=== PATIENT | male | born 1955 | race Caucasian/White ===

== ENCOUNTER 2020-05-18 14:01 | Inpatient (IN) | payer MEDICARE, OTHER ==
[2020-05-18] VITALS (9 sets, daily range): BP systolic 88–142; BP diastolic 55–94
[~2020-05-18] VITALS: Ht 172.7 cm; Wt 64.0 kg
[2020-05-18] MEDS ORDERED: PANTOPRAZOLE 40 MG 10ML VIAL IV STA (14:15)
[2020-05-18] MEDS ORDERED: SODIUM CHLORIDE 0.9% 1000ML 1,000 ML IV STA ×2 (14:15→15:00)
[2020-05-18 14:59] LABS: BASOPHILS % 0.5 % (0.0-1.0); EOSINOPHILS # (AUTO) 0.2 (0.0-0.4); EOSINOPHILS % 2.1 % (0.0-6.0); HEMATOCRIT 27.9 % (38.2-49.6); HEMOGLOBIN 9.4 g/dL (14.0-18.0); LYMPHOCYTES # (AUTO) 1.9 (1.0-3.2); LYMPHOCYTES % 24.7 % (18.0-39.1); MEAN CORPUSCULAR HEMOGLOBIN 30.6 pg (28-32); MEAN CORPUSCULAR HGB CONC 33.7 g/dL (31-35); MEAN CORPUSCULAR VOLUME 90.9 fL (81-99); MONOCYTES # (AUTO) 0.9 (0.2-0.8); MONOCYTES % 11.3 % (4.4-11.3); NEUTROPHILS # (AUTO) 4.6 (2.1-6.9); PLATELET COUNT 117 x10e3/uL (140-360); RED BLOOD COUNT 3.07 x10e6/uL (4.3-5.7); RED CELL DISTRIBUTION WIDTH 13.4 % (11.7-14.4)
--- NOTE | 2020-05-18 15:03 | Diagnostic Imaging Report ---
EXAMINATION: CHEST SINGLE (PORTABLE) INDICATION: Hypotension COMPARISON: None FINDINGS: LINES/TUBES:None LUNGS:The lungs are moderately inflated. No focal consolidation or pulmonary edema. PLEURA:No pleural effusion or pneumothorax. MEDIASTINUM:The cardiomediastinal silhouette appears normal in size and shape. BONES/SOFT TISSUES:No acute osseous injury. ABDOMEN:No free air under the diaphragm. IMPRESSION: No focal pneumonia or pulmonary edema. Signed by: Benoit Otero MD on 05/18/2020 2:59 PM
[2020-05-18 15:08] LABS: BILIRUBIN,URINE NEGATIVE (NEGATIVE); CLARITY,URINE CLEAR (CLEAR); COLOR,URINE YELLOW (YELLOW); KETONES,URINE NEGATIVE (NEGATIVE); LEUKOCYTE ESTERASE ,URINE NEGATIVE (NEGATIVE); NITRITE,URINE NEGATIVE (NEGATIVE); PROTEIN,URINE DIPSTICK NEGATIVE (NEGATIVE); URINE UROBILINOGEN 0.2 mg/dL (0.2 - 1)
[2020-05-18 15:10] LABS: INR 0.92; PROTHROMBIN TIME 12.8 seconds (11.9-14.5)
[2020-05-18 15:11] LABS: PARTIAL THROMBOPLASTIN TIME 30.2 seconds (23.8-35.5)
[2020-05-18 15:19] LABS: ALBUMIN 3.3 g/dL (3.5-5.0); ANION GAP 16.3 mmol/L (8-16); CALCIUM 9.2 mg/dL (8.4-10.2); CREATININE, SERUM 3.59 mg/dL (0.72-1.25); MAGNESIUM 1.6 MG/DL (1.3-2.1); POTASSIUM 5.3 mmol/L (3.5-5.1)
[2020-05-18 15:23] LABS: B-TYPE NATRIURETIC PEPTIDE2 84.5 pg/mL (0-100)
[2020-05-18 15:25] LABS: AMORPHOUS SEDIMENT,URINE MODERATE (FEW); BACTERIA,URINE MODERATE /HPF; EPITHELIAL CELLS,URINE FEW /LPF; RENAL EPITHELIAL CELLS,URINE FEW
[2020-05-18] MEDS: CEFEPIME 2 GM/NS 0.9% 100 ML 100 ML IV SCH (15:37)
[2020-05-18] MEDS ORDERED: VANCOMYCIN 1GM/NS 250 ML 250 ML IV ONE (15:45)
[2020-05-18] MEDS ORDERED: ONDANSETRON HCL INJ 2MG/ML 2ML 2 MG/ML VIAL IV PRN ×2 (16:45→21:15)
--- OUTSIDE RECORDS SUMMARY | 2020-05-18 16:50 | XMS REPORT | Clinical Summary ---
Author Author [facility]St[facility]Virtual [facility] Center[facility] Address Unknown Phone Unavailable Care Team Providers Care Chemical Test Engineer Name Role Phone Sharpless PCP Allergies Comments Active Allergy Reactions Severity Noted Date Lorazepam 06/09/2014 Tetanus Toxoid Fluid Tetanus Vaccines And 06/09/2014 Toxoid Medications End Date Status Medication Sig Dispensed Refills Start Date Active metoprolol (LOPRESSOR) 50 Take 1 tablet 60 tablet 0 06/10/ MG tablet (50 mg total) 4 by mouth 2 (two) times daily. Active atorvastatin (LIPITOR) 40 Take 40 mg by 0 MG tablet mouth daily. Active gabapentin (NEURONTIN) Take 300 mg 0 300 MG capsule by mouth 3 (three) times daily. Active captopril (CAPOTEN) 12.5 Take 12.5 mg 0 MG tablet by mouth 2 (two) times daily . Active clopidogrel (PLAVIX) 75 Take 75 mg by 0 mg tablet mouth daily. Active fludrocortisone Take 0.1 mg 0 (FLORINEF) 0.1 mg tablet by mouth daily. Active aspirin 81 MG EC tablet Take 81 mg by 0 mouth daily. Active albuterol HFA (VENTOLIN Inhale 1 puff 0 HFA) 90 mcg/actuation by mouth via inhaler inhaler every 6 (six) hours as needed for Wheezing. Active HYDROcodone-acetaminophen Take 1 tablet 0 (NORCO 7.5-325) 7.5-325 by mouth mg per tablet every 6 (six) hours as needed for Pain. Active butalbital-acetaminophen- 1 cap, PO, 0 / 0201 caff (FIORICET) 50-300-40 Q4H, PRN PRN 8 mg Cap Headache, Do not exceed 6 capsules in 24 hours, # 60 cap, 0 Refill(s) Active isosorbide mononitrate 30 mg = 1 0 06/10/2 01 (IMDUR) 30 MG 24 hr tab, PO, QAM, 8 tablet # 30 tab, 0 Refill(s) Active triamterene-hydroCHLOROth 1 tab, PO, 0 03/07 iazide (MAXZIDE) 75-50 mg Daily, # 30 8 per tablet tab, 0 Refill(s) Active traMADol (ULTRAM) 50 mg Take 50 mg by 0 tablet mouth every 6 (six) hours as needed for Pain. Active ranolazine (RANEXA) 500 Take 500 mg 0 MG 12 hr tablet by mouth 2 (two) times daily. Active buPROPion (WELLBUTRIN SR) Take 150 mg 0 150 MG 12 hr tablet by mouth 2 (two) times daily. Active methocarbamol (ROBAXIN) Take 500 mg 0 500 MG tablet by mouth 4 (four) times daily. Active QUEtiapine (SEROQUEL) 25 Take 25 mg by 0 MG tablet mouth nightly. Active Problems Problem Noted Date Acute metabolic encephalopathy 03/01/2017 Acute bronchitis 03/01/2017 Hypertension 03/01/2017 History of CEA (carotid endarterectomy) 03/01/2017 Family History Medical History Relation Name Comments Diabetes Father Heart disease Father Hypertension Father Miscarriages / Mother Stillbirths Diabetes Paternal Aunt Diabetes Paternal Uncle Relation Name Status Comments Father Mother Paternal Aunt Paternal Uncle Social History Date Tobacco Use Types Packs/Day Years Used Current Some Day Smoker 1 43 Smokeless Tobacco: Never Used Tobacco Cessation: Ready to Quit: Yes Alcohol Use Drinks/Week oz/Week Comments No Sex Assigned at Date Recorded Not on file Industry Job Start Date Occupation Not on file Not on file Not on file Travel End Travel History Travel Start No recent travel history available. Last Filed Vital Signs Not on file Plan of Treatment Not on file Results Not on fileafter 05/18/2019 Insurance Payer Benefit Subscriber ID Type Phone Address Plan / Group [facility] xxxxxxxxx MEDICARE [facility]GD CARE MEDICARE O MEDICAID - MEDICAID [facility] xxxxxxxxx Medica id CARE COMM STAR Contracted PLAN [id number] Advance Directives For more information, please contact: [facility] [address] [place], [place] [id number] Date Inactivated Comments Code Status Date Activated 03/03/2017 5:48 PM Full Code 03/01/2017 9:38 AM This code status was determined by: Patient 06/10/2014 6:38 PM Full Code 06/10/2014 12:39 AM This code status was determined by: Patient
--- OUTSIDE RECORDS SUMMARY | 2020-05-18 16:50 | XMS REPORT | Clinical Summary ---
Author Author [facility] Address Unknown Phone Unavailable Care Team Providers Care Felled Seam Operator Name Role Phone Asked, No Pcp PCP Unavailable Allergies Comments Active Allergy Reactions Severity Noted Date Pt states "i freak out" Lorazepam Other (See 12/26/2017 Comments) Medications End Date Status Medication Sig Dispensed Refills Start Date Active amLODIPine (NORVASC) 10 10 mg = 1 0 mg tablet tab, PO, 8 Daily, # 30 tab, 0 Refill(s) Active aspirin (ECOTRIN) 325 MG 325 mg = 1 0 03/17 enteric coated tablet tab, PO, 8 Daily, # 14 tab, 0 Refill(s), Pharmacy: [facility] Active aspirin 81 mg chewable 81 mg = 1 0 01 tablet tab, CHEW, 8 Daily, 0 Refill(s) Active atorvastatin (LIPITOR) 40 40 mg = 1 0 04/06201 MG tablet tab, PO, 8 Daily, 0 Refill(s) Active clopidogrel (PLAVIX) 75 75 mg = 1 0 mg tablet tab, PO, 8 Daily, 0 Refill(s) Active triamterene-hydrochloroth 1 tab, PO, 0 / iazid (MAXZIDE) 75-50 mg Daily, 0 8 per tablet Refill(s) Active isosorbide mononitrate 30 mg = 1 0 01 (IMDUR) 30 MG 24 hr tab, PO, QAM, 8 tablet 0 Refill(s) Active lisinopril 20 mg = 1 0 (PRINIVIL,ZESTRIL) 20 mg tab, PO, 8 tablet Daily, 0 Refill(s) Active methocarbamol (ROBAXIN) TAKE 2 0 07/16/ 201 500 MG tablet TABLETS BY 8 MOUTH 4 TIMES DAILY NEEDED FOR MUSCLE SPASMS/PAIN Active metoprolol tartrate 50 mg = 1 0 (LOPRESSOR) 50 mg tablet tab, PO, BID, 8 0 Refill(s) Active pantoprazole (PROTONIX) 40 mg = 1 0 40 MG EC tablet tab, PO, 8 Daily, 0 Refill(s) Active guaiFENesin (ROBITUSSIN) Take 10 mL 0 03/23 100 mg/5 mL syrup (200 mg 0 total) by mouth 3 (three) times a day as needed for congestion. 04/22/2020 albuterol (ACCUNEB) 2.5 Take 3 mL 75 mL 12 mg /3 mL (0.083 %) (2.5 mg 0 nebulizer total) by solutionIndications: nebulization Acute hypoxemic every 6 (six) respiratory failure (HCC) hours as needed for wheezing for up to 30 days. 04/23/2020 aspirin 81 mg chewable Chew 1 tablet 30 tablet 0 0 tablet (81 mg total) 0 daily for 30 days. 04/22/2020 atorvastatin (LIPITOR) 80 Take 1 tablet 30 tablet 0 MG tablet (80 mg total) 0 by mouth nightly for 30 days. 04/22/2020 bisacodyL (DULCOLAX) 10 Insert 1 0 mg suppository suppository 0 (10 mg total) into the rectum daily as needed for constipation for up to 30 days. 04/22/2020 carvediloL (COREG) 6.25 Take 1 tablet 60 tablet 0 MG tablet (6.25 mg 0 total) by mouth 2 (two) times a day for 30 days. 04/22/2020 cetirizine (ZyrTEC) 5 MG Take 1 tablet 0 03/23 tablet (5 mg total) 0 by mouth daily as needed for allergies for up to 30 days. 04/23/2020 clopidogreL (PLAVIX) 75 Take 1 tablet 30 tablet 0 mg tablet (75 mg total) 0 by mouth daily for 30 days. 04/22/2020 dextrose 50% syringe Infuse 25 mL 0 (12.5 g 0 total) into a venous catheter every 20 (twenty) minutes as needed (If blood glucose is between 41-69 mg/dL) for up to 30 days. 04/22/2020 dextrose 50% syringe Infuse 50 mL 0 (25 g total) 0 into a venous catheter every 20 (twenty) minutes as needed (If blood glucose is 40 mg/dL or LESS) for up to 30 days. 04/22/2020 docusate sodium (COLACE) Take 1 0 03/23 100 MG capsule capsule (100 0 mg total) by mouth 2 (two) times a day as needed for constipation for up to 30 days. 04/22/2020 glucagon 1 mg/mL recon Inject 1 mg 0 02 soln into the 0 shoulder, thigh, or buttocks every 15 (fifteen) minutes as needed (If patient does not have IV access and is unable to swallow) for up to 30 days. 04/22/2020 heparin sodium,porcine Inject 1 mL 90 mL 0 (HEParin, porcine,) 5,000 (5,000 Units 0 unit/mL injection total) under the skin every 8 (eight) hours for 30 days. 04/22/2020 hydrocortisone 1 % cream Apply 0 03/23 topically 2 0 (two) times a day for 30 days. 04/22/2020 insulin lispro (HumaLOG) Inject 0-5 10 mL 12 0 100 unit/mL injection Units under 0 the skin every 4 (four) hours for 30 days. 04/22/2020 ondansetron ODT Take 1 tablet 0 (ZOFRAN-ODT) 4 MG (4 mg total) 0 disintegrating tablet by mouth every 8 (eight) hours as needed for nausea or vomiting for up to 30 days. 04/22/2020 polyethylene glycol Take 17 g by 0 (MIRALAX) 17 gram packet mouth daily 0 as needed for constipation for up to 30 days. 04/22/2020 ramelteon (ROZEREM) 8 mg Take 1 tablet 0 03/23 tablet (8 mg total) 0 by mouth nightly as needed for sleep for up to 30 days. 04/22/2020 sennosides (SENOKOT) 8.8 Take 10 mL 600 mL 0 0 mg/5 mL syrup (17.6 mg 0 total) by mouth 2 (two) times a day for 30 days. Active Problems Problem Noted Date CVA (cerebral vascular accident) 03/21/2020 NSTEMI (non-ST elevated myocardial infarction) 02/21 Acute hypoxemic respiratory failure 02/16/2020 Other dysphagia 02/16/2020 Overview: Added automatically from request for rafael schrader [id number] Encounters Care Team Description Date Type Specialty Ajit Zhao MD 03/14/2020 Anesthesia Gastroenterology Event Meghna Chen MD EGD W/ PEG 03/14/2020 Surgery Gastroenterology Adonay Warner MD Cv selective angiography bypass graft [3 6299 (CPT)] 02/22/2020 Surgery Procedural Cardiolo Chapo Sood RN 02/22/2020 Orders Only Intensive Care Adonay Warner MD PCI stent 02/17/2020 Surgery Procedural Cardiolo Bart Lopez MD Arriaga, Michael, MD Younus, Osei Badillo MD Acute hypoxemic respiratory failure (HCC ) (Primary Dx); Drug overdose, undetermined intent, initial encounter; Obtunded; Acute renal failure, unspecified acute renal failure type (HCC); NSTEMI (non-ST elevated myocardial infarction) (HCC); Ventricular tachycardia (HCC); Hepatitis; Atherosclerosis of [place] coronary artery with angina pectoris, 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); Other dysphagia 02/16/2020 [facility] Internal Nd dicine - Encounter 03/23/2020 after 05/18/2019 Social History Date Tobacco Use Types Packs/Day Years Used Current Every Day Smoker Cigarettes 1 Smokeless Tobacco: Never Used Drinks/Week oz/Week Comments Alcohol Use quit drinking 40 yea rs ago No Sex Assigned at Date Recorded Not on file Industry Job Start Date Occupation Not on file Not on file Not on file Travel End Travel History Travel Start No recent travel history available. Last Filed Vital Signs Reading Time Taken Comments Vital Sign 133/81 03/23/2020 7:41 AM CDT Blood Pressure 96 03/23/2020 7:41 AM CDT Pulse 36.2 C (97.2 F) 03/23/2020 7:41 AM CDT Temperature 16 03/23/2020 7:41 AM CDT Respiratory Rate 95% 03/23/2020 7:41 AM CDT Oxygen Saturation - - Inhaled Oxygen Concentration 72.4 kg (159 lb 11.2 oz) 03/22/2020 4:25 AM CDT Weight 154.9 cm (5' 1") 02/16/2020 5:14 PM CDT Height 30.18 02/16/2020 5:14 PM CDT Body Mass Index Plan of Treatment Health Maintenance Due Date Last Done Comments COLONOSCOPY SCREENING 2006 SHINGLES VACCINES (#1) 2006 INFLUENZA VACCINE 06/07/2020 Procedures Comments Procedure Name Priority Date/Time Associated Diag nosis POC GLUCOSE Routine 03/23/2020 7:42 AM CDT POC GLUCOSE Routine 03/23/2020 5:49 AM CDT ESTIMATED GFR Routine 03/23/2020 5:30 AM CDT BASIC METABOLIC PANEL Routine 03/23/2020 5:30 AM CDT HC COMPLETE BLD COUNT Routine 03/23/2020 W/AUTO DIFF 5:30 AM CDT POC GLUCOSE Routine 03/23/2020 5:13 AM CDT POC GLUCOSE Routine 03/23/2020 1:16 AM CDT POC GLUCOSE Routine 03/22/2020 8:59 PM CDT POC GLUCOSE Routine 03/22/2020 5:51 PM CDT POC GLUCOSE Routine 03/22/2020 12:17 PM CDT POC GLUCOSE Routine 03/22/2020 8:56 AM CDT ESTIMATED GFR Routine 03/22/2020 4:28 AM CDT BASIC METABOLIC PANEL Routine 03/22/2020 4:28 AM CDT HC COMPLETE BLD COUNT Routine 03/22/2020 W/AUTO DIFF 4:27 AM CDT POC GLUCOSE Routine 03/22/2020 4:22 AM CDT POC GLUCOSE Routine 03/22/2020 12:27 AM CDT POC GLUCOSE Routine 03/21/2020 9:01 PM CDT POC GLUCOSE Routine 03/21/2020 5:23 PM CDT POC GLUCOSE Routine 03/21/2020 11:33 AM CDT POC GLUCOSE Routine 03/21/2020 7:49 AM CDT HC COMPLETE BLD COUNT Routine 03/21/2020 W/AUTO DIFF 5:20 AM CDT POC GLUCOSE Routine 03/21/2020 4:24 AM CDT ESTIMATED GFR Routine 03/21/2020 4:00 AM CDT BASIC METABOLIC PANEL Routine 03/21/2020 4:00 AM CDT POC GLUCOSE Routine 03/21/2020 1:19 AM CDT POC GLUCOSE Routine 03/20/2020 9:15 PM CDT POC GLUCOSE Routine 03/20/2020 4:15 PM CDT POC GLUCOSE Routine 03/20/2020 11:55 AM CDT POC GLUCOSE Routine 03/20/2020 7:30 AM CDT HC COMPLETE BLD COUNT Routine 03/20/2020 W/AUTO DIFF 5:10 AM CDT POC GLUCOSE Routine 03/20/2020 4:57 AM CDT ESTIMATED GFR Routine 03/20/2020 4:00 AM CDT BASIC METABOLIC PANEL Routine 03/20/2020 4:00 AM CDT POC GLUCOSE Routine 03/19/2020 8:56 PM CDT POC GLUCOSE Routine 03/19/2020 4:45 PM CDT POC GLUCOSE Routine 03/19/2020 11:31 AM CDT POC GLUCOSE Routine 03/19/2020 8:27 AM CDT POC GLUCOSE Routine 03/19/2020 5:49 AM CDT POC GLUCOSE Routine 03/18/2020 11:55 PM CDT POC GLUCOSE Routine 03/18/2020 9:30 PM CDT POC GLUCOSE Routine 03/18/2020 5:37 PM CDT POC GLUCOSE Routine 03/18/2020 11:35 AM CDT POC GLUCOSE Routine 03/18/2020 8:25 AM CDT XR CHEST 1 VW PORTABLE Routine 03/18/2020 6:20 AM CDT ESTIMATED GFR Routine 03/18/2020 4:40 AM CDT BASIC METABOLIC PANEL Routine 03/18/2020 4:40 AM CDT HC COMPLETE BLD COUNT Routine 03/18/2020 W/AUTO DIFF 4:40 AM CDT POC GLUCOSE Routine 03/18/2020 4:29 AM CDT POC GLUCOSE Routine 03/18/2020 12:12 AM CDT POC GLUCOSE Routine 03/17/2020 8:26 PM CDT POC GLUCOSE Routine 03/17/2020 5:00 PM CDT POC GLUCOSE Routine 03/17/2020 12:29 PM CDT POC GLUCOSE Routine 03/17/2020 7:42 AM CDT ESTIMATED GFR Timed 03/17/2020 6:00 AM CDT BASIC METABOLIC PANEL Timed 03/17/2020 6:00 AM CDT HC COMPLETE BLD COUNT Timed 03/17/2020 W/AUTO DIFF 6:00 AM CDT POC GLUCOSE Routine 03/17/2020 3:28 AM CDT POC GLUCOSE Routine 03/16/2020 11:28 PM CDT POC GLUCOSE Routine 03/16/2020 6:43 PM CDT POC GLUCOSE Routine 03/16/2020 3:13 PM CDT POC GLUCOSE Routine 03/16/2020 12:01 PM CDT POC GLUCOSE Routine 03/16/2020 8:24 AM CDT CBC HEMOGRAM Routine 03/16/2020 5:00 AM CDT ESTIMATED GFR Routine 03/16/2020 5:00 AM CDT BASIC METABOLIC PANEL Routine 03/16/2020 5:00 AM CDT PREALBUMIN LEVEL Routine 03/16/2020 5:00 AM CDT PHOSPHORUS LEVEL Routine 03/16/2020 5:00 AM CDT MAGNESIUM LEVEL Routine 03/16/2020 5:00 AM CDT POC GLUCOSE Routine 03/16/2020 4:30 AM CDT POC GLUCOSE Routine 03/16/2020 12:11 AM CDT POC GLUCOSE Routine 03/15/2020 8:35 PM CDT POC GLUCOSE Routine 03/15/2020 4:36 PM CDT POC GLUCOSE Routine 03/15/2020 8:10 AM CDT SMEAR REVIEW Timed 03/15/2020 5:55 AM CDT ESTIMATED GFR Timed 03/15/2020 5:55 AM CDT BASIC METABOLIC PANEL Timed 03/15/2020 5:55 AM CDT HC COMPLETE BLD COUNT Timed 03/15/2020 W/AUTO DIFF 5:55 AM CDT POC GLUCOSE Routine 03/15/2020 4:10 AM CDT POC GLUCOSE Routine 03/15/2020 12:37 AM CDT POC GLUCOSE Routine 03/14/2020 9:07 PM CDT POC GLUCOSE Routine 03/14/2020 5:09 PM CDT XR CHEST 1 VW PORTABLE Routine 03/14/2020 3:05 PM CDT POC GLUCOSE Routine 03/14/2020 1:02 PM CDT AZ AN ELECTIVE Routine 03/14/2020 ENDOTRACHEAL AIRWAY 12:40 PM CDT ESOPHAGOGASTRODUODENOSCOP 03/14/2020 Other dysph agia Y (EGD) 12:20 PM CDT POC GLUCOSE Routine 03/14/2020 9:35 AM CDT ESTIMATED GFR Timed 03/14/2020 6:00 AM CDT BASIC METABOLIC PANEL Timed 03/14/2020 6:00 AM CDT HC COMPLETE BLD COUNT Timed 03/14/2020 W/AUTO DIFF 5:20 AM CDT POC GLUCOSE Routine 03/14/2020 5:03 AM CDT POC GLUCOSE Routine 03/14/2020 1:22 AM CDT POC GLUCOSE Routine 03/13/2020 9:50 PM CDT POC GLUCOSE Routine 03/13/2020 5:06 PM CDT ESTIMATED GFR Timed 03/13/2020 12:55 PM CDT BASIC METABOLIC PANEL Timed 03/13/2020 12:55 PM CDT HC COMPLETE BLD COUNT Timed 03/13/2020 W/AUTO DIFF 12:55 PM CDT POC GLUCOSE Routine 03/13/2020 12:33 PM CDT POC GLUCOSE Routine 03/13/2020 8:15 AM CDT POC GLUCOSE Routine 03/13/2020 5:11 AM CDT POC GLUCOSE Routine 03/13/2020 12:55 AM CDT XR ABDOMEN 1 VW STAT 03/12/2020 8:10 PM CDT POC GLUCOSE Routine 03/12/2020 8:05 PM CDT XR ABDOMEN 1 VW STAT 03/12/2020 5:54 PM CDT POC GLUCOSE Routine 03/12/2020 4:53 PM CDT XR ABDOMEN 1 VW PORTABLE Routine 03/12/2020 2:17 PM CDT POC GLUCOSE Routine 03/12/2020 11:48 AM CDT XR ABDOMEN 1 VW PORTABLE Routine 03/12/2020 11:07 AM CDT POC GLUCOSE Routine 03/12/2020 9:26 AM CDT ESTIMATED GFR Routine 03/12/2020 5:33 AM CDT HC COMPLETE BLD COUNT Routine 03/12/2020 W/AUTO DIFF 5:33 AM CDT MAGNESIUM LEVEL Routine 03/12/2020 5:33 AM CDT COMPREHENSIVE METABOLIC Routine 03/12/2020 PANEL 5:33 AM CDT POC GLUCOSE Routine 03/12/2020 4:43 AM CDT POC GLUCOSE Routine 03/12/2020 12:23 AM CDT POC GLUCOSE Routine 03/11/2020 8:20 PM CDT POC GLUCOSE Routine 03/11/2020 4:46 PM CDT POC GLUCOSE Routine 03/11/2020 11:47 AM CDT POC GLUCOSE Routine 03/11/2020 9:25 AM CDT MANUAL DIFFERENTIAL Routine 03/11/2020 6:16 AM CDT ESTIMATED GFR Routine 03/11/2020 6:16 AM CDT MAGNESIUM LEVEL Routine 03/11/2020 6:16 AM CDT COMPREHENSIVE METABOLIC Routine 03/11/2020 PANEL 6:16 AM CDT CBC WITH PLATELET AND Routine 03/11/2020 DIFFERENTIAL 6:16 AM CDT POC GLUCOSE Routine 03/11/2020 5:04 AM CDT POC GLUCOSE Routine 03/11/2020 12:54 AM CDT POC GLUCOSE Routine 03/10/2020 8:28 PM CDT POC GLUCOSE Routine 03/10/2020 4:49 PM CDT POC GLUCOSE Routine 03/10/2020 12:11 PM CDT POC GLUCOSE Routine 03/10/2020 7:57 AM CDT POC GLUCOSE Routine 03/10/2020 6:21 AM CDT ESTIMATED GFR Routine 03/10/2020 4:08 AM CDT BASIC METABOLIC PANEL Routine 03/10/2020 4:08 AM CDT HC COMPLETE BLD COUNT Routine 03/10/2020 W/AUTO DIFF 4:08 AM CDT POC GLUCOSE Routine 03/10/2020 1:20 AM CDT POC GLUCOSE Routine 03/09/2020 11:15 PM CDT XR ABDOMEN 1 VW PORTABLE STAT 03/09/2020 10:13 PM CDT POC GLUCOSE Routine 03/09/2020 4:53 PM CDT FL MODIFIED BARIUM Routine 03/09/2020 SWALLOW 4:14 PM CDT POC GLUCOSE Routine 03/09/2020 1:08 PM CDT POC GLUCOSE Routine 03/09/2020 8:38 AM CDT POC GLUCOSE Routine 03/09/2020 5:14 AM CDT ESTIMATED GFR Routine 03/09/2020 5:00 AM CDT MAGNESIUM LEVEL Routine 03/09/2020 5:00 AM CDT COMPREHENSIVE METABOLIC Routine 03/09/2020 PANEL 5:00 AM CDT CBC WITH PLATELET AND Routine 03/09/2020 DIFFERENTIAL 5:00 AM CDT POC GLUCOSE Routine 03/09/2020 12:46 AM CDT POC GLUCOSE Routine 03/08/2020 8:34 PM CDT POC GLUCOSE Routine 03/08/2020 4:03 PM CDT POC GLUCOSE Routine 03/08/2020 12:04 PM CDT POC GLUCOSE Routine 03/08/2020 7:47 AM CDT POC GLUCOSE Routine 03/08/2020 5:23 AM CDT CBC WITH PLATELET AND Routine 03/08/2020 DIFFERENTIAL 5:20 AM CDT ESTIMATED GFR Routine 03/08/2020 4:00 AM CDT MAGNESIUM LEVEL Routine 03/08/2020 4:00 AM CDT COMPREHENSIVE METABOLIC Routine 03/08/2020 PANEL 4:00 AM CDT POC GLUCOSE Routine 03/08/2020 12:35 AM CDT POC GLUCOSE Routine 03/07/2020 9:03 PM CDT POC GLUCOSE Routine 03/07/2020 4:[address] CHEST WO CONTRAST Routine 03/07/2020 ABDOMEN WO CONTRAST 2:46 PM CDT PELVIS WO CONTRAST CT HEAD WO CONTRAST STAT 03/07/2020 2:46 PM CDT POC GLUCOSE Routine 03/07/2020 2:11 PM CDT URINALYSIS SCREEN AND Routine 03/07/2020 MICROSCOPY, WITH REFLEX 1:31 PM CDT TO CULTURE URINE CULTURE Routine 03/07/2020 1:31 PM CDT ARTERIAL BLOOD GAS Routine 03/07/2020 11:13 AM CDT POC GLUCOSE Routine 03/07/2020 11:04 AM CDT POC GLUCOSE Routine 03/07/2020 7:57 AM CDT ESTIMATED GFR Routine 03/07/2020 5:00 AM CDT BASIC METABOLIC PANEL Routine 03/07/2020 5:00 AM CDT CBC HEMOGRAM Routine 03/07/2020 4:52 AM CDT POC GLUCOSE Routine 03/07/2020 3:53 AM CDT POC GLUCOSE Routine 03/07/2020 12:44 AM CDT POC GLUCOSE Routine 03/06/2020 8:28 PM CDT POC GLUCOSE Routine 03/06/2020 4:48 PM CDT POC GLUCOSE Routine 03/06/2020 12:23 PM CDT POC GLUCOSE Routine 03/06/2020 9:01 AM CDT ESTIMATED GFR Routine 03/06/2020 6:11 AM CDT MAGNESIUM LEVEL Routine 03/06/2020 6:11 AM CDT COMPREHENSIVE METABOLIC Routine 03/06/2020 PANEL 6:11 AM CDT HC COMPLETE BLD COUNT Routine 03/06/2020 W/AUTO DIFF 6:11 AM CDT POC GLUCOSE Routine 03/06/2020 6:06 AM CDT POC GLUCOSE Routine 03/06/2020 3:58 AM CDT POC GLUCOSE Routine 03/06/2020 2:21 AM CDT POC GLUCOSE Routine 03/06/2020 1:08 AM CDT POC GLUCOSE Routine 03/05/2020 11:51 PM CDT POC GLUCOSE Routine 03/05/2020 8:01 PM CDT POC GLUCOSE Routine 03/05/2020 4:05 PM CDT XR ABDOMEN 1 VW PORTABLE STAT 03/05/2020 3:39 PM CDT POC GLUCOSE Routine 03/05/2020 11:50 AM CDT POC GLUCOSE Routine 03/05/2020 7:54 AM CDT ESTIMATED GFR Routine 03/05/2020 5:15 AM CDT HC COMPLETE BLD COUNT Routine 03/05/2020 W/AUTO DIFF 5:15 AM CDT MAGNESIUM LEVEL Routine 03/05/2020 5:15 AM CDT COMPREHENSIVE METABOLIC Routine 03/05/2020 PANEL 5:15 AM CDT POC GLUCOSE Routine 03/05/2020 4:51 AM CDT POC GLUCOSE Routine 03/05/2020 1:16 AM CDT POC GLUCOSE Routine 03/04/2020 8:42 PM CDT POC GLUCOSE Routine 03/04/2020 4:09 PM CDT POC GLUCOSE Routine 03/04/2020 11:53 AM CDT POC GLUCOSE Routine 03/04/2020 8:18 AM CDT HC COMPLETE BLD COUNT Timed 03/04/2020 W/AUTO DIFF 4:46 AM CDT ESTIMATED GFR Routine 03/04/2020 4:46 AM CDT BASIC METABOLIC PANEL Routine 03/04/2020 4:46 AM CDT POC GLUCOSE Routine 03/04/2020 4:36 AM CDT POC GLUCOSE Routine 03/04/2020 12:29 AM CDT POC GLUCOSE Routine 03/03/2020 8:06 PM CDT POC GLUCOSE Routine 03/03/2020 6:11 PM CDT POC GLUCOSE Routine 03/03/2020 12:36 PM CDT HC COMPLETE BLD COUNT Timed 03/03/2020 W/AUTO DIFF 10:45 AM CDT POC GLUCOSE Routine 03/03/2020 8:41 AM CDT POC GLUCOSE Routine 03/03/2020 5:29 AM CDT ESTIMATED GFR Routine 03/03/2020 4:27 AM CDT B NATRIURETIC PEPTIDE Routine 03/03/2020 4:27 AM CDT PHOSPHORUS LEVEL Routine 03/03/2020 4:27 AM CDT MAGNESIUM LEVEL Routine 03/03/2020 4:27 AM CDT BASIC METABOLIC PANEL Routine 03/03/2020 4:27 AM CDT POC GLUCOSE Routine 03/03/2020 2:03 AM CDT POC GLUCOSE Routine 03/02/2020 8:58 PM CDT POC GLUCOSE Routine 03/02/2020 5:10 PM CDT FL MODIFIED BARIUM Routine 03/02/2020 SWALLOW 2:14 PM CDT POC GLUCOSE Routine 03/02/2020 11:33 AM CDT POC GLUCOSE Routine 03/02/2020 7:42 AM CDT ESTIMATED GFR STAT 03/02/2020 6:54 AM CDT BASIC METABOLIC PANEL STAT 03/02/2020 6:54 AM CDT POC GLUCOSE Routine 03/02/2020 5:01 AM CDT POC GLUCOSE Routine 03/02/2020 1:00 AM CDT POC GLUCOSE Routine 03/01/2020 9:06 PM CDT POC GLUCOSE Routine 03/01/2020 5:54 PM CDT POC GLUCOSE Routine 03/01/2020 11:38 AM CDT XR CHEST 1 VW PORTABLE Routine 03/01/2020 9:07 AM CDT POC GLUCOSE Routine 03/01/2020 7:34 AM CDT ESTIMATED GFR Routine 03/01/2020 4:50 AM CDT MAGNESIUM LEVEL Routine 03/01/2020 4:50 AM CDT PHOSPHORUS LEVEL Routine 03/01/2020 4:50 AM CDT BASIC METABOLIC PANEL Routine 03/01/2020 4:50 AM CDT HC COMPLETE BLD COUNT Routine 03/01/2020 W/AUTO DIFF 4:50 AM CDT POC GLUCOSE Routine 03/01/2020 4:47 AM CDT POC GLUCOSE Routine 03/01/2020 1:10 AM CDT POC GLUCOSE Routine 02/29/2020 8:55 PM CDT POC GLUCOSE Routine 02/29/2020 4:46 PM CDT AMMONIA LEVEL Routine 02/29/2020 4:04 PM CDT POC GLUCOSE Routine 02/29/2020 12:45 PM CDT HEPATIC FUNCTION PANEL Routine 02/29/2020 11:28 AM CDT POC GLUCOSE Routine 02/29/2020 8:59 AM CDT POC GLUCOSE Routine 02/29/2020 6:17 AM CDT ESTIMATED GFR Routine 02/29/2020 4:00 AM CDT MAGNESIUM LEVEL Routine 02/29/2020 4:00 AM CDT PHOSPHORUS LEVEL Routine 02/29/2020 4:00 AM CDT BASIC METABOLIC PANEL Routine 02/29/2020 4:00 AM CDT IONIZED CALCIUM Routine 02/29/2020 4:00 AM CDT HEPATIC FUNCTION PANEL Routine 02/29/2020 4:00 AM CDT HC COMPLETE BLD COUNT Routine 02/29/2020 W/AUTO DIFF 3:41 AM CDT POC GLUCOSE Routine 02/29/2020 1:02 AM CDT POC GLUCOSE Routine 02/28/2020 9:02 PM CDT POC GLUCOSE Routine 02/28/2020 4:26 PM CDT POC GLUCOSE Routine 02/28/2020 11:52 AM CDT XR CHEST 1 VW PORTABLE Routine 02/28/2020 10:23 AM CDT POC GLUCOSE Routine 02/28/2020 9:27 AM CDT POC GLUCOSE Routine 02/28/2020 8:57 AM CDT XR CHEST 1 VW PORTABLE Routine 02/28/2020 6:44 AM CDT POC GLUCOSE Routine 02/28/2020 4:38 AM CDT ESTIMATED GFR Routine 02/28/2020 2:00 AM CDT MAGNESIUM LEVEL Routine 02/28/2020 2:00 AM CDT PHOSPHORUS LEVEL Routine 02/28/2020 2:00 AM CDT BASIC METABOLIC PANEL Routine 02/28/2020 2:00 AM CDT HC COMPLETE BLD COUNT Routine 02/28/2020 W/AUTO DIFF 2:00 AM CDT IONIZED CALCIUM Routine 02/28/2020 2:00 AM CDT HEPATIC FUNCTION PANEL Routine 02/28/2020 2:00 AM CDT POC GLUCOSE Routine 02/28/2020 12:44 AM CDT POC GLUCOSE Routine 02/27/2020 8:45 PM CDT POC GLUCOSE Routine 02/27/2020 4:42 PM CDT POC GLUCOSE Routine 02/27/2020 12:47 PM CDT ARTERIAL BLOOD GAS Routine 02/27/2020 8:57 AM CDT POC GLUCOSE Routine 02/27/2020 8:24 AM CDT XR CHEST 1 VW PORTABLE Routine 02/27/2020 5:50 AM CDT ESTIMATED GFR Routine 02/27/2020 3:57 AM CDT IONIZED CALCIUM Routine 02/27/2020 3:57 AM CDT HEPATIC FUNCTION PANEL Routine 02/27/2020 3:57 AM CDT PHOSPHORUS LEVEL Routine 02/27/2020 3:57 AM CDT MAGNESIUM LEVEL Routine 02/27/2020 3:57 AM CDT BASIC METABOLIC PANEL Routine 02/27/2020 3:57 AM CDT HC COMPLETE BLD COUNT Routine 02/27/2020 W/AUTO DIFF 3:30 AM CDT POC GLUCOSE Routine 02/27/2020 1:20 AM CDT XR ABDOMEN 1 VW PORTABLE STAT 02/26/2020 9:44 PM CDT POC GLUCOSE Routine 02/26/2020 9:00 PM CDT POC GLUCOSE Routine 02/26/2020 4:47 PM CDT POC GLUCOSE Routine 02/26/2020 1:04 PM CDT POC GLUCOSE Routine 02/26/2020 8:20 AM CDT XR CHEST 1 VW PORTABLE Routine 02/26/2020 5:32 AM CDT POC GLUCOSE Routine 02/26/2020 5:24 AM CDT ESTIMATED GFR Routine 02/26/2020 2:30 AM CDT IONIZED CALCIUM, ARTERIAL Routine 02/26/2020 2:30 AM CDT PHOSPHORUS LEVEL Routine 02/26/2020 2:30 AM CDT MAGNESIUM LEVEL Routine 02/26/2020 2:30 AM CDT BASIC METABOLIC PANEL Routine 02/26/2020 2:30 AM CDT HC COMPLETE BLD COUNT Routine 02/26/2020 W/AUTO DIFF 2:30 AM CDT ARTERIAL BLOOD GAS Routine 02/26/2020 2:30 AM CDT POC GLUCOSE Routine 02/26/2020 1:18 AM CDT POC GLUCOSE Routine 02/25/2020 9:05 PM CDT POC GLUCOSE Routine 02/25/2020 4:20 PM CDT MAGNESIUM LEVEL Routine 02/25/2020 3:17 PM CDT PHOSPHORUS LEVEL Routine 02/25/2020 3:17 PM CDT ESTIMATED GFR Routine 02/25/2020 3:17 PM CDT BASIC METABOLIC PANEL Routine 02/25/2020 3:17 PM CDT POC GLUCOSE Routine 02/25/2020 1:37 PM CDT ECG 12-LEAD Routine 02/25/2020 9:55 AM CDT POC GLUCOSE Routine 02/25/2020 7:23 AM CDT XR CHEST 1 VW PORTABLE Routine 02/25/2020 6:30 AM CDT POC GLUCOSE Routine 02/25/2020 5:05 AM CDT ESTIMATED GFR Routine 02/25/2020 4:35 AM CDT IONIZED CALCIUM, ARTERIAL Routine 02/25/2020 4:35 AM CDT PHOSPHORUS LEVEL Routine 02/25/2020 4:35 AM CDT MAGNESIUM LEVEL Routine 02/25/2020 4:35 AM CDT BASIC METABOLIC PANEL Routine 02/25/2020 4:35 AM CDT HC COMPLETE BLD COUNT Routine 02/25/2020 W/AUTO DIFF 4:35 AM CDT ARTERIAL BLOOD GAS Routine 02/25/2020 4:35 AM CDT POC GLUCOSE Routine 02/25/2020 12:47 AM CDT POC GLUCOSE Routine 02/24/2020 8:32 PM CDT POC GLUCOSE Routine 02/24/2020 5:07 PM CDT POC GLUCOSE Routine 02/24/2020 12:47 PM CDT ARTERIAL BLOOD GAS Routine 02/24/2020 10:10 AM CDT POC GLUCOSE Routine 02/24/2020 8:55 AM CDT XR CHEST 1 VW PORTABLE Routine 02/24/2020 5:39 AM CDT O2 SATURATION, VENOUS Routine 02/24/2020 4:30 AM CDT ESTIMATED GFR Routine 02/24/2020 4:30 AM CDT IONIZED CALCIUM, ARTERIAL Routine 02/24/2020 4:30 AM CDT ARTERIAL BLOOD GAS Routine 02/24/2020 4:30 AM CDT PHOSPHORUS LEVEL Routine 02/24/2020 4:30 AM CDT MAGNESIUM LEVEL Routine 02/24/2020 4:30 AM CDT COMPREHENSIVE METABOLIC Routine 02/24/2020 PANEL 4:30 AM CDT HC COMPLETE BLD COUNT Routine 02/24/2020 W/AUTO DIFF 4:30 AM CDT POC GLUCOSE Routine 02/24/2020 4:23 AM CDT POC GLUCOSE Routine 02/24/2020 12:40 AM CDT POC GLUCOSE Routine 02/23/2020 10:18 PM CDT POC GLUCOSE Routine 02/23/2020 4:53 PM CDT MAGNESIUM LEVEL Routine 02/23/2020 4:45 PM CDT POTASSIUM LEVEL Routine 02/23/2020 4:45 PM CDT POC GLUCOSE Routine 02/23/2020 1:06 PM CDT POC GLUCOSE Routine 02/23/2020 9:02 AM CDT ARTERIAL BLOOD GAS Routine 02/23/2020 8:36 AM CDT XR CHEST 1 VW PORTABLE Routine 02/23/2020 5:21 AM CDT POC GLUCOSE Routine 02/23/2020 4:54 AM CDT O2 SATURATION, VENOUS Routine 02/23/2020 4:35 AM CDT ESTIMATED GFR Routine 02/23/2020 4:35 AM CDT ARTERIAL BLOOD GAS Routine 02/23/2020 4:35 AM CDT PHOSPHORUS LEVEL Routine 02/23/2020 4:35 AM CDT MAGNESIUM LEVEL Routine 02/23/2020 4:35 AM CDT COMPREHENSIVE METABOLIC Routine 02/23/2020 PANEL 4:35 AM CDT HC COMPLETE BLD COUNT Routine 02/23/2020 W/AUTO DIFF 4:35 AM CDT POC GLUCOSE Routine 02/23/2020 12:46 AM CDT POC GLUCOSE Routine 02/22/2020 8:50 PM CDT ECG 12-LEAD Routine 02/22/2020 4:46 PM CDT ACTIVATED CLOTTING TIME Routine 02/22/2020 4:44 PM CDT POC GLUCOSE Routine 02/22/2020 4:37 PM CDT CV SELECTIVE ANGIOGRAPHY Routine 02/22/2020 Ather osclerosis of [place] BYPASS GRAFT 4:02 PM CDT coronary artery wit h angina pectoris, 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) MAGNESIUM LEVEL Routine 02/22/2020 1:57 PM CDT POTASSIUM LEVEL Routine 02/22/2020 1:57 PM CDT POC GLUCOSE Routine 02/22/2020 12:31 PM CDT PARTIAL THROMBOPLASTIN Timed 02/22/2020 TIME (PTT) 10:30 AM CDT POC GLUCOSE Routine 02/22/2020 8:56 AM CDT XR CHEST 1 VW PORTABLE Routine 02/22/2020 4:15 AM CDT ESTIMATED GFR Routine 02/22/2020 4:00 AM CDT PHOSPHORUS LEVEL Routine 02/22/2020 4:00 AM CDT MAGNESIUM LEVEL Routine 02/22/2020 4:00 AM CDT BASIC METABOLIC PANEL Routine 02/22/2020 4:00 AM CDT IONIZED CALCIUM, ARTERIAL Routine 02/22/2020 3:45 AM CDT ARTERIAL BLOOD GAS Routine 02/22/2020 3:45 AM CDT HC COMPLETE BLD COUNT Routine 02/22/2020 W/AUTO DIFF 3:45 AM CDT PARTIAL THROMBOPLASTIN Routine 02/22/2020 TIME (PTT) 3:45 AM CDT POC GLUCOSE Routine 02/22/2020 1:11 AM CDT POC GLUCOSE Routine 02/21/2020 8:03 PM CDT PHOSPHORUS LEVEL Routine 02/21/2020 8:00 PM CDT MAGNESIUM LEVEL Routine 02/21/2020 8:00 PM CDT IONIZED CALCIUM Routine 02/21/2020 8:00 PM CDT POTASSIUM LEVEL Routine 02/21/2020 8:00 PM CDT ECG 12-LEAD Routine 02/21/2020 7:56 PM CDT PARTIAL THROMBOPLASTIN Routine 02/21/2020 TIME (PTT) 6:17 PM CDT POC GLUCOSE Routine 02/21/2020 5:00 PM CDT ESTIMATED GFR Routine 02/21/2020 1:00 PM CDT MAGNESIUM LEVEL Routine 02/21/2020 1:00 PM CDT PHOSPHORUS LEVEL Routine 02/21/2020 1:00 PM CDT BASIC METABOLIC PANEL Routine 02/21/2020 1:00 PM CDT IONIZED CALCIUM Routine 02/21/2020 1:00 PM CDT PARTIAL THROMBOPLASTIN Timed 02/21/2020 TIME (PTT) 12:58 PM CDT XR ABDOMEN 1 VW PORTABLE Routine 02/21/2020 11:54 AM CDT UNMONITORED VIDEO-EEG 60 Routine 02/21/2020 HRS 1 MIN-74 HRS 11:36 AM CDT POC GLUCOSE Routine 02/21/2020 8:44 AM CDT XR CHEST 1 VW PORTABLE STAT 02/21/2020 8:26 AM CDT POC GLUCOSE Routine 02/21/2020 5:06 AM CDT PARTIAL THROMBOPLASTIN Timed 02/21/2020 TIME (PTT) 4:10 AM CDT ARTERIAL BLOOD GAS Routine 02/21/2020 4:10 AM CDT O2 SATURATION, VENOUS Routine 02/21/2020 4:10 AM CDT HC COMPLETE BLD COUNT Routine 02/21/2020 W/AUTO DIFF 4:10 AM CDT ESTIMATED GFR Routine 02/21/2020 4:00 AM CDT PHOSPHORUS LEVEL Routine 02/21/2020 4:00 AM CDT MAGNESIUM LEVEL Routine 02/21/2020 4:00 AM CDT IONIZED CALCIUM Routine 02/21/2020 4:00 AM CDT COMPREHENSIVE METABOLIC Routine 02/21/2020 PANEL 4:00 AM CDT UNMONITORED VIDEO DAILY Routine 02/21/2020 2:50 AM CDT POC GLUCOSE Routine 02/21/2020 12:36 AM CDT PARTIAL THROMBOPLASTIN Routine 02/20/2020 TIME (PTT) 9:55 PM CDT POC GLUCOSE Routine 02/20/2020 8:13 PM CDT POC GLUCOSE Routine 02/20/2020 5:10 PM CDT PARTIAL THROMBOPLASTIN Routine 02/20/2020 TIME (PTT) 2:40 PM CDT ESTIMATED GFR Routine 02/20/2020 1:10 PM CDT IONIZED CALCIUM Routine 02/20/2020 1:10 PM CDT PHOSPHORUS LEVEL Routine 02/20/2020 1:10 PM CDT MAGNESIUM LEVEL Routine 02/20/2020 1:10 PM CDT BASIC METABOLIC PANEL Routine 02/20/2020 1:10 PM CDT POC GLUCOSE Routine 02/20/2020 1:07 PM CDT POC GLUCOSE Routine 02/20/2020 8:49 AM CDT POC GLUCOSE Routine 02/20/2020 5:24 AM CDT PARTIAL THROMBOPLASTIN Timed 02/20/2020 TIME (PTT) 5:20 AM CDT HC COMPLETE BLD COUNT Routine 02/20/2020 W/AUTO DIFF 5:20 AM CDT XR CHEST 1 VW PORTABLE Routine 02/20/2020 4:53 AM CDT PHOSPHORUS LEVEL Routine 02/20/2020 4:00 AM CDT ESTIMATED GFR Routine 02/20/2020 4:00 AM CDT MAGNESIUM LEVEL Routine 02/20/2020 4:00 AM CDT IONIZED CALCIUM Routine 02/20/2020 4:00 AM CDT COMPREHENSIVE METABOLIC Routine 02/20/2020 PANEL 4:00 AM CDT POC GLUCOSE Routine 02/20/2020 1:18 AM CDT UNMONITORED VIDEO DAILY Routine 02/20/2020 12:38 AM CDT TROPONIN Routine 02/19/2020 11:52 PM CDT CBC HEMOGRAM Routine 02/19/2020 11:52 PM CDT ESTIMATED GFR Routine 02/19/2020 11:46 PM CDT IONIZED CALCIUM Routine 02/19/2020 11:46 PM CDT PHOSPHORUS LEVEL Routine 02/19/2020 11:46 PM CDT MAGNESIUM LEVEL Routine 02/19/2020 11:46 PM CDT BASIC METABOLIC PANEL Routine 02/19/2020 11:46 PM CDT MRI BRAIN WO CONTRAST Routine 02/19/2020 10:46 PM CDT POC GLUCOSE Routine 02/19/2020 9:09 PM CDT POC GLUCOSE Routine 02/19/2020 5:11 PM CDT PV TRANSCRANIAL DOPPLER Routine 02/19/2020 INTRACRANIAL ARTERIES 3:45 PM CDT COMPLETE ESTIMATED GFR Routine 02/19/2020 2:30 PM CDT BASIC METABOLIC PANEL Routine 02/19/2020 2:30 PM CDT LIPID PANEL Routine 02/19/2020 2:30 PM CDT PHOSPHORUS LEVEL Routine 02/19/2020 2:30 PM CDT IONIZED CALCIUM Routine 02/19/2020 2:30 PM CDT MAGNESIUM LEVEL Routine 02/19/2020 2:30 PM CDT PARTIAL THROMBOPLASTIN Timed 02/19/2020 TIME (PTT) 2:30 PM CDT TROPONIN Timed 02/19/2020 2:30 PM CDT POC GLUCOSE Routine 02/19/2020 1:[address] ABDOMEN WWO CONTRAST STAT 02/19/2020 PELVIS W CONTRAST 11:[address] ANGIOGRAM HEAD W WO STAT 02/19/2020 CONTRAST 11:[address] ANGIOGRAM NECK W WO STAT 02/19/2020 CONTRAST 11:[address] STROKE BRAIN WO STAT 02/19/2020 CONTRAST 11:26 AM CDT POC GLUCOSE Routine 02/19/2020 8:52 AM CDT PARTIAL THROMBOPLASTIN Timed 02/19/2020 TIME (PTT) 8:30 AM CDT TROPONIN Timed 02/19/2020 6:20 AM CDT XR CHEST 1 VW PORTABLE Routine 02/19/2020 5:59 AM CDT POC GLUCOSE Routine 02/19/2020 4:52 AM CDT IONIZED CALCIUM, ARTERIAL Routine 02/19/2020 4:15 AM CDT ARTERIAL BLOOD GAS Routine 02/19/2020 4:15 AM CDT ESTIMATED GFR Routine 02/19/2020 4:15 AM CDT MAGNESIUM LEVEL Routine 02/19/2020 4:15 AM CDT COMPREHENSIVE METABOLIC Routine 02/19/2020 PANEL 4:15 AM CDT HC COMPLETE BLD COUNT Routine 02/19/2020 W/AUTO DIFF 4:15 AM CDT PHOSPHORUS LEVEL Routine 02/19/2020 4:15 AM CDT VANCOMYCIN LEVEL, RANDOM Routine 02/19/2020 4:15 AM CDT POC GLUCOSE Routine 02/19/2020 1:44 AM CDT EEG SETUP Routine 02/19/2020 12:13 AM CDT TROPONIN Timed 02/18/2020 11:56 PM CDT PARTIAL THROMBOPLASTIN Routine 02/18/2020 TIME (PTT) 11:50 PM CDT ESTIMATED GFR Timed 02/18/2020 9:45 PM CDT PHOSPHORUS LEVEL Timed 02/18/2020 9:45 PM CDT MAGNESIUM LEVEL Timed 02/18/2020 9:45 PM CDT IONIZED CALCIUM Timed 02/18/2020 9:45 PM CDT BASIC METABOLIC PANEL Timed 02/18/2020 9:45 PM CDT POC GLUCOSE Routine 02/18/2020 8:53 PM CDT COVID-19 QUALITATIVE PCR Routine 02/18/2020 5:08 PM CDT PARTIAL THROMBOPLASTIN Timed 02/18/2020 TIME (PTT) 4:52 PM CDT POC GLUCOSE Routine 02/18/2020 4:40 PM CDT TROPONIN Routine 02/18/2020 3:33 PM CDT MAGNESIUM LEVEL Routine 02/18/2020 3:33 PM CDT PHOSPHORUS LEVEL Routine 02/18/2020 3:33 PM CDT IONIZED CALCIUM Routine 02/18/2020 3:33 PM CDT POTASSIUM LEVEL Routine 02/18/2020 3:33 PM CDT BLOOD CULTURE, AEROBIC & Routine 02/18/2020 ANAEROBIC 1:31 PM CDT BLOOD CULTURE, AEROBIC & Routine 02/18/2020 ANAEROBIC 1:30 PM CDT HIV AG/AB COMBINATION Routine 02/18/2020 12:55 PM CDT HEPATITIS ACUTE PANEL Routine 02/18/2020 12:55 PM CDT POC GLUCOSE Routine 02/18/2020 12:[address] STROKE BRAIN WO Routine 02/18/2020 CONTRAST 11:19 AM CDT PARTIAL THROMBOPLASTIN Routine 02/18/2020 TIME (PTT) 8:40 AM CDT POTASSIUM LEVEL Routine 02/18/2020 8:33 AM CDT PHOSPHORUS LEVEL Routine 02/18/2020 8:33 AM CDT IONIZED CALCIUM Routine 02/18/2020 8:33 AM CDT MAGNESIUM LEVEL Routine 02/18/2020 8:33 AM CDT POC GLUCOSE Routine 02/18/2020 8:04 AM CDT EEG (ROUTINE) Routine 02/18/2020 5:20 AM CDT POC GLUCOSE Routine 02/18/2020 5:15 AM CDT XR CHEST 1 VW PORTABLE Routine 02/18/2020 5:10 AM CDT IONIZED CALCIUM, ARTERIAL Routine 02/18/2020 4:00 AM CDT ARTERIAL BLOOD GAS Routine 02/18/2020 4:00 AM CDT ESTIMATED GFR Routine 02/18/2020 4:00 AM CDT HEMOGLOBIN A1C Routine 02/18/2020 4:00 AM CDT PHOSPHORUS LEVEL Routine 02/18/2020 4:00 AM CDT MAGNESIUM LEVEL Routine 02/18/2020 4:00 AM CDT HC COMPLETE BLD COUNT Routine 02/18/2020 W/AUTO DIFF 4:00 AM CDT COMPREHENSIVE METABOLIC Routine 02/18/2020 PANEL 4:00 AM CDT POC GLUCOSE Routine 02/18/2020 2:10 AM CDT PARTIAL THROMBOPLASTIN Timed 02/18/2020 TIME (PTT) 2:00 AM CDT IONIZED CALCIUM Routine 02/17/2020 10:30 PM CDT PHOSPHORUS LEVEL Routine 02/17/2020 10:30 PM CDT MAGNESIUM LEVEL Routine 02/17/2020 10:30 PM CDT POTASSIUM LEVEL Routine 02/17/2020 10:30 PM CDT POC GLUCOSE Routine 02/17/2020 8:30 PM CDT IONIZED CALCIUM Timed 02/17/2020 4:49 PM CDT PHOSPHORUS LEVEL Timed 02/17/2020 4:49 PM CDT POTASSIUM LEVEL Timed 02/17/2020 4:49 PM CDT ACTIVATED CLOTTING TIME Routine 02/17/2020 4:40 PM CDT POC GLUCOSE Routine 02/17/2020 4:15 PM CDT CONSULT CARDIAC REHAB Routine 02/17/2020 PHASE 1 2:24 PM CDT ECG 12-LEAD Routine 02/17/2020 1:47 PM CDT POC GLUCOSE Routine 02/17/2020 1:40 PM CDT CV PCI STENT Routine 02/17/2020 12:44 PM CDT CV SELECTIVE CORONARY Routine 02/17/2020 ANGIOGRAPHY 12:44 PM CDT ACTIVATED CLOTTING TIME Routine 02/17/2020 11:58 AM CDT IONIZED CALCIUM Timed 02/17/2020 9:21 AM CDT PHOSPHORUS LEVEL Timed 02/17/2020 9:21 AM CDT MAGNESIUM LEVEL Timed 02/17/2020 9:21 AM CDT POTASSIUM LEVEL Timed 02/17/2020 9:21 AM CDT PARTIAL THROMBOPLASTIN Routine 02/17/2020 TIME (PTT) 9:20 AM CDT TYPE AND SCREEN Routine 02/17/2020 8:51 AM CDT POC GLUCOSE Routine 02/17/2020 8:29 AM CDT POC GLUCOSE Routine 02/17/2020 5:22 AM CDT ARTERIAL BLOOD GAS Routine 02/17/2020 4:06 AM CDT ESTIMATED GFR Routine 02/17/2020 4:00 AM CDT CORTISOL LEVEL, RANDOM Routine 02/17/2020 4:00 AM CDT B NATRIURETIC PEPTIDE Routine 02/17/2020 4:00 AM CDT TROPONIN Routine 02/17/2020 4:00 AM CDT THYROID STIMULATING Routine 02/17/2020 HORMONE 4:00 AM CDT T4, FREE Routine 02/17/2020 4:00 AM CDT MAGNESIUM LEVEL Routine 02/17/2020 4:00 AM CDT PHOSPHORUS LEVEL Routine 02/17/2020 4:00 AM CDT COMPREHENSIVE METABOLIC Routine 02/17/2020 PANEL 4:00 AM CDT PARTIAL THROMBOPLASTIN Routine 02/17/2020 TIME (PTT) 4:00 AM CDT HC COMPLETE BLD COUNT Routine 02/17/2020 W/AUTO DIFF 4:00 AM CDT GRAM STAIN Routine 02/17/2020 4:00 AM CDT SPUTUM CULTURE Routine 02/17/2020 4:00 AM CDT TTE COMPLETE, WO Routine 02/17/2020 CONTRAST, W DOPPLER 2:46 AM CDT (15296) HEMODIALYSIS CATHETER Routine 02/17/2020 Drug ove rdose, PLACEMENT 2:38 AM CDT undetermined intent , initial encounter Acute renal failure, unspecified acute renal failure type (HCC) XR CHEST 1 VW PORTABLE Routine 02/17/2020 2:38 AM CDT POC GLUCOSE Routine 02/17/2020 2:21 AM CDT URINE CULTURE Routine 02/17/2020 1:23 AM CDT POC GLUCOSE Routine 02/17/2020 1:08 AM CDT MAGNESIUM LEVEL STAT 02/17/2020 12:50 AM CDT ESTIMATED GFR STAT 02/17/2020 12:50 AM CDT ARTERIAL BLOOD GAS STAT 02/17/2020 12:50 AM CDT BASIC METABOLIC PANEL STAT 02/17/2020 12:50 AM CDT URINALYSIS SCREEN AND Routine 02/17/2020 MICROSCOPY, WITH REFLEX 12:50 AM CDT TO CULTURE POC GLUCOSE Routine 02/17/2020 12:28 AM CDT HC CVL NON-TUNNELED Routine 02/17/2020 NSTEMI (no n-ST elevated INSERT 5YRS OR > 12:26 AM CDT myocardial infarcti on) (HCC) Ventricular tachycardia (HCC) Acute hypoxemic respiratory failure (HCC) [place] INSERT NON-TUNNEL CV Routine 02/17/2020 NSTEMI (non-ST elevated CATH 12:26 AM CDT myocardial infarcti on) (HCC) Ventricular tachycardia (HCC) Acute hypoxemic respiratory failure (HCC) HC ARTERIAL CATH INSERT Routine 02/17/2020 Acute renal failure, PERCUT 12:24 AM CDT unspecified acute r enal failure type (HCC) Acute hypoxemic respiratory failure (HCC) [place] INSERT Routine 02/17/2020 Acute renal emory lure, CATH,ART,PERCUT,SHORTTERM 12:24 AM CDT unspecified acute renal failure type (HCC) Acute hypoxemic respiratory failure (HCC) XR CHEST 1 VW PORTABLE STAT 02/17/2020 12:11 AM CDT TROPONIN Timed 02/16/2020 10:51 PM CDT ARTERIAL BLOOD GAS Routine 02/16/2020 10:48 PM CDT HC COMPLETE BLD COUNT Routine 02/16/2020 W/AUTO DIFF 10:48 PM CDT PROTHROMBIN TIME WITH INR Routine 02/16/2020 10:48 PM CDT PROCALCITONIN STAT 02/16/2020 10:40 PM CDT ECG 12-LEAD Routine 02/16/2020 10:10 PM CDT POC GLUCOSE Routine 02/16/2020 10:03 PM CDT BLOOD CULTURE, AEROBIC & Routine 02/16/2020 ANAEROBIC 9:39 PM CDT ESTIMATED GFR STAT 02/16/2020 9:38 PM CDT LACTIC ACID LEVEL STAT 02/16/2020 9:38 PM CDT COMPREHENSIVE METABOLIC STAT 02/16/2020 PANEL 9:38 PM CDT LEGIONELLA URINARY Routine 02/16/2020 ANTIGEN 9:31 PM CDT RESPIRATORY PATHOGEN Routine 02/16/2020 PANEL 9:30 PM CDT BLOOD CULTURE, AEROBIC & Routine 02/16/2020 ANAEROBIC 9:29 PM CDT ACETAMINOPHEN LEVEL STAT 02/16/2020 7:09 PM CDT ARTERIAL BLOOD GAS STAT 02/16/2020 6:54 PM CDT ECG 12-LEAD STAT 02/16/2020 6:44 PM CDT URINALYSIS SCREEN AND STAT 02/16/2020 MICROSCOPY, WITH REFLEX 5:43 PM CDT TO CULTURE URINE DRUGS OF ABUSE STAT 02/16/2020 SCREEN 5:43 PM CDT URINE CULTURE STAT 02/16/2020 5:43 PM CDT THYROID STIMULATING Routine 02/16/2020 HORMONE 5:40 PM CDT HEPATIC FUNCTION PANEL Routine 02/16/2020 5:40 PM CDT XR CHEST 1 VW PORTABLE STAT 02/16/2020 5:31 PM CDT ECG 12-LEAD STAT 02/16/2020 5:10 PM CDT ESTIMATED GFR STAT 02/16/2020 5:07 PM CDT ALCOHOL LEVEL, BLOOD STAT 02/16/2020 5:07 PM CDT TROPONIN STAT 02/16/2020 5:07 PM CDT COMPREHENSIVE METABOLIC STAT 02/16/2020 PANEL 5:07 PM CDT PROTHROMBIN TIME WITH INR STAT 02/16/2020 5:07 PM CDT PARTIAL THROMBOPLASTIN STAT 02/16/2020 TIME (PTT) 5:07 PM CDT HC COMPLETE BLD COUNT STAT 02/16/2020 W/AUTO DIFF 5:[address] STROKE BRAIN WO STAT 02/16/2020 CONTRAST 5:06 PM CDT [place] CRITICAL CARE, ADDL 30 Routine 02/16/2020 MIN 5:03 PM CDT [place] CRITICAL CARE, ADDL 30 Routine 02/16/2020 MIN 5:03 PM CDT [place] CRITICAL CARE, E/M Routine 02/16/2020 30-74 MINUTES 5:03 PM CDT INTUBATION Routine 02/16/2020 5:03 PM CDT after 05/18/2019 Results * POC glucose (03/23/2020 7:42 AM CDT) Only the most recent of 217 results within the time period is included. POC glucose 179 (H) 65 - 99 mg/dL [place] Comment: YARSANISM [employer] Name: [facility] Device ID: [id number] Chartable: No Action Needed Specimen Blood Performing Organization Address City/State/[employer] Ph one Number [facility] DEPARTMENT OF [address] [place] [address] PATHOLOGY AND GENOMIC MEDICINE [place] YARSANISM [address] [place] [address] HOSPITAL * Estimated GFR (03/23/2020 5:30 AM CDT) Only the most recent of 44 results within the time period is included. Estimated GFR >=90 mL/min/1.73 m2 [place] Comment: YARSANISM Catergory [facility] HOSPITAL Interpretation G1 >=90 Normal or high G2 60-89 Mildly decreased G3a 45-59 Mildly to moderately decreased G3b 30-44 Moderately to severely decreased G4 15-29 Severely decreased G5 <15 Kidney failure The eGFR was calculated using the Chronic Kidney Disease Epidemiology Collaboration (CKD-EPI) equation. Interpretation is based on recommendations of the National Kidney Foundation-Kidney Disease Outcomes Quality Initiative (NKF-KDOQI) published in 2014. Specimen Performing Organization Address City/State/[facility] Ph one Number [facility] DEPARTMENT OF [address] [place] [address] PATHOLOGY AND GENOMIC MEDICINE [address] * CBC with platelet and differential (03/23/2020 5:30 AM CDT) Only the most recent of 34 results within the time period is included. WBC 8.63 4.50 - 11.00 k/uL [facility] RBC 3.48 (L) 4.40 - 6.00 m/uL [facility] HGB 10.7 (L) 14.0 - 18.0 g/dL [facility] HCT 33.2 (L) 41.0 - 51.0 % [facility] MCV 95.4 82.0 - 100.[address] [facility] MCH 30.7 27.0 - 34.[address] [facility] MCHC 32.2 31.0 - 37.0 g/dL [facility] RDW - SD 46.5 37.0 - 55.[address] [facility] MPV 13.0 8.8 - 13.[address] [facility] Platelet count 135 (L) 150 - 400 k/uL [facility] Nucleated RBC 0.00 /[address] [facility] Neutrophils 58.9 39.0 - 69.0 % [facility] Lymphocytes 27.6 25.0 - 45.0 % [facility] Monocytes 9.3 0.0 - 10.0 % [facility] Eosinophils 2.9 0.0 - 5.0 % [facility] Basophils 0.7 0.0 - 1.0 % [facility] Immature 0.6Comment: "Immature 0.0 - 1.0 % [place] granulocytes granulocytes" (promyelocytes, METHOD IST myelocytes, metamyelocytes) HOSPITAL Specimen Blood Performing Organization Address City/[facility] [place] one Number [facility] DEPARTMENT OF [address] [place] [address] PATHOLOGY AND GENOMIC MEDICINE [address] * Basic metabolic panel (03/23/2020 5:30 AM CDT) Only the most recent of 29 results within the time period is included. Sodium 143 135 - 148 mEq/L [facility] Potassium 3.8 3.5 - 5.0 mEq/L [facility] Chloride 101 98 - 112 mEq/L [facility] CO2 31 24 - 31 mEq/L [facility] Anion gap 11@ANIO 7 - 15 mEq/L [facility] BUN 26 (H) 8 - 23 mg/dL [facility] Creatinine 0.84 0.70 - 1.20 mg/dL [facility] Glucose 128 (H) 65 - 99 mg/dL [facility] Calcium 10.1 8.8 - 10.2 mg/dL [facility] Specimen Blood Performing Organization Address [facility] [place] one Number [facility] DEPARTMENT OF [address] [place] [address] PATHOLOGY AND GENOMIC MEDICINE [address] * XR Chest 1 Vw Portable (03/18/2020 6:20 AM CDT) Only the most recent of 18 results within the time period is included. Specimen Narrative Performed At EXAMINATION: XR CHEST 1 VW PORTABLE [facility] CLINICAL HISTORY: 64 years Male ICU p t stable with no clinical status changes COMPARISON: None. IMPRESSION: Cardiomediastinal silhouette is unchang ed. Vascular congestion, bibasilar volume l oss, and small bilateral pleural effusions are decreased Age related changes in the osseous stru ctures. The patient has undergone median sternotomy, . . Procedure Note Interface, Radiology Results Incoming - 03/18/2020 8:10 AM CDT EXAMINATION: XR CHEST 1 VW PORTABLE CLINICAL HISTORY: 64 years Male ICU pt stable with no clinical status changes COMPARISON: None. IMPRESSION: Cardiomediastinal silhouette is unchanged. Vascular congestion, bibasilar volume loss, and small bilateral pleural effusions are decreased Age related changes in the osseous structures. The patient has undergone median sternotomy, . . Performing Organization Address [facility] [place] [address] * CBC hemogram (03/16/2020 5:00 AM CDT) Only the most recent of 3 results within the time period is included. WBC 10.38 4.50 - 11.00 k/uL [facility] RBC 3.46 (L) 4.40 - 6.00 m/uL [facility] HGB 10.7 (L) 14.0 - 18.0 g/dL [facility] HCT 32.2 (L) 41.0 - 51.0 % [facility] MCV 93.1 82.0 - 100.[address] [facility] MCH 30.9 27.0 - 34.[address] [facility] MCHC 33.2 31.0 - 37.0 g/dL [facility] RDW - SD 44.8 37.0 - 55.[address] [facility] MPV 12.9 8.8 - 13.[address] [facility] Platelet count 151 150 - 400 k/uL [facility] Nucleated RBC 0.00 /[address] [facility] Specimen Performing Organization Address City/[facility] [place] one Number [facility] DEPARTMENT OF [address] [place] [address] PATHOLOGY AND GENOMIC MEDICINE [address] * Prealbumin level (03/16/2020 5:00 AM CDT) Prealbumin 18 16 - 32 mg/dL [facility] Specimen Serum Performing Organization Address City/[facility] [place] one Number [facility] DEPARTMENT OF [address] [place] [address] PATHOLOGY AND GENOMIC MEDICINE [address] * Phosphorus level (03/16/2020 5:00 AM CDT) Only the most recent of 28 results within the time period is included. Phosphorus 2.9 2.4 - 4.5 mg/dL [facility] Specimen Blood Performing Organization Address [facility] Number [facility] DEPARTMENT OF [address] [place] [address] PATHOLOGY AND GENOMIC MEDICINE [address] * Magnesium level (03/16/2020 5:00 AM CDT) Only the most recent of 36 results within the time period is included. Magnesium 1.7 1.6 - 2.4 mg/dL [facility] Specimen Blood Performing Organization Address City[facility] Ph one Number [facility] DEPARTMENT OF [address] [place] [address] PATHOLOGY AND GENOMIC MEDICINE [address] [place] [address] HOSPITAL * Smear review (03/15/2020 5:55 AM CDT) Platelet slide Ethan slt decr [facility] Polychromasia [facility] Ovalocytes [facility] Specimen Performing Organization Address City/State/Zipcode Ph one Number [facility] DEPARTMENT OF [address] [place] [address] PATHOLOGY AND GENOMIC MEDICINE [address] * Airway (03/14/2020 12:40 PM CDT) Narrative Performed At Ajit Zhao MD 03/14/2020 12:41 P M Airway Date/Time: 03/14/2020 12:40 PM Performed by: Ajit Zhao MD Authorized by: Ajit Zhao MD Location: OR Urgency: Elective Difficult Airway: No Performed by: anesthesiologist Preoxygenated with 100% O2: Yes C-spine Precautions Maintained Througho ut: Yes Mask Ventilation: Not attempted Final Airway Type: Endotracheal airwa y Final Endotracheal Airway: ETT Technique Used: Video laryngoscopy Insertion Site: Oral Laryngoscope Blade/Videolaryngoscope Bl sarah Size: 4 ETT Size (mm): 8.0 Measured from: Teeth ETT to Teeth (cm): 21 Placement Verified by: CO2 detection, d irect visualization and equal breath sounds Laryngoscopic view: Grade I - full vi ew of glottis Rapid Sequence Induction (RSI): Yes Modified RSI: Yes Number of Attempts at Approach: 1 * XR Abdomen 1 Vw (03/12/2020 8:10 PM CDT) Only the most recent of 2 results within the time period is included. Specimen Narrative Performed At EXAMINATION: XR ABDOMEN 1 VW HM [facility] CLINICAL HISTORY: DHT repositioning COMPARISON: March 12, 2020 earlier the same day. FINDINGS: A Dobbhoff tube terminates distal to th e pylorus likely within the first/second portion of the duodenum, the tip is now pointed anterograde. Stable bowel gas pattern. No acute osseous abnormality. IMPRESSION: Adequate Dobbhoff tube placement. [id number] Procedure Note Interface, Radiology Results Incoming - 03/12/2020 8:15 PM CDT EXAMINATION: XR ABDOMEN 1 VW CLINICAL HISTORY: DHT repositioning COMPARISON: March 12, 2020 earlier the same day. FINDINGS: A Dobbhoff tube terminates distal to the pylorus likely within the first/second portion of the duodenum, the tip is now pointed anterograde. Stable bowel gas pattern. No acute osseous abnormality. IMPRESSION: Adequate Dobbhoff tube placement. [id number] Performing Organization Address [facility] one Number [facility] [id number] [place] [address] * XR Abdomen 1 Vw Portable (03/12/2020 2:17 PM CDT) Only the most recent of 6 results within the time period is included. Specimen Narrative Performed At EXAMINATION: XR ABDOMEN 1 VW PORTABLE [facility] CLINICAL HISTORY: dubhoff placement COMPARISON: March 12, 2020 earlier the same day. FINDINGS: A Dobbhoff tube coils and terminates wi thin the gastric cardia the tip of which is pointed retrograde. Stable bowel gas pattern. No acute osseous abnormality. IMPRESSION: Recommend repositioning of the Dobbhoff tube so that the tip is within the proximal duodenum. [id number] Procedure Note Hm Interface, Radiology Results Incoming - 03/12/2020 2:25 PM CDT EXAMINATION: XR ABDOMEN 1 VW PORTABLE CLINICAL HISTORY: dubhoff placement COMPARISON: March 12, 2020 earlier the same day. FINDINGS: A Dobbhoff tube coils and terminates within the gastric cardia the tip of which is pointed retrograde. Stable bowel gas pattern. No acute osseous abnormality. IMPRESSION: Recommend repositioning of the Dobbhoff tube so that the tip is within the proximal duodenum. [facility] [id number] Performing Organization Address [facility] one Number [facility] [address] [place] [address] * Comprehensive metabolic panel (03/12/2020 5:33 AM CDT) Only the most recent of 15 results within the time period is included. Sodium 145 135 - 148 mEq/L [facility] Potassium 3.8 3.5 - 5.0 mEq/L [facility] Chloride 105 98 - 112 mEq/L [facility] CO2 28 24 - 31 mEq/L [facility] Anion gap 12@ANIO 7 - 15 mEq/L [facility] BUN 25 (H) 8 - 23 mg/dL [facility] Creatinine 0.95 0.70 - 1.20 mg/dL [facility] Glucose 125 (H) 65 - 99 mg/dL [facility] Calcium 9.8 8.8 - 10.2 mg/dL [facility] Protein 7.4 6.3 - 8.3 g/dL [place] Comment: YARSANISM - [facility] 4.6-7.0 g/dL 1 week 4.4-7.6 g/dL 7 months-1year 5.1-7.3 g/dL 1-2 years 5.6-7.5 g/dL >3 years 6.0-8.0 g/dL 18-150 6.3-8.3 g/dL Albumin 3.0 (L) 3.5 - 5.0 g/dL [facility] A/G ratio 0.7 0.7 - 3.8 [facility] Alkaline 80 40 - 129 U/L [place] phosphatase [facility] AST 20 10 - 50 U/L [facility] ALT 29 5 - 50 U/L [facility] Total bilirubin <0.2 0.0 - 1.2 mg/dL [facility] Specimen Blood Performing Organization Address [facility] [place] one Number [facility] DEPARTMENT OF [address] [place] [address] PATHOLOGY AND GENOMIC MEDICINE [address] * Manual differential (03/11/2020 6:16 AM CDT) Manual PERFORMED [place] differential [facility] Neutrophils 59.0 39.0 - 69.0 % [facility] Lymphocytes 30.0 25.0 - 45.0 % [facility] Monocytes 6.0 0.0 - 10.0 % [facility] Eosinophils 5.0 0.0 - 5.0 % [facility] Basophils 0.0 0.0 - 1.0 % [facility] Metamyelocytes 0 % [facility] Promyelocytes 0 % [facility] Platelet slide Ethan adequate [place] review [facility] Ovalocytes Moderate [facility] Enlarged Moderate (A) [place] platelets [facility] Specimen Performing Organization Address [facility] [place] one Number [facility] DEPARTMENT OF [address] [place] [address] PATHOLOGY AND GENOMIC MEDICINE [address] * [place] Modified Barium Swallow (03/09/2020 4:14 PM CDT) Only the most recent of 2 results within the time period is included. Specimen Narrative Performed At EXAMINATION: [place] MODIFIED BARIUM SWALLOW [facility] CLINICAL HISTORY: Aspiration known or suspected . Dysphagia unspecified. CVA, encephalopathy Fluoroscopy time: 1.7 min. One image acquired. IMPRESSION: Aspiration with thin and nectar liquids . Impaired clearance of residual from the valleculae. Please refer to Speech Pathology report for further details. [id number] Procedure Note Interface, Radiology Results Incoming - 03/09/2020 4:38 PM CDT EXAMINATION: [place] MODIFIED BARIUM SWALLOW CLINICAL HISTORY: Aspiration known or suspected . Dysphagia unspecified. CVA, encephalopathy Fluoroscopy time: 1.7 min. One image acquired. IMPRESSION: Aspiration with thin and nectar liquids. Impaired clearance of residual from the valleculae. Please refer to Speech Pathology report for further details. [id number] Performing Organization Address City/State/Zipcode Ph one Number [facility] [address] [place] [address] * CT Chest Wo Contrast Abdomen Wo Contrast Pelvis Wo Contrast (03/07/2020 2:46 PM CDT) Specimen Narrative Performed At EXAMINATION: CT CHEST WO CONTRAST ABDOMEN WO CONTRA ST PELVIS WO CONTRAST [facility] CLINICAL HISTORY: 64 years Male Abd p ain gastroenteritis or colitis suspected TECHNIQUE: Multiple axial images of t he chest, abdomen, and pelvis were obtained without intravenous contrast. The lack of intravenous contrast reduces the sensitivity of detecting solid orga n disease. Sagittal and coronal computerized reformatted images were obtained. CT imaging was pe rformed with iterative reconstruction techniques and/or automated exposure co ntrol to reduce radiation dose. COMPARISON: February 18 IMPRESSION: CHEST: Lungs and airways: Atelectasis in the l meena bases. No airspace consolidations or suspicious nodules Pleura: No pleural effusion or pneumoth orax. Mediastinum and lymph nodes: No lymphad enopathy. Cardiovascular: The heart size is alonzo l. No pericardial effusion. No left atrial appendage clot. Moderate calcifi ed atherosclerotic vascular disease in the coronary arteries and aorta. Other: Incidental note of bilateral desk officer ecomastia ABDOMEN: Liver: The liver is normal. No focal ma ss. Gallbladder/Biliary: The gallbladder is normal. There is no evidence of intra or extrahepatic biliary ductal dilatation. Spleen: The spleen is not enlarged. Pancreas: The pancreas is unremarkable. Adrenal Glands: 1 cm left adrenal adeno ma and hyperplasia in the right adrenal gland remain unchanged Kidneys: The kidneys are unremarkable. No mass, hydronephrosis or calculi. Vascular: Calcification of the abdomina l aorta is noted. No aneurysm. Nodes: No enlarged retroperitoneal or m esenteric lymphadenopathy. Bowel: Circumferential wall thickening of the distal descending colon and sigmoid colon. Although this is partial ly accentuated by underdistention, an underlying infectious/inflammatory coli tis is suspected. No obstructing mass. Ascites/fluid collections: No ascites o r fluid collections. PELVIS: No mass, fluid collection or significan t adenopathy. MUSCULOSKELETAL: Degenerative changes of the osseous str uctures. No suspicious lesions. SUMMARY: *Mild circumferential wall thickening o f the distal descending colon and sigmoid colon. Although this is slightly accent uated by underdistention, an underlying colitis is suspected. No pneumatosis to suggest ischemia. Procedure Note Hm Interface, Radiology Results Incoming - 03/07/2020 3:09 PM CDT EXAMINATION: CT CHEST WO CONTRAST ABDOMEN WO CONTRAST PELVIS WO CONTRAST CLINICAL HISTORY: 64 years Male Abd pain gastroenteritis or colitis suspected TECHNIQUE: Multiple axial images of the chest, abdomen, and pelvis were obtained without intravenous contrast. The lack of intravenous contrast reduces the sensitivity of detecting solid organ disease. Sagittal and coronal computerized reformatted images were obtained. CT imaging was performed with iterative reconstruction techniques and/or automated exposure control to reduce radiation dose. COMPARISON: February 18 IMPRESSION: CHEST: Lungs and airways: Atelectasis in the lung bases. No airspace consolidations or suspicious nodules Pleura: No pleural effusion or pneumothorax. Mediastinum and lymph nodes: No lymphadenopathy. Cardiovascular: The heart size is normal. No pericardial effusion. No left atrial appendage clot. Moderate calcified atherosclerotic vascular disease in the coronary arteries and aorta. Other: Incidental note of bilateral gynecomastia ABDOMEN: Liver: The liver is normal. No focal mass. Gallbladder/Biliary: The gallbladder is normal. There is no evidence of intra or extrahepatic biliary ductal dilatation. Spleen: The spleen is not enlarged. Pancreas: The pancreas is unremarkable. Adrenal Glands: 1 cm left adrenal adenoma and hyperplasia in the right adrenal gland remain unchanged Kidneys: The kidneys are unremarkable. No mass, hydronephrosis or calculi. Vascular: Calcification of the abdominal aorta is noted. No aneurysm. Nodes: No enlarged retroperitoneal or mesenteric lymphadenopathy. Bowel: Circumferential wall thickening of the distal descending colon and sigmoid colon. Although this is partially accentuated by underdistention, an underlying infectious/inflammatory colitis is suspected. No obstructing mass. Ascites/fluid collections: No ascites or fluid collections. PELVIS: No mass, fluid collection or significant adenopathy. MUSCULOSKELETAL: Degenerative changes of the osseous structures. No suspicious lesions. SUMMARY: *Mild circumferential wall thickening of the distal descending colon and sigmoid colon. Although this is slightly accentuated by underdistention, an underlying colitis is suspected. No pneumatosis to suggest ischemia. Performing Organization Address City/State/Zipcode Ph one Number [facility] [address] [place] [address] * CT Head Wo Contrast (03/07/2020 2:46 PM CDT) Specimen Narrative Performed At EXAMINATION: CT HEAD WO [facility] CLINICAL HISTORY: Focal neuro deficit < 6 hrs stroke suspected COMPARISON: 02/19/2020 TECHNIQUE: Noncontrast CT of the brain was performed from the skull base to the vertex. Both soft tissue and bone recon struction algorithms are interpreted. CT imaging was performed with iterative reconstruction techniques and/or automated exposure control to reduce ra diation dose. FINDINGS: No intracranial hemorrhage, extra-axial collection, or mass-effect is seen. No hyperdense vessel is seen. Recent infarcts in the bilateral occipi mao lobes and right temporal lobe are less conspicuous on today's study. The majority the recent multiple focal infarcts in the cerebrum seen on compar noe MRI are not well demonstrated on CT. Chronic insult is again noted in the le ft basal ganglia extending into the ly radiata. Areas of chronic infarc tion are again noted in the left cerebellar hemisphere. Chronic lacunar infarcts again noted in the right caudate head. No air-fluid level is seen in the visua lized portions of the paranasal sinuses. Mastoid air cells are clear. IMPRESSION: No acute cranial abnormality is identif ied. Recent infarcts in the bilateral occipi mao lobes and right temporal lobe is less conspicuous on today's study than on e comparison exam. The majority of the recent multiple focal infarcts in the c erebrum seen on comparison MRI are not demonstrated on CT. [id number] Procedure Note Hm Interface, Radiology Results Incoming - 03/07/2020 2:59 PM CDT EXAMINATION: CT HEAD WO CONTRAST CLINICAL HISTORY: Focal neuro deficit < 6 hrs stroke suspected COMPARISON: 02/19/2020 TECHNIQUE: Noncontrast CT of the brain was performed from the skull base to the vertex. Both soft tissue and bone reconstruction algorithms are interpreted. CT imaging was performed with iterative reconstruction techniques and/or automated exposure control to reduce radiation dose. FINDINGS: No intracranial hemorrhage, extra-axial collection, or mass-effect is seen. No hyperdense vessel is seen. Recent infarcts in the bilateral occipital lobes and right temporal lobe are less conspicuous on today's study. The majority the recent multiple focal infarcts in the cerebrum seen on comparison MRI are not well demonstrated on CT. Chronic insult is again noted in the left basal ganglia extending into the ly radiata. Areas of chronic infarction are again noted in the left cerebellar hemisphere. Chronic lacunar infarcts again noted in the right caudate head. No air-fluid level is seen in the visualized portions of the paranasal sinuses. Mastoid air cells are clear. IMPRESSION: No acute cranial abnormality is identified. Recent infarcts in the bilateral occipital lobes and right temporal lobe is less conspicuous on today's study than on the comparison exam. The majority of the recent multiple focal infarcts in the cerebrum seen on comparison MRI are not demonstrated on CT. [id number] Performing Organization Address City/State[facility] Ph one Number [facility] [address] [place] [address] * Urinalysis screen and microscopy, with reflex to culture (03/07/2020 1:31 PM CDT) Only the most recent of 3 results within the time period is included. Specimen site Catheterized [facility] Color, UA Yellow [facility] Appearance, UA Hazy [facility] Specific 1.021 1.001 - 1.035 [place] gravity, [facility] pH, UA 5.0 5.0 - 8.5 [facility] Protein, UA Negative Negative [facility] Glucose, UA Negative Negative [facility] Ketones, UA Negative Negative [facility] Bilirubin, UA Negative Negative [facility] Blood, UA Negative Negative [facility] Nitrite, UA Negative Negative [facility] Urobilinogen, <2.[address] [facility] Leukocyte Negative Negative [place] esterase, [facility] WBC, UA 1 0 - 1 /HPF [facility] RBC, UA <1 0 - 5 /HPF [facility] Bacteria, UA Few None seen [facility] Yeast, UA None seen [facility] Yeast with None seen [place] pseudohyphae, [facility] Amorphous Few [place] crystals [facility] Hyaline casts, 6 /LPF [facility] Specimen Urine Performing Organization Address [facility] one Number [facility] DEPARTMENT OF [address] [place] [address] PATHOLOGY AND GENOMIC MEDICINE [address] * Urine culture (03/07/2020 1:31 PM CDT) Only the most recent of 3 results within the time period is included. Urine culture SEE COMMENTComment: [place] Bacteriuria screen negative. [facility] Specimen Performing Organization Address [facility] one Number [facility] DEPARTMENT OF [address] [place] [address] PATHOLOGY AND GENOMIC MEDICINE [address] * Arterial blood gas (03/07/2020 11:13 AM CDT) Only the most recent of 16 results within the time period is included. pH, arterial 7.43 7.35 - 7.45 [facility] pCO2, arterial 42 35 - [address] [facility] pO2, arterial 76 (L) 80 - [address] [facility] Bicarbonate, 27.3 21.0 - 28.0 mmol/L [facility] Base excess, 3 (H) -2 - 2 mEq/L [facility] O2 saturation, 95 95 - 100 % [facility] Specimen Blood Performing Organization Address [facility] one Number [facility] DEPARTMENT OF [address] [place] [address] PATHOLOGY AND GENOMIC MEDICINE [address] * B natriuretic peptide (03/03/2020 4:27 AM CDT) Only the most recent of 2 results within the time period is included. BNP 136 (H) 0 - 100 pg/mL [facility] Specimen Blood Performing Organization Address [facility] one Number [facility] DEPARTMENT OF [address] [place] [address] PATHOLOGY AND GENOMIC MEDICINE [address] * Ammonia level (02/29/2020 4:04 PM CDT) Ammonia 35 16 - 60 umol/L [facility] Specimen Blood Performing Organization Address [facility] [place] one Number [facility] DEPARTMENT OF [address] [place] [address] PATHOLOGY AND GENOMIC MEDICINE [address] * Hepatic function panel (02/29/2020 11:28 AM CDT) Only the most recent of 5 results within the time period is included. Albumin 3.3 (L) 3.5 - 5.0 g/dL [facility] Total bilirubin 0.5 0.0 - 1.2 mg/dL [facility] Bilirubin <0.2 0.0 - 0.3 mg/dL [place] direct [facility] Alkaline 96 40 - 129 U/L [place] phosphatase [facility] Protein 8.3 6.3 - 8.3 g/dL [place] Comment: [facility] 4.6-7.0 g/dL 1 week 4.4-7.6 g/dL 7 months-1year 5.1-7.3 g/dL 1-2 years 5.6-7.5 g/dL >3 years 6.0-8.0 g/dL 18-150 6.3-8.3 g/dL ALT 78 (H) 5 - 50 U/L [facility] AST 29 10 - 50 U/L [facility] Specimen Blood Performing Organization Address [facility] [place] one Number [facility] DEPARTMENT OF [address] [place] [address] PATHOLOGY AND GENOMIC MEDICINE [address] * Ionized calcium (02/29/2020 4:00 AM CDT) Only the most recent of 16 results within the time period is included. pH 7.58 [facility] Ionized calcium 1.12 1.11 - 1.32 mmol/L [facility] Specimen Blood Performing Organization Address [facility] Ph one Number [facility] DEPARTMENT OF [address] [place] [address] PATHOLOGY AND GENOMIC MEDICINE [address] * Ionized calcium, arterial (02/26/2020 2:30 AM CDT) Only the most recent of 6 results within the time period is included. Ionized 1.18 1.11 - 1.32 mmol/L [place] calcium, YARSANISM arterial [facility] Specimen Blood Performing Organization Address [facility] [place] one Number [facility] DEPARTMENT OF [address] [place] [address] PATHOLOGY AND GENOMIC MEDICINE [address] * ECG 12 lead (02/25/2020 9:55 AM CDT) Only the most recent of 7 results within the time period is included. Ventricular 90 [facility] rate Atrial rate 90 [facility] AZ interval 134 [facility] QRSD interval 142 [facility] QT interval 390 [facility] QTC interval 477 [facility] P axis 1 47 [facility] QRS axis 1 -35 [facility] T wave axis 23 [facility] EKG impression Normal sinus rhythm-Possible [facility] Left atrial enlargement-Left axis deviation-Right bundle branch block-Inferior infarct (cited on or before 16-FEB-2020)-Abnormal ECG-In automated comparison with ECG of 25-FEB-2020 09:50,-Serial changes of Inferior infarct present- Specimen Narrative Performed At This result has an attachment that is n ot available. Performing Organization Address [facility] one Number [facility] MUSE [address] [place] [address] * O2 saturation, venous (02/24/2020 4:30 AM CDT) Only the most recent of 3 results within the time period is included. Hemoglobin, 11.1 (L) 14.0 - 18.0 g/dL [place] venous, syringe [facility] O2 saturation, 75 (H) 40 - 70 % [place] venous [facility] Specimen Blood Performing Organization Address [facility] [place] one Number [facility] DEPARTMENT OF [address] [place] [id number] PATHOLOGY AND GENOMIC MEDICINE [address] * Potassium level (02/23/2020 4:45 PM CDT) Only the most recent of 8 results within the time period is included. Potassium 4.3 3.5 - 5.0 mEq/L [facility] Specimen Blood Performing Organization Address City[facility] one Number [facility] DEPARTMENT OF [address] [place] [address] PATHOLOGY AND GENOMIC MEDICINE [place] Y[facility]ANISM [address] [place] [address] * Activated clotting time (02/22/2020 4:44 PM CDT) Only the most recent of 3 results within the time period is included. 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 TITLE OF OPERATION: Selective saphenous vein bypass angiogr am. PREOPERATIVE DIAGNOSES: Acute non-ST elevation myocardial infar ction, status post percutaneous coronary intervention, saphenous vein bypass. POSTOPERATIVE DIAGNOSES: Acute non-ST elevation myocardial infar ction, status post percutaneous coronary intervention, saphenous vein bypass. ANESTHESIA: Conscious sedation with Versed 1 mg IV with continuous sedation with propofol. ESTIMATED BLOOD LOSS: 5 mL COMPLICATIONS: None. OPERATIVE COURSE: After informed consent was obtained fro m the patient's daughter due to the patient being sedated on propofol and i ntubated, he was brought to the cardiac catheterization laboratory as a followu p to an infarct PCI to a diffusely diseased saphenous vein bypass approxim ately 5 days ago. While the vessel was successfully crossed and opened (RCA by pass), it was apparent that the vessel was completely filled with thrombus and diffuse disease. We could not use Integrilin fci due to his renal i nsufficiency, and as such, we were forced to use intravenous heparin. He has be en on a heparin infusion for the last 5 days and essentially has done well hemo dynamically, although he remains on very low dose dopamine for pressure. We br ought him back to the catheterization laboratory today specifically to view t he bypass and assess whether or not it had \\"cleaned up.\\" The left groin wa s cleaned and prepared in usual fashion and the artery entered without difficulty u sing an 18-gauge [facility] needle. A short 5-Thai arterial sheath was utilized f or access. The saphenous vein bypass was successfully cannulated using a multipu rpose catheter. One shot was taken showing total occlusion of the bypass a t the site where it was previously occluded earlier. Thus, the procedure was terminated. The sheath will be removed in the intensive care unit. H e will be treated medically. Intravenous heparin will be discontinued. Overall , he tolerated the procedure well. Performing Organization Address [facility] one Number [facility] [address] [place] [address] * Partial thromboplastin time, activated (02/22/2020 10:30 AM CDT) Only the most recent of 17 results within the time period is included. PTT 58.6 (H) 23.0 - 36.0 sec [place] Comment: YARSANISM PTT therapeutic range for HOSPITAL unfractionated heparin is 61.0-112.0 seconds which corresponds to Anti-Xa 0.3-0.7 U/ml. Specimen Blood Performing Organization Address [facility] one Number [facility] DEPARTMENT OF [address] [place] [address] PATHOLOGY AND GENOMIC MEDICINE [place] YARSANISM [address] [place] [address] HOSPITAL * Continuous EEG monitoring (02/21/2020 11:36 AM CDT) Narrative Performed At This result has an attachment that is n ot available. CONTINUOUS VIDEO-EEG MONITORING REPORT Patient Name: Gil Man Date of : 1955 Gender: male Initial Study Start Date: 02/18/2020 Initial Study Start Time: 3:55 Current Study Start Date: 02/21/2020 Current Study Start Time: 00:00 Current Study End Date: 02/21/2020 Current Study End Time: 23:59 Indication Seizure Technical Summary Technique:Modified international 10/20 system of EEG electrode placement was used. Visual Analysis of EEG-Video Monitoring :This electroencephalogram was recorded simultaneously with video thro ughout the monitoring. The EEG was visually inspected and analyzed for radha racterization of the background activity in all awake and sleep states, abnormal focal and generalized features, and intraictal and ictal epil eptiform activity. Electrical seizure activity was correlated with th e patients clinical activity recorded on video and video captured cl inical events were correlated with simultaneously recorded EEG activity. Computer Analysis of EEG Waveforms:The EEG underwent continuous computerized digital spectral analysis, which consisted of real time detection of electrical events that cou ld be considered epileptiform. All electrographic events identified by the detection program were visually inspected in order to assess the wavefo rm characteristics and significance of these electrographic events. All int raictal and ictal epileptiform events are described further below with additional details of the visual analysis of the EEG. Events detected by computer analysis that were not determined by visual analysis to be epi leptiform were considered to be myogenic, biologic, mechanical, or elec trical artifact in origin. Only computer detected events that have been verified by visual inspection to be interictal or ictal epileptiform dis charges are reported below and considered in the final report of this monitoring study. Findings Awake Recordings:There is nooccipit al dominant rhythm.6-8 Hz and 4-5 Hz and 1.5-3 Hz activity was present in al l regions. 18-22 Hz activity was present in all regions.Diphasic and T riphasic sharp wave discharges were present in the frontal central regions. There is no reactivity to stimulation. Sleep Recording:No sleep was record ed. Hyperventilation: Was not performed. Photic Stimulation: Was not performed. Impression:The findings are consisten t with a severe diffuse disturbance in brain function which is most likely metabolic or ischemic hypoxic in etiology. No seizures occurred. ICD-10 Code: R56.9 * Continuous EEG monitoring (02/21/2020 2:50 AM CDT) Narrative Performed At This result has an attachment that is n ot available. CONTINUOUS VIDEO-EEG MONITORING REPORT Patient Name: Gil Man Date of : 1955 Gender: male Initial Study Start Date: 02/18/2020 Initial Study Start Time: 3:55 Current Study Start Date: 02/20/2020 Current Study Start Time: 00:00 Current Study End Date: 02/20/2020 Current Study End Time: 23:59 Indication Seizure Technical Summary Technique:Modified international 10/20 system of EEG electrode placement was used. Visual Analysis of EEG-Video Monitoring :This electroencephalogram was recorded simultaneously with video thro ughout the monitoring. The EEG was visually inspected and analyzed for rdaha racterization of the background activity in all awake and sleep states, abnormal focal and generalized features, and intraictal and ictal epil eptiform activity. Electrical seizure activity was correlated with th e patients clinical activity recorded on video and video captured cl inical events were correlated with simultaneously recorded EEG activity. Computer Analysis of EEG Waveforms:The EEG underwent continuous computerized digital spectral analysis, which consisted of real time detection of electrical events that cou ld be considered epileptiform. All electrographic events identified by the detection program were visually inspected in order to assess the wavefo rm characteristics and significance of these electrographic events. All int raictal and ictal epileptiform events are described further below with additional details of the visual analysis of the EEG. Events detected by computer analysis that were not determined by visual analysis to be epi leptiform were considered to be myogenic, biologic, mechanical, or elec trical artifact in origin. Only computer detected events that have been verified by visual inspection to be interictal or ictal epileptiform dis charges are reported below and considered in the final report of this monitoring study. Findings Awake Recordings:There is nooccipit al dominant rhythm.6-8 Hz and 4-5 Hz and 1.5-3 Hz activity was present in al l regions. 18-22 Hz activity was present in all regions.Diphasic and T riphasic sharp wave discharges were present in the frontal central regions. There is no reactivity to stimulation. Sleep Recording:No sleep was record ed. Hyperventilation: Was not performed. Photic Stimulation: Was not performed. Impression:The findings are consisten t with a severe diffuse disturbance in brain function which is most likely metabolic or ischemic hypoxic in etiology. No seizures occurred. ICD-10 Code: R56.9 Nuno Coello MD Fellow, Clinical Neurophysiology I reviewed the entire EEG and agree wit h the above findings. Ruben Jensen MD * Continuous EEG monitoring (02/20/2020 12:38 AM CDT) Narrative Performed At This result has an attachment that is n ot available. CONTINUOUS VIDEO-EEG MONITORING REPORT Patient Name: Gil Man Date of : 1955 Gender: male Initial Study Start Date: 02/18/2020 Initial Study Start Time: 3:55 Current Study Start Date: 02/19/2020 Current Study Start Time: 00:00 Current Study End Date: 02/19/2020 Current Study End Time: 23:59 The patient was disconnected for severa l hours during the recording. Indication Seizure Technical Summary Technique:Modified international 10/20 system of EEG electrode placement was used. Visual Analysis of EEG-Video Monitoring :This electroencephalogram was recorded simultaneously with video thro ughout the monitoring. The EEG was visually inspected and analyzed for radha racterization of the background activity in all awake and sleep states, abnormal focal and generalized features, and intraictal and ictal epil eptiform activity. Electrical seizure activity was correlated with th e patients clinical activity recorded on video and video captured cl inical events were correlated with simultaneously recorded EEG activity. Computer Analysis of EEG Waveforms:The EEG underwent continuous computerized digital spectral analysis, which consisted of real time detection of electrical events that cou ld be considered epileptiform. All electrographic events identified by the detection program were visually inspected in order to assess the wavefo rm characteristics and significance of these electrographic events. All int raictal and ictal epileptiform events are described further below with additional details of the visual analysis of the EEG. Events detected by computer analysis that were not determined by visual analysis to be epi leptiform were considered to be myogenic, biologic, mechanical, or elec trical artifact in origin. Only computer detected events that have been verified by visual inspection to be interictal or ictal epileptiform dis charges are reported below and considered in the final report of this monitoring study. Findings Awake Recordings: There is no occipital dominant rhythm. 6-8 Hz and 4-5 Hz and 1.5-3 Hz activity was present in al l regions. 18-22 Hz activity was present in all regions. Diphasic and Tr iphasic sharp wave discharges were present in the frontal central regions. There is no reactivity to stimulation. Sleep Recording: No sleep was recorde d. Hyperventilation: Was not performed. Photic Stimulation: Was not performed. Impression: The findings are consistent with a severe diffuse disturbance in brain function which is most likely metabolic or ischemic hypoxic in etiology. No seizures occurred. ICD-10 Code: R56.9 Nuno Coello MD Fellow, Clinical Neurophysiology I reviewed the entire EEG and agree wit h the above findings. Ruben Jensen MD * Troponin (02/19/2020 11:52 PM CDT) Only the most recent of 8 results within the time period is included. Troponin 31.276 (HH) 0.000 - 0.040 ng/mL [facility] Comment: YARSANISM In patients suspected of HOSPITAL having a myocardial infarction, along with all other appropriate clinical measures and actions including ECG and other diagnostics as appropriate, measure Ultra TnI at 0 hrs and at 3 hrs. Myocardial infarction VERY LIKELY The 0 hr TnI level is > 0.10 ng/mL Myocardial infarction LIKELY The 0 hr TnI level is > 0.04 ng/mL and 3 hr level is increased or decreased by at least 0.020 ng/mL Myocardial infarction VERY UNLIKELY Both the 0 hr and 3 hr TnI levels <= 0.04 ng/mL(within normal limits) OR 0 hr is > 0.04 ng/mL and 3 hr is increased OR decreased by less than 0.020 ng/mL Specimen Performing Organization Address City/State/[facility] Ph one Number [facility] DEPARTMENT OF [address] [place] [address] PATHOLOGY AND GENOMIC MEDICINE [place] [address] [facility] * MRI Brain Wo Contrast (02/19/2020 10:46 PM CDT) Specimen Narrative Performed At [facility] EXAMINATION: MRI BRAIN WO CONTRAST CLINICAL HISTORY: Focal neuro deficit < 6 hrs stroke suspected, Thin cut coronal DWI through the brainstem. Foll ow-up COMPARISON: CT brain from earlier TECHNIQUE: Multiplanar and multisequenc e MRI imaging of the brain was obtained without contrast. FINDINGS: There are multiple recent areas of infa rct throughout both cerebral hemispheres more prominent in the paracentral occip ital lobes and right temporal lobe. Many of them show edema on the recent CT exa m from earlier today.. There are multiple small recent infarcts in the cerebellum although met allic artifact obscures detail. Some of them showed edema on the CT exam from e fitz today. There is old infarct in the left basal ganglia and frontal ly r adiata. There is nonspecific enlargement of the ventricles, sulci and cisterns and nons pecific white matter changes. The study was not performed for proper imaging of the intracranial arteries. There is mucosal thickening and partial opacification of the sinuses and mastoid air cells. IMPRESSION: Multiple recent infarcts throughout the brain in different vessel distributions suggesting the etiology is from emboli from a central source such as the heart or aorta. [facility]-[id number] Procedure Note Hm Interface, Radiology Results Incoming - 02/19/2020 10:54 PM CDT EXAMINATION: MRI BRAIN WO CONTRAST CLINICAL HISTORY: Focal neuro deficit < 6 hrs stroke suspected, Thin cut coronal DWI through the brainstem. Follow-up COMPARISON: CT brain from earlier today TECHNIQUE: Multiplanar and multisequence MRI imaging of the brain was obtained without contrast. FINDINGS: There are multiple recent areas of infarct throughout both cerebral hemispheres more prominent in the paracentral occipital lobes and right temporal lobe. Many of them show edema on the recent CT exam from earlier today.. There are multiple small recent infarcts in the cerebellum although metallic artifact obscures detail. Some of them showed edema on the CT exam from earlier today. There is old infarct in the left basal ganglia and frontal ly radiata. There is nonspecific enlargement of the ventricles, sulci and cisterns and nonspecific white matter changes. The study was not performed for proper imaging of the intracranial arteries. There is mucosal thickening and partial opacification of the sinuses and mastoid air cells. IMPRESSION: Multiple recent infarcts throughout the brain in different vessel distributions suggesting the etiology is from emboli from a central source such as the heart or aorta. [facility]-[id number] Performing Organization Address City/State/Zipcode Ph one Number [facility] [address] [place] [address] * Pv transcranial Doppler intracranial arteries (02/19/2020 3:45 PM CDT) Specimen Narrative Performed At [facility] Transcranial Doppler Report (TCD) [address] [facility], [place] [address], [place] [address] Pat.Name: GIL MAN Pat.ID: [id number] .Date: 02/19/2020 Refer.MD: RADHA CRUZ MD Exam Time: 2:26:00 PM Study Type:TCD Age: 10 1955,64Y Sex: MALE Sonogrphr: Moira Todd, CINTHIAT, FAINA Ibarra, RCS Pat. Stat.:Inpatient Room: [facility] WT10 1002 Tape Vol: TN/JM, CPT - 4: 72476 Echo Event ID:[id number] Order ID: [id number] Reason for Study:Stroke. History of H TN, CAD s/p CEA, CAD/valvular disease s/p CABG and history CVA Procedures: Colorflow, Pulsed wave Dopp ler Race: D SUMMARY: RIGHT LEFT Antegrade Retrograde Antegrade Retrog rade Ophthalmic Artery + + RIGHT LEFT Normal Abnormal Not Seen Normal Abnor mal Not Seen Siphon + PI 1.96 +PI 1.80 MCA + PI 1.66 + PI 1.50 BHARATHI + PI 1.48 + PI 1.65 MAGNETIC TAPE COMPOSER OPERATOR + + Basilar + + Vertebral + + ADDITIONAL FINDINGS: 1. No evidence of elevated velocities i n the insonated arteries, bilaterally. 2. Elevated PI values noted throughout the insonated arteries with the exception of right MAGNETIC TAPE COMPOSER OPERATOR. 3. Bilateral vertebral and basilar alfreda frantz are not visualized due to dressing and neck IV lines. 4. Unable to obtain left MAGNETIC TAPE COMPOSER OPERATOR. PHYSICIAN INTERPRETATION: All velocities within normal limits. No stenosis or obstruction detected. Both OAs are antegrade. Elevated PI v alues noted throughout the insonated arteries. VAs and BA were not visualized. FINDINGS: Signed 02/19/2020 10:21 PM Dannie Gambino MD, RPVI Procedure Note Interface, Radiology Results In - 02/19/2020 10:21 PM CDT [facility] Transcranial Doppler Report (TCD) [address] [address] Pat.Name: GIL MAN Pat.ID: [id number] .Date: 02/19/2020 Refer.MD: RADHA CRUZ MD Exam Time: 2:26:00 PM Study Type:TCD Age: 10 1955,64Y Sex: MALE Sonogrphr: Moira Todd, RVT, FAINA Ibarra, RCS Pat. Stat.:Inpatient Room: [place] [address] 1002 Tape Vol: TN/JM, CPT - 4: 91208 Echo Event ID:[id number] Order ID: [id number] Reason for Study:Stroke. History of HTN, CAD s/p CEA, CAD/valvular disease s/p CABG and history CVA Procedures: Colorflow, Pulsed wave Doppler Race: D SUMMARY: RIGHT LEFT Antegrade Retrograde Antegrade Retrograde Ophthalmic Artery + + RIGHT LEFT Normal Abnormal Not Seen Normal Abnormal Not Seen Siphon + PI 1.96 +PI 1.80 MCA + PI 1.66 + PI 1.50 BHARATHI + PI 1.48 + PI 1.65 MAGNETIC TAPE COMPOSER OPERATOR + + Basilar + + Vertebral + + ADDITIONAL FINDINGS: 1. No evidence of elevated velocities in the insonated arteries, bilaterally. 2. Elevated PI values noted throughout t he insonated arteries with the exception of right MAGNETIC TAPE COMPOSER OPERATOR. 3. Bilateral vertebral and basilar arter ies are not visualized due to dressing and neck IV lines. 4. Unable to obtain left MAGNETIC TAPE COMPOSER OPERATOR. PHYSICIAN INTERPRETATION: All velocities within normal limits. No stenosis or obstruction detected. Both OAs are antegrade. Elevated PI values noted throughout the insonated arteries. VAs and BA were not visualized. FINDINGS: Signed 02/19/2020 10:21 PM Dannie Gambino MD, RPVI Performing Organization Address City/State/Zipcode Ph one Number [facility] [address] [place] [address] * Lipid panel (02/19/2020 2:30 PM CDT) Cholesterol 160 <200 mg/dL [facility] Triglycerides 231 (H) <150 mg/dL [facility] HDL cholesterol 26 (L) >40 mg/dL [facility] LDL cholesterol 99Comment: Result obtained by <100 mg/dL [place] direct LDL measurement [facility] Comment: YARSANISM Total Cholesterol (mg/dL) [facility] <200 Desirable 200-239 Borderline-high >=240 High Triglycerides (mg/dL) <150 Normal 150-199 Borderline-high 200-499 High >=500 Very high HDL Cholesterol (mg/dL) <40 Low (male) <40 Low (female) LDL Cholesterol (mg/dL) <100 Optimal 100-129 Near or above optimal 130-159 Borderline-high 160-189 High >=190 Very high Risk Catergories that modify LDL goals. Risk Catergories LDL goal (mg/dL) CHD and CHD risk equivalent <100 (10-year risk >20%) Multiple (2+) risk factors <130 (10-year risk =<20%) 0-1 risk factors <160 (<10-year risk) Defining levels of lipids in metabolic syndrome Triglycerides >=150 mg/dL HDL Cholesterol Men <40 mg/dL Women <40 mg/dL Non-HDL cholesterol is a second target for therapy in persons with high triglycerides (>=200 mg/dL) Specimen Performing Organization Address City/State/Zipcode Ph one Number [facility] DEPARTMENT OF [address] [place] [address] PATHOLOGY AND GENOMIC MEDICINE [address] * CT Abdomen WWO Contrast, Pelvis W Contrast (02/19/2020 11:44 AM CDT) Specimen Narrative Performed At EXAMINATION: CT ABDOMEN WWO CONTRAST PELVIS W CONTR AST HM [facility] CLINICAL HISTORY: suspect retroperito marce bleed TECHNIQUE: Noncontrast images of the ab domen were obtained. Subsequently, axial images of the abdomen and pelvis were o btained following intravenous administration of iodinated contrast. S agittal and coronal computerized reformatted images were also obtained.Automatic exposure control or iterative reconstruction techniques used to reduce dose. COMPARISON: None. IMPRESSION: 1. Prominent dependent atelectasis at l meena bases. NG tube tip is at the gastric fundus. No focal lesions are seen withi n the liver, adrenals, kidneys, or spleen. Both adrenals show nodular enla rgement and may represent hyperplasia. Extensive vascular calcifications at renal hilar regions, without clear evidence for nephrolithiasis or hydronephrosis. Hype rdensity within the gallbladder probably due to vicarious excretion of contrast versus sludge/stones. Bowel gas pattern nonobstructive. 2.Small amount of free fluid noted in t he pelvis. No evidence for retroperitoneal hematoma. Stranding niko ng the right groin region should be correlated with angiography access. No significant hematoma noted. Degenerative changes noted throughout dorsal spine. SUMMARY: 1.No evidence for retroperitoneal hemat mohit noted. [facility]-[id number] Procedure Note Interface, Radiology Results Incoming - 02/19/2020 12:16 PM CDT EXAMINATION: CT ABDOMEN WWO CONTRAST PELVIS W CONTRAST CLINICAL HISTORY: suspect retroperitoneal bleed TECHNIQUE: Noncontrast images of the abdomen were obtained. Subsequently, axial images of the abdomen and pelvis were obtained following intravenous administration of iodinated contrast. Sagittal and coronal computerized reformatted images were also obtained.Automatic exposure control or iterative reconstruction techniques used to reduce dose. COMPARISON: None. IMPRESSION: 1. Prominent dependent atelectasis at john ng bases. NG tube tip is at the gastric fundus. No focal lesions are seen within the liver, adrenals, kidneys, or spleen. Both adrenals show nodular enlargement and may represent hyperplasia. Extensive vascular calcifications at renal hilar regions, without clear evidence for nephrolithiasis or hydronephrosis. Hyperdensity within the gallbladder probably due to vicarious excretion of contrast versus sludge/stones. Bowel gas pattern nonobstructive. 2.Small amount of free fluid noted in th e pelvis. No evidence for retroperitoneal hematoma. Stranding along the right groin region should be correlated with angiography access. No significant hematoma noted. Degenerative changes noted throughout dorsal spine. SUMMARY: 1.No evidence for retroperitoneal hemato ma noted. [facility]-[id number] Performing Organization Address City/State/Zipcode Ph one Number [facility] [address] [place] [address] * CTA Head W Wo Contrast (02/19/2020 11:44 AM CDT) Specimen Narrative Performed At EXAMINATION: CT ANGIOGRAM HEAD W WO CONTRAST RA [facility] CLINICAL HISTORY: suspect basilar COMPARISON: Head CT and concurrent ne ck CTA on 02/19/2020. TECHNIQUE: Head CTA with multiplanar MD P and volumetric rendering after bolus intravenous iodinated contrast administ ration performed using radiation dose reduction techniques. Technical facto rs are evaluated and adjusted to ensure appropriate moderation of exposure. Automated dos e management technology is applied to adjust radiation exposure while achievi ng a diagnostic quality image. FINDINGS: The study is limited by streak and beam hardening artifacts from occipitocervical fusion hardware. There is paucity of contrast with likel y occlusion of the left vertebral artery distal V3-proximal V4 segment as it pen etrates the dura. Although there is faint contrast within the right vertebral art kayla, there are short segmental defects from likely severe stenosis/occlusion along the pro ximal and distal parts of the right V4 vertebral artery. The basilar artery ap pears to be fed by predominantly the anterior spinal artery. Remainder of th e posterior circulation is diminutive in size with weak contrast enhancement. This includes the basilar artery, cerebellar arteries, milk house worker, and bilateral posterior communica ting arteries without gross occlusion. Scattered vessel wall calcification fro m presumably atherosclerosis along petrous, cavernous, and supraclinoid se gments of bilateral ICAs with at most mild-moderate stenosis. Normal contrast enhancement with no significant stenosis or occlusion along bilateral ACAs and MCAs. The anterior c ommunicating artery complex is unremarkable. No evidence of cerebral aneurysm in the proximal venetie ira of Cardoza. 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 Remainder of the posterior circulation is diminutive in size with weak contrast enhancement without gross occlusion. Findings were discussed with Nurse Denisha Peralta on 02/19/2020 12:00 PM, and she verbalized understanding of the rep ort. [id number] Procedure Note Hm Interface, Radiology Results Incoming - 02/19/2020 12:18 PM CDT EXAMINATION: CT ANGIOGRAM HEAD W WO CONTRAST CLINICAL HISTORY: suspect basilar COMPARISON: Head CT and concurrent neck CTA on 02/19/2020. TECHNIQUE: Head CTA with multiplanar MIP and volumetric rendering after bolus intravenous iodinated contrast administration performed using radiation dose reduction techniques. Technical factors are evaluated and adjusted to ensure appropriate moderation of exposure. Automated dose management technology is applied to adjust radiation exposure while achieving a diagnostic quality image. FINDINGS: The study is limited by streak and beam hardening artifacts from occipitocervical fusion hardware. There is paucity of contrast with likely occlusion of the left vertebral artery distal V3-proximal V4 segment as it penetrates the dura. Although there is faint contrast within the right vertebral artery, there are short segmental defects from likely severe stenosis/occlusion along the proximal and distal parts of the right V4 vertebral artery. The basilar artery appears to be fed by predominantly the anterior spinal artery. Remainder of the posterior circulation is diminutive in size with weak contrast enhancement. This includes the basilar artery, cerebellar arteries, milk house worker, and bilateral posterior communicating arteries without gross occlusion. Scattered vessel wall calcification from presumably atherosclerosis along petrous, cavernous, and supraclinoid segments of bilateral ICAs with at most mild-moderate stenosis. Normal contrast enhancement with no significant stenosis or occlusion along bilateral ACAs and MCAs. The anterior communicating artery complex is unremarkable. No evidence of cerebral aneurysm in the proximal venetie ira of Cardoza. 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 Remainder of the posterior circulation is diminutive in size with weak contrast enhancement without gross occlusion. Findings were discussed with Nurse Ting Peralta on 02/19/2020 12:00 PM, and she verbalized understanding of the report. [id number] Performing Organization Address City/State/Zipcode Ph one Number [facility] [address] [place] [address] * CTA Neck W Wo Contrast (02/19/2020 11:43 AM CDT) Specimen Narrative Performed At EXAMINATION: CT ANGIOGRAM NECK W WO CONTRAST RA PHILLIPS CLINICAL HISTORY: stroke COMPARISON: None. TECHNIQUE: Neck CTA with multi-planar MIP and volu metric rendering (3D) after bolus intravenous iodinated contrast administ ration was performed. All CT images were acquired using low-dose technique with automated exposure control. FINDINGS: Normal branching anatomy of the aortic arch. Atherosclerosis aortic arch and origins the major branch vessels, with mild narrowing of the left subclavian artery origin. There is no significant stenosis of the bilateral common, internal, and external carotid arteries. There is no significa nt stenosis according to the NASCET criteria (0%). Evidence of prior caroti d endarterectomies bilaterally. There is trace residual calcified atherosclerosis of the right carotid bifurcation. Diminutive vertebrobasilar system. Ther e is occlusion of the left vertebral artery at its origin, with reconstituti on of flow at the mid left V2 segment, with multifocal moderate narrowing of t he left V2, V3, and severe narrowing of the left V4 segment. Multifocal mild or moderate narrowing o f the right vertebral artery V3 segment, severe multifocal narrowing of the righ t V3 segment and V4 segment. 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 There is multifocal mild or moderate narrowing of the right vertebral artery V2 segment, and severe multifocal narrowing of the right V3 and V4 segmen t. This findings are age indeterminate and could represent narrowing secondary to atherosclerosis, though cannot exclude possibility of dissection or thrombosis in any of thes e segments, given the presence of acute appearing posterior circulation infarct s. Prior carotid endarterectomies with no significant cervical carotid artery stenosis. Findings were discussed with and acknow ledged by YORDY Schultz at 02/19/2020 12:00 PM who verbalized understanding with e findings would be given to the M.D. caring for patient. [id number] Procedure Note Hm Interface, Radiology Results Incoming - 02/19/2020 12:03 PM CDT EXAMINATION: CT ANGIOGRAM NECK W WO CONTRAST CLINICAL HISTORY: stroke COMPARISON: None. TECHNIQUE: Neck CTA with multi-planar MIP and volumetric rendering (3D) after bolus intravenous iodinated contrast administration was performed. All CT images were acquired using low-dose technique with automated exposure control. FINDINGS: Normal branching anatomy of the aortic arch. Atherosclerosis aortic arch and origins the major branch vessels, with mild narrowing of the left subclavian artery origin. There is no significant stenosis of the bilateral common, internal, and external carotid arteries. There is no significant stenosis according to the NASCET criteria (0%). Evidence of prior carotid endarterectomies bilaterally. There is trace residual calcified atherosclerosis of the right carotid bifurcation. Diminutive vertebrobasilar system. There is occlusion of the left vertebral artery at its origin, with reconstitution of flow at the mid left V2 segment, with multifocal moderate narrowing of the left V2, V3, and severe narrowing of the left V4 segment. Multifocal mild or moderate narrowing of the right vertebral artery V3 segment, severe multifocal narrowing of the right V3 segment and V4 segment. IMPRESSION: Occlusion of the left vertebral artery at its origin, with reconstitution of flow at the left V2 segment, with multifocal moderate narrowing of the left V2, V3, and severe narrowing of the V4 segments distal to this. There is multifocal mild or moderate narrowing of the right vertebral artery V2 segment, and severe multifocal narrowing of the right V3 and V4 segment. This findings are age indeterminate and could represent narrowing secondary to atherosclerosis, though cannot exclude possibility of dissection or thrombosis in any of these segments, given the presence of acute appearing posterior circulation infarcts. Prior carotid endarterectomies with no significant cervical carotid artery stenosis. Findings were discussed with and acknowledged by YORDY Schultz at 02/19/2020 12:00 PM who verbalized understanding with the findings would be given to the M.D. caring for patient. [id number] Performing Organization Address City/State/Zipcode Ph one Number [facility] [address] [place] [address] * CT Stroke Brain Wo Contrast (02/19/2020 11:26 AM CDT) Only the most recent of 3 results within the time period is included. Specimen Narrative Performed At EXAMINATION: CT STROKE BRAIN WO CONTRAST JUAN PABLO Germain CLINICAL HISTORY: stroke COMPARISON: CT stroke 02/18/2020 TECHNIQUE: Noncontrast head CT performe d using radiation dose reduction techniques. Technical factors are lizz luated and adjusted to ensure appropriate moderation of exposure. Automated dos e management technology is applied to adjust radiation exposure while achieving a diagnostic quality im age. FINDINGS: No evidence of hemorrhagic conversion. No mass effect or midline shift. Redemonstration of areas of carbone-white matter differentiation loss involving the bilateral occipital lobes (with possibl e petechial cortical hemorrhage) and anteromedial right temporal lobe consis tent with sequela of recent ischemia. Chronic appearing lacunar infarct invol ving the left basal ganglia with minimal ex vacuo dilatation of the adjacent lef t lateral ventricle. Chronic appearing insults involving the left greater than right cerebellar hemispheres and suspected small chronic insults involving the parasagittal righ t parietal lobe. Age-indeterminate small area of ischemi a involving the right precentral gyrus. Stable size and configuration of the ve ntricular system without hydrocephalus. Basal cisterns are clear. Hardware invo lving the occipital calvarium. Suspected narrowing of the spinal canal at the cr aniocervical junction with widening of the atlantodental interval. Mild bilateral orbital proptosis. Mild chronic appearing sinus inflammatory changes. Trace right mastoid fluid. IMPRESSION: No significant interval change compared with 02/18/2020. [id number] Procedure Note Hm Interface, Radiology Results Incoming - 02/19/2020 11:41 AM CDT EXAMINATION: CT STROKE BRAIN WO CONTRAST CLINICAL HISTORY: stroke COMPARISON: CT stroke 02/18/2020 TECHNIQUE: Noncontrast head CT performed using radiation dose reduction techniques. Technical factors are evaluated and adjusted to ensure appropriate moderation of exposure. Automated dose management technology is applied to adjust radiation exposure while achieving a diagnostic quality image. FINDINGS: No evidence of hemorrhagic conversion. No mass effect or midline shift. Redemonstration of areas of carbone-white matter differentiation loss involving the bilateral occipital lobes (with possible petechial cortical hemorrhage) and anteromedial right temporal lobe consistent with sequela of recent ischemia. Chronic appearing lacunar infarct involving the left basal ganglia with minimal ex vacuo dilatation of the adjacent left lateral ventricle. Chronic appearing insults involving the left greater than right cerebellar hemispheres and suspected small chronic insults involving the parasagittal right parietal lobe. Age-indeterminate small area of ischemia involving the right precentral gyrus. Stable size and configuration of the ventricular system without hydrocephalus. Basal cisterns are clear. Hardware involving the occipital calvarium. Suspected narrowing of the spinal canal at the craniocervical junction with widening of the atlantodental interval. Mild bilateral orbital proptosis. Mild chronic appearing sinus inflammatory changes. Trace right mastoid fluid. IMPRESSION: No significant interval change compared with 02/18/2020. [id number] Performing Organization Address [place]/[facility] [place] Ph one Number [facility] [address] [place] [address] * Vancomycin level, random (02/19/2020 4:15 AM CDT) Vancomycin, 7.4 ug/mL [facility] Specimen Serum Performing Organization Address City[facility] Ph one Number [facility] DEPARTMENT OF [address] [place] [address] PATHOLOGY AND GENOMIC MEDICINE [address] * Continuous EEG monitoring (02/19/2020 12:13 AM CDT) Narrative Performed At This result has an attachment that is n ot available. CONTINUOUS VIDEO-EEG MONITORING REPO RT Patient Name: Gil Man Date of : 1955 Gender: male Initial Study Start Date: 02/18/2020 Initial Study Start Time: 3:55 Current Study Start Date: 02/18/2020 Current Study Start Time: 3:55 Current Study End Date: 02/18/2020 Current Study End Time: 23:59 Indication Seizure Technical Summary Technique:Modified international 10/20 system of EEG electrode placement was used. Visual Analysis of EEG-Video Monitoring :This electroencephalogram was recorded simultaneously with video thro ughout the monitoring. The EEG was visually inspected and analyzed for radha racterization of the background activity in all awake and sleep states, abnormal focal and generalized features, and intraictal and ictal epil eptiform activity. Electrical seizure activity was correlated with th e patients clinical activity recorded on video and video captured cl inical events were correlated with simultaneously recorded EEG activity. Computer Analysis of EEG Waveforms:The EEG underwent continuous computerized digital spectral analysis, which consisted of real time detection of electrical events that cou ld be considered epileptiform. All electrographic events identified by the detection program were visually inspected in order to assess the wavefo rm characteristics and significance of these electrographic events. All int raictal and ictal epileptiform events are described further below with additional details of the visual analysis of the EEG. Events detected by computer analysis that were not determined by visual analysis to be epi leptiform were considered to be myogenic, biologic, mechanical, or elec trical artifact in origin. Only computer detected events that have been verified by visual inspection to be interictal or ictal epileptiform dis charges are reported below and considered in the final report of this monitoring study. Findings Awake Recordings: There is no occipital dominant rhythm. 6-8 Hz and 4-5 Hz and 1.5-3 Hz activity was present in al l regions. 18-22 Hz activity was present in all regions. Diphasic and Tr iphasic sharp wave discharges were present in the frontal central regions. Sleep Recording: No sleep was recorde d. Hyperventilation: Was not performed. Photic Stimulation: Was not performed. Impression: The findings are consistent with a severe diffuse disturbance in brain function which is most likely metabolic or ischemic hypoxic in etiology. No seizures occurred. ICD-10 Code: R56.9 Nuno Coello MD Fellow, Clinical Neurophysiology I reviewed the entire EEG and agree wit h the above findings. Ruben Jensen MD * COVID-19 qualitative PCR (02/18/2020 5:08 PM CDT) Interpretation Negative results do not HUYNH preclude 2019-nCoV infection [facility] and should not be used as the HOSPITAL sole basis for treatment or other patient management decisions. Negative results must be combined with clinical observations, patient history, and epidemiological information. COVID-19 Not-Detected Not-Detected [place] qualitative PCR [facility] result HOSPITAL COVID-19 See link below for PDF Lab [place] qualitative PCR ReportComment: Case Number: [facility] [id number] HOSPITAL Specimen Performing Organization Address [facility] Ph one Number [facility] DEPARTMENT OF [address] [place] [address] PATHOLOGY AND GENOMIC MEDICINE [address] * Blood culture, aerobic & anaerobic (02/18/2020 1:31 PM CDT) Only the most recent of 4 results within the time period is included. Pathologist [facility] Blood culture No growth after 5 days of [place] isolate incubation. [facility]ANISM Comment: HOSPITAL Specimen Information Specimen Source: Blood Specimen Site: Arm, left Specimen Blood - Arm, left Performing Organization Address [facility] [place] Ph one Number [facility] DEPARTMENT OF [address] [place] [address] PATHOLOGY AND GENOMIC MEDICINE [address] * HIV Ag/Ab combination (02/18/2020 12:55 PM CDT) Pathologist [facility] HIV Ag/Ab Non-reactive Non-reactive [facility] Specimen Serum Performing Organization Address [facility] [place] Ph one Number [facility] DEPARTMENT OF [address] [place] [address] PATHOLOGY AND GENOMIC MEDICINE [address] * Hepatitis acute panel (02/18/2020 12:55 PM CDT) Pathologist [facility] Hepatitis A IgM Non-reactive Non-reactive [facility] Hepatitis B Non-reactive Non-reactive [place] core IgM [facility] Hepatitis B Non-reactive Non-reactive [place] surface Ag [facility] Hepatitis C Ab Non-reactive Non-reactive [facility] Specimen Serum Performing Organization Address [facility] [place] Ph one Number [facility] DEPARTMENT OF [address] [place] [address] PATHOLOGY AND GENOMIC MEDICINE [address] [place] [address] HOSPITAL * EEG (routine) - Baseline EEG (02/18/2020 5:20 AM CDT) Impressions Performed At This is a severely abnormal Video-EEG s tudy characterized by severe diffuse slowing and poor reactivity of the background, a nonspecific finding indicating global cerebral dysf unction. There are no epileptiform discharges or seizures captured. Nuno Coello MD Fellow, Clinical Neurophysiology ATTESTATION I have personally reviewed the entire E EG and the interpretation by Dr. Coello, and I agree with the findings as documented above. Yessenia Gatica MD ICD-10 Code: R569 Narrative Performed At This result has an attachment that is n ot available. VIDEO-EEG RECORDING COMA/SLEEP - Baseli ne for Bedside Date of Service:02/18/20 Patient Name: Gil Man Date of : 1955 Attending MD: Yessenia Gatica MD TECHNIQUE: Recordings were obtained usi ng a standard international 10-20 electrode placement supplemented with a single electrocardiogram chest electrode. The recordings were obtained using a reference electrode and reformatted digitally into sequential b ipolar and referential montages for review. OBJECT OF RECORDING: This is a .19-pascal lilly EEG in a 64 y.o. year old male with a history of significant for HTN, CVA with residual right sided weakness, carotid artery disease s/p bi lateral CEA, CAD who ws admitted on 02/15 after found unresponsive by his so n and referred for EEG to evaluate for seizures. FINDINGS: Background: The patient is intubated. T he background is continuous and composed of predominantly theta and del ta frequencies with poor anterior to posterior organization and no discer nable posterior dominant rhythm. There is reduced variability and reacti vity. There is abundant myogenic artifact throughout the recording. There is poor sleep-wake differentiatio n. Hyperventilation: was not performed Photic stimulation: was not performed Interictal: There are no epileptiform d ischarges or seizures captured. * Hemoglobin A1c (02/18/2020 4:00 AM CDT) Hemoglobin A1C 6.7 (H) 4.0 - 5.6 % [place] Comment: [facility] HbA1c cutoffs for diagnosing HOSPITAL diabetes: 4.0% - 5.6% = normal 5.7% - 6.4% = increased risk for diabetes (prediabetes)9 >=6.5% = diabetes9 Goals for glycemic control (ADA 2016) < 7.0% Target for non adults with diabetes. More or less stringent targets may be appropriate for individual patients. <7.5% Target for Children and adolescents with type 1 diabetes. Specimen Blood Performing Organization Address City/[facility] Ph one Number [facility] DEPARTMENT OF [address] [place] [address] PATHOLOGY AND [place] [address] HOSPITAL * geophysical laboratory chief procedure (02/17/2020 12:44 PM CDT) Specimen Narrative Performed At [facility] Procedure Details A time-out was completed verifying abigail ect patient, procedure, site, positioning, and special equipment if a pplicable. The patient was placed in a supine position. The patient s right groin was prepped and draped in sterile fashion. Right femoral artery w as cannulated with a 5F sheath. Coronary angiogram was performed by isabella ectively cannulating right and left coronary arteries with use of JL4 and W R catheters, respectively. The SVG to RCA graft was engaged with the WR ca theter. Decision was made to intervene on the o ccluded SVG graft. The 5Fr sheath was exchanged for a 6Fr sheath. Findings ? Left main: No significant lesions ? LAD: 40% stenosis in the proximal LAD ? LCx: 50% stenosis in the mid LCx prox imal to second OM ? SVG to RCA graft: 99% occlusion proxi kerwin ? RCA: 100% proximal RCA occlusion. Gra ft to RCA occluded. Distal RCA has collaterals from LCx artery. Performing Organization Address [facility] [place] Ph one Number [facility] [address] [place] [address], * Type and screen (02/17/2020 8:51 AM CDT) ABO grouping O [facility] Rh type POS [facility] Antibody screen NEG [place] (gel) [facility] Specimen Blood Performing Organization Address City/State/Zipcode Ph one Number [facility] DEPARTMENT OF [address] [place] [address] PATHOLOGY AND GENOMIC MEDICINE [address] * Sputum culture (02/17/2020 4:00 AM CDT) Pathologist [facility] Sputum culture Normal oral alesia isolated. [place] isolate Normal oral alesia and [facility] (A) HOSPITAL Comment: Specimen Information Specimen Source: Sputum Specimen Site: Induced Sputum culture Streptococcus group C [place] isolate Few [facility] The performance HOSPITAL characteristics of this assay on this isolate were validated by the Microbiology Laboratory at [facility]. This source has not been approved by the U.S. Food and Drug Administration. The results are not intended to be used as the sole means for clinical diagnosis or patient management. The Microbiology Laboratory is authorized under the clinical Laboratory Improvement Amendments of 1988 (CLIA-88) to perform high complexity testing. (A) Specimen Sputum - Induced Performing Organization Address City/[facility] [place] Ph one Number [facility] DEPARTMENT OF [address] [place] [address] PATHOLOGY AND [facility] MEDICINE [address] * Gram stain (02/17/2020 4:00 AM CDT) [facility] Gram stain Moderate WBC's [place] isolate Occasional Gram positive cocci METHOD IST in [facility] Many Gram positive cocci in chains Comment: Specimen Information Specimen Source: Sputum Specimen Site: Induced Specimen Sputum - Induced Performing Organization Address City/[facility] [place] Ph one Number [facility] DEPARTMENT OF [address] [place] [address] PATHOLOGY AND [facility] MEDICINE [address] * Thyroid stimulating hormone (02/17/2020 4:00 AM CDT) Only the most recent of 2 results within the time period is included. [facility] TSH 2.14 0.27 - 4.20 uIU/mL [facility] Specimen Blood Performing Organization Address City[facility] Ph one Number [facility] DEPARTMENT OF [address] [place] [address] PATHOLOGY AND GENOMIC MEDICINE [address] * T4, free (02/17/2020 4:00 AM CDT) [facility] T4, free 1.0 0.9 - 1.7 ng/dL [facility] Specimen Blood Performing Organization Address [facility] [place] Ph one Number [facility] DEPARTMENT OF [address] [place] [address] PATHOLOGY AND GENOMIC MEDICINE [facility]ARSANISM [address] [place] [address] * Cortisol level, random (02/17/2020 4:00 AM CDT) Cortisol, 4 ug/dL [place] random Comment: [facility] Reference Ranges are not HOSPITAL established for non-timed Cortisol levels. Reference Range for Timed Cortisol: 6 - 10 AM 6 - 18 ug/dl 4 - 8 PM 3 - 11 ug/dl Specimen Blood Performing Organization Address City/State/[facility] Ph one Number [facility] DEPARTMENT OF [address] [place] [address] PATHOLOGY AND GENOMIC MEDICINE [place] YARS[facility]ISM[address] * Transthoracic Echocardiogram Complete, (w Contrast, Strain and 3D if needed) (02/17/2020 2:46 AM CDT) Specimen Narrative Performed At [facility] Echo cardiography Report [address] [place] [address] [address], [place] [address] Pat.Name: GIL MAN Pat.ID: [id number] .Date: 02/17/2020 Refer.MD: MIKE RYDER MD Exam Time: 1:10:00 AM Study Type:Routine Echo Height: 62in Weight: 179.61lb BSA: 1.83 m2 Age: 9 1955,64Y Sex: MALE BP: 144/66 HR: 56 bpm Sonogrphr: DELMA Archer Pat. Stat.:Inpatient Room: [place] [address] Study Status:Final Echo Event ID:[id number] Order ID: [id number] Reason for Study:Ventricular tachycardi a Procedures: 2D Echo, Colorflow Doppler, Strain, Portable Race: D SUMMARY: LV EF is normal. Wall motion abnormalit ies present. Estimated EF is 55-59%. RV systolic function is normal. FINDINGS: LV: LV size is normal. There i s severe concentric LV hypertrophy. Reduced aver age LV global longitudinal strain at -8%. LV EF is normal. Estimated EF is 55-59%. RV: RV size is normal. RV syst olic function is normal. LA: LA volume is mildly enlarg ed. RA: RA size is normal. AO: Aortic root diameter is no rmal. YONY: No pericardial effusion. AV: Aortic valve not well seen . MV: Mild mitral annular calcif ication. PV: Pulmonic valve not well se en. TV: No structural TV abnormali ties noted. Jennings: LV filling pressure is elev ated. Other: Insufficient TR jet to odalys mate PA systolic pressure. MEASUREMENTS: 2D Parasternal Long [place] Ao An 2 cm LVPWd 1.8 cm Ao Rtd 3.1 cm Index 1.7 cm/m2 LA Ds 3.3 cm IVSd 1.8 cm RWT 0.88 LVIDd 4.1 cm Index 2.2 cm/m2 LV Mass 323 g (122-1 74) LVIDs 2.2 cm LVM Index 177 g/m LV%fs 46 % LVOT 1.7 cm LA Sng Plane LA Area 20 cm (8.8-2 3.4) LA Vol 67 ml Index 37 ml/m2 LA LngAx 5.1 cm LVOT LVOT Area 2.4 cm DOPPLER LVOT Stroke Vol LVOT TVI 21 cm HR 55 bpm LVOT LVOT SV 51 ml LVOT CO 2.8 l/min SVi 28 ml/m LVOT CI 1.5 l/m/m WALL MOTION: RESTING WALL MOTION: Basal Inferoseptal, Basal Inferior wall s are akinetic. Mid Inferoseptal, Mid Inferior bacon are hy pokinetic. Normal wall motion in all other bacon. Wall Index = 1.4 Signed 02/17/2020 10:15 AM Dakota Dejesus M.D. Procedure Note Interface, Radiology Results In - 02/17/2020 10:16 AM CDT Echocardiography Report [address] [place] [address] Pat.Name: GIL MAN Pat.ID: [id number] .Date: 02/17/2020 Refer.MD: MIKE RYDER MD Exam Time: 1:10:00 AM Study Type:Routine Echo Height: 62in Weight: 179.61lb BSA: 1.83 m2 Age: 9 1955,64Y Sex: MALE BP: 144/66 HR: 56 bpm Sonogrphr: DELMA Archer Pat. Stat.:Inpatient Room: [place] [address] Study Status:Final Echo Event ID:[id number] Order ID: [id number] Reason for Study:Ventricular tachycardia Procedures: 2D Echo, Colorflow Doppler, Strain, Portable Race: D SUMMARY: LV EF is normal. Wall motion abnormalities present. Estimated EF is 55-59%. RV systolic function is normal. FINDINGS: LV: LV size is normal. There is severe concentric LV hypertrophy. Reduced average LV global longitudinal strain at -8%. LV EF is normal. Estimated EF is 55-59%. RV: RV size is normal. RV systolic function is normal. LA: LA volume is mildly enlarged. RA: RA size is normal. AO: Aortic root diameter is normal. YONY: No pericardial effusion. AV: Aortic valve not well seen. MV: Mild mitral annular calcification. PV: Pulmonic valve not well seen. TV: No structural TV abnormalities noted. Jennings: LV filling pressure is elevated. Other: Insufficient TR jet to estimate PA systolic pressure. MEASUREMENTS: 2D Parasternal Long [place] Ao An 2 cm LVPWd 1.8 cm Ao Rtd 3.1 cm Index 1.7 cm/m2 LA Ds 3.3 cm IVSd 1.8 cm RWT 0.88 LVIDd 4.1 cm Index 2.2 cm/m2 LV Mass 323 g (122-174) LVIDs 2.2 cm LVM Index 177 g/m LV%fs 46 % LVOT 1.7 cm LA Sng Plane LA Area 20 cm (8.8-23.4) LA Vol 67 ml Index 37 ml/m2 LA LngAx 5.1 cm LVOT LVOT Area 2.4 cm DOPPLER LVOT Stroke Vol LVOT TVI 21 cm HR 55 bpm LVOT LVOT SV 51 ml LVOT CO 2.8 l/min SVi 28 ml/m LVOT CI 1.5 l/m/m WALL MOTION: RESTING WALL MOTION: Basal Inferoseptal, Basal Inferior bacon are akinetic. Mid Inferoseptal, Mid Inferior bacon are hypokinetic. Normal wall motion in all other bacon. Wall Index = 1.4 Signed 02/17/2020 10:15 AM Dakota Dejesus M.D. Performing Organization Address City/State/[facility] Ph one Number [facility] [address] [place] [address] * HEMODIALYSIS CATHETER PLACEMENT (02/17/2020 2:38 AM CDT) Narrative Performed At Leslee Viramontes 02/17/2020 2:39 A M Hemodialysis catheter placement Date/Time: 02/17/2020 2:38 AM Performed by: Leslee Viramontes Authorized by: Leslee Viramontes Consent: Consent obtained: Emergent situatio n [place] protocol: Site/side marked: yes Immediately prior to procedure, a tone e out was called: yes Patient identity confirmed: [facility] l-assigned identification number and arm band Pre-procedure details: Indication: Vascular access for HD Hand hygiene: Hand hygiene performed prior to insertion Sterile barrier technique: All elemen ts of maximal sterile technique followed Skin preparation: 2% chlorhexidine Skin preparation agent: Skin preparat ion agent completely dried prior to procedure Sedation: Sedation Type: Systemic Systemic used:: Propofol Anesthesia (see MAR for exact dosages): Anesthesia method: Local infiltrati on Local anesthetic: Lidocaine 2% w/o epi Procedure details: Procedure supplies: Temporary dialy sis catheter Catheter size: 13 Fr, Rt IJ Catheter Site Laterality: Right Post-procedure details: Post-procedure: Dressing applied an d line sutured Patient tolerance of procedure: Adam erated well, no immediate complications Comments: Confirmed placement on chest xray * Central Line Insertion (02/17/2020 12:26 AM CDT) Narrative Performed At Leslee Viramontes 02/17/2020 12:27 AM Central Line Insertion Performed by: Leslee Viramontes Authorized by: Leslee Viramontes Consent: Consent obtained: Written and emerg ent situation [place] protocol: Imaging studies available: yes Site/side marked: yes Immediately prior to procedure, a tone e out was called: yes Patient identity confirmed: [facility] l-assigned identification number and arm band Pre-procedure details: Skin preparation: 2% chlorhexidine Skin preparation agent: Skin preparat ion agent completely dried prior to procedure Sedation: Sedation Type: Anxiolysis Anesthesia (see MAR for exact dosages): Anesthesia method: Local infiltrati on Local anesthetic: Lidocaine 2% w/o epi Procedure details: Catheter size: 7 Fr Catheter site: internal jugular vein Catheter Site Laterality: Left Site selection rationale: Trying to keep Rt IJ for possible HD catheter Landmarks identified: yes Ultrasound guidance: yes Sterile ultrasound techniques: Steril e gel and sterile probe covers were used Number of attempts: 1 Successful placement: yes Post-procedure details: Post-procedure: Dressing applied an d line sutured Assessment: Blood return through al l ports, no pneumothorax on x-ray, placement verified by x-ray and free fl uid flow Patient tolerance of procedure: Adam erated well, no immediate complications * Arterial Line Insertion (02/17/2020 12:24 AM CDT) Narrative Performed At Leslee Viramontes 02/17/2020 12:26 AM Arterial Line Insertion Date/Time: 02/17/2020 12:24 AM Performed by: Leslee Viramontes Authorized by: Leslee Viramontes Consent: Consent obtained: Emergent situatio n Indications: Indications: hemodynamic monitoring a nd multiple ABGs Pre-procedure details: Skin preparation: 2% Chlorhexidine Sedation: Sedation type: Deep Anesthesia (see MAR for exact dosages): Anesthesia method: None Procedure details: Location: L radial Bradly's test performed: yes Bradly's test abnormal: no Needle gauge: 20 G Placement technique: Seldinger Ultrasound guidance: no Number of attempts: 2 Transducer: waveform confirmed Post-procedure details: Post-procedure: Biopatch applied, s ecured with tape, sutured and sterile dressing applied Patient tolerance of procedure: Adam erated well, no immediate complications Comments: Good waveform, BP 107/58 mm Hg. * Prothrombin time with INR (02/16/2020 10:48 PM CDT) Only the most recent of 2 results within the time period is included. Prothrombin 15.6 (H) 11.5 - 14.5 sec [facility] INR 1.2 [place] Comment: [facility] Normalized HOSPITAL Ratio (INR) is a therapeutic monitoring tool for patients who are stable on oral anticoagulant therapy. An INR of 2.0-3.0 is suggested for deep vein thrombosis/pulmonary embolism. Specimen Blood Performing Organization Address City/State/Zipcode Ph one Number [facility] DEPARTMENT OF [address] [place] [id number] PATHOLOGY AND GENOMIC MEDICINE [address] * Procalcitonin (02/16/2020 10:40 PM CDT) Procalcitonin 12.99 (H) <=0.07 ng/mL [facility] RE[facility] Comment: INTERPRETIVE INFORMATION: Procalcitonin Procalcitonin > 2.00 ng/mL: Procalcitonin levels above 2.00 ng/mL on the first day of ICU admission represent a high risk for progression to severe sepsis and/or septic shock. Procalcitonin < 0.50 ng/mL: Procalcitonin levels below 0.50 ng/mL on the first day of ICU admission represent a low risk for progression to severe sepsis and/or septic shock. If the procalcitonin measurement is performed shortly after the systemic infection process has started (usually less than 6 hours), these values may still be low. As various non-infectious conditions are known to induce procalcitonin as well, procalcitonin levels between 0.5 ng/mL and 2.00 ng/mL should be reviewed carefully to take into account the specific clinical background and condition(s) of the individual patient. Performed at: [address] [address] Specimen Serum Narrative Performed At ___K___ results called to and read back by _YORDY RUSHING [facility] [id number]\\[id number](name/location) at ___ 02/16/2020 23:56 ____ (date/ti me) by LSB_. Performing Organization Address [facility] Ph one Number [facility] [address] REF LAB [address] [place] [address] * Lactic acid level (02/16/2020 9:38 PM CDT) Lactic acid 2.9 (H) 0.5 - 2.2 mmol/L [facility] Specimen Blood Performing Organization Address City/[facility] Centercode Ph one Number [facility] DEPARTMENT OF [address] [place] [address] PATHOLOGY AND GENOMIC MEDICINE [place] [address] * Legionella urinary antigen (02/16/2020 9:31 PM CDT) Legionella Negative for Legionella [place] urinary antigen serogroup 1 antigen. Y[facility]ANISM Comment: HOSPITAL Specimen Information Specimen Source: Urine Specimen Site: See UA Specimen Urine Performing Organization Address [facility] Ph one Number [facility] DEPARTMENT OF [address] [place] [address] PATHOLOGY AND GENOMIC MEDICINE [address] * Respiratory pathogen panel (02/16/2020 9:30 PM CDT) [facility] Adenovirus PCR Not Detected [place] Comment: YARSANISM Specimen Information HOSPITAL Specimen Source: Nares Specimen Site: Not specified Coronavirus Not Detected [place] HKU1 [facility] Coronavirus Not Detected [place] NL63 PCR [facility] Coronavirus Not Detected [place] 229E PCR [facility] Coronavirus Not Detected [place] OC43 PCR [facility] Human Not Detected [place] metapneumovirus YARSANISM PCR HOSPITAL Human Not Detected [place] rhinovirus/ente YARSANISM rovirus PCR HOSPITAL Influenza A PCR Not Detected [facility] Influenza A/H1 Not Reported [place] PCR [facility] Influenza A/H3 Not Reported [place] PCR [facility] Influenza Not Reported [place] A/H1-2009 PCR [facility] Influenza B PCR Not Detected [facility] Parainfluenza Not Detected [place] virus 1 PCR [facility] Parainfluenza Not Detected [place] virus 2 PCR [facility] Parainfluenza Not Detected [place] virus 3 PCR [facility] Parainfluenza Not Detected [place] virus 4 PCR [facility] Respiratory Not Detected [place] syncytial virus [facility] PCR HOSPITAL Bordetella Not Detected [place] pertussis PCR [facility] Bordetella Not Detected [place] parapertussis [facility] Chlamydia Not Detected [place] pneumoniae PCR [facility] Mycoplasma Not Detected [place] pneumoniae PCR [facility] Influenza A no Not Reported [place] sub type PCR [facility] Specimen Nares - Not specified Performing Organization Address City/[facility] [place] [facility] Ph one Number [facility] DEPARTMENT OF [address] [place] [address] PATHOLOGY AND GENOMIC MEDICINE [address] * Acetaminophen level (02/16/2020 7:09 PM CDT) [facility] Acetaminophen <5.0 (L) 10.0 - 30.0 ug/mL [facility] level Comment: [facility] 10-30 ug/mL Possible Toxicity 150-200 ug/mL Probable Toxicity >200 ug/mL Specimen Blood Performing Organization Address City/[facility] Ph one Number [facility] DEPARTMENT OF [address] [place] [address] PATHOLOGY AND GENOMIC MEDICINE [address] * Urine drugs of abuse screen (02/16/2020 5:43 PM CDT) [facility] Amphetamine Negative [place] screen, urine [facility] Barbiturate Negative [place] screen, urine [facility] Benzodiazepine Negative [place] screen, urine [facility] Cocaine screen, Positive (A) [place] urine [facility] Methadone Negative [place] metabolite YARSANISM (EDDP), urine [facility] Opiates screen, Positive (A) [place] urine [facility] Oxycodone Negative [place] screen, urine [facility] Phencyclidine Negative [place] screen, urine [facility] Tricyclic Negative [place] screen, urine [facility] Cannabinoid Negative [place] screen, urine Comment: YARSANISM Drug screen minimum HOSPITAL concentration of detectability Amphetamines 1000 ng/mL Barbiturates 200 ng/mL Benzodiazepines 300 ng/mL Cocaine 300 ng/mL Methadone 300 ng/mL Opiates 300 ng/mL Oxycodone 300 ng/mL Phencyclidine 25 ng/mL Cannabinoids 50 ng/mL Tricyclics 1000 ng/mL Results are from screening tests and should only be used for medical evaluation. Drug testing for legal purposes requires definitive (or confirmatory) testing methods, which are available upon request. Contact the laboratory if definitive testing is required. Specimen Urine Performing Organization Address [facility] one Number [facility] DEPARTMENT OF [address] [place] [address] PATHOLOGY AND GENOMIC MEDICINE [address] * Alcohol level, blood (02/16/2020 5:07 PM CDT) [facility] Alcohol None Detected mg/dL [place] Comment: [facility] None Detected Legal Intoxication in [place] 80 mg/dL (0.08%) - Whole Blood Toxic Concentration 200 mg/dL (0.2%) Potentially Fatal 350 - 500 mg/dL (0.35 - 0.5%) Alcohol percent None Detected % [facility] Specimen Blood Performing Organization Address [facility] Ph one Number [facility] DEPARTMENT OF [address] [place] [address] PATHOLOGY AND GENOMIC MEDICINE [address] * CRITICAL CARE (02/16/2020 5:03 PM CDT) Narrative Performed At Bart Robins MD 3:28 PM Critical Care Performed by: Bart Robins MD Authorized by: Bart Robins MD Critical care provider statement: Critical care time (minutes): 115 Critical care time was exclusive of: Separately billable procedures and treating other patients and teaching ti me Critical care was necessary to treat or prevent imminent or life-threatening deterioration of the f ollowing conditions: Respiratory failure, 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 or compromise, silverio al failure, metabolic crisis, cardiac failure and circulatory failure Critical care was time spent personal ly by me on the following activities: Development of treatment plan with patient or surrogate, discussions with consultants, evaluatio n of patient's response to treatment, examination of patient, inte rpretation of cardiac output measurements, obtaining history from pa tient or surrogate, ordering and performing treatments and interventions , ordering and review of laboratory studies, ordering and review of radiogr aphic studies, pulse oximetry, re-evaluation of patient's condition an d ventilator management Aman 'yes' if you are taking over cri tical care for this patient from another provider.: no * Intubation (02/16/2020 5:03 PM CDT) Narrative Performed At Bart Robins MD 3:28 PM Intubation Performed by: Bart Robins MD Authorized by: Bart Robins MD Consent: Consent obtained: Emergent situatio n [place] protocol: Patient identity confirmed: Sundar monterroso Pre-procedure details: Patient status: Unresponsive Mallampati score: 4 Induction: Etomidate Paralytics: Succinylcholine Procedure details: Preoxygenation: Bag valve mask CPR in progress: no Intubation method: Oral Technique: Video laryngoscopy Laryngoscope blade: Mac 4 Difficult airway?: Yes Tube size (mm): 8.0 Tube type: Cuffed Number of attempts: 2 Ventilation between attempts: yes Cricoid pressure: yes Tube visualized through cords: yes Placement assessment: ETT to lip: 23 Tube secured with: ETT childers Breath sounds: Equal Placement verification: chest rise, c ondensation, CXR verification, direct visualization, equal breath soun ds, ETCO2 detector, fiberoptic scope and tube exhalation CXR findings: ETT in proper place Post-procedure details: Patient tolerance of procedure: Adam erated well, no immediate complications Comments: Pt was a difficult airway due to giuseppe edson and immobility of neck secondary to neck surgery and hardware. 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
--- OUTSIDE RECORDS SUMMARY | 2020-05-18 16:51 | XMS REPORT | Summary of Care ---
Author Author [facility] Organization [facility] Address Unknown Phone Unavailable Encounter JENNIFER Enamorado(VICENTE) [id number] Date(s): 04/16/18 - 04/17/18 [facility] [address] [employer] provided by [employer] [facility] [place] [address]- Discharge Disposition: Home or Self Care Attending Physician: Del Gilman MD Admitting Physician: Del Gilman MD Referring Physician: Dino Holley DO Vital Signs 1 2 3 Most recent to oldest [Reference Range]: 167.64 cm (04/17/18 6:41 AM) Height 97.7 DegF (04/17/18 8:04 AM) 98.1 DegF (04/17/18 2:00 AM) 98.7 DegF (04/16/18 11:49 PM) Temperature Oral [96.4-99.1 DegF] 152/91 mmHg *HI* (04/17/18 8:04 AM) 127/70 mmHg (04/17/18 6:17 AM) 124/64 mmHg (04/17/18 3:50 AM) Blood Pressure [90-140/60-90 mmHg] 20 BRMIN (04/17/18 8:04 AM) 20 BRMIN (04/17/18 6:17 AM) 20 BRMIN (04/17/18 3:50 AM) Respiratory Rate [14-20 BRMIN] 76 bpm (04/17/18 8:04 AM) 86 bpm (04/17/18 3:50 AM) 76 bpm (04/17/18 3:11 AM) Peripheral Pulse Rate [60-100 bpm] 76.364 kg (04/17/18 6:41 AM) Weight 27.17 m2 (04/17/18 6:41 AM) Body Mass Index Problem List No data available for this section Allergies, Adverse Reactions, Alerts Substance Reaction Severity Status tetanus toxoid Active Ativan Active Medications acetaminophen 1,000 mg, 2 tab, Route: PO, Drug form: TAB, Q6Hnow, Dosing Weight 76.364, kg, St art date: 04/17/18 9:00:00 CDT, Duration: 30 day, Stop date: 05/17/18 3:00:00 CD T Notes: Max acetaminophen 4000 mg/day (4 gm/day). (Same as: [facility] Start Date: 04/17/18 Stop Date: 04/17/18 Status: Discontinued acetaminophen 325 mg, 1 tab, Route: PO, Drug form: TAB, Q4H, Dosing Weight 74.091, kg, PRN Fritz n Score 4-6, Start date: 04/17/18 5:36:00 CDT, Duration: 30 day, Stop date: 05/07 10/24 5:35:00 CDT Notes: Do not exceed 4 gm/day. (Same as: Tylenol) Start Date: 04/17/18 Stop Date: 04/17/18 Status: Discontinued amLODIPine 10 mg, 1 tab, Route: PO, Drug form: TAB, Daily, Dosing Weight 74.091, kg, Start date: 04/17/18 9:00:00 CDT, Duration: 30 day, Stop date: 05/16/18 9:00:00 CDT Notes: (Same as: Norvasc) Start Date: 04/17/18 Stop Date: 04/17/18 Status: Discontinued aspirin 325 mg tablet, enteric coated 325 mg, 1 tab, Route: PO, Drug form: ECTAB, Daily, Dosing Weight 74.091, kg, Sta rt date: 04/17/18 9:00:00 CDT, Duration: 30 day, Stop date: 05/16/18 9:00:00 CDT Notes: (Do Not Crush) Do not crush or chew. Start Date: 04/17/18 Stop Date: 04/17/18 Status: Discontinued aspirin 81 mg tablet, chewable 81 mg = 1 tab, CHEW, Daily, 0 Refill(s) Start Date: 04/17/18 Status: Ordered Ativan 1 mg, Route: IVP, Drug form: INJ, ONCE, Dosing Weight 74.091, kg, PRN Anxiety, S tart date: 04/17/18 2:41:00 CDT Start Date: 04/17/18 Stop Date: 04/17/18 Status: Discontinued atorvastatin 40 mg, 1 tab, Route: PO, Drug form: TAB, Bedtime, Dosing Weight 74.091, kg, Star t date: 04/17/18 21:00:00 CDT, Duration: 30 day, Stop date: 05/16/18 21:00:00 CD T Notes: (Same as: Lipitor) Start Date: 04/17/18 Stop Date: 04/17/18 Status: Canceled atorvastatin 40 mg oral tablet 40 mg = 1 tab, PO, Daily, 0 Refill(s) Start Date: 04/17/18 Status: Ordered Benadryl 50 mg, 1 mL, Route: IV, Drug form: INJ, ONCE, Dosing Weight 74.091, kg, PRN Inso mnia, Start date: 04/17/18 2:45:00 CDT Notes: (Same as: Benadryl) Start Date: 04/17/18 Stop Date: 04/17/18 Status: Completed dexamethasone 10 mg, 1 mL, Route: IVP, Drug form: INJ, ONCE, Dosing Weight 74.091, kg, Priorit y: STAT, Start date: 04/16/18 19:43:00 CDT, Stop date: 04/16/18 19:43:00 CDT Notes: MEDICATION WASTE Product Size: 10 mgProduct Wasted: ___ mg Start Date: 04/16/18 Stop Date: 04/16/18 Status: Completed Dilaudid 0.5 mg, 0.25 mL, Route: IV, Drug form: INJ, ONCE, Dosing Weight 74.091, kg, Star t date: 04/16/18 19:43:00 CDT, Stop date: 04/16/18 19:43:00 CDT Notes: Same as Dilaudid Start Date: 04/16/18 Stop Date: 04/16/18 Status: Completed Dilaudid 0.5 mg, Route: IVP, ONCE, Dosing Weight 74.091, kg, Priority: STAT, Start date: 04/16/18 23:43:00 CDT, Stop date: 04/16/18 23:43:00 CDT Start Date: 04/16/18 Stop Date: 04/16/18 Status: Completed docusate 100 mg, 1 cap, Route: PO, Drug form: CAP, BID, Dosing Weight 76.364, kg, Start d ate: 04/17/18 9:00:00 CDT, Duration: 30 day, Stop date: 05/16/18 17:00:00 CDT Notes: (Same as: Colace) (Do Not Crush) Start Date: 04/17/18 Stop Date: 04/17/18 Status: Discontinued docusate 100 mg, 1 cap, Route: PO, Drug form: CAP, BID, Dosing Weight 74.091, kg, Start d ate: 04/17/18 9:00:00 CDT, Duration: 30 day, Stop date: 05/16/18 17:00:00 CDT Notes: (Same as: Colace) (Do Not Crush) Start Date: 04/17/18 Stop Date: 04/17/18 Status: Discontinued Fioricet 300 mg-50 mg-40 mg oral capsule 1 cap, PO, Q4H, 0 Refill(s) Start Date: 04/17/18 Stop Date: 04/17/18 Status: Discontinued gabapentin 300 mg, 1 cap, Route: PO, Drug form: CAP, Q8Hnow, Dosing Weight 76.364, kg, Star t date: 04/17/18 9:00:00 CDT, Duration: 30 day, Stop date: 05/17/18 1:00:00 CDT Notes: (Same as: Neurontin) Start Date: 04/17/18 Stop Date: 04/17/18 Status: Discontinued hydrochlorothiazide-triamterene 25 mg-37.5 mg oral tablet 2 tab, Route: PO, Drug Form: TAB, Dosing Weight 74.091, kg, Daily, Start date: 0 04/17/18 9:00:00 CDT, Duration: 30 day, Stop date: 05/16/18 9:00:00 CDT Notes: (triamterene-hydrochlorothiazide 37.5-25 mg TAB)(Same As: Maxzide-25) Start Date: 04/17/18 Stop Date: 04/17/18 Status: Discontinued hydrochlorothiazide-triamterene 50 mg-75 mg oral tablet 1 tab, PO, Daily, 0 Refill(s) Start Date: 04/17/18 Status: Ordered isosorbide mononitrate 30 mg, 1 tab, Route: PO, Drug form: ERTAB, QAM, Dosing Weight 74.091, kg, Start date: 04/17/18 9:00:00 CDT, Duration: 30 day, Stop date: 05/16/18 9:00:00 CDT Notes: (Same as:Lloyd)"Do Not Crush" Take on empty stomach/ full glass of water . Do not crush Start Date: 04/17/18 Stop Date: 04/17/18 Status: Discontinued isosorbide mononitrate 30 mg oral tablet, extended release 30 mg = 1 tab, PO, QAM, 0 Refill(s) Start Date: 04/17/18 Status: Ordered lisinopril 20 mg, 1 tab, Route: PO, Drug form: TAB, Daily, Dosing Weight 74.091, kg, Start date: 04/17/18 9:00:00 CDT, Duration: 30 day, Stop date: 05/16/18 9:00:00 CDT Notes: (Same as: Prinivil, Zestril) Start Date: 04/17/18 Stop Date: 04/17/18 Status: Discontinued lisinopril 20 mg oral tablet 20 mg = 1 tab, PO, Daily, 0 Refill(s) Start Date: 04/17/18 Status: Ordered Mag-G 500 mg, Route: PO, Drug form: TAB, TID, Dosing Weight 74.091, kg, Start date: 9:00:00 CDT, Duration: 30 day, Stop date: 05/16/18 17:00:00 CDT Start Date: 04/17/18 Stop Date: 04/17/18 Status: Deleted Mag-G 500 mg oral tablet 500 mg = 1 tab, PO, BID, 0 Refill(s) Start Date: 04/17/18 Stop Date: 04/17/18 Status: Discontinued Mag-Ox 400 400 mg, 1 tab, Route: PO, Drug form: TAB, TID, Start date: 04/17/18 9:00:00 CDT, Duration: 30 day, Stop date: 05/16/18 17:00:00 CDT Notes: (Same as: Mag-Ox 400)Magnesium oxide [id number] elemental magnesiumDose= ____mg magnesium oxide (___mg elemental magnesium) Start Date: 04/17/18 Stop Date: 04/17/18 Status: Discontinued metoprolol tartrate 50 mg, 1 tab, Route: PO, Drug form: TAB, Daily, Dosing Weight 74.091, kg, Start date: 04/17/18 9:00:00 CDT, Duration: 30 day, Stop date: 05/16/18 9:00:00 CDT Notes: (Same as: Lopressor) Start Date: 04/17/18 Stop Date: 04/17/18 Status: Discontinued metoprolol tartrate 50 mg oral tablet 50 mg = 1 tab, PO, BID, 0 Refill(s) Start Date: 04/17/18 Status: Ordered morphine Sulfate 2 mg, 0.5 mL, Route: IVP, Drug form: SOLN, Q4H, Dosing Weight 76.364, kg, PRN Pa in Score 7-10, Start date: 04/17/18 8:13:00 CDT, Duration: 30 day, Stop date: 8:12:00 CDT Notes: (Same as:MORPhine Sulfate) Start Date: 04/17/18 Stop Date: 04/17/18 Status: Discontinued oxyCODONE 5 mg immediate release 5 mg, 1 tab, Route: PO, Drug form: TAB, Q4H, Dosing Weight 76.364, kg, PRN Pain Score 4-6, Start date: 04/17/18 8:13:00 CDT, Duration: 30 day, Stop date: 8:12:00 CDT Notes: (Same as: Roxicodone) Start Date: 04/17/18 Stop Date: 04/17/18 Status: Discontinued Plavix 75 mg, 1 tab, Route: PO, Drug form: TAB, Daily, Dosing Weight 74.091, kg, Start date: 04/17/18 9:00:00 CDT, Duration: 30 day, Stop date: 05/16/18 9:00:00 CDT Notes: (Same As: Plavix) Start Date: 04/17/18 Stop Date: 04/17/18 Status: Discontinued Plavix 75 mg oral tablet 75 mg = 1 tab, PO, Daily, 0 Refill(s) Start Date: 04/17/18 Status: Ordered Protonix 40 mg, 1 tab, Route: PO, Drug form: ECTAB, Before Breakfast, Dosing Weight 74.09 1, kg, Start date: 04/17/18 7:30:00 CDT, Duration: 30 day, Stop date: 05/16/18 7 :30:00 CDT Notes: Tablet should not be chewed or crushed.(Same as: Protonix) Start Date: 04/17/18 Stop Date: 04/17/18 Status: Discontinued Protonix 40 mg oral enteric coated tablet 40 mg = 1 tab, PO, Daily, 0 Refill(s) Start Date: 04/17/18 Status: Ordered senna 17.2 mg, 2 tab, Route: PO, Drug Form: TAB, Dosing Weight 76.364, kg, Bedtime, St art date: 04/17/18 21:00:00 CDT, Duration: 30 day, Stop date: 05/16/18 21:00:00 CDT Notes: (Same as: Senokot) Start Date: 04/17/18 Stop Date: 04/17/18 Status: Canceled Tylenol 650 mg, 2 tab, Route: PO, Drug form: TAB, ONCE, Dosing Weight 74.091, kg, Priori ty: STAT, Start date: 04/16/18 19:43:00 CDT, Stop date: 04/16/18 19:43:00 CDT Notes: Do not exceed 4 gm/day. (Same as: Tylenol) Start Date: 04/16/18 Stop Date: 04/16/18 Status: Completed Zofran 4 mg, 2 mL, Route: IVP, Drug form: INJ, ONCE, Dosing Weight 74.091, kg, Priority : STAT, Start date: 04/16/18 19:43:00 CDT, Stop date: 04/16/18 19:43:00 CDT Notes: (Same as: Zofran) MEDICATION WASTE Product Size: 4 mgProduct Was viviana: ___ mg Start Date: 04/16/18 Stop Date: 04/16/18 Status: Completed Results BLOOD BANK RESULTS Most recent to 1 oldest [Reference Range]: ABO/Rh O POS *Unknown* (04/16/18 7:46 PM) Antibody Scrn Negative (04/16/18 7:46 PM) ELECTROLYTES Most recent to 1 oldest [Reference Range]: Sodium Lvl [135-145 139 mEq/L mEq/L] (04/16/18 7:46 PM) Potassium Lvl 4.8 mEq/L 1 [3.5-5.1 mEq/L] (04/16/18 7:46 PM) Chloride Lvl [95-109 103 mEq/L mEq/L] (04/16/18 7:46 PM) CO2 [24-32 mEq/L] 29 mEq/L (04/16/18 7:46 PM) AGAP [10.0-20.0 11.8 mEq/L mEq/L] (04/16/18 7:46 PM) 1Result Comment: Specimen Moderately Hemolyzed. CHEM PANEL Most recent to 1 oldest [Reference Range]: Creatinine Lvl 1.00 mg/dL [0.50-1.40 mg/dL] (04/16/18 7:46 PM) eGFR 81 mL/min/1.73m2 1 *NA* (04/16/18 7:46 PM) BUN [7-22 mg/dL] 22 mg/dL (04/16/18 7:46 PM) Glucose Lvl [70-99 103 mg/dL mg/dL] *HI* (04/16/18 7:46 PM) Calcium Lvl 9.6 mg/dL [8.5-10.5 mg/dL] (04/16/18 7:46 PM) Magnesium Lvl 2.0 mg/dL [1.8-2.4 mg/dL] (04/17/18 1:48 AM) 1Result Comment: The eGFR is calculated using the CKD-EPI formula. In most young, healthy individuals the eGFR will be >90 mL/min/1.73m2. The eGFR declines with age. An eGFR of 60-89 may be normal in some populations, particularly the elderly, for whom the CKD-EPI formula has not been extensively validated. Use of the eGFR is not recommended in the following populations: Individuals with unstable creatinine concentrations, including patients and those with serious co-morbid conditions. Patients with extremes in muscle mass or diet. The data above are obtained from the National Kidney Disease Education Program ( NKDEP) which additionally recommends that when the eGFR is used in patients with extremes of body mass index for purposes of drug dosing, the eGFR should be mul tiplied by the estimated BMI. IMMUNOLOGY Most recent to 1 oldest [Reference Range]: CRP [<=2.9 mg/L] 15.8 mg/L *HI* (04/17/18 1:48 AM) HEMATOLOGY Most recent to 1 oldest [Reference Range]: WBC [3.7-10.4 K/CMM] 10.5 K/CMM *HI* (04/16/18 7:46 PM) RBC [4.70-6.10 3.86 M/CMM M/CMM] *LOW* (04/16/18 7:46 PM) Hgb [14.0-18.0 g/dL] 12.2 g/dL *LOW* (04/16/18 7:46 PM) Hct [42.0-54.0 %] 35.5 % *LOW* (04/16/18 7:46 PM) MCV [80.0-94.0 fL] 92.0 fL (04/16/18 7:46 PM) MCH [27.0-31.0 pg] 31.6 pg *HI* (04/16/18 7:46 PM) MCHC [32.0-36.0 34.3 g/dL g/dL] (04/16/18 7:46 PM) RDW [11.5-14.5 %] 14.4 % (04/16/18 7:46 PM) MPV [7.4-10.4 fL] 9.1 fL (04/16/18 7:46 PM) Platelet [133-450 281 K/CMM K/CMM] (04/16/18 7:46 PM) Segs [45.0-75.0 %] 52.0 % (04/16/18 7:46 PM) Bands [0.0-11.0 %] 0.0 % (04/16/18 7:46 PM) Lymphocytes 39.0 % [20.0-40.0 %] (04/16/18 7:46 PM) Atypical Lymphs 0.0 % [<=0.0 %] (04/16/18 7:46 PM) Monocytes [2.0-12.0 6.0 % %] (04/16/18 7:46 PM) Basophils [0.0-1.0 3.0 % %] *HI* (04/16/18 7:46 PM) Segs-Bands # 5.5 K/CMM [1.5-8.1 K/CMM] (04/16/18 7:46 PM) Lymphocytes # 4.1 K/CMM [1.0-5.5 K/CMM] (04/16/18 7:46 PM) Monocytes # [0.0-0.8 0.6 K/CMM K/CMM] (04/16/18 7:46 PM) Basophils # [0.0-0.2 0.3 K/CMM K/CMM] *HI* (04/16/18 7:46 PM) RBC Morph Normal (04/16/18 7:46 PM) Plt Morph Normal (04/16/18 7:46 PM) Sed Rate [0-15 70 mm/hr mm/hr] *HI* (04/17/18 1:48 AM) PT [12.0-14.7 12.7 seconds seconds] (04/16/18 7:46 PM) INR [0.85-1.17] 0.95 (04/16/18 7:46 PM) PTT [22.9-35.8 32.9 seconds seconds] (04/16/18 7:46 PM) Immunizations Given and Recorded Vaccine Date Status Refusal Reason Hx pneumococcal vaccine 03/07/17 Given Procedures No data available for this section Social History Social History Type Response Substance Abuse Use: None. Alcohol Past, Type Beer, Liquor. F requency: Several times per day. Last use: "30+ years ago". Smoking Status Current every day smoker; T ype: Cigarettes; Previous treatment: None; Exposure to Tobacco Smoke None; Cigaret te Smoking Last 365 Days Yes; Reg Smoking Cessation Counseling No; Starte d [age] age: 14.0; Stopped at age: 61; Other Tobacco Frequency 1/2 PPD; 1 entered on: 04/17/18 1Patient reports stopped smoking since last week after NC Assessment and Plan Extracted from: Title: ORS Spine Progress Note Author: Reny Lagos MD Date: 04/17/18 ORS Spine Progress Note S: Patient doing well overall. He reports he came into the hospital becuase he fell on Saturday and hasn't had pain relief in his neck since. The patient had an ACDF due to herniated discs and myelopathy with central stenosis by a surgeon in the [place]. The patient couldn't remember his name. The surgery was done in 2012. He is a chronic pain patient and sees pain doctors for pain medications. Reports he has had pain even after the surgery to his neck. Denies numbness nor paresthesias. Denies weakness outside of his L shoulder from a stroke in 2004. Denies bowel nor bladder incontinence. Reports he can ambualte and walk. He has gait instability which is why he thinks he fell on Saturday tripping over himself. He has noticed this in the last 3 weeks. O: VitalsTmp(F)[id number] 04/17 [id number]:[id number]--- 04/17 06:17----[id number]--- 04/17 03:50----[id number]--- 04/17 03:11----76-------97--- 04/17 03:05----[id number]--- 24 Hr Tmax: 98.7F (37.06c) at 04/16 23:4 9Vital Signs are the last 5 in the past 48 hours. I&ORecordInOutBal 1124hr Tot 1 0 1 1024hr Tot 0 0 0 (no lines, tubes, drains information doc umented) [facility]* ABO/Rh: O POS (04/16/18) AGAP: 11.8 mEq/L (04/16/18) Antibody Scrn: Negative (04/16/18) Atypical Lymphs: 0 % (04/16/18) Bands: 0 % (04/16/18) Basophils: 3 % High (04/16/18) Basophils #: 0.3 K/CMM High (04/16/18) BUN: 22 mg/dL (04/16/18) Calcium Lvl: 9.6 mg/dL (04/16/18) Chloride Lvl: 103 mEq/L (04/16/18) CO2: 29 mEq/L (04/16/18) Creatinine Lvl: 1 mg/dL (04/16/18) CRP: 15.8 mg/L High (04/17/18) eGFR: 81 mL/min/1.73m2 (04/16/18) Glucose Lvl: 103 mg/dL High (04/16/18) Hct: 35.5 % Low (04/16/18) Hgb: 12.2 g/dL Low (04/16/18) INR: 0.95 (04/16/18) Lymphocytes: 39 % (04/16/18) Lymphocytes #: 4.1 K/CMM (04/16/18) MCH: 31.6 pg High (04/16/18) MCHC: 34.3 g/dL (04/16/18) MCV: 92 fL (04/16/18) Monocytes: 6 % (04/16/18) Monocytes #: 0.6 K/CMM (04/16/18) MPV: 9.1 fL (04/16/18) Platelet: 281 K/CMM (04/16/18) Plt Morph: Normal (04/16/18) Potassium Lvl: 4.8 mEq/L (04/16/18) PT: 12.7 seconds (04/16/18) PTT: 32.9 seconds (04/16/18) RBC: 3.86 M/CMM Low (04/16/18) RBC Morph: Normal (04/16/18) RDW: 14.4 % (04/16/18) Sed Rate: 70 mm/hr High (04/17/18) Segs: 52 % (04/16/18) Segs-Bands #: 5.5 K/CMM (04/16/18) Sodium Lvl: 139 mEq/L (04/16/18) WBC: 10.5 K/CMM High (04/16/18)Continuous Infusions: None Scheduled Meds (15): 04/17/18 acetaminophen 1,000 mg PO Q6Hno w 04/17/18 amLODIPine 10 mg PO Daily 04/17/18 aspirin (aspirin 325 mg tablet, enteric coated) 325 mg PO Daily 04/17/18 atorvastatin 40 mg PO Bedtime 04/17/18 clopidogrel (Plavix) 75 mg PO D aily 04/17/18 docusate 100 mg PO BID 04/17/18 docusate 100 mg PO BID 04/17/18 gabapentin 300 mg PO Q8Hnow 04/17/18 hydrochlorothiazide-triamterene (hydrochlorothiazide-triamterene 25 mg- 37.5 mg oral tablet) 2 tab PO Daily 04/17/18 isosorbide mononitrate 30 mg PO QAM 04/17/18 lisinopril 20 mg PO Daily 04/17/18 magnesium oxide (Mag-Ox 400) 40 0 mg PO TID 04/17/18 metoprolol (metoprolol tartrate ) 50 mg PO Daily 04/17/18 pantoprazole (Protonix) 40 mg P O Before Breakfast 04/17/18 senna 2 tab PO Bedtime PRN Meds (3): 04/17/18 acetaminophen 325 mg PO Q4H 04/17/18 morphine Sulfate 2 mg IVP Q4H 04/17/18 oxyCODONE (oxyCODONE 5 mg immed iate release) 5 mg PO Q4H Unscheduled Meds: None Exam: Gen: Awake alert and oriented. Walking around and refusing to wear a collar. Somewhat uncooperative with ancillary staff. 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 - Chronic changes from a previous surger y and injury. Patient has good neulogical function with some baseline myelopathic syptoms that has been present for many years.op - We recommend following up with the in tia operative surgeon for treatment. The patient is neurologically intact. He recently had a NC 4 weeks ago requiring a stnet. He has a pacemaker. His risks of surgery are very high at this time. He is on plavix and aspirin as blood thinners as well. This patient is stable with chronic changes to the cervical spine and baseline neuro changes from a stroke that affected his L side. There is no operative urgent intervention that needs to take place. The patient does have cord changes with stenosis, but this has been present for many years and the patient has adjusted well. - Follow up with operative surgeon. - OK To D/C. Reny Lagos MD Orthopaedic Surgery Pager: [phone] Extracted from: Title: History and Physical Author: Leah Peterson MD Date : 04/17/18 62-year-old male with past medical histo ry of coronary artery disease s/p CABG, hypertension, hyperlipidemiawho presents with worsening neck pain and upper extremity weakness. Patient with h/o C3-C6 ACDF and CT spine showing widening of the atlantodental, severe stenosis of the spinal canalat the craniocervical junction and C1. Patient has had MRI of C-spine currently pending final read and evaluation by orthopedic spine faculty to determinemanagement;patient's physical exam reassuring without any deficits seen in upper extremities. 1.Cervical spinal stenosis Ortho spine consulted f/u MRI spine read will keep NPO for now and no chemical DVT ppx in case surgery required however did speak to ORS spine and think surgery unlikely as poor surgical candidate and no deficits on exam 2.CAD (coronary artery disease) EKG with LVH, no ischemic changes continue dapt, statin, bb, acei 3.HTN (hypertension) continue home meds 4.Hyperlipidemia continue statin 5.Tobacco abuse counseled on cessation 6.Chronic GERD ppi scd pending MRI spine and ORS spine plan
--- OUTSIDE RECORDS SUMMARY | 2020-05-18 16:51 | XMS REPORT | Continuity of Care Document ---
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 Name Role Phone [facility] Home Information DocDep Unavailable Un available Problems Problem Status Onset Date Classification Date Reported Comments Source G TUBE CHECK Active 04/17/2020 [facility] PEG TUBE MALFUCTION Active 04/17/2020 [facility] Unspecified fall, initial encounter 07/08/2019 07/10/2019 [facility] Cervicalgia 07/08/2019 07/10/2019 [facility] FALL LESS THAN 8 FT Active 07/07/2019 [facility] CERVICAL CORD COMPRESSION Acti ve 04/16/2018 [facility] CERVICAL CORD STENOSIS Active 04/16/2018 [facility] CHEST PAIN Active 03/15/2018 [facility] ACS (ACUTE CORONARY SYNDROME) Active 03/15/2018 [facility] Gastrostomy malfunction 04/28/2020 [facility] ACUTE ISCHEMIC HEART DISEASE, UNSPECIFIE Active [facility] SPINAL STENOSIS, CERVICAL REGION Active [facility] GASTROSTOMY MALFUNCTION Active [facility] Medications Medication Details Route Status Patient Instructions Ordering Provider Order Date Source normal saline 0.9% IV 500 mL 5 00 mL, Rate: 499 ml/hr, Infuse over: 1 hr, Route: IV, Dosing Weight 67.813 kg, Total Volume: 500, Priority: NOW, Start date: 04/26/20 11:42:00 CDT, Duration: 1 doses or times, Stop date: 04/26/20 15:41:00 CDT, 1.79, m2, 0 Inactive 04/26/2020 [facility] normal saline 0.9% IV 500 mL 5 00 mL, Rate: 499 ml/hr, Infuse over: 1 hr, Route: IV, Dosing Weight 67.813 kg, Total Volume: 500, Priority: NOW, Start date: 04/26/20 9:13:00 CDT, Duration: 1 doses or times, Stop date: 04/26/20 10:12:00 CDT, 1.79, m2, 0 Inactive 04/26/2020 [facility] normal saline 0.9% IV 1,000 mL 1,000 mL, Rate: 75 ml/hr, Infuse over: 13.3 hr, Route: IV, Dosing Weight 67.813 kg, Total Volume: 1,000, Start date: 04/26/20 4:08:00 CDT, Duration: 18 hr, Stop date: 04/26/20 22:07:00 CDT, 1.79, m2, 0 Inactive 04/26/2020 [facility] Kayexalate Notes: (sodium poly styrene sulfonate 15 gm/60 ml EILEEN) Shake well before use. (Same as: Kayexalate, SPS) Inactive 04/25/2020 [facility] Lisinopril Notes: (Same as: Pr inivil, Zestril) Inactive 04/25/2020 [facility] Protonix Notes: Same as: Dajuan nix Mix in 5 mL apple juice or applesauce for oral & 10mL apple juice for NG tube No Longer Active 04/25/2020 [facility] metoprolol tartrate 50 mg, Rou te: PO, Drug form: TAB, Q12H, Dosing Weight 67.813, kg, Start date: 04/24/20 21:00:00 CDT, Duration: 30 day, Stop date: 05/24/20 9:00:00 CDT Inactive 04/25/2020 [facility] Dextrose 50% Syringe (D50W) 12 .5 gm, 25 mL, Route: IVP, Drug Form: INJ, Dosing Weight 67.813, kg, PRN, PRN Blood Glucose Results, Start date: 04/24/20 18:10:00 CDT, Duration: 30 day, Stop date: 05/24/20 18:09:00 CDT, 0 No Longer Active 04/24/2020 [facility] Glucagon 1 mg, Route: IM, Drug form: PDR/INJ, PRN, Dosing Weight 67.813, kg, PRN Blood Glucose Results, Start date: 04/24/20 18:10:00 CDT, Duration: 30 day, Stop date: 05/24/20 18:09:00 CDT, 0 No Longer Active 04/24/2020 [facility] Insulin Lispro Notes: (Same as : Humalog) Roll in palms of hands gently; Do not shake vigorously. WASTE: F/P - Black; E - Municipal Trash Bin Stable for 28 days at room temperature. Expires in days from Date No Longer Active 04/24/2020 [facility] Lovenox Notes: (Same as: Loven ox) No Longer Active 04/22/2020 [facility] atorvastatin Notes: (Same as: Lipitor) No Longer Active 04/22/2020 [facility] Aspirin Notes: Do not crush or chew. (Same As: Ecotrin) No Longer Active 04/21/2020 [facility] Plavix Notes: (Same As: Plavix) No Longer Active 04/21/2020 [facility] Geodon Notes: Reconstitute wit h 1.2 ml of sterile water. Final concentration = 20 mg/1ml. Maximum 40 mg/24 hours (Same As: Geodon). Hazardous Drug Group 3:Reproductive risk Hazardous Drug -- Refer to safe handling procedure PPE Matrix MEDICATION WASTE Product Size: 20 mg Product Wasted: ___ mg No Longer Active 04/21/2020 [facility] Seroquel Notes: (Same as: SERO quel) No Longer Active 04/21/2020 [facility] ceFAZolin (ANES) Route: IV, Dr ug form: INJ, ONCE, Stop date: 04/19/20 14:07:00 CDT Inactive 04/19/2020 [facility] lidocaine (ANES) Route: IV, Dr ug form: INJ, ONCE, Stop date: 04/19/20 14:07:00 CDT Inactive 04/19/2020 [facility] propofol (ANES) Route: IV, Joel g form: INJ, ONCE, Stop date: 04/19/20 14:07:00 CDT Inactive 04/19/2020 [facility] Sodium Chloride 0.9% IV 1,000 mL 1,000 mL, Rate: 75 ml/hr, Infuse over: 13.3 hr, Route: IV, Dosing Weight 67.813 kg, Total Volume: 1,000, Start date: 04/19/20 13:37:00 CDT, Duration: 30 day, Stop date: 05/19/20 13:36:00 CDT, 1.79, m2, 0 No Longer Active 04/19/2020 [facility] Sodium Chloride 0.9% IV (ANES) 500 mL Route: IV, Total Volume: 500, Start date: 04/19/20 13:29:00 CDT, Stop date: 04/19/20 14:29:00 CDT Inactive 04/19/2020 [facility] Calcium Chloride 0.0014 MEQ/ML / Potassi um Chloride 0.004 MEQ/ML / Sodium Chloride 0.103 MEQ/ML / Sodium Lactate 0.028 MEQ/ML Injectable Solution 1,000 mL, Rate: 75 ml/hr, Infuse over: 1 3.3 hr, Route: IV, Dosing Weight 67.813 kg, Total Volume: 1,000, Start date: 04/18/20 10:05:00 CDT, Duration: 30 day, Stop date: 05/18/20 10:04:00 CDT, 1.79, m2, 0 No Longer Active 04/18/2020 [facility] Haldol Notes: (Same as: Haldol) No Longer Active 04/18/2020 [facility] Dextrose 50% Syringe (D50W) 12 .5 gm, 25 mL, Route: IVP, Drug Form: INJ, Dosing Weight 81.818, kg, PRN, PRN Blood Glucose Results, Start date: 04/17/20 11:45:00 CDT, Duration: 30 day, Stop date: 05/17/20 11:44:00 CDT, 0 No Longer Active 04/17/2020 [facility] Glucagon 1 mg, Route: IM, Drug form: PDR/INJ, PRN, Dosing Weight 81.818, kg, PRN Blood Glucose Results, Start date: 04/17/20 11:45:00 CDT, Duration: 30 day, Stop date: 05/17/20 11:44:00 CDT, 0 No Longer Active 04/17/2020 [facility] Ondansetron Notes: (Same as: Lisa epps) MEDICATION WASTE Product Size: 4 mg Product Wasted: ___ mg No Longer Active 04/17/2020 [facility] Melatonin Notes: (Same as: [place] atonin) No Longer Active 04/17/2020 [facility] Acetaminophen Notes: Do not ex ceed 4 gm/day. (Same as: Tylenol) No Longer Active 04/17/2020 [facility] Cyclobenzaprine hydrochloride 5 MG Oral Tablet [Flexeril] 5 mg = 1 tab, PO, TID, X 5 day, # 15 tab, 0 Refill(s) Active 07/08/2019 [facility] tramadol hydrochloride 50 MG Oral Tablet 50 mg = 1 tab, PO, Q8H, PRN Pain, X 5 day, # 15 tab, 0 Refill(s) Active 07/08/2019 [facility] Flexeril Notes: (Same As: Flex eril) Inactive 07/08/2019 [facility] Acetaminophen 325 MG / Hydrocodone Trevor trate 5 MG Oral Tablet [[place] 5/325] Notes: (Same as: [place] 325/5) Do not ex ceed 4gm/day of acetaminophen. Inactive 07/08/2019 [facility] sennosides, LONGTERM Notes: (Same a s: Senokot) Inactive 04/18/2018 [facility] atorvastatin Notes: (Same as: Lipitor) Inactive 04/18/2018 [facility] clopidogrel 75 MG Oral Tablet [Plavix] 75 mg = 1 tab, PO, Daily, 0 Refill(s) Active 04/17/2018 [facility] MAGNESIUM GLUCONATE 500 MG Oral Tablet [Mag-G] 500 mg = 1 tab, PO, BID, 0 Refill(s) Inactive 04/17/2018 [facility] Acetaminophen 300 MG / butalbital 50 MG / Caffeine 40 MG Oral Capsule [Fioricet] 1 cap, PO, Q4H, 0 Refill(s) Inactive 04/17/2018 [facility] metoprolol tartrate 50 mg oral tablet 50 mg = 1 tab, PO, BID, 0 Refill(s) Active 04/17/2018 [facility] Aspirin 81 MG Chewable Tablet 81 mg = 1 tab, CHEW, Daily, 0 Refill(s) Active 04/17/2018 [facility] atorvastatin 40 mg oral tablet 40 mg = 1 tab, PO, Daily, 0 Refill(s) Active 04/17/2018 [facility] lisinopril 20 mg oral tablet 2 0 mg = 1 tab, PO, Daily, 0 Refill(s) Active 04/17/2018 [facility] pantoprazole 40 MG Enteric Coated Tablet [Protonix] 40 mg = 1 tab, PO, Daily, 0 Refill(s) Active 04/17/2018 [facility] isosorbide mononitrate 30 mg oral tablet , extended release 30 mg = 1 tab, PO, QAM, 0 Refill(s) Active 04/17/2018 [facility] Hydrochlorothiazide 50 MG / Triamterene 75 MG Oral Tablet 1 tab, PO, Daily, 0 Refill(s) Active 04/17/2018 [facility] Docusate Notes: (Same as: Cola ce) (Do Not Crush) Inactive 04/17/2018 [facility] gabapentin Notes: (Same as: Ne urontin) Inactive 04/17/2018 [facility] Acetaminophen Notes: Max aceta minophen 4000 mg/day (4 gm/day). (Same as: Tylenol Extra Strength) Inactive 04/17/2018 [facility] metoprolol tartrate Notes: (Sa me as: Lopressor) Inactive 04/17/2018 [facility] Mag-G 500 mg, Route: PO, Drug form: TAB, TID, Dosing Weight 74.091, kg, Start date: 04/17/18 9:00:00 CDT, Duration: 30 day, Stop date: 05/16/18 17:00:00 CDT Inactive 04/17/2018 [facility] Lisinopril Notes: (Same as: Pr inivil, Zestril) Inactive 04/17/2018 [facility] Isosorbide Notes: (Same as:Imd ur) "Do Not Crush" Take on empty stomach/ full glass of water. Do not crush Inactive 04/17/2018 [facility] Hydrochlorothiazide 50 MG / Triamterene 75 MG Oral Tablet Notes: (triamterene-hydrochlorothiazide 37.5-25 mg TAB) (Same As: Maxzide-25) Inactive 04/17/2018 [facility] Plavix Notes: (Same As: Plavix) Inactive 04/17/2018 [facility] Aspirin 325 MG Enteric Coated Tablet Notes: (Do Not Crush) Do not crush or chew. Inactive 04/17/2018 [facility] Amlodipine Notes: (Same as: No rvasc) Inactive 04/17/2018 [facility] Mag-Ox 400 Notes: (Same as: Ma g-Ox 400) Magnesium oxide [id number] elemental magnesium Dose=____mg magnesium oxide (___mg elemental magnesium) Inactive 04/17/2018 [facility] Morphine Notes: (Same as:MORPh ine Sulfate) Inactive 04/17/2018 [facility] Oxycodone Hydrochloride 5 MG Oral Tablet Notes: (Same as: Roxicodone) Inactive 04/17/2018 [facility] Protonix Notes: Tablet should not be chewed or crushed. (Same as: Protonix) Inactive 04/17/2018 [facility] Acetaminophen Notes: Do not ex ceed 4 gm/day. (Same as: Tylenol) Inactive 04/17/2018 [facility] Benadryl Notes: (Same as: [place] dryl) Inactive 04/17/2018 [facility] Ativan 1 mg, Route: IVP, Drug form: INJ, ONCE, Dosing Weight 74.091, kg, PRN Anxiety, Start date: 04/17/18 2:41:00 CDT Inactive 04/17/2018 [facility] Dilaudid 0.5 mg, Route: IVP, O NCE, Dosing Weight 74.091, kg, Priority: STAT, Start date: 04/16/18 23:43:00 CDT, Stop date: 04/16/18 23:43:00 CDT Inactive 04/17/2018 [facility] Dexamethasone Notes: MEDIC ATION WASTE Product Size: 10 mg Product Wasted: ___ mg Inactive 04/17/2018 [facility] Tylenol Notes: Do not exceed 4 gm/day. (Same as: Tylenol) Inactive 04/17/2018 [facility] Zofran Notes: (Same as: Zofran ) MEDICATION WASTE Product Size: 4 mg Product Wasted: ___ mg Inactive 04/17/2018 [facility] Dilaudid Notes: Same as Dilaud id Inactive 04/17/2018 [facility] Mag-Ox 400 Notes: (Same as: En g-Ox 400) Magnesium oxide [id number] elemental magnesium Dose=____mg magnesium oxide (___mg elemental magnesium) Inactive 03/17/2018 [facility] MAGNESIUM GLUCONATE 500 MG Oral Tablet [Mag-G] 500 mg, PO, TID, # 21 tab, 0 Refill(s), Pharmacy: [facility] Active 03/17/2018 [facility] Mag-G 500 mg, Route: PO, Drug form: TAB, TID, Dosing Weight 74.091, kg, Priority: NOW, Start date: 03/17/18 10:20:00 CDT, Duration: 7 day, Stop date: 03/24/18 9:00:00 CDT Inactive 03/17/2018 [facility] atorvastatin 40 mg oral tablet 40 mg = 1 tab, PO, Bedtime, Follow up with cardiology for re-eval and refill needs, # 14 tab, 0 Refill(s), Pharmacy: [facility] Active 03/17/2018 [facility] pantoprazole 40 MG Enteric Coated Tablet [Protonix] 40 mg = 1 tab, PO, Daily, # 14 tab, 0 Refill(s), Pharmacy: [facility] Active 03/17/2018 [facility] Aspirin 325 MG Enteric Coated Tablet 325 mg = 1 tab, PO, Daily, # 14 tab, 0 Refill(s), Pharmacy: [facility] Active 03/17/2018 [facility] Plavix Notes: (Same As: Plavix) Inactive 03/17/2018 [facility] Acetaminophen Notes: Do not ex ceed 4 gm/day. (Same as: Tylenol) No Longer Active 03/17/2018 [facility] atorvastatin Notes: (Same as: Lipitor) No Longer Active 03/17/2018 [facility] metoprolol tartrate Notes: (Sa me as: Lopressor) No Longer Active 03/17/2018 [facility] heparin Notes: porcine heparin No Longer Active 03/17/2018 [facility] Aspirin 325 MG Enteric Coated Tablet Notes: (Do Not Crush) Do not crush or chew. No Longer Active 03/16/2018 [facility] pantoprazole Notes: For IV pus h reconstitute with 10 ml 0.9% sodium chloride and push over 2 minutes. (Same as: Protonix) No Longer Active 03/16/2018 [facility] Docusate Notes: (Same as: Cola ce) (Do Not Crush) No Longer Active 03/16/2018 [facility] Hydrochlorothiazide 50 MG / Triamterene 75 MG Oral Tablet 1 tab, PO, Daily, # 30 tab, 0 Refill(s) Active 03/16/2018 [facility] isosorbide mononitrate 30 mg oral tablet , extended release 30 mg = 1 tab, PO, QAM, # 30 tab, 0 Refill(s) Active 03/16/2018 [facility] amLODIPine 10 mg oral tablet 1 0 mg = 1 tab, PO, Daily, # 30 tab, 0 Refill(s) Active 03/16/2018 [facility] lisinopril 20 mg oral tablet 2 0 mg = 1 tab, PO, Daily, # 30 tab, 0 Refill(s) Active 03/16/2018 [facility] metoprolol tartrate 50 mg oral tablet 50 mg = 1 tab, PO, Daily, 0 Refill(s) Active 03/16/2018 [facility] normal saline 0.9% IV 1,000 mL 1,000 mL, Rate: 50 ml/hr, Infuse over: 20 hr, Route: IV, Dosing Weight 74.091 kg, Total Volume: 1,000, Start date: 03/16/18 4:47:00 CDT, Stop date: 03/17/18 4:46:00 CDT, 1.87, m2 No Longer Active 03/16/2018 [facility] Zofran Notes: (Same as: Alvin ) MEDICATION WASTE Product Size: 4 mg Product Wasted: ___ mg No Longer Active 03/16/2018 [facility] clopidogrel 75 MG Oral Tablet [Plavix] 75 mg = 1 tab, PO, Daily, # 30 tab, 0 Refill(s) Active 03/16/2018 [facility] Acetaminophen 300 MG / butalbital 50 MG / Caffeine 40 MG Oral Capsule [Fioricet] 1 cap, PO, Q4H, PRN PRN Headache, Do not exceed 6 capsules in 24 hours, # 60 cap, 0 Refill(s) Active 03/16/2018 [facility] Morphine Notes: (Same as:MORPh ine Sulfate) No Longer Active 03/16/2018 [facility] Nitroglycerin Notes: (Same as: Nitroquick, Nitrostat) "Do Not Crush" Sublingual tablet No Longer Active 03/16/2018 [facility] Sodium Chloride 0.9% (Bolus) IV 500 mL, 500 ml/hr, Infuse Over: 1 hr, Route: IV, 500, Drug form: INJ, ONCE, Priority: STAT, Dosing Weight 72.727 kg, Start date: 03/15/18 23:30:00 CDT, Stop date: 03/15/18 23:30:00 CDT No Longer Active 03/16/2018 [facility] heparin additive 25,000 unit [12 unit/kg /hr] + Premix Diluent Dextrose 5% 500 mL 500 mL, Rate: 17.46 ml/hr, Infuse over: 28.6 hr, Route: IV, Dosing Weight 72.73 kg, Total Volume: 500 mL, Start date: 03/15/18 23:21:00 CDT, Stop date: 03/16/18 15:25:00 CDT, 1.86, m2 No Longer Active 03/16/2018 [facility] Heparin 30 unit/kg Bolus (Heparin Dosing Weight) Route: IVP, PRN, 2,200 unit, 2.2 mL, Drug form: INJ, PRN, Heparin Protocol, Start date: 03/15/18 23:21:00 CDT Stop date: 04/14/18 23:20:00 CDT, 30 day No Longer Active 03/16/2018 [facility] Heparin 60 unit/kg Bolus (Heparin Dosing Weight) Route: IVP, PRN, 4,400 unit, 4.4 mL, Drug form: INJ, PRN, Heparin Protocol, Start date: 03/15/18 23:21:00 CDT Stop date: 04/14/18 23:20:00 CDT, 30 day No Longer Active 03/16/2018 [facility] Heparin - one time bolus for ACS 4,000 unit, 4 mL, Route: IVP, Drug form: INJ, ONCE, Dosing Weight 72.727, kg, Priority: STAT, Start date: 03/15/18 23:21:00 CDT, Stop date: 03/15/18 23:21:00 CDT No Longer Active 03/16/2018 [facility] Aspirin 81 MG Chewable Tablet 324 mg, Route: PO, Drug form: CHEWTAB, ONCE, Dosing Weight 72.727, kg, Priority: STAT, Start date: 03/15/18 23:21:00 CDT, Stop date: 03/15/18 23:21:00 CDT Inactive 03/16/2018 [facility] Saline Flush 0.9% Notes: Same as: BD Posiflush Sterile No Longer Active 03/16/2018 [facility] Allergies, Adverse Reactions, Alerts Substance Category Reaction Severity Reaction type Status Date Reported Comments Source tetanus toxoid Assertion Drug allergy Active [facility] Ativan Assertion Drug allergy Active [facility] Immunizations Immunization Date Given Site Status Last Updated Comments Source Hx pneumococcal vaccine 2016 completed [facility] Results Order Name Results Value Reference Range Date Interpretation Comments Source CHEM PANEL Glucose Lvl 105 70 - 99 04/26/2020 [facility] CHEM PANEL BUN 66 7 - 22 04/26/2020 [facility] CHEM PANEL Creatinine Lvl 1.50 0.50 - 1.40 04/26/2020 [facility] CHEM PANEL Sodium Lvl 147 135 - 145 04/26/2020 [facility] CHEM PANEL Potassium Lvl 3.8 3.5 - 5.1 04/26/2020 [facility] CHEM PANEL Chloride Lvl 106 95 - 109 04/26/2020 [facility] CHEM PANEL CO2 35 24 - 32 04/26/2020 [facility] CHEM PANEL AGAP 9.8 10.0 - 20.0 04/26/2020 [facility] CHEM PANEL Calcium Lvl 9.7 8.5 - 10.5 04/26/2020 [facility] CHEM PANEL eGFR 49 04/26/2020 Result Comment: The eGFR is calculated using the [...] from the National Kidney Disease Education Program (NKDEP) which additionally recommends that when the eGFR is used in patients with extremes of body mass index for purposes of drug dosing, the eGFR should be multiplied by the estimated BMI. [facility] CHEM PANEL Glucose Lvl 157 70 - 99 04/25/2020 [facility] CHEM PANEL BUN 58 7 - 22 04/25/2020 [facility] CHEM PANEL Creatinine Lvl 1.77 0.50 - 1.40 04/25/2020 [facility] CHEM PANEL Sodium Lvl 145 135 - 145 04/25/2020 [facility] CHEM PANEL Potassium Lvl 4.4 3.5 - 5.1 04/25/2020 [facility] CHEM PANEL Chloride Lvl 107 95 - 109 04/25/2020 [facility] CHEM PANEL CO2 34 24 - 32 04/25/2020 [facility] CHEM PANEL AGAP 8.4 10.0 - 20.0 04/25/2020 [facility] CHEM PANEL Calcium Lvl 9.8 8.5 - 10.5 04/25/2020 [facility] CHEM PANEL eGFR 40 04/25/2020 Result Comment: The eGFR is calculated using the [...] from the National Kidney Disease Education Program (NKDEP) which additionally recommends that when the eGFR is used in patients with extremes of body mass index for purposes of drug dosing, the eGFR should be multiplied by the estimated BMI. [facility] CHEM PANEL Glucose Lvl 109 70 - 99 04/25/2020 [facility] CHEM PANEL BUN 48 7 - 22 04/25/2020 [facility] CHEM PANEL Creatinine Lvl 1.20 0.50 - 1.40 04/25/2020 [facility] CHEM PANEL Sodium Lvl 144 135 - 145 04/25/2020 [facility] CHEM PANEL Potassium Lvl 5.2 3.5 - 5.1 04/25/2020 [facility] CHEM PANEL Chloride Lvl 107 95 - 109 04/25/2020 [facility] CHEM PANEL CO2 33 24 - 32 04/25/2020 [facility] CHEM PANEL Calcium Lvl 10.5 8.5 - 10.5 04/25/2020 [facility] CHEM PANEL AGAP 9.2 10.0 - 20.0 04/25/2020 [facility] CHEM PANEL eGFR 64 04/25/2020 Result Comment: The eGFR is calculated using the [...] from the National Kidney Disease Education Program (NKDEP) which additionally recommends that when the eGFR is used in patients with extremes of body mass index for purposes of drug dosing, the eGFR should be multiplied by the estimated BMI. [facility] CHEM PANEL Magnesium Lvl 2.4 1.8 - 2.4 04/25/2020 [facility] HEMATOLOGY Segs 65.6 45.0 - 75.0 04/25/2020 [facility] HEMATOLOGY Lymphocytes 24.6 20.0 - 40.0 04/25/2020 [facility] HEMATOLOGY Monocytes 6.7 2.0 - 12.0 04/25/2020 [facility] HEMATOLOGY Eosinophils 2.1 0.0 - 4.0 04/25/2020 [facility] HEMATOLOGY Basophils 1.0 0.0 - 1.0 04/25/2020 [facility] HEMATOLOGY Neutrophils # 6.4 1.5 - 8.1 04/25/2020 [facility] Lymphocytes # 2.4 1.0 - 5.5 04/25/2020 [facility] HEMATOLOGY Monocytes # 0.7 0.0 - 0.8 04/25/2020 [facility] HEMATOLOGY Eosinophils # 0.2 0.0 - 0.5 04/25/2020 [facility] HEMATOLOGY Basophils # 0.1 0.0 - 0.2 04/25/2020 [facility] HEMATOLOGY WBC 9.8 3.7 - 10.4 04/25/2020 [facility] HEMATOLOGY RBC 4.20 4.70 - 6.10 04/25/2020 [facility] HEMATOLOGY Hgb 13.4 14.0 - 18.0 04/25/2020 [facility] HEMATOLOGY Hct 40.1 42.0 - 54.0 04/25/2020 [facility] HEMATOLOGY MCV 95.4 80.0 - 94.0 04/25/2020 [facility] HEMATOLOGY MCH 31.8 27.0 - 31.0 04/25/2020 [facility] HEMATOLOGY MCHC 33.4 32.0 - 36.0 04/25/2020 [facility] HEMATOLOGY RDW 14.9 11.5 - 14.5 04/25/2020 [facility] HEMATOLOGY Platelet 170 133 - 450 04/25/2020 [facility] HEMATOLOGY MPV 10.5 7.4 - 10.4 04/25/2020 [facility] CHEM PANEL Magnesium Lvl 2.2 1.8 - 2.4 04/21/2020 [facility] HEMATOLOGY WBC 8.4 3.7 - 10.4 04/21/2020 [facility] HEMATOLOGY RBC 3.66 4.70 - 6.10 04/21/2020 [facility] HEMATOLOGY Hgb 11.7 14.0 - 18.0 04/21/2020 [facility] HEMATOLOGY Hct 34.7 42.0 - 54.0 04/21/2020 [facility] HEMATOLOGY MCV 94.8 80.0 - 94.0 04/21/2020 [facility] HEMATOLOGY MCH 31.9 27.0 - 31.0 04/21/2020 [facility] HEMATOLOGY MCHC 33.7 32.0 - 36.0 04/21/2020 [facility] HEMATOLOGY RDW 15.0 11.5 - 14.5 04/21/2020 [facility] HEMATOLOGY Platelet 150 133 - 450 04/21/2020 [facility] HEMATOLOGY MPV 10.4 7.4 - 10.4 04/21/2020 [facility] HEMATOLOGY Segs 59.8 45.0 - 75.0 04/21/2020 [facility] HEMATOLOGY Lymphocytes 30.4 20.0 - 40.0 04/21/2020 [facility] HEMATOLOGY Monocytes 7.4 2.0 - 12.0 04/21/2020 [facility] HEMATOLOGY Eosinophils 2.2 0.0 - 4.0 04/21/2020 [facility] HEMATOLOGY Basophils 0.2 0.0 - 1.0 04/21/2020 [facility] HEMATOLOGY Neutrophils # 5.0 1.5 - 8.1 04/21/2020 [facility] HEMATOLOGY Lymphocytes # 2.6 1.0 - 5.5 04/21/2020 [facility] HEMATOLOGY Monocytes # 0.6 0.0 - 0.8 04/21/2020 [facility] HEMATOLOGY Eosinophils # 0.2 0.0 - 0.5 04/21/2020 [facility] HEMATOLOGY Segs 57.1 45.0 - 75.0 04/18/2020 [facility] HEMATOLOGY Lymphocytes 33.0 20.0 - 40.0 04/18/2020 [facility] HEMATOLOGY Monocytes 7.4 2.0 - 12.0 04/18/2020 [facility] HEMATOLOGY Eosinophils 1.8 0.0 - 4.0 04/18/2020 [facility] HEMATOLOGY Basophils 0.7 0.0 - 1.0 04/18/2020 [facility] HEMATOLOGY Neutrophils # 4.5 1.5 - 8.1 04/18/2020 [facility] HEMATOLOGY Lymphocytes # 2.6 1.0 - 5.5 04/18/2020 [facility] HEMATOLOGY Monocytes # 0.6 0.0 - 0.8 04/18/2020 [facility] HEMATOLOGY Eosinophils # 0.1 0.0 - 0.5 04/18/2020 [facility] HEMATOLOGY Basophils # 0.1 0.0 - 0.2 04/18/2020 [facility] HEMATOLOGY WBC 8.0 3.7 - 10.4 04/18/2020 [facility] HEMATOLOGY RBC 3.82 4.70 - 6.10 04/18/2020 [facility] Hgb 12.3 14.0 - 18.0 04/18/2020 [facility] Hct 36.4 42.0 - 54.0 04/18/2020 [facility] MCV 95.3 80.0 - 94.0 04/18/2020 [facility] MCH 32.1 27.0 - 31.0 04/18/2020 [facility] MCHC 33.7 32.0 - 36.0 04/18/2020 [facility] RDW 15.1 11.5 - 14.5 04/18/2020 [facility] Platelet 148 133 - 450 04/18/2020 [facility] MPV 10.1 7.4 - 10.4 04/18/2020 [facility] BLOOD BANK RESULTS ABO/Rh O POS 04/17/2020 [facility] BLOOD BANK RESULTS Antibody Scrn Negative (04/17/20 10:42 AM) 04/17/2020 [facility] CHEM PANEL Glucose Lvl 95 70 - 99 04/17/2020 [facility] CHEM PANEL BUN 31 7 - 22 04/17/2020 [facility] CHEM PANEL Creatinine Lvl 1.17 0.50 - 1.40 04/17/2020 [facility] CHEM PANEL Sodium Lvl 138 135 - 145 04/17/2020 [facility] CHEM PANEL Potassium Lvl 4.3 3.5 - 5.1 04/17/2020 [facility] CHEM PANEL Chloride Lvl 102 95 - 109 04/17/2020 [facility] CHEM PANEL CO2 31 24 - 32 04/17/2020 [facility] CHEM PANEL Calcium Lvl 9.8 8.5 - 10.5 04/17/2020 [facility] CHEM PANEL Total Protein 7.7 6.4 - 8.4 04/17/2020 [facility] CHEM PANEL Albumin Lvl 3.5 3.5 - 5.0 04/17/2020 [facility] CHEM PANEL ALT 31 0 - 65 04/17/2020 [facility] CHEM PANEL AST 18 0 - 37 04/17/2020 [facility] CHEM PANEL Alk Phos 73 39 - 136 04/17/2020 [facility] CHEM PANEL Bili Total 0.4 0.2 - 1.3 04/17/2020 [facility] CHEM PANEL AGAP 9.3 10.0 - 20.0 04/17/2020 [facility] CHEM PANEL B/C Ratio 26 6 - 25 04/17/2020 [facility] CHEM PANEL Globulin 4.2 2.7 - 4.2 04/17/2020 [facility] CHEM PANEL A/G Ratio 0.8 0.7 - 1.6 04/17/2020 [facility] CHEM PANEL eGFR 66 04/17/2020 Result Comment: The eGFR is calculated using the [...] from the National Kidney Disease Education Program (NKDEP) which additionally recommends that when the eGFR is used in patients with extremes of body mass index for purposes of drug dosing, the eGFR should be multiplied by the estimated BMI. [facility] HEMATOLOGY WBC 8.4 3.7 - 10.4 04/17/2020 [facility] HEMATOLOGY RBC 3.58 4.70 - 6.10 04/17/2020 [facility] HEMATOLOGY Hgb 11.3 14.0 - 18.0 04/17/2020 [facility] HEMATOLOGY Hct 34.1 42.0 - 54.0 04/17/2020 [facility] HEMATOLOGY MCV 95.2 80.0 - 94.0 04/17/2020 [facility] MCH 31.6 27.0 - 31.0 04/17/2020 [facility] MCHC 33.2 32.0 - 36.0 04/17/2020 [facility] HEMATOLOGY RDW 15.0 11.5 - 14.5 04/17/2020 [facility] Platelet 137 133 - 450 04/17/2020 [facility] MPV 10.6 7.4 - 10.4 04/17/2020 [facility] HEMATOLOGY PT 13.1 12.0 - 14.7 04/17/2020 [facility] INR 0.99 0.85 - 1.17 04/17/2020 [facility] PTT 31.4 22.9 - 35.8 04/17/2020 [facility] HEMATOLOGY Segs 61.3 45.0 - 75.0 04/17/2020 [facility] Lymphocytes 28.2 20.0 - 40.0 04/17/2020 [facility] HEMATOLOGY Monocytes 8.1 2.0 - 12.0 04/17/2020 [facility] HEMATOLOGY Eosinophils 1.9 0.0 - 4.0 04/17/2020 [facility] HEMATOLOGY Basophils 0.5 0.0 - 1.0 04/17/2020 [facility] Neutrophils # 5.1 1.5 - 8.1 04/17/2020 [facility] Lymphocytes # 2.4 1.0 - 5.5 04/17/2020 [facility] Monocytes # 0.7 0.0 - 0.8 04/17/2020 [facility] Eosinophils # 0.2 0.0 - 0.5 04/17/2020 [facility] IMMUNOLOGY Coronavirus (COVID-19) NA A Not Detected (04/17/20 10:42 AM) Not Detected 04/17/2020 [facility] CHEM PANEL Magnesium Lvl 2.0 1.8 - 2.4 04/17/2018 [facility] HEMATOLOGY Sed Rate 70 0 - 15 04/17/2018 [facility] IMMUNOLOGY C-REACTIVE PROTEIN 15.8 <=2.9 mg/L 04/17/2018 [facility] BLOOD BANK RESULTS Antibody Scrn Negative (04/16/18 7:46 PM) 04/17/2018 [facility] BLOOD BANK RESULTS ABO/Rh O POS 04/17/2018 [facility] CHEM PANEL eGFR 81 04/17/2018 Result Comment: The eGFR is calculated using the [...] from the National Kidney Disease Education Program (NKDEP) which additionally recommends that when the eGFR is used in patients with extremes of body mass index for purposes of drug dosing, the eGFR should be multiplied by the estimated BMI. [facility] CHEM PANEL Calcium Lvl 9.6 8.5 - 10.5 04/17/2018 [facility] CHEM PANEL CO2 29 24 - 32 04/17/2018 [facility] CHEM PANEL Chloride Lvl 103 95 - 109 04/17/2018 [facility] CHEM PANEL BUN 22 7 - 22 04/17/2018 [facility] CHEM PANEL Glucose Lvl 103 70 - 99 04/17/2018 [facility] CHEM PANEL Creatinine Lvl 1.00 0.50 - 1.40 04/17/2018 [facility] CHEM PANEL Potassium Lvl 4.8 3.5 - 5.1 04/17/2018 Result Comment: Specimen Moderately Hemolyzed. [facility] CHEM PANEL Sodium Lvl 139 135 - 145 04/17/2018 [facility] CHEM PANEL AGAP 11.8 10.0 - 20.0 04/17/2018 [facility] HEMATOLOGY Segs 52.0 45.0 - 75.0 04/17/2018 [facility] HEMATOLOGY Basophils # 0.3 0.0 - 0.2 04/17/2018 [facility] HEMATOLOGY RBC Morph Ana Rosa l (04/16/18 7:46 PM) 04/17/2018 [facility] HEMATOLOGY Plt Morph Ana Rosa l (04/16/18 7:46 PM) 04/17/2018 [facility] HEMATOLOGY Monocytes 6.0 2.0 - 12.0 04/17/2018 [facility] HEMATOLOGY Bands 0.0 0.0 - 11.0 04/17/2018 [facility] HEMATOLOGY Lymphocytes 39.0 20.0 - 40.0 04/17/2018 [facility] HEMATOLOGY Segs-Bands # 5.5 1.5 - 8.1 04/17/2018 [facility] HEMATOLOGY Lymphocytes # 4.1 1.0 - 5.5 04/17/2018 [facility] HEMATOLOGY Monocytes # 0.6 0.0 - 0.8 04/17/2018 [facility] HEMATOLOGY Basophils 3.0 0.0 - 1.0 04/17/2018 [facility] HEMATOLOGY Atypical Lymphs 0.0 <=0.0 % 04/17/2018 [facility] HEMATOLOGY PT 12.7 12.0 - 14.7 04/17/2018 [facility] HEMATOLOGY INR 0.95 0.85 - 1.17 04/17/2018 [facility] HEMATOLOGY PTT 32.9 22.9 - 35.8 04/17/2018 [facility] HEMATOLOGY MPV 9.1 7.4 - 10.4 04/17/2018 [facility] HEMATOLOGY MCV 92.0 80.0 - 94.0 04/17/2018 [facility] HEMATOLOGY MCH 31.6 27.0 - 31.0 04/17/2018 [facility] HEMATOLOGY MCHC 34.3 32.0 - 36.0 04/17/2018 [facility] HEMATOLOGY RDW 14.4 11.5 - 14.5 04/17/2018 [facility] HEMATOLOGY Platelet 281 133 - 450 04/17/2018 [facility] HEMATOLOGY RBC 3.86 4.70 - 6.10 04/17/2018 [facility] HEMATOLOGY WBC 10.5 3.7 - 10.4 04/17/2018 [facility] HEMATOLOGY Hgb 12.2 14.0 - 18.0 04/17/2018 [facility] HEMATOLOGY Hct 35.5 42.0 - 54.0 04/17/2018 [facility] CARDIAC ENZYMES Troponin-I <0.02 0.00 - 0.40 03/17/2018 [facility] CHEM PANEL Magnesium Lvl 1.6 1.8 - 2.4 03/17/2018 [facility] CHEM PANEL Phosphorus 2.9 2.5 - 4.5 03/17/2018 [facility] ELECTROLYTES AGAP 8.2 10.0 - 20.0 03/17/2018 [facility] ELECTROLYTES Sodium Lvl 142 135 - 145 03/17/2018 [facility] ELECTROLYTES Chloride Lvl 110 95 - 109 03/17/2018 [facility] ELECTROLYTES CO2 28 24 - 32 03/17/2018 [facility] ELECTROLYTES Potassium Lvl 4.2 3.5 - 5.1 03/17/2018 [facility] ELECTROLYTES Creatinine Lvl 1.0 4 0.50 - 1.40 03/17/2018 [facility] ELECTROLYTES eGFR 77 03/17/2018 Result Comment: The eGFR is calculated using the [...] from the National Kidney Disease Education Program (NKDEP) which additionally recommends that when the eGFR is used in patients with extremes of body mass index for purposes of drug dosing, the eGFR should be multiplied by the estimated BMI. [facility] ELECTROLYTES Calcium Lvl 8.5 8.5 - 10.5 03/17/2018 [facility] ELECTROLYTES Glucose Lvl 84 70 - 99 03/17/2018 [facility] ELECTROLYTES BUN 42 7 - 22 03/17/2018 [facility] HEMATOLOGY Monocytes # 0.5 0.0 - 0.8 03/17/2018 [facility] HEMATOLOGY Lymphocytes # 3.2 1.0 - 5.5 03/17/2018 [facility] HEMATOLOGY Eosinophils # 0.4 0.0 - 0.5 03/17/2018 [facility] HEMATOLOGY Basophils # 0.1 0.0 - 0.2 03/17/2018 [facility] HEMATOLOGY Segs-Bands # 4.6 1.5 - 8.1 03/17/2018 [facility] HEMATOLOGY Eosinophils 4.2 0.0 - 4.0 03/17/2018 [facility] HEMATOLOGY Basophils 0.6 0.0 - 1.0 03/17/2018 [facility] HEMATOLOGY Segs 52.9 45.0 - 75.0 03/17/2018 [facility] HEMATOLOGY Monocytes 6.2 2.0 - 12.0 03/17/2018 [facility] HEMATOLOGY Lymphocytes 36.1 20.0 - 40.0 03/17/2018 [facility] HEMATOLOGY MCHC 33.8 32.0 - 36.0 03/17/2018 [facility] HEMATOLOGY MCH 30.6 27.0 - 31.0 03/17/2018 [facility] HEMATOLOGY RDW 13.1 11.5 - 14.5 03/17/2018 [facility] HEMATOLOGY Hgb 11.5 14.0 - 18.0 03/17/2018 [facility] HEMATOLOGY WBC 8.7 3.7 - 10.4 03/17/2018 [facility] HEMATOLOGY MPV 10.1 7.4 - 10.4 03/17/2018 [facility] HEMATOLOGY Platelet 156 133 - 450 03/17/2018 [facility] HEMATOLOGY MCV 90.6 80.0 - 94.0 03/17/2018 [facility] HEMATOLOGY Hct 34.1 42.0 - 54.0 03/17/2018 [facility] HEMATOLOGY RBC 3.77 4.70 - 6.10 03/17/2018 [facility] DRUG SCREEN U Amph Scr Nega tive *NA* (03/16/18 9:58 PM) Negative 03/17/2018 [facility] DRUG SCREEN U Cocaine Scr Nega tive *NA* (03/16/18 9:58 PM) Negative 03/17/2018 [facility] DRUG SCREEN U Benzodia Scr Nega tive *NA* (03/16/18 9:58 PM) Negative 03/17/2018 [facility] DRUG SCREEN U Alyse Scr Nega tive *NA* (03/16/18 9:58 PM) Negative 03/17/2018 [facility] DRUG SCREEN UDS Note See Note (03/16/18 9:58 PM) 03/17/2018 [facility] DRUG SCREEN U Phencyc Scr Nega tive *NA* (03/16/18 9:58 PM) Negative 03/17/2018 [facility] DRUG SCREEN U Cannab Scr Nega tive *NA* (03/16/18 9:58 PM) Negative 03/17/2018 [facility] DRUG SCREEN U Opiate Scr Posi tive *ABN* (03/16/18 9:58 PM) Negative 03/17/2018 [facility] CARDIAC ENZYMES CK MB Index 2.9 0.0 - 2.5 03/16/2018 [facility] CARDIAC ENZYMES CK MB 2.2 0.5 - 3.6 03/16/2018 [facility] CARDIAC ENZYMES Total CK 75 12 - 191 03/16/2018 [facility] CARDIAC ENZYMES Troponin-I <0.02 0.00 - 0.40 03/16/2018 [facility] HEMATOLOGY PTT 46.0 22.9 - 35.8 03/16/2018 [facility] CARDIAC ENZYMES CK MB Index 2.3 0.0 - 2.5 03/16/2018 [facility] CARDIAC ENZYMES CK MB 2.0 0.5 - 3.6 03/16/2018 [facility] CARDIAC ENZYMES Total CK 86 12 - 191 03/16/2018 [facility] CARDIAC ENZYMES Troponin-I <0.02 0.00 - 0.40 03/16/2018 [facility] ELECTROLYTES AGAP 11.2 10.0 - 20.0 03/16/2018 [facility] ELECTROLYTES Calcium Lvl 8.8 8.5 - 10.5 03/16/2018 [facility] ELECTROLYTES CO2 28 24 - 32 03/16/2018 [facility] ELECTROLYTES eGFR 33 03/16/2018 Result Comment: The eGFR is calculated using the [...] from the National Kidney Disease Education Program (NKDEP) which additionally recommends that when the eGFR is used in patients with extremes of body mass index for purposes of drug dosing, the eGFR should be multiplied by the estimated BMI. [facility] ELECTROLYTES BUN 53 7 - 22 03/16/2018 [facility] ELECTROLYTES Creatinine Lvl 2.0 8 0.50 - 1.40 03/16/2018 [facility] ELECTROLYTES Glucose Lvl 97 70 - 99 03/16/2018 [facility] ELECTROLYTES Sodium Lvl 144 135 - 145 03/16/2018 [facility] ELECTROLYTES Chloride Lvl 109 95 - 109 03/16/2018 [facility] ELECTROLYTES Potassium Lvl 4.2 3.5 - 5.1 03/16/2018 [facility] HEMATOLOGY Lymphocytes # 3.5 1.0 - 5.5 03/16/2018 [facility] HEMATOLOGY Monocytes # 0.7 0.0 - 0.8 03/16/2018 [facility] HEMATOLOGY Segs-Bands # 5.3 1.5 - 8.1 03/16/2018 [facility] HEMATOLOGY Basophils # 0.1 0.0 - 0.2 03/16/2018 [facility] HEMATOLOGY Eosinophils # 0.5 0.0 - 0.5 03/16/2018 [facility] HEMATOLOGY Lymphocytes 34.8 20.0 - 40.0 03/16/2018 [facility] HEMATOLOGY Segs 53.1 45.0 - 75.0 03/16/2018 [facility] HEMATOLOGY Monocytes 6.7 2.0 - 12.0 03/16/2018 [facility] HEMATOLOGY Eosinophils 4.7 0.0 - 4.0 03/16/2018 [facility] HEMATOLOGY Basophils 0.7 0.0 - 1.0 03/16/2018 [facility] HEMATOLOGY PTT 58.4 22.9 - 35.8 03/16/2018 [facility] HEMATOLOGY Hgb 12.2 14.0 - 18.0 03/16/2018 [facility] HEMATOLOGY RBC 3.93 4.70 - 6.10 03/16/2018 [facility] HEMATOLOGY WBC 10.1 3.7 - 10.4 03/16/2018 [facility] HEMATOLOGY Hct 36.0 42.0 - 54.0 03/16/2018 [facility] HEMATOLOGY MPV 10.3 7.4 - 10.4 03/16/2018 [facility] HEMATOLOGY RDW 13.5 11.5 - 14.5 03/16/2018 [facility] HEMATOLOGY Platelet 169 133 - 450 03/16/2018 [facility] HEMATOLOGY MCH 31.0 27.0 - 31.0 03/16/2018 [facility] HEMATOLOGY MCV 91.6 80.0 - 94.0 03/16/2018 [facility] HEMATOLOGY MCHC 33.8 32.0 - 36.0 03/16/2018 [facility] HEMATOLOGY PTT 29.7 22.9 - 35.8 03/16/2018 [facility] HEMATOLOGY PT 14.2 12.0 - 14.7 03/16/2018 [facility] HEMATOLOGY INR 1.10 0.85 - 1.17 03/16/2018 [facility] CARDIAC ENZYMES CK MB 2.3 0.5 - 3.6 03/16/2018 [facility] CARDIAC ENZYMES Total CK 101 12 - 191 03/16/2018 [facility] CARDIAC ENZYMES CK MB Index 2.3 0.0 - 2.5 03/16/2018 [facility] CHEM PANEL eGFR 30 03/16/2018 Result Comment: The eGFR is calculated using the [...] from the National Kidney Disease Education Program (NKDEP) which additionally recommends that when the eGFR is used in patients with extremes of body mass index for purposes of drug dosing, the eGFR should be multiplied by the estimated BMI. [facility] CHEM PANEL Alk Phos 91 39 - 136 03/16/2018 [facility] CHEM PANEL AST 16 0 - 37 03/16/2018 [facility] CHEM PANEL ALT 24 0 - 65 03/16/2018 [facility] CHEM PANEL Glucose Lvl 120 70 - 99 03/16/2018 [facility] CHEM PANEL Potassium Lvl 4.9 3.5 - 5.1 03/16/2018 [facility] CHEM PANEL Sodium Lvl 143 135 - 145 03/16/2018 [facility] CHEM PANEL Albumin Lvl 4.0 3.5 - 5.0 03/16/2018 [facility] CHEM PANEL Total Protein 8.1 6.4 - 8.4 03/16/2018 [facility] CHEM PANEL Calcium Lvl 9.2 8.5 - 10.5 03/16/2018 [facility] CHEM PANEL CO2 26 24 - 32 03/16/2018 [facility] CHEM PANEL Chloride Lvl 108 95 - 109 03/16/2018 [facility] CHEM PANEL A/G Ratio 1.0 0.7 - 1.6 03/16/2018 [facility] CHEM PANEL B/C Ratio 20 6 - 25 03/16/2018 [facility] CHEM PANEL Globulin 4.1 2.7 - 4.2 03/16/2018 [facility] CHEM PANEL Bili Total 0.3 0.2 - 1.3 03/16/2018 [facility] CHEM PANEL AGAP 13.9 10.0 - 20.0 03/16/2018 [facility] CHEM PANEL BUN 46 7 - 22 03/16/2018 [facility] CHEM PANEL Creatinine Lvl 2.30 0.50 - 1.40 03/16/2018 [facility] HEMATOLOGY Hct 38.3 42.0 - 54.0 03/16/2018 [facility] HEMATOLOGY Hgb 12.9 14.0 - 18.0 03/16/2018 [facility] HEMATOLOGY RBC 4.20 4.70 - 6.10 03/16/2018 [facility] HEMATOLOGY WBC 14.0 3.7 - 10.4 03/16/2018 [facility] HEMATOLOGY MCV 91.2 80.0 - 94.0 03/16/2018 [facility] HEMATOLOGY MCHC 33.7 32.0 - 36.0 03/16/2018 [facility] HEMATOLOGY MCH 30.8 27.0 - 31.0 03/16/2018 [facility] HEMATOLOGY RDW 13.5 11.5 - 14.5 03/16/2018 [facility] HEMATOLOGY Platelet 181 133 - 450 03/16/2018 [facility] HEMATOLOGY MPV 10.0 7.4 - 10.4 03/16/2018 [facility] HEMATOLOGY Segs 62.8 45.0 - 75.0 03/16/2018 [facility] HEMATOLOGY Monocytes # 1.1 0.0 - 0.8 03/16/2018 [facility] HEMATOLOGY Lymphocytes 24.9 20.0 - 40.0 03/16/2018 [facility] HEMATOLOGY Monocytes 8.0 2.0 - 12.0 03/16/2018 [facility] HEMATOLOGY Lymphocytes # 3.5 1.0 - 5.5 03/16/2018 [facility] HEMATOLOGY Eosinophils 3.6 0.0 - 4.0 03/16/2018 [facility] HEMATOLOGY Segs-Bands # 8.8 1.5 - 8.1 03/16/2018 [facility] HEMATOLOGY Basophils 0.7 0.0 - 1.0 03/16/2018 [facility] HEMATOLOGY Basophils # 0.1 0.0 - 0.2 03/16/2018 [facility] HEMATOLOGY Eosinophils # 0.5 0.0 - 0.5 03/16/2018 [facility] Pathology Reports No Data Provided for This Section Diagnostic Reports Report Value Date Source Retroperitoneal Complete US DE OCEDURE INFORMATION: Exam: US Retroperitoneal; Complete; Kidneys and Bladder Exam date and time: 04/26/2020 8:31 AM Age: 64 years old Clinical indication: Pain; Additional info: /moise TECHNIQUE: Imaging protocol: Real-time ultrasound of the retroperitoneum with image documentation. Complete exam focused on the kidneys and bladder. COMPARISON: No relevant prior studies available. FINDINGS: Right kidney: Measures 10.6 cm in maximal dimension. No stones. No hydronephrosis. Left kidney: Measures 10.3 cm in maximal dimension. No stones. No hydronephrosis. Bladder: Unremarkable. IMPRESSION: Unremarkable kidneys and bladder. Anaid Leyva DO On 04/26/2020 13:58:23; [id number] 04/26/2020 [facility] Spine cervical wo contrast CT (ER) STUDY: Spine cervical wo contrast CT (ER) 07/08/2019 1:34 AM CDT Ordering Physician: Miley Douglas MD Patient Name: GIL BENNETT MR: [id number] : 1955; Age: 64 years y/o Male Clinical Indication: Cervical pain related to trauma. Comparison: 04/17/2018 Technique: Multiple contiguous noncontrast CT images were obtained through the cervical spine. Coronal and sagittal reconstructions were prepared. CT imaging performed at this location utilizes radiation dose optimization techniques which include one or more of the following: -Automated exposure control -Adjustment of the mA and/or kV accordin g to patient size -Use of iterative reconstruction techniq ue DLP: 445.2 mGy-cm FINDINGS: ALIGNMENT AND GENERAL ASSESSMENT: * Moderate to severe diffuse cervical spondylosis, facet arthrosis, and uncovertebral joint hypertrophy are again present with stable ACDF at C3-C6 and interval posterior fusion extending from the occiput through C5. No hardware fracture or osseous lucency about the hardware is appreciated. * Increasing prominent degenerative change at the atlantodental joint and craniocervical junction may represent inflammatory arthritis. Mildly increasing posterior displacement of the tip of the dens with respect to the clivus is noted without increasing basilar invagination. Findings are likely degenerative in nature but difficult to further evaluate given lack of interval comparison images since 04/17/2018. * No acute fracture or dislocation is appreciated. A partial defect in the posterior arch of C1 appears postoperative in nature. DISK SPACES: Multilevel moderate to severe spinal canal narrowing and moderate to severe neural foraminal narrowing. PREVERTEBRAL SOFT TISSUES: The prevertebral soft tissue thickness is normal. LUNG APICES: The visualized portions of the lung apices are clear. IMPRESSION: 1. Moderate to severe cervical degenera tive and postoperative change as above discussed. No definite interval acute fracture, dislocation, or hardware complication. 2. Increasing degenerative change at th e atlantodental joint and craniocervical junction along with increasing mild posterior displacement of the tip of the dens with respect to the clivus is most likely degenerative in nature possibly related to inflammatory arthritis. SL: TPAINTER-PC 07/08/2019 [facility] Spine Cranio-junction wo contrast MRI EXAM: MRI OF THE CERVICAL SPINE WITHOUT CONTRAST EXAM: MRI OF THE CRANIOVERTEBRAL JUNCTION WITHOUT CONTRAST DATE: 04/17/2018 3 AM CDT INDICATION: 62 -year-old male with myelopathy symptoms TECHNIQUE: - Multiplanar, multisequence noncontrast MR imaging of the cervical spine. - Thin section, high resolution MR multi planar images were performed through craniovertebral junction. COMPARISON: Prior CT scan of the Cervical spine dated 04/17/2018 and MRI of the cervical spine dated 04/11/2018 FINDINGS: Again identified are changes of anterior cervical spinal fusion by plate and screws extending from C3 to the level of C7. There is persistent anterior translation stress subluxation of C1 over C2 causing significant indentation over the dorsal thecal sac from the posterior arch of the C1 with superimpose anterior indentation from the pannus formation resulted in severe spinal canal stenosis and cord compression with mild increased T2 signal intensity. Residual spinal canal measures 6.5 mm in AP dimension. This has not significantly changed from prior MRI dated 04/11/2018. Remaining vertebral alignment is near-anatomic. There is diffuse bony ankylosis from C2-C3 to the level of C7 better characterized on the CT Scan. Evaluation of the bone marrow signal intensity is markedly limited due to presence of hardware and susceptibility artifact. No significant bone marrow signal abnormality within the remaining visualized thoracic spine. Mild right 7th deformity of the T1 is again identified. Tectorial ligament is intact. Posterior atlantooccipital ligament is intact. Ligamentum flavum is intact for the visualized cervical spine. No definite disruption of the posterior longitudinal ligament. The portion of anterior longitudinal ligament at the level of C1 is not well visualized due to presence of significant pannus formation however no significant edematous changes in the prevertebral soft tissue or prevertebral hematoma is noted. Anterior longitudinal ligament from C2 to the level of upper thoracic spine appears intact. Remaining cervical spinal cord and visualized upper thoracic cord demonstrate normal signal intensity. Prominent ligamentum flavum hypertrophy are again noted predominantly on the left at the level of T3 and T4 level, demonstrate internal calcification on prior CT Scan without significant spinal canal stenosis. Anterior indentation are noted throughout the cervical spine over the thecal sac with borderline narrowing of the spinal canal without cord compression at the remaining levels. No significant neural foramina stenosis at the level of C2-C3. There is moderate right and mild left neural foramina stenosis at the level of C3-C4 from uncovertebral and facet joint hypertrophy. Mild to moderate noted on the right and no significant neural foramina narrowing on the left at the level of C4-C5. Bilateral mild neural foramina stenosis at the level of C5-C6. Mild right neural foramina stenosis and no significant neural foramina stenosis at the level of C6-C7. Bilateral mild neural foramina stenosis at the level of C7-T1. Atlantoaxial and atlantooccipital joints are symmetrical bilaterally. IMPRESSION: 1. Anterior subluxation of C1 on C2 and associated synovial hypertrophy/pannus formation about the odontoid process causing severe spinal canal stenosis at C1 and focal cord compression with mild increased T2 signal intensity. 2. Status post anterior cervical discect tori and fusion at C3-C6. 3. Multilevel cervical spondylitic miramontes es throughout the cervical spine as detailed above. 4. Overall findings have not significant ly changed from prior study dated 04/11/2018. 04/17/2018 [facility] Spine cervical wo contrast MRI EXAM: MRI OF THE CERVICAL SPINE WITHOUT CONTRAST EXAM: MRI OF THE CRANIOVERTEBRAL JUNCTION WITHOUT CONTRAST DATE: 04/17/2018 3 AM CDT INDICATION: 62 -year-old male with myelopathy symptoms TECHNIQUE: - Multiplanar, multisequence noncontrast MR imaging of the cervical spine. - Thin section, high resolution MR multi planar images were performed through craniovertebral junction. COMPARISON: Prior CT scan of the Cervical spine dated 04/17/2018 and MRI of the cervical spine dated 04/11/2018 FINDINGS: Again identified are changes of anterior cervical spinal fusion by plate and screws extending from C3 to the level of C7. There is persistent anterior translation stress subluxation of C1 over C2 causing significant indentation over the dorsal thecal sac from the posterior arch of the C1 with superimpose anterior indentation from the pannus formation resulted in severe spinal canal stenosis and cord compression with mild increased T2 signal intensity. Residual spinal canal measures 6.5 mm in AP dimension. This has not significantly changed from prior MRI dated 04/11/2018. Remaining vertebral alignment is near-anatomic. There is diffuse bony ankylosis from C2-C3 to the level of C7 better characterized on the CT Scan. Evaluation of the bone marrow signal intensity is markedly limited due to presence of hardware and susceptibility artifact. No significant bone marrow signal abnormality within the remaining visualized thoracic spine. Mild right 7th deformity of the T1 is again identified. Tectorial ligament is intact. Posterior atlantooccipital ligament is intact. Ligamentum flavum is intact for the visualized cervical spine. No definite disruption of the posterior longitudinal ligament. The portion of anterior longitudinal ligament at the level of C1 is not well visualized due to presence of significant pannus formation however no significant edematous changes in the prevertebral soft tissue or prevertebral hematoma is noted. Anterior longitudinal ligament from C2 to the level of upper thoracic spine appears intact. Remaining cervical spinal cord and visualized upper thoracic cord demonstrate normal signal intensity. Prominent ligamentum flavum hypertrophy are again noted predominantly on the left at the level of T3 and T4 level, demonstrate internal calcification on prior CT Scan without significant spinal canal stenosis. Anterior indentation are noted throughout the cervical spine over the thecal sac with borderline narrowing of the spinal canal without cord compression at the remaining levels. No significant neural foramina stenosis at the level of C2-C3. There is moderate right and mild left neural foramina stenosis at the level of C3-C4 from uncovertebral and facet joint hypertrophy. Mild to moderate noted on the right and no significant neural foramina narrowing on the left at the level of C4-C5. Bilateral mild neural foramina stenosis at the level of C5-C6. Mild right neural foramina stenosis and no significant neural foramina stenosis at the level of C6-C7. Bilateral mild neural foramina stenosis at the level of C7-T1. Atlantoaxial and atlantooccipital joints are symmetrical bilaterally. IMPRESSION: 1. Anterior subluxation of C1 on C2 and associated synovial hypertrophy/pannus formation about the odontoid process causing severe spinal canal stenosis at C1 and focal cord compression with mild increased T2 signal intensity. 2. Status post anterior cervical discect tori and fusion at C3-C6. 3. Multilevel cervical spondylitic miramontes es throughout the cervical spine as detailed above. 4. Overall findings have not significant ly changed from prior study dated 04/11/2018. 04/17/2018 [facility] Spine cervical wo contrast CT EXAM: CT CERVICAL SPINE WITHOUT CONTRAST DATE: 04/17/2018 1:16 AM CDT INDICATION: - fracture or adjacent segment disease COMPARISON: MRI of the cervical spine 04/11/2018 TECHNIQUE: Volumetric CT of the cervical spine is acquired without contrast. Axial, coronal and sagittal images are provided. IV contrast: None. DLP: 689 mGy-cm UT SECTION: ER FINDINGS: The spine is imaged from the skull base to the level of T3/T4. There is straightening of the cervical spine. No acute fracture is identified. Widening of the atlantodental interval is present measuring 6 mm, and asymmetric widening of the left lateral atlantodental interval. Soft tissue thickening is seen in this region, with mild erosive changes and C1 and C2. There is severe stenosis of the spinal canal at C1. There is anterior subluxation of the bilateral lateral atlantoaxial joints. There is narrowing of the left lateral atlantoaxial joint with [id number] appearance. Also seen is mild prominence of the bilateral atlantooccipital joints. Anterior cervical discectomy and fusion present at C3-C6 with mature osseous fusion. Multifocal posterior longitudinal ligament ossification is seen at these levels with ventral thecal sac indentations. Large bridging osteophyte formation is noted at C2-C4 anteriorly. Right greater than left neural foraminal narrowing is seen at C3-C4. There is narrowing of the intervertebral disc space at C7-T1 with disc osteophyte complex, mild anterolisthesis, facet joint fusion and associated neural foraminal stenosis bilaterally. Bilateral linear coronally oriented pedicle defects are noted at C7, likely chronic. Spurring noted at the left T2-T3 and T3-T4 facet joints with associated spinal canal encroachment. Vascular calcifications are noted. IMPRESSION: 1. Anterior subluxation of C1 over C2 i s similar in appearance when compared to MRI from 04/11/2018 and is probably related to pannus formation/synovial hypertrophy about the odontoid process. Ligamentous injury is not excluded. 2. Severe stenosis of the spinal canal at C1. 3. Mild prominence of the bilateral pearl antooccipital joint spaces could be related to chronic laxity or capsular sprain. 4. Status post anterior cervical discec edson and fusion at C3-C6. 5. Multilevel spine degenerative change s. 04/17/2018 [facility] Spine cervical 2 or 3 view DX EXAM: XR CERVICAL SPINE 4 VIEWS DATE: 04/16/2018 9:22 PM CDT INDICATION: - neck pain COMPARISON: MRI of the cervical spine 04/11/2018 TECHNIQUE: AP, swimmer's lateral, lateral, and open-mouth odontoid views of the cervical spine UT SECTION: ER FINDINGS: Straightening of cervical lordosis due to positioning and/or muscle spasm. Widening of the anterior atlantodental interval measuring 5 mm noted. Vertebral body heights are normal. No cervical spine fracture is identified. Anterior cervical discectomy and fusion present at C3-C6. Satisfactory incorporation of bone graft noted. Large anterior heterotopic bone formation at C2-C4 noted. Stenosis at the craniocervical junction and C1 related to hypertrophic pannus formation is better appreciated on recent MRI. Multiple metallic clips are present in the upper neck. Median sternotomy wires are noted. IMPRESSION: Unchanged widening of the anterior atlantodental interval measuring 5 mm compatible with atlantoaxial instability likely due to synovial hypertrophy/pannus formation about the odontoid. Recommend clinical correlation for history of inflammatory arthropathy or prior trauma. Status post anterior cervical fusion from C3 to C6 with incorporation of bone graft. Stenosis of the craniocervical junction, better appreciated on recent MRI from 04/11/2018. Dr. Fernandez notified of findings by telephone 04/16/2018 at 2300 hours 04/16/2018 [facility] Chest 1view DX Clinical Indica tion: - chest pain; Comparison: None Technique: X-ray chest frontal projection FINDINGS: There is no consolidation, pleural effusion or pneumothorax. The heart is normal in size. The mediastinum and jas are unremarkable. The patient is status post median sternotomy. IMPRESSION: No chest radiographic evidence of acute cardiopulmonary disease. SL: [id number] 03/15/2018 [facility] Consultation Notes No Data Provided for This Section Discharge Summaries No Data Provided for This Section History and Physicals No Data Provided for This Section Vital Signs Vital Sign Value Date Comments Source Temperature Oral (F) 98.5 F 04/26/2020 [facility] Heart Rate 107 04/26/2020 [facility] Respitory Rate 18 04/26/2020 [facility] Systolic (mm Hg) 105 04/26/2020 [facility] Diastolic (mm Hg) 63 04/26/2020 [facility] Temperature Oral (F) 98.5 F 04/26/2020 [facility] Heart Rate 105 04/26/2020 [facility] Respitory Rate 18 04/26/2020 [facility] Systolic (mm Hg) 100 04/26/2020 [facility] Diastolic (mm Hg) 65 04/26/2020 [facility] Temperature Oral (F) 98.6 F 04/26/2020 [facility] Heart Rate 108 04/26/2020 [facility] Respitory Rate 18 04/26/2020 [facility] Systolic (mm Hg) 108 04/26/2020 [facility] Diastolic (mm Hg) 69 04/26/2020 [facility] Temperature Oral (F) 97.9 F 04/18/2020 [facility] Heart Rate 84 04/18/2020 [facility] Systolic (mm Hg) 124 04/18/2020 [facility] Diastolic (mm Hg) 64 04/18/2020 [facility] Temperature Oral (F) 98.3 F 04/18/2020 [facility] Heart Rate 91 04/18/2020 [facility] Systolic (mm Hg) 117 04/18/2020 [facility] Diastolic (mm Hg) 70 04/18/2020 [facility] Temperature Oral (F) 98.3 F 04/18/2020 [facility] Heart Rate 82 04/18/2020 [facility] Systolic (mm Hg) 127 04/18/2020 [facility] Diastolic (mm Hg) 60 04/18/2020 [facility] Respitory Rate 16 04/17/2020 [facility] Height 167.64 cm 04/17/2020 [facility] Weight 67.813 04/17/2020 [facility] BMI Calculated 24.13 04/17/2020 [facility] Respitory Rate 16 04/17/2020 [facility] Respitory Rate 16 04/17/2020 [facility] Height 167.64 cm 04/17/2020 [facility] BMI Calculated 29.11 04/17/2020 [facility] Weight 81.818 04/17/2020 [facility] Respitory Rate 10 07/08/2019 [facility] Systolic (mm Hg) 165 07/08/2019 [facility] Diastolic (mm Hg) 72 07/08/2019 [facility] Respitory Rate 16 07/08/2019 [facility] Systolic (mm Hg) 132 07/08/2019 [facility] Diastolic (mm Hg) 68 07/08/2019 [facility] Heart Rate 76 07/08/2019 [facility] Respitory Rate 18 07/08/2019 [facility] Temperature Oral (F) 98.5 F 07/08/2019 [facility] Height 162.56 cm 07/08/2019 [facility] BMI Calculated 25.8 07/08/2019 [facility] Weight 68.182 07/08/2019 [facility] Temperature Oral (F) 97.7 F 04/17/2018 [facility] Heart Rate 76 04/17/2018 [facility] Systolic (mm Hg) 152 04/17/2018 [facility] Diastolic (mm Hg) 91 04/17/2018 [facility] Respitory Rate 20 04/17/2018 [facility] Weight 76.364 04/17/2018 [facility] BMI Calculated 27.17 04/17/2018 [facility] Height 167.64 cm 04/17/2018 [facility] Systolic (mm Hg) 127 04/17/2018 [facility] Diastolic (mm Hg) 70 04/17/2018 [facility] Respitory Rate 20 04/17/2018 [facility] Respitory Rate 20 04/17/2018 [facility] Systolic (mm Hg) 124 04/17/2018 [facility] Diastolic (mm Hg) 64 04/17/2018 [facility] Heart Rate 86 04/17/2018 [facility] Heart Rate 76 04/17/2018 [facility] Temperature Oral (F) 98.1 F 04/17/2018 [facility] Temperature Oral (F) 98.7 F 04/17/2018 [facility] Respitory Rate 17 03/17/2018 [facility] Systolic (mm Hg) 127 03/17/2018 [facility] Diastolic (mm Hg) 75 03/17/2018 [facility] Heart Rate 58 03/17/2018 [facility] Temperature Oral (F) 97.9 F 03/17/2018 [facility] Respitory Rate 18 03/17/2018 [facility] Systolic (mm Hg) 129 03/17/2018 [facility] Diastolic (mm Hg) 73 03/17/2018 [facility] Heart Rate 61 03/17/2018 [facility] Respitory Rate 18 03/17/2018 [facility] Temperature Oral (F) 98.1 F 03/17/2018 [facility] Systolic (mm Hg) 98 03/17/2018 [facility] Diastolic (mm Hg) 59 03/17/2018 [facility] Heart Rate 58 03/17/2018 [facility] Temperature Oral (F) 98.3 F 03/17/2018 [facility] Height 167.64 cm 03/16/2018 [facility] Weight 74.091 03/16/2018 [facility] BMI Calculated 26.36 03/16/2018 [facility] Height 167.64 cm 03/16/2018 [facility] Weight 72.727 03/16/2018 [facility] BMI Calculated 25.88 03/16/2018 [facility] Height 167.64 cm 03/16/2018 [facility] Encounters Location Location Details Encounter Type Encounter Number Reason For Visit Attending Provider ADM Date DC Date Status Source [facility] Primary Care [facility] Ambulatory Pre-Reg [id number] Gina Kennedy 12/12/2017 12/12/2017 [facility] Inpatient [id number] Daniela Isaiteo 03/16/2018 03/17/2018 [facility] Observation [id number] Dino Holley 04/16/2018 04/17/2018 [facility] Emergency [id number] Miley Douglas 07/08/2019 07/08/2019 [facility] Inpatient [id number] Parag Nunez 04/17/2020 04/26/2020 [facility] Procedures No Data Provided for This Section Assessment and Plan Assessment and Plan Date Source Extracted from:Title: Clinical Document Author: Bryan Mckeon MD Date: 04/20/20 PSYCHIATRY CONSULTATION REPORT BRYAN MCKEON M.D. Board Certified in Adult and Geriatric Psychiatry Attending: Parag Nunez MD Service: Internal Medicine Code status: Full Resuscitation Reason for Admission: PEG TUBE MALFUCTION Working DRG: Isolation: No Isolation/Standard Precautions Consulting Physicians: Magno Starks MD Office: Service: Gastroenterology Bryan Mckeon MD Office: Service: Psychiatry Patient seen, report dictated. Will follow along with you. Thank you for the consult. Extracted from:Title: History and Physical Author: Pascual Sykes DO Date: 04/17/20 1. PEG tube malfunctiondislodgment of P EG tube due to oropharyngeal dysphasia fromrecent CVA. PEG tube is only been placed for the past 3 weeks and therefore likely has not from a tract. Consultgastroenterology for placement. Patient also on DAPTand will also consult cardiology due to recent [place] and history of CAD status post CABG. Discussed with daughterwho agree withPEG tube replacement. 2. CVAcontinue with aspirin,statin. 3. CAD status post CABGrecent [place]. Rowan nue with aspirin, statin,metoprolol and lisinopril. Hold Plavix forPEG tube placement. Cardiology consult. 4. Hypertensioncontinue with home medic ation 5. Hyperlipidemiacontinue with statin 6. Metabolic encephalopathylikely due t o vascular dementia. Discussed with daughter who appears to be at baseline currently. PEG tube malfunction(K94.23) SCD Admit to observation 04/26/2020 [facility] Extracted from:Title: History and Physic al Author: Pascual Sykes DO Date: 04/17/20 1. PEG tube malfunctiondislodgment of P EG tube due to oropharyngeal dysphasia fromrecent CVA. PEG tube is only been placed for the past 3 weeks and therefore likely has not from a tract. Consultgastroenterology for placement. Patient also on DAPTand will also consult cardiology due to recent [place] and history of CAD status post CABG. Discussed with daughterwho agree withPEG tube replacement. 2. CVAcontinue with aspirin,statin. 3. CAD status post CABGrecent [place]. Rowan nue with aspirin, statin,metoprolol and lisinopril. Hold Plavix forPEG tube placement. Cardiology consult. 4. Hypertensioncontinue with home medic ation 5. Hyperlipidemiacontinue with statin 6. Metabolic encephalopathylikely due t o vascular dementia. Discussed with daughter who appears to be at baseline currently. PEG tube malfunction(K94.23) SCD Admit to observation 04/18/2020 [facility] Extracted from:Title: ORS Spine Progress Note Author: Reny Lagos MD Date: 04/17/18 ORS Spine Progress Note S: Patient doing well overall. [facility] and hasn't had pain relief in his neck since. 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 The patient couldn't remember his name. The surgery was done in 2012. He is a chronic pain patient and sees pain doctors for pain medica tions. Reports he has had pain even after [...] this in the last 3 weeks. O: Vitals Tmp(F) Pulse BP RR SpO2 FIO2 04/17 08:04 97.7 76 152/91 2 0 98 --- 04/17 06:17 ---- 50 127/70 2 0 98 --- 04/17 03:50 ---- 86 124/64 2 0 97 --- 04/17 03:11 ---- 76 ----- -- 97 --- 04/17 03:05 ---- 79 137/88 2 0 98 --- 24 Hr Tmax: 98.7F (37.06c) at 04/16 23:4 9 Vital Signs are the last 5 in the past 48 hours. I&O Record In Out Bal 04/16 24hr Tot 1 0 1 04/15 24hr Tot 0 0 0 (no lines, tubes, [...] - We recommend following up with the ini tial operative surgeon for treatment. The patient is neurologically intact. He recently had a [place] 4 weeks ago requiring a stnet. He [...] D/C. Reny Lagos MD Orthopaedic Surgery Pager: [phone] Extracted from:Title: History and Physical Author: Leah Peterson MD Date: 04/17/18 62-year-old male with past medical histo [...] pending MRI spine and ORS spine plan 04/17/2018 [facility] Plan of Care No Data Provided for This Section Social History Social History Date Source Social History TypeResponse Substance Abuse Use: None. Alcohol Past, Type Beer, Liquor. Frequency: Several times per day. Last use: "30+ years ago". Smoking Status Current every day smoker; Type: Cigarettes; Previous treatment: None; Exposure to Tobacco Smoke None; Cigarette Smoking Last 365 Days Yes; Reg Smoking Cessation Counseling No; Started at age: 14.0; Stopped at age: 61; Other Tobacco Frequency 1/2 PPD; 1 entered on: 04/17/18 1Patient reports stopped smoking since l ast week after [place] 04/17/2018 [facility] Social History TypeResponse Alcohol Past, Type Beer, Liquor. Frequency: Several times per day. Last use: "30+ years ago". Substance Abuse Use: None. Smoking Status Current every day smoker; Type: Cigarettes; Previous treatment: None; Exposure to Tobacco Smoke None; Cigarette Smoking Last 365 Days Yes; Reg Smoking Cessation Counseling No; Started at age: 14.0; Stopped at age: 61; Other Tobacco Frequency 1/2 PPD; 1 entered on: 07/08/19 1Patient reports stopped smoking since l ast week after [place] 04/17/2018 [facility] Social History TypeResponse Alcohol Past, Type Beer, Liquor. Frequency: Several times per day. Last use: "30+ years ago". Substance Abuse Use: None. Smoking Status Current every day smoker; Type: Cigarettes; Previous treatment: None; Exposure to Tobacco Smoke None; Cigarette Smoking Last 365 Days Yes; Reg Smoking Cessation Counseling No; Started at age: 14.0; Stopped at age: 61; Other Tobacco Frequency 1/2 PPD; 1 entered on: 04/17/20 1Patient reports stopped smoking since l ast week after [place] 04/17/2018 [facility] Social History TypeResponse Substance Abuse Use: None. Alcohol Past, Type Beer, Liquor. Frequency: Several times per day. Last use: "30+ years ago". Smoking Status Current every day smoker; Previous treatment: None; Exposure to Tobacco Smoke None; Cigarette Smoking Last 365 Days Yes; Reg Smoking Cessation Counseling No; Started at age: 14.0; Stopped at age: 61; Other Tobacco Frequency 1/2 PPD; 1 entered on: 03/16/18 1Patient reports stopped smoking since l ast week after [place] 03/16/2018 [facility] Social History TypeResponse Substance Abuse Use: None. Alcohol Past, Type Beer, Liquor. Frequency: Several times per day. Last use: "30+ years ago". Smoking Status Current every day smoker; Previous treatment: None; Exposure to Tobacco Smoke None; Cigarette Smoking Last 365 Days Yes; Reg Smoking Cessation Counseling No; Started at age: 14.0; Stopped at age: 61; Other Tobacco Frequency 1/2 PPD; 1 entered on: 03/16/18 1Patient reports stopped smoking since l ast week after [place] 03/16/2018 [facility] Family History No Data Provided for This Section Advance Directives No Data Provided for This Section Functional Status No Data Provided for This Section
--- OUTSIDE RECORDS SUMMARY | 2020-05-18 16:51 | XMS REPORT | Summary of Care ---
Author Author [facility] Organization [facility] Address Unknown Phone Unavailable Encounter HQ Fei(VICENTE) [id number] Date(s): 04/17/20 [facility] [address] [place] [address]- Discharge Disposition: ED Admitted Attending Physician: Ventura Nelson MD Admitting Physician: Ventura Nelson MD Vital Signs 1 2 3 Most recent to oldest [Reference Range]: 167.64 cm (04/17/20 4:00 PM) 167.64 cm (04/17/20 9:00 AM) Height 67.813 kg (04/17/20 4:00 PM) Current Weight 97.9 DegF (04/18/20 4:35 AM) 98.3 DegF (04/17/20 11:54 PM) 98.3 DegF (04/17/20 7:28 PM) Temperature Oral [96.4-99.1 DegF] 124/64 mmHg (04/18/20 4:35 AM) 117/70 mmHg (04/17/20 11:54 PM) 127/60 mmHg (04/17/20 7:28 PM) Blood Pressure [90-140/60-90 mmHg] 16 BRMIN (04/17/20 4:00 PM) 16 BRMIN (04/17/20 2:45 PM) 16 BRMIN (04/17/20 1:31 PM) Respiratory Rate [14-20 BRMIN] 84 bpm (04/18/20 4:35 AM) 91 bpm (04/17/20 11:54 PM) 82 bpm (04/17/20 7:28 PM) Peripheral Pulse Rate [60-100 bpm] 67.813 kg (04/17/20 4:00 PM) 81.818 kg (04/17/20 9:00 AM) Weight 24.13 m2 (04/17/20 4:00 PM) 29.11 m2 (04/17/20 9:00 AM) Body Mass Index Problem List No data available for this section Allergies, Adverse Reactions, Alerts Substance Reaction Severity Status tetanus toxoid Active Ativan Active Medications acetaminophen 650 mg, 2 tab, Route: PO, Drug form: TAB, Q4H, Dosing Weight 81.818, kg, PRN Fritz n 1-3/Temp > 100.4 F, Start date: 04/17/20 11:45:00 CDT, Duration: 30 day, Stop date: 05/17/20 11:44:00 CDT, 0 Notes: Do not exceed 4 gm/day. (Same as: Tylenol) Start Date: 04/17/20 Stop Date: 05/17/20 Status: Ordered Dextrose 50% Syringe (D50W) 12.5 gm, 25 mL, Route: IVP, Drug Form: INJ, Dosing Weight 81.818, kg, PRN, PRN B lood Glucose Results, Start date: 04/17/20 11:45:00 CDT, Duration: 30 day, Stop date: 05/17/20 11:44:00 CDT, 0 Start Date: 04/17/20 Stop Date: 05/17/20 Status: Ordered Dextrose 50% Syringe (D50W) 25 gm, 50 mL, Route: IVP, Drug Form: INJ, Dosing Weight 81.818, kg, PRN, PRN Blo od Glucose Results, Start date: 04/17/20 11:45:00 CDT, Duration: 30 day, Stop da te: 05/17/20 11:44:00 CDT, 0 Start Date: 04/17/20 Stop Date: 05/17/20 Status: Ordered glucagon 1 mg, Route: IM, Drug form: PDR/INJ, PRN, Dosing Weight 81.818, kg, PRN Blood Gl ucose Results, Start date: 04/17/20 11:45:00 CDT, Duration: 30 day, Stop date: 0 05/17/20 11:44:00 CDT, 0 Start Date: 04/17/20 Stop Date: 05/17/20 Status: Ordered Haldol 2.5 mg, 0.5 mL, Route: IM, Drug form: INJ, ONCE, Dosing Weight 67.813, kg, Start date: 04/17/20 23:59:00 CDT, Stop date: 04/17/20 23:59:00 CDT, 0 Notes: (Same as: Haldol) Start Date: 04/17/20 Stop Date: 04/18/20 Status: Completed melatonin 3 mg, 1 tab, Route: PO, Drug form: TAB, Bedtime, Dosing Weight 81.818, kg, PRN I nsomnia, Start date: 04/17/20 11:45:00 CDT, Duration: 30 day, Stop date: 0 11:44:00 CDT, 0 Notes: (Same as: Melatonin) Start Date: 04/17/20 Stop Date: 05/17/20 Status: Ordered ondansetron 4 mg, 2 mL, Route: IVP, Drug form: INJ, Q8H, Dosing Weight 81.818, kg, PRN Nause a & Vomiting, Start date: 04/17/20 11:45:00 CDT, Duration: 30 day, Stop date: 05/17/20 11:44:00 CDT, 0 Notes: (Same as: Zofran) MEDICATION WASTE Product Size: 4 mgProduct Was viviana: ___ mg Start Date: 04/17/20 Stop Date: 05/17/20 Status: Ordered Results Most recent to 1 oldest [Reference Range]: Neutrophils # 5.1 K/CMM [1.5-8.1 K/CMM] (04/17/20 10:42 AM) Lymphocytes # 2.4 K/CMM [1.0-5.5 K/CMM] (04/17/20 10:42 AM) Monocytes # [0.0-0.8 0.7 K/CMM K/CMM] (04/17/20 10:42 AM) Eosinophils # 0.2 K/CMM [0.0-0.5 K/CMM] (04/17/20 10:42 AM) eGFR 66 mL/min/1.73m2 1 *NA* (04/17/20 10:42 AM) ABO/Rh O POS *Unknown* (04/17/20 10:42 AM) A/G Ratio [0.7-1.6] 0.8 (04/17/20 10:42 AM) Antibody Scrn Negative (04/17/20 10:42 AM) Albumin Lvl [3.5-5.0 3.5 g/dL g/dL] (04/17/20 10:42 AM) Alk Phos [39-136 73 unit/L unit/L] (04/17/20 10:42 AM) ALT [0-65 unit/L] 31 unit/L (04/17/20 10:42 AM) AGAP [10.0-20.0 9.3 mEq/L mEq/L] *LOW* (04/17/20 10:42 AM) AST [0-37 unit/L] 18 unit/L (04/17/20 10:42 AM) B/C Ratio [6-25] 26 *HI* (04/17/20 10:42 AM) Basophils [0.0-1.0 0.5 % %] (04/17/20 10:42 AM) BUN [7-22 mg/dL] 31 mg/dL *HI* (04/17/20 10:42 AM) Calcium Lvl 9.8 mg/dL [8.5-10.5 mg/dL] (04/17/20 10:42 AM) Chloride Lvl [95-109 102 mEq/L mEq/L] (04/17/20 10:42 AM) CO2 [24-32 mEq/L] 31 mEq/L (04/17/20 10:42 AM) Creatinine Lvl 1.17 mg/dL [0.50-1.40 mg/dL] (04/17/20 10:42 AM) Eosinophils [0.0-4.0 1.9 % %] (04/17/20 10:42 AM) Globulin [2.7-4.2 4.2 g/dL g/dL] (04/17/20 10:42 AM) Glucose Lvl [70-99 95 mg/dL mg/dL] (04/17/20 10:42 AM) Hct [42.0-54.0 %] 34.1 % *LOW* (04/17/20 10:42 AM) Hgb [14.0-18.0 g/dL] 11.3 g/dL *LOW* (04/17/20 10:42 AM) INR [0.85-1.17] 0.99 (04/17/20 10:42 AM) Potassium Lvl 4.3 mEq/L [3.5-5.1 mEq/L] (04/17/20 10:42 AM) Lymphocytes 28.2 % [20.0-40.0 %] (04/17/20 10:42 AM) MCH [27.0-31.0 pg] 31.6 pg *HI* (04/17/20 10:42 AM) MCHC [32.0-36.0 33.2 g/dL g/dL] (04/17/20 10:42 AM) MCV [80.0-94.0 fL] 95.2 fL *HI* (04/17/20 10:42 AM) Monocytes [2.0-12.0 8.1 % %] (04/17/20 10:42 AM) MPV [7.4-10.4 fL] 10.6 fL *HI* (04/17/20 10:42 AM) Sodium Lvl [135-145 138 mEq/L mEq/L] (04/17/20 10:42 AM) Platelet [133-450 137 K/CMM K/CMM] (04/17/20 10:42 AM) Segs [45.0-75.0 %] 61.3 % (04/17/20 10:42 AM) Total Protein 7.7 g/dL [6.4-8.4 g/dL] (04/17/20 10:42 AM) PT [12.0-14.7 13.1 seconds seconds] (04/17/20 10:42 AM) PTT [22.9-35.8 31.4 seconds seconds] (04/17/20 10:42 AM) Coronavirus Not Detected (COVID-19) СЕРГЕЙ [Not (04/17/20 10:42 AM) Detected] RBC [4.70-6.10 3.58 M/CMM M/CMM] *LOW* (04/17/20 10:42 AM) RDW [11.5-14.5 %] 15.0 % *HI* (04/17/20 10:42 AM) Bili Total [0.2-1.3 0.4 mg/dL mg/dL] (04/17/20 10:42 AM) WBC [3.7-10.4 K/CMM] 8.4 K/CMM (04/17/20 10:42 AM) 1Result Comment: The eGFR is calculated [...] be mul tiplied by the estimated BMI. Immunizations Given and Recorded Vaccine Date Status Refusal Reason Hx pneumococcal vaccine 03/07/17 Given Procedures No data available for this section Social History Social History Type Response Alcohol Past, Type Beer, Liquor. F requency: Several times per day. Last use: "30+ years ago". Substance Abuse Use: None. Smoking Status Current every day smoker; T ype: Cigarettes; Previous treatment: None; Exposure to Tobacco Smoke None; Cigaret te Smoking Last 365 Days Yes; Reg Smoking Cessation Counseling No; Starte d at age: 14.0; Stopped at age: 61; Other Tobacco Frequency 1/2 PPD; 1 entered on: 04/17/20 1Patient reports stopped smoking since last week after [place] Assessment and Plan Extracted from: Title: History and Physical Author: Pascual Sykes ate: 04/17/20 1. PEG tube malfunction dislodgment of PEG tube due to oropharyngeal dysphasia fromrecent CVA. PEG tube is only been placed for the past 3 weeks and therefore likely has not from a tract. Consultgastroenterology for placement. Patient also on DAPTand will also consult cardiology due to recent ID and history of CAD status post CABG. Discussed with daughterwho agree withPEG tube replacement. 2. CVA continue with aspirin,statin. 3. CAD status post CABG recent ID. Continue with aspirin, statin,metoprolol and lisinopril. Hold Plavix forPEG tube placement. Cardiology consult. 4. Hypertension continue with home medication 5. Hyperlipidemia continue with statin 6. Metabolic encephalopathy likely due to vascular dementia. Discussed with daughter who appears to be at baseline currently. PEG tube malfunction(K94.23) SCD Admit to observation
--- OUTSIDE RECORDS SUMMARY | 2020-05-18 16:51 | XMS REPORT | Summary of Care ---
[facility] Address Unknown Phone Unavailable Encounter HQ Fei(FIN) [id number] Date(s): 07/07/19 - 07/08/19 [facility] [address] [place] [address]- [facility] [phone] Encounter Diagnosis Accidental fall (Discharge Diagnosis) - 07/08/19 Chronic neck pain (Discharge Diagnosis) - 07/08/19 Discharge Disposition: Home or Self Care Attending Physician: Miley Douglas MD Vital Signs 1 2 3 Most recent to oldest [Reference Range]: 162.56 cm (07/07/19 7:57 PM) Height 98.5 DegF (07/07/19 7:57 PM) Temperature Oral [96.4-99.1 DegF] 165/72 mmHg *HI* (07/08/19 2:20 AM) 132/68 mmHg (07/07/19 7:57 PM) Blood Pressure [90-140/60-90 mmHg] 10 BRMIN *LOW* (07/08/19 2:20 AM) 16 BRMIN (07/08/19 2:00 AM) 18 BRMIN (07/07/19 7:57 PM) Respiratory Rate [14-20 BRMIN] 76 bpm (07/07/19 7:57 PM) Peripheral Pulse Rate [60-100 bpm] 68.182 kg (07/07/19 7:57 PM) Weight 25.8 m2 (07/07/19 7:57 PM) Body Mass Index Problem List No data available for this section Allergies, Adverse Reactions, Alerts Substance Reaction Severity Status tetanus toxoid Active Ativan Active Medications Flexeril 10 mg, 1 tab, Route: PO, Drug form: TAB, ONCE, Dosing Weight 68.182, kg, Priorit y: STAT, Start date: 07/08/19 1:34:00 CDT, Stop date: 07/08/19 1:34:00 CDT, 0 Notes: (Same As: Flexeril) Start Date: 07/08/19 Stop Date: 07/08/19 Status: Completed Flexeril 5 mg oral tablet 5 mg = 1 tab, PO, TID, X 5 day, # 15 tab, 0 Refill(s) Start Date: 07/08/19 Stop Date: 07/13/19 Status: Ordered [place] 5/325 oral tablet 1 tab, Route: PO, Drug Form: TAB, Dosing Weight 68.182, kg, ONCE, STAT, Start da te: 07/08/19 1:34:00 CDT, Stop date: 07/08/19 1:34:00 CDT, 0 Notes: (Same as: [place] 325/5) Do not exceed 4gm/day of acetaminophen. Start Date: 07/08/19 Stop Date: 07/08/19 Status: Completed tramadol 50 mg oral tablet 50 mg = 1 tab, PO, Q8H, PRN Pain, X 5 day, # 15 tab, 0 Refill(s) Start Date: 07/08/19 Stop Date: 07/13/19 Status: Ordered Results No data available for this section Immunizations Given and Recorded Vaccine Date Status [...] on: 07/08/19 1Patient reports stopped smoking since last week after [place] Assessment and Plan No data available for this section
--- OUTSIDE RECORDS SUMMARY | 2020-05-18 16:51 | XMS REPORT | Summary of Care ---
Author Author [facility] Organization [facility] Address Unknown Phone Unavailable Encounter HQ Encntr_alias(FIN) [id number] Date(s): 12/12/17 - 12/12/17 [facility] [address], [address] [place], [place] [address]- Attending Physician: Gina Kennedy MD Vital Signs No data available for this section Problem List No data available for this section Allergies, Adverse Reactions, Alerts Substance Reaction Severity Status tetanus toxoid Active Ativan Active Medications No data available for this section Results No data available for this section Immunizations Given and Recorded Vaccine Date Status Refusal Reason Hx pneumococcal vaccine 03/07/17 Given Procedures No data available for this section Social History Social History Type Response Substance Abuse Use: None. Alcohol Past, Type Beer, Liquor. F requency: Several times per day. Last use: "30+ years ago". Smoking Status Current every day smoker; P revious treatment: None; Exposure to Tobacco Smoke None; Cigarette Smoking Last 365 Days Yes; Reg Smoking Cessation Counseling No; Started at age: 14.0; St opped at age: 61; Other Tobacco Frequency 1/2 PPD; 1 entered on: 03/16/18 1Patient reports stopped smoking since last week after [place] Assessment and Plan No data available for this section
--- OUTSIDE RECORDS SUMMARY | 2020-05-18 16:51 | XMS REPORT | Summary of Care ---
Author Author [facility] Organization [facility] Address Unknown Phone Unavailable Encounter [facility](FIN) [id number] Date(s): 04/17/20 - 04/26/20 [facility] [address] [place] [address]- Encounter Diagnosis Gastrostomy malfunction (Final) - Discharge Disposition: Jail Facility Attending Physician: Parag Nunez MD Admitting Physician: Parag Nunez MD Vital Signs 1 2 3 Most recent to oldest [Reference Range]: 167.64 cm (04/17/20 4:00 PM) 167.64 cm (04/17/20 9:00 AM) Height 67.813 kg (04/17/20 4:00 PM) Current Weight 98.5 DegF (04/26/20 4:33 PM) 98.5 DegF (04/26/20 11:25 AM) 98.6 DegF (04/26/20 7:15 AM) Temperature Oral [96.4-99.1 DegF] 105/63 mmHg (04/26/20 4:33 PM) 100/65 mmHg (04/26/20 11:25 AM) 108/69 mmHg (04/26/20 7:15 AM) Blood Pressure [90-140/60-90 mmHg] 18 BRMIN (04/26/20 4:33 PM) 18 BRMIN (04/26/20 11:25 AM) 18 BRMIN (04/26/20 7:15 AM) Respiratory Rate [14-20 BRMIN] 107 bpm *HI* (04/26/20 4:33 PM) 105 bpm *HI* (04/26/20 11:25 AM) 108 bpm *HI* (04/26/20 7:15 AM) Peripheral Pulse Rate [60-100 bpm] 67.813 kg [...] as: Tylenol) Start Date: 04/17/20 Stop Date: 04/26/20 Status: Discontinued aspirin 81 mg, 1 tab, Route: PO, Drug form: ECTAB, Daily, Dosing Weight 67.813, kg, Star t date: 04/21/20 9:00:00 CDT, Duration: 30 day, Stop date: 05/20/20 9:00:00 CDT, 0 Notes: Do not crush or chew.(Same As: Ecotrin) Start Date: 04/21/20 Stop Date: 04/26/20 Status: Discontinued atorvastatin 40 mg, 1 tab, Route: PO, Drug form: TAB, Bedtime, Dosing Weight 67.813, kg, Star t date: 04/21/20 21:00:00 CDT, Duration: 30 day, Stop date: 05/20/20 21:00:00 CD T, 0 Notes: (Same as: Lipitor) Start Date: 04/21/20 Stop Date: 04/26/20 Status: Discontinued ceFAZolin (ANES) Route: IV, Drug form: INJ, ONCE, Stop date: 04/19/20 14:07:00 CDT Start Date: 04/19/20 Stop Date: 04/19/20 Status: Completed Dextrose 50% Syringe (D50W) 12.5 gm, 25 mL, Route: IVP, Drug Form: INJ, Dosing Weight 81.818, kg, PRN, PRN B lood Glucose Results, Start date: 04/17/20 11:45:00 CDT, Duration: 30 day, Stop date: 05/17/20 11:44:00 CDT, 0 Start Date: 04/17/20 Stop Date: 04/24/20 Status: Discontinued Dextrose 50% Syringe (D50W) 25 gm, 50 mL, Route: IVP, Drug Form: INJ, Dosing Weight 81.818, kg, PRN, PRN Blo od Glucose Results, Start date: 04/17/20 11:45:00 CDT, Duration: 30 day, Stop da te: 05/17/20 11:44:00 CDT, 0 Start Date: 04/17/20 Stop Date: 04/24/20 Status: Discontinued Dextrose 50% Syringe (D50W) 12.5 gm, 25 mL, Route: IVP, Drug Form: INJ, Dosing Weight 67.813, kg, PRN, PRN B lood Glucose Results, Start date: 04/24/20 18:10:00 CDT, Duration: 30 day, Stop date: 05/24/20 18:09:00 CDT, 0 Start Date: 04/24/20 Stop Date: 04/26/20 Status: Discontinued Dextrose 50% Syringe (D50W) 25 gm, 50 mL, Route: IVP, Drug Form: INJ, Dosing Weight 67.813, kg, PRN, PRN Blo od Glucose Results, Start date: 04/24/20 18:10:00 CDT, Duration: 30 day, Stop da te: 05/24/20 18:09:00 CDT, 0 Start Date: 04/24/20 Stop Date: 04/26/20 Status: Discontinued Geodon 10 mg, Route: IM, Drug form: PDR/INJ, Q6H, Dosing Weight 67.813, kg, PRN Agitati on, Start date: 04/20/20 23:50:00 CDT, Duration: 30 day, Stop date: 05/20/20 23: 49:00 CDT, 0 Notes: Reconstitute with 1.2 ml of sterile water. Final concentration = 20 mg/1 ml. Maximum 40 mg/24 hours (Same As: Geodon).Hazardous Drug Group 3:Rep roductive risk Hazardous Drug -- Refer to safe handling procedure PPE Matrix * MEDICATION WASTE Product Size: 20 mgProduct Wasted: ___ mg Start Date: 04/20/20 Stop Date: 04/26/20 Status: Discontinued glucagon 1 mg, Route: IM, Drug form: PDR/INJ, PRN, Dosing Weight 81.818, kg, PRN Blood Gl ucose Results, Start date: 04/17/20 11:45:00 CDT, Duration: 30 day, Stop date: 0 05/17/20 11:44:00 CDT, 0 Start Date: 04/17/20 Stop Date: 04/24/20 Status: Discontinued glucagon 1 mg, Route: IM, Drug form: PDR/INJ, PRN, Dosing Weight 67.813, kg, PRN Blood Gl ucose Results, Start date: 04/24/20 18:10:00 CDT, Duration: 30 day, Stop date: 0 05/24/20 18:09:00 CDT, 0 Start Date: 04/24/20 Stop Date: 04/26/20 Status: Discontinued Haldol 2.5 mg, 0.5 mL, Route: IM, Drug form: INJ, ONCE, Dosing Weight 67.813, kg, Start date: 04/17/20 23:59:00 CDT, Stop date: 04/17/20 23:59:00 CDT, 0 Notes: (Same as: Haldol) Start Date: 04/17/20 Stop Date: 04/18/20 Status: Completed insulin lispro 1 unit, 0.01 mL, Route: SUB-Q, Drug form: SOLN, TID-Before Meals, Dosing Weight 67.813, kg, PRN Blood Glucose Results, Start date: 04/24/20 18:10:00 CDT, Durati on: 30 day, Stop date: 05/24/20 18:09:00 CDT, 0 Notes: (Same as: Humalog) Roll in palms of hands gently; Do not shake vigorously . WASTE: F/P - Black; E - Municipal Trash BinStable for 28 days at room tempera ture.Expires in days from Date Start Date: 04/24/20 Stop Date: 04/26/20 Status: Discontinued insulin lispro 2 unit, 0.02 mL, Route: SUB-Q, Drug form: SOLN, TID-Before Meals, Dosing Weight 67.813, kg, PRN Blood Glucose Results, Start date: 04/24/20 18:10:00 CDT, Durati on: 30 day, Stop date: 05/24/20 18:09:00 CDT, 0 Notes: (Same as: Humalog) Roll in palms of hands gently; Do not shake vigorously . WASTE: F/P - Black; E - Municipal Trash BinStable for 28 days at room [facility].Expires in days from Date Start Date: 04/24/20 Stop Date: 04/26/20 Status: Discontinued insulin lispro 3 unit, 0.03 mL, Route: SUB-Q, Drug form: SOLN, TID-Before Meals, Dosing Weight 67.813, kg, PRN Blood Glucose Results, Start date: 04/24/20 18:10:00 CDT, Durati on: 30 day, Stop date: 05/24/20 18:09:00 CDT, 0 Notes: (Same as: Humalog) Roll in palms of hands gently; Do not shake vigorously . WASTE: F/P - Black; E - Municipal Trash BinStable for 28 days at room [facility].Expires in days from Date Start Date: 04/24/20 Stop Date: 04/26/20 Status: Discontinued insulin lispro 4 unit, 0.04 mL, Route: SUB-Q, Drug form: SOLN, TID-Before Meals, Dosing Weight 67.813, kg, PRN Blood Glucose Results, Start date: 04/24/20 18:10:00 CDT, Durati on: 30 day, Stop date: 05/24/20 18:09:00 CDT, 0 Notes: (Same as: Humalog) Roll in palms of hands gently; Do not shake vigorously . WASTE: F/P - Black; E - Municipal Trash BinStable for 28 days at room [facility].Expires in days from Date Start Date: 04/24/20 Stop Date: 04/26/20 Status: Discontinued insulin lispro 5 unit, 0.05 mL, Route: SUB-Q, Drug form: SOLN, TID-Before Meals, Dosing Weight 67.813, kg, PRN Blood Glucose Results, Start date: 04/24/20 18:10:00 CDT, Durati on: 30 day, Stop date: 05/24/20 18:09:00 CDT, 0 Notes: (Same as: Humalog) Roll in palms of hands gently; Do not shake vigorously . WASTE: F/P - Black; E - Municipal Trash BinStable for 28 days at room [facility].Expires in days from Date Start Date: 04/24/20 Stop Date: 04/26/20 Status: Discontinued Kayexalate 15 gm, 60 mL, Route: PO, Drug form: SUSP, ONCE, Dosing Weight 67.813, kg, Start date: 04/25/20 9:43:00 CDT, Stop date: 04/25/20 9:43:00 CDT, 0 Notes: (sodium polystyrene sulfonate 15 gm/60 ml EILEEN) Shake well before use. (Same as: Kayexalate, SPS) Start Date: 04/25/20 Stop Date: 04/25/20 Status: Completed Lactated Ringers Injection IV 1,000 mL 1,000 mL, Rate: 75 ml/hr, Infuse over: 13.3 hr, Route: IV, Dosing Weight 67.813 kg, Total Volume: 1,000, Start date: 04/18/20 10:05:00 CDT, Duration: 30 day, St op date: 05/18/20 10:04:00 CDT, 1.79, m2, 0 Start Date: 04/18/20 Stop Date: 04/23/20 Status: Discontinued lidocaine (ANES) Route: IV, Drug form: INJ, ONCE, Stop date: 04/19/20 14:07:00 CDT Start Date: 04/19/20 Stop Date: 04/19/20 Status: Completed lisinopril 20 mg, 1 tab, Route: PO, Drug form: TAB, Daily, Dosing Weight 67.813, kg, Start date: 04/25/20 9:00:00 CDT, Duration: 30 day, Stop date: 05/24/20 9:00:00 CDT, 0 Notes: (Same as: Prinivil, Zestril) Start Date: 04/25/20 Stop Date: 04/25/20 Status: Discontinued Lovenox 40 mg, 0.4 mL, Route: SUB-Q, Drug form: INJ, [id number], Dosing Weight 67.813, kg, Start date: 04/22/20 18:00:00 CDT, Duration: 30 day, Stop date: 05/21/20 18:00: 00 CDT, 0 Notes: (Same as: Lovenox) Start Date: 04/22/20 Stop Date: 04/26/20 Status: Discontinued melatonin 3 mg, 1 tab, Route: PO, Drug form: TAB, Bedtime, Dosing Weight 81.818, kg, PRN I nsomnia, Start date: 04/17/20 11:45:00 CDT, Duration: 30 day, Stop date: 0 11:44:00 CDT, 0 Notes: (Same as: Melatonin) Start Date: 04/17/20 Stop Date: 04/26/20 Status: Discontinued metoprolol tartrate 50 mg, Route: PO, Drug form: TAB, Q12H, Dosing Weight 67.813, kg, Start date: 21:00:00 CDT, Duration: 30 day, Stop date: 05/24/20 9:00:00 CDT Start Date: 04/24/20 Stop Date: 04/24/20 Status: Canceled normal saline 0.9% IV 1,000 mL 1,000 mL, Rate: 75 ml/hr, Infuse over: 13.3 hr, Route: IV, Dosing Weight 67.813 kg, Total Volume: 1,000, Start date: 04/26/20 4:08:00 CDT, Duration: 18 hr, Stop date: 04/26/20 22:07:00 CDT, 1.79, m2, 0 Start Date: 04/26/20 Stop Date: 04/26/20 Status: Discontinued normal saline 0.9% IV 500 mL 500 mL, Rate: 499 ml/hr, Infuse over: 1 hr, Route: IV, Dosing Weight 67.813 kg, Total Volume: 500, Priority: NOW, Start date: 04/26/20 9:13:00 CDT, Duration: 1 doses or times, Stop date: 04/26/20 10:12:00 CDT, 1.79, m2, 0 Start Date: 04/26/20 Stop Date: 04/26/20 Status: Completed normal saline 0.9% IV 500 mL 500 mL, Rate: 499 ml/hr, Infuse over: 1 hr, Route: IV, Dosing Weight 67.813 kg, Total Volume: 500, Priority: NOW, Start date: 04/26/20 11:42:00 CDT, Duration: 1 doses or times, Stop date: 04/26/20 15:41:00 CDT, 1.79, m2, 0 Start Date: 04/26/20 Stop Date: 04/26/20 Status: Completed ondansetron 4 mg, 2 mL, Route: IVP, Drug form: INJ, Q8H, Dosing Weight 81.818, kg, PRN Nause a & Vomiting, Start date: 04/17/20 11:45:00 CDT, Duration: 30 day, Stop date: 05/17/20 11:44:00 CDT, 0 Notes: (Same as: Zofran) MEDICATION WASTE Product Size: 4 mgProduct Was viviana: ___ mg Start Date: 04/17/20 Stop Date: 04/26/20 Status: Discontinued Plavix 75 mg, 1 tab, Route: PO, Drug form: TAB, Daily, Dosing Weight 67.813, kg, Start date: 04/21/20 9:00:00 CDT, Duration: 30 day, Stop date: 05/20/20 9:00:00 CDT, 0 Notes: (Same As: Plavix) Start Date: 04/21/20 Stop Date: 04/26/20 Status: Discontinued propofol (ANES) Route: IV, Drug form: INJ, ONCE, Stop date: 04/19/20 14:07:00 CDT Start Date: 04/19/20 Stop Date: 04/19/20 Status: Completed Protonix 40 mg, 1 packet, Route: PO, Drug form: GRAN/REC, Daily, Dosing Weight 67.813, kg , Start date: 04/25/20 9:00:00 CDT, Duration: 30 day, Stop date: 05/24/20 9:00:0 0 CDT, 0 Notes: Same as: Protonix Mix in 5 mL apple juice or applesauce for oral & 10mL apple juice for NG tube Start Date: 04/25/20 Stop Date: 04/26/20 Status: Discontinued SEROquel 12.5 mg, 0.5 tab, Route: PO, Drug form: TAB, Q6H, Dosing Weight 67.813, kg, PRN Agitation, Start date: 04/20/20 23:49:00 CDT, Duration: 30 day, Stop date: 05/20 23:48:00 CDT, 0 Notes: (Same as: SEROquel) Start Date: 04/20/20 Stop Date: 04/26/20 Status: Discontinued Sodium Chloride 0.9% IV (ANES) 500 mL Route: IV, Total Volume: 500, Start date: 04/19/20 13:29:00 CDT, Stop date: 04/06 01/24 14:29:00 CDT Start Date: 04/19/20 Stop Date: 04/19/20 Status: Completed Sodium Chloride 0.9% IV 1,000 mL 1,000 mL, Rate: 75 ml/hr, Infuse over: 13.3 hr, Route: IV, Dosing Weight 67.813 kg, Total Volume: 1,000, Start date: 04/19/20 13:37:00 CDT, Duration: 30 day, St op date: 05/19/20 13:36:00 CDT, 1.79, m2, 0 Start Date: 04/19/20 Stop Date: 04/23/20 Status: Discontinued Results 1 2 3 Most recent to oldest [Reference Range]: 6.4 K/CMM (04/25/20 7:56 AM) 5.0 K/CMM (04/21/20 5:37 AM) 4.5 K/CMM (04/18/20 5:59 AM) Neutrophils # [1.5-8.1 K/CMM] 2.4 K/CMM (04/25/20 7:56 AM) 2.6 K/CMM (04/21/20 5:37 AM) 2.6 K/CMM (04/18/20 5:59 AM) Lymphocytes # [1.0-5.5 K/CMM] 0.7 K/CMM (04/25/20 7:56 AM) 0.6 K/CMM (04/21/20 5:37 AM) 0.6 K/CMM (04/18/20 5:59 AM) Monocytes # [0.0-0.8 K/CMM] 0.2 K/CMM (04/25/20 7:56 AM) 0.2 K/CMM (04/21/20 5:37 AM) 0.1 K/CMM (04/18/20 5:59 AM) Eosinophils # [0.0-0.5 K/CMM] 0.1 K/CMM (04/25/20 7:56 AM) 0.1 K/CMM (04/18/20 5:59 AM) Basophils # [0.0-0.2 K/CMM] 49 mL/min/1.73m2 1 *NA* (04/26/20 4:23 AM) 40 mL/min/1.73m2 2 *NA* (04/25/20 4:53 PM) 64 mL/min/1.73m2 3 *NA* (04/25/20 7:56 AM) eGFR O POS *Unknown* (04/17/20 10:42 AM) ABO/Rh 0.8 (04/17/20 10:42 AM) A/G Ratio [0.7-1.6] Negative (04/17/20 10:42 AM) Antibody Scrn 3.5 g/dL (04/17/20 10:42 AM) Albumin Lvl [3.5-5.0 g/dL] 73 unit/L (04/17/20 10:42 AM) Alk Phos [39-136 unit/L] 31 unit/L (04/17/20 10:42 AM) ALT [0-65 unit/L] 9.8 mEq/L *LOW* (04/26/20 4:23 AM) 8.4 mEq/L *LOW* (04/25/20 4:53 PM) 9.2 mEq/L *LOW* (04/25/20 7:56 AM) AGAP [10.0-20.0 mEq/L] 18 unit/L (04/17/20 10:42 AM) AST [0-37 unit/L] 26 *HI* (04/17/20 10:42 AM) B/C Ratio [6-25] 1.0 % (04/25/20 7:56 AM) 0.2 % (04/21/20 5:37 AM) 0.7 % (04/18/20 5:59 AM) Basophils [0.0-1.0 %] 66 mg/dL *HI* (04/26/20 4:23 AM) 58 mg/dL *HI* (04/25/20 4:53 PM) 48 mg/dL *HI* (04/25/20 7:56 AM) BUN [7-22 mg/dL] 9.7 mg/dL (04/26/20 4:23 AM) 9.8 mg/dL (04/25/20 4:53 PM) 10.5 mg/dL (04/25/20 7:56 AM) Calcium Lvl [8.5-10.5 mg/dL] 106 mEq/L (04/26/20 4:23 AM) 107 mEq/L (04/25/20 4:53 PM) 107 mEq/L (04/25/20 7:56 AM) Chloride Lvl [95-109 mEq/L] 35 mEq/L *HI* (04/26/20 4:23 AM) 34 mEq/L *HI* (04/25/20 4:53 PM) 33 mEq/L *HI* (04/25/20 7:56 AM) CO2 [24-32 mEq/L] 1.50 mg/dL *HI* (04/26/20 4:23 AM) 1.77 mg/dL *HI* (04/25/20 4:53 PM) 1.20 mg/dL (04/25/20 7:56 AM) Creatinine Lvl [0.50-1.40 mg/dL] 2.1 % (04/25/20 7:56 AM) 2.2 % (04/21/20 5:37 AM) 1.8 % (04/18/20 5:59 AM) Eosinophils [0.0-4.0 %] 4.2 g/dL (04/17/20 10:42 AM) Globulin [2.7-4.2 g/dL] 105 mg/dL *HI* (04/26/20 4:23 AM) 157 mg/dL *HI* (04/25/20 4:53 PM) 109 mg/dL *HI* (04/25/20 7:56 AM) Glucose Lvl [70-99 mg/dL] 40.1 % *LOW* (04/25/20 7:56 AM) 34.7 % *LOW* (04/21/20 5:37 AM) 36.4 % *LOW* (04/18/20 5:59 AM) Hct [42.0-54.0 %] 13.4 g/dL *LOW* (04/25/20 7:56 AM) 11.7 g/dL *LOW* (04/21/20 5:37 AM) 12.3 g/dL *LOW* (04/18/20 5:59 AM) Hgb [14.0-18.0 g/dL] 0.99 (04/17/20 10:42 AM) INR [0.85-1.17] 3.8 mEq/L (04/26/20 4:23 AM) 4.4 mEq/L (04/25/20 4:53 PM) 5.2 mEq/L *HI* (04/25/20 7:56 AM) Potassium Lvl [3.5-5.1 mEq/L] 24.6 % (04/25/20 7:56 AM) 30.4 % (04/21/20 5:37 AM) 33.0 % (04/18/20 5:59 AM) Lymphocytes [20.0-40.0 %] 31.8 pg *HI* (04/25/20 7:56 AM) 31.9 pg *HI* (04/21/20 5:37 AM) 32.1 pg *HI* (04/18/20 5:59 AM) MCH [27.0-31.0 pg] 33.4 g/dL (04/25/20 7:56 AM) 33.7 g/dL (04/21/20 5:37 AM) 33.7 g/dL (04/18/20 5:59 AM) MCHC [32.0-36.0 g/dL] 95.4 fL *HI* (04/25/20 7:56 AM) 94.8 fL *HI* (04/21/20 5:37 AM) 95.3 fL *HI* (04/18/20 5:59 AM) MCV [80.0-94.0 fL] 2.4 mg/dL (04/25/20 7:56 AM) 2.2 mg/dL (04/21/20 5:37 AM) Magnesium Lvl [1.8-2.4 mg/dL] 6.7 % (04/25/20 7:56 AM) 7.4 % (04/21/20 5:37 AM) 7.4 % (04/18/20 5:59 AM) Monocytes [2.0-12.0 %] 10.5 fL *HI* (04/25/20 7:56 AM) 10.4 fL (04/21/20 5:37 AM) 10.1 fL (04/18/20 5:59 AM) MPV [7.4-10.4 fL] 147 mEq/L *HI* (04/26/20 4:23 AM) 145 mEq/L (04/25/20 4:53 PM) 144 mEq/L (04/25/20 7:56 AM) Sodium Lvl [135-145 mEq/L] 170 K/CMM (04/25/20 7:56 AM) 150 K/CMM (04/21/20 5:37 AM) 148 K/CMM (04/18/20 5:59 AM) Platelet [133-450 K/CMM] 65.6 % (04/25/20 7:56 AM) 59.8 % (04/21/20 5:37 AM) 57.1 % (04/18/20 5:59 AM) Segs [45.0-75.0 %] 7.7 g/dL (04/17/20 10:42 AM) Total Protein [6.4-8.4 g/dL] 13.1 seconds (04/17/20 10:42 AM) PT [12.0-14.7 seconds] 31.4 seconds (04/17/20 10:42 AM) PTT [22.9-35.8 seconds] Not Detected (04/17/20 10:42 AM) Coronavirus (COVID-19) СЕРГЕЙ [Not Detected] 4.20 M/CMM *LOW* (04/25/20 7:56 AM) 3.66 M/CMM *LOW* (04/21/20 5:37 AM) 3.82 M/CMM *LOW* (04/18/20 5:59 AM) RBC [4.70-6.10 M/CMM] 14.9 % *HI* (04/25/20 7:56 AM) 15.0 % *HI* (04/21/20 5:37 AM) 15.1 % *HI* (04/18/20 5:59 AM) RDW [11.5-14.5 %] 0.4 mg/dL (04/17/20 10:42 AM) Bili Total [0.2-1.3 mg/dL] 9.8 K/CMM (04/25/20 7:56 AM) 8.4 K/CMM (04/21/20 5:37 AM) 8.0 K/CMM (04/18/20 5:59 AM) WBC [3.7-10.4 K/CMM] 1Result Comment: The eGFR is calculated using [...] be mul tiplied by the estimated BMI. 2Result Comment: The eGFR is calculated using the [...] be mul tiplied by the estimated BMI. 3Result Comment: The eGFR is calculated using the [...] reports stopped smoking since last week after AR Assessment and Plan Extracted from: Title: Clinical Document Author: Bryan Mckeon MD Date: 04/06 02/23 PSYCHIATRY CONSULTATION REPORT BRYAN MCKEON M.D. Board Certified in Adult and Geriatric Psychiatry Attending: Parag Nunez MDPhone: Service: Internal Medicine Code status: Full Resuscitation Reason for Admission: PEG TUBE MALFUCTION Working DRG: Isolation: No Isolation/Standard Precautions Consulting Physicians: Magno Starks MDOffice: Service: Gastroenterology Bryan Mckeon MDOffice: Service: Psychiatry Patient seen, report dictated. Will follow along with you. Thank you for the consult. Extracted from: Title: History and Physical Author: Pascual Sykes ate: 04/17/20 1. PEG tube malfunction dislodgment of PEG tube due to oropharyngeal dysphasia fromrecent CVA. PEG tube is only been placed for the past 3 weeks and therefore likely has not from a tract. Consultgastroenterology for placement. Patient also on DAPTand will also consult cardiology due to recent AR and history of CAD status post CABG. Discussed with daughterwho agree withPEG tube replacement. 2. CVA continue with aspirin,statin. 3. CAD status post CABG recent AR. Continue with aspirin, statin,metoprolol and lisinopril. Hold Plavix forPEG tube placement. Cardiology consult. 4. Hypertension continue with home medication 5. Hyperlipidemia continue with statin 6. Metabolic encephalopathy likely due to vascular dementia. Discussed with daughter who appears to be at baseline currently. PEG tube malfunction(K94.23) SCD Admit to observation
--- OUTSIDE RECORDS SUMMARY | 2020-05-18 16:53 | XMS REPORT | Continuity of Care Document ---
Author Author [facility] t Organization [facility] Address 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 Name Role Phone UNKNOWN, REFFERING PCP Unavailable George JACOBO Attphys Unavailable Chemo Nunez Attphys Conor Calvin Jr Attphys Julienne BRAY, Li Arriaga Attphys [phone] John BRAY, Mike Attphys Zakia Cruz Attphys Simone BRAY, Osei Attphys Cece BRAY, Ajit Attphys Gustavo BRAY, Aleksandar Coffman Attphys [phone] Klever Warner MD Attphys Joel SCALES, Chapo Attphys Unavailable Shavon Douglas Attphys JOSE CRUZ NELSON Attphys Unavailable Del Gilman Attphys Keeley Marcelino Attphys PRINCE MARRERO Attphys Unavailable Gunner Kennedy Attphys ALEXIA CUEVAS Attphys Unavailable Chemo Nunez Admphys Conor Calvin Jr [place] Admphys LOPEZ MIKE Admphys Unavailable Del Gilman Admphys Keeley Marcelino Admphys PRINCE MARRERO Admphys Unavailable LETIMARÍA DAILYHIN Admphys Unavailable Payers Payer Name Policy Type Policy Number Effective Date Expiration Date S l[facility] [id number] xxxxxxxxx 2018 00:00:00 [facility] MEDICAIDMEDICAIDxxxxxxxxx2018-PresentMedicaid xxxxxxxxx 2019 00:00:00 [facility] MEDICAIDUNITEDHC COMM STAR+ [id number] xxxxxxxxx 2019 00:00:00 [facility]ino [facility] Problems Condition Name Condition Details Condition Category Status Onset Date Resolution Date Last Treatment Date Treating Clinician Comments Source G TUBE CHECK G TU BE CHECK Active 04/17/2020 [facility] Diagnosis Active 2020-04-17 00:00:00 2020-04-17 11:09:00 Margarette Quiles PEG TUBE MALFUCTION PEG TUBE MALFUCTION Active 04/17/2020 [facility] Diagnosis Active 2020-04-17 00:00:00 2020-05-05 21:57:00 Margarette Quiles CVA (cerebral vascular accident) CVA (cerebral vascular accident ) Disease Active 2020-03-21 00:00:00 [facility] NSTEMI (non-ST elevated myocardial infarction) NSTEMI (non-ST elevated myocardial infarction) Disease Active 2020-02-22 00:00:00 Lino Ny Acute hypoxemic respiratory failure Acute hypoxemic respiratory failure Disease Active 2020-02-16 00:00:00 [facility] Other dysphagia Other dysphagia Disease Active 2020-02-16 00:00:00 Overview: Added automatically from request for surgery [id number] Lino Ny FALL LESS THAN 8 FT FALL LESS THAN 8 FT Active 07/07/2019 [facility] Diagnosis Active 2019-07-07 00:00:00 2019-07-08 02:27: 00 [facility] CERVICAL CORD COMPRESSION CERV ICAL CORD COMPRESSION Active 04/16/2018 [facility] Diagnosis Active 2018-04-16 00 :00:00 2018-04-16 20:42:00 [facility] CERVICAL CORD STENOSIS CERV ICAL CORD STENOSIS Active 04/16/2018 [facility] Diagnosis Active 2018-04-16 00:00:00 2018-04-25 21:50:00 [facility] CHEST PAIN CHES T PAIN Active 03/15/2018 [facility] Diagnosis Active 2018-03-15 00:00:00 2018-03-15 23:56:00 [facility] ACS (ACUTE CORONARY SYNDROME) ACS (ACUTE CORONARY SYNDROME) Active 03/15/2018 [facility] Diagnosis Active 2018-03-15 00:00:00 2018-03-18 14:40:00 [facility] Acute metabolic encephalopathy Acute metabolic encephalopathy Disea se Active 2017-03-01 00:00:00 [facility] Acute bronchitis Acute bronchitis Disease Active 2017-03-01 00:00:00 [facility] Hypertension Hypertension Disease Active 2017-03-01 00:00:00 [facility] History of CEA (carotid endarterectomy) History of CEA (donahue tid endarterectomy) Disease Active 2017-03-01 00:00:00 [facility] Gastrostomy malfunction Emelyn rostomy malfunction 04/28/2020 [facility] Problem 2020-04-28 22:38:39 [facility] ACUTE ISCHEMIC HEART DISEASE, UNSPECIFIE ACUTE ISCHEMIC HEART DISEASE, UNSPECIFIE Active [facility] Diagnosis Active 2018-03-18 14:40:00 [facility] SPINAL STENOSIS, CERVICAL REGION SPINAL STENOSIS, CERVICAL REGION Active [facility] Diagnosis Active 2018-04-25 21:50:00 [facility] GASTROSTOMY MALFUNCTION EMELYN ROSTOMY MALFUNCTION Active [facility] Diagnosis Active 2020-05-05 21:57:00 [facility] Unspecified fall, initial encounter Unspecified fall, initial encounter 07/08/2019 07/10/2019 [facility] Problem 2019-07-08 17:00:00 2019-07-10 21:05:28 2019-07-10 21:05:28 [facility] Cervicalgia Cerv icalgia 07/08/2019 07/10/2019 JONI Sanders Problem 2019-07-08 17:00:00 2019-07-10 21:05:28 2019-07 21:05:28 [facility] Allergies, Adverse Reactions, Alerts Allergy Name Allergy Type Status Severity Reaction(s) Onset Date Inacti ve Date Treating Clinician Comments Source Tetanus Vaccines and Toxoid DA Active 2018-07-03 00:00: 00 [facility] lorazepam DA Active 2018-07-03 00:00:00 [facility] vancomycin DA Active 2018-07-03 00:00:00 [facility] Tetanus Vaccines and Toxoid DA Active 2018-06-02 00:00: 00 [facility] lorazepam DA Active 2018-06-02 00:00:00 [facility] vancomycin DA Active 2018-06-02 00:00:00 [facility] Lorazepam Propensity to adverse reactions to drug Active Other (See Comments) 2017-12-26 00:00:00 Pt states "i freak out" [facility] Lorazepam Propensity to adverse reactions Active 2014-06-09 00:00:00 [facility] Tetanus Vaccines And Toxoid Propensity to adverse reactions Active 2014-06-09 00:00:00 [facility] Tetanus Toxoid Fluid Propensity to adverse reactions Active [facility] tetanus toxoid tetanus toxoid Active [facility] Ativan Ativan Active [facility] Family History Family Member Diagnosis Comments Start Date Stop Date Source Natural father Diabetes [facility] Natural father Heart disease [facility] Natural father Hypertension [facility] Natural mother Miscarriages / Stillbirths [facility] Paternal aunt Diabetes [facility] Paternal uncle Diabetes [facility] Social History Social Habit Start Date Stop Date Quantity Comments Source History of tobacco use Cigarette Smoker Lino Ny Sex Assigned At Kamaljit goveakassie Ny Cigarettes smoked current (pack per day) - Reported 00:00:00 2020-05-17 00:00:00 Lino Ny Alcohol intake 2020-05-17 00:00:00 2020-05-17 00:00:00 Current non-drinker of alcohol (finding) Lino Ny Alcohol Comment 2018-04-29 00:00:00 2018-04-29 00:00:00 quit enedelia alfred 40 years ago Lino Ny Cigarette pack-years 2018-04-19 00:00:00 2018-04-19 00:00:00 [facility] Social History 2018-03-16 10:09:02 2018-03-16 10:09:02 Margarette Quiles Smoking Status Start Date Stop Date Source Current every day smoker 2020-05-17 00:00:00 Kamaljit Ny Current some day smoker 2018-04-19 00:00:00 [facility] Medications Ordered Medication Name Filled Medication Name Start Date Stop Da te Current Medication? Ordering Clinician Indication Dosage Frequency Signature (SIG) Comments Components Source normal saline 0.9% IV 500 mL 2020-04-26 16:42:00 No 500 mL, Rate: 499 ml/hr, Infuse over: 1 hr, Route: IV, Dosing Weight 67.813 kg, Total Volume: 500, Priority: NOW, Start date: 04/26/20 11:42:00 CDT, Duration: 1 doses or times, Stop date: 04/26/20 15:41:00 CDT, 1.79, m2, 0 [facility] normal saline 0.9% IV 500 mL 2020-04-26 14:13:00 No 500 mL, Rate: 499 ml/hr, Infuse over: 1 hr, Route: IV, Dosing Weight 67.813 kg, Total Volume: 500, Priority: NOW, Start date: 04/26/20 9:13:00 CDT, Duration: 1 doses or times, Stop date: 04/26/20 10:12:00 CDT, 1.79, m2, 0 [facility] normal saline 0.9% IV 1,000 mL 2020-04-26 09:08:00 No 1,000 mL, Rate: 75 ml/hr, Infuse over: 13.3 hr, Route: IV, Dosing Weight 67.813 kg, Total Volume: 1,000, Start date: 04/26/20 4:08:00 CDT, Duration: 18 hr, Stop date: 04/26/20 22:07:00 CDT, 1.79, m2, 0 Airamor vasiliy Quiles Kayexalate 2020-04-25 14:43:00 No Notes: (sodium polystyrene sulfonate 15 gm/60 ml EILEEN) Shake well before use. (Same as: Kayexalate, SPS) [facility] Lisinopril 2020-04-25 14:00:00 No Notes: (Same as: Prinivil, Zestril) [facility] Protonix 2020-04-25 14:00:00 No Notes: Same as: Protonix Mix in 5 mL apple juice or applesauce for oral & 10mL apple juice for NG tube [facility] metoprolol tartrate 2020-04-25 02:00:00 No 50 mg, Route: PO, Drug form: TAB, Q12H, Dosing Weight 67.813, kg, Start date: 04/24/20 21:00:00 CDT, Duration: 30 day, Stop date: 05/24/20 9:00:00 CDT [facility] Dextrose 50% Syringe (D50W) 2020-04-24 23:10:00 No 12.5 gm, 25 mL, Route: IVP, Drug Form: INJ, Dosing Weight 67.813, kg, PRN, PRN Blood Glucose Results, Start date: 04/24/20 18:10:00 CDT, Duration: 30 day, Stop date: 05/24/20 18:09:00 CDT, 0 [facility] n Glucagon 2020-04-24 23:10:00 No 1 mg, Route: IM, Drug form: PDR/INJ, PRN, Dosing Weight 67.813, kg, PRN Blood Glucose Results, Start date: 04/24/20 18:10:00 CDT, Duration: 30 day, Stop date: 05/24/20 18:09:00 CDT, 0 [facility] Insulin Lispro 2020-04-24 23:10:00 No Notes: (Same as: Humalog) Roll in palms of hands gently; Do not shake vigorously. WASTE: F/P - Black; E - Municipal Trash Bin Stable for 28 days at room temperature. Expires in days from Date [facility] arvin Lovenox 2020-04-22 23:00:00 No Notes: (Same as: Lovenox) [facility] atorvastatin 2020-04-22 02:00:00 No Notes: (Same as: Lipitor) Margarette Quiles Aspirin 2020-04-21 14:00:00 No Notes: Do not crush or chew. (Same As: Ecotrin) [facility] Plavix 2020-04-21 14:00:00 No Notes: (Same As: Plavix) Margarette Quiles Geodon 2020-04-21 04:50:00 No Notes: Reconstitute with 1.2 ml of sterile water. Final concentration = 20 mg/1ml. Maximum 40 mg/24 hours (Same As: Geodon). Hazardous Drug Group 3:Reproductive risk Hazardous Drug -- Refer to safe handling procedure PPE Matrix MEDICATION WASTE Product Size: 20 mg Product Wasted: ___ mg Margarette Quiles Seroquel 2020-04-21 04:49:00 No Notes: (Chepe e as: SEROquel) [facility] ceFAZolin (ANES) 2020-04-19 19:07:00 No Route: IV, Drug form: INJ, ONCE, Stop date: 04/19/20 14:07:00 [facility]T [facility] lidocaine (ANES) 2020-04-19 19:07:00 No Route: IV, Drug form: INJ, ONCE, Stop date: 04/19/20 14:07:00 CDT [facility] propofol (ANES) 2020-04-19 19:07:00 No Route: IV, Drug form: INJ, ONCE, Stop date: 04/19/20 14:07:00 CDT [facility] Sodium Chloride 0.9% IV 1,000 mL 2020-04-19 18:37:00 No 1,000 mL, Rate: 75 ml/hr, Infuse over: 13.3 hr, Route: IV, Dosing Weight 67.813 kg, Total Volume: 1,000, Start date: 04/19/20 13:37:00 CDT, Duration: 30 day, Stop date: 05/19/20 13:36:00 CDT, 1.79, m2, 0 [facility] Sodium Chloride 0.9% IV (ANES) 500 mL 2020-04-19 18:29:00 N o Route: IV, Total Volume: 500, Start date: 04/19/20 13:29:00 CDT, Stop date: 04/19/20 14:29:00 CDT Margarette Quiles Calcium Chloride 0.0014 MEQ/ML / Potassi um Chloride 0.004 MEQ/ML / Sodium Chloride 0.103 MEQ/ML / Sodium Lactate 0.028 MEQ/ML Injectable Solution 2020-04-18 15:05:00 No 1,000 mL, Rate: 75 ml/hr, Infuse over: 13.3 hr, Route: IV, Dosing Weight 67.813 kg, Total Volume: 1,000, Start date: 04/18/20 10:05:00 CDT, Duration: 30 day, Stop date: 05/18/20 10:04:00 CDT, 1.79, m2, 0 Margarette Quiles Haldol 2020-04-18 04:59:00 No Notes: (Same as: Haldol) Margarette Quiles Dextrose 50% Syringe (D50W) 2020-04-17 16:45:00 No 12.5 gm, 25 mL, Route: IVP, Drug Form: INJ, Dosing Weight 81.818, kg, PRN, PRN Blood Glucose Results, Start date: 04/17/20 11:45:00 CDT, Duration: 30 day, Stop date: 05/17/20 11:44:00 CDT, 0 Margarette Duong n Glucagon 2020-04-17 16:45:00 No 1 mg, Route: IM, Drug form: PDR/INJ, PRN, Dosing Weight 81.818, kg, PRN Blood Glucose Results, Start date: 04/17/20 11:45:00 CDT, Duration: 30 day, Stop date: 05/17/20 11:44:00 CDT, 0 Margarette Quiles Ondansetron 2020-04-17 16:45:00 No Notes: (Same as: Zofranna) MEDICATION WASTE Product Size: 4 mg Product Wasted: ___ mg Margarette Quiles Melatonin 2020-04-17 16:45:00 No Notes: (Sa me as: Melatonin) Margarette Quiles Acetaminophen 2020-04-17 16:45:00 No Notes: Do not exceed 4 gm/day. (Same as: Tylenol) Margarette Quiles aspirin 81 mg chewable tablet 2020-03-24 00:00:00 2020-04-23 23: 59:00 No 81mg QD Chew 1 tablet (81 mg total) daily for 30 days. Lino Ny clopidogreL (PLAVIX) 75 mg tablet 2020-03-24 00:00:00 2019 23:59:00 No 75mg QD Take 1 tablet (75 mg total) by mouth gauri ly for 30 days. Lino Ny guaiFENesin (ROBITUSSIN) 100 mg/5 mL syrup 2020-03-23 00:00:00 Yes 200mg [id number] Take 10 mL (200 mg total) by mouth 3 (three) times a day as needed for congestion. Lino sullivan albuterol (ACCUNEB) 2.5 mg /3 mL (0.083 %) nebulizer solutio n 2020-03-23 00:00:00 2020-04-22 23:59:00 No Acute hypoxemic respi ratory failure (HCC) 2.5mg Q6H Take 3 mL (2.5 mg total) by nebulization every 6 (six) hours as needed for wheezing for up to 30 days. Lino Ny atorvastatin (LIPITOR) 80 MG tablet 2020-03-23 00:00:0 0 2020-04-22 23:59:00 No 80mg QD Take 1 tablet (80 mg total) by mouth nig htly for 30 days. Lino Ny bisacodyL (DULCOLAX) 10 mg suppository 2020-03-07 7 00:00:00 2020-04-22 23:59:00 No 10mg Q24H Insert 1 suppo sitory (10 mg total) into the rectum daily as needed for constipation for up to 30 days. Lino Ny carvediloL (COREG) 6.25 MG tablet 2020-03-23 00:00:00 2019 23:59:00 No 6.25mg Q.5D Take 1 tablet (6 .25 mg total) by mouth 2 (two) times a day for 30 days. Lino Ny cetirizine (ZyrTEC) 5 MG tablet 2020-03-23 00:00:00 23:59:00 No 5mg Q24H Take 1 tablet (5 mg total) by mouth daily as needed for allergies for up to 30 days. Lino Ny dextrose 50% syringe 2020-03-23 00:00:00 2020-04-22 23:59:00 No 12.5g Infuse 25 mL (12.5 g total) into a venous catheter every 20 (twenty) minutes as needed (If blood glucose is between 41-69 mg/dL) for up to 30 days. Lino Ny dextrose 50% syringe 2020-03-23 00:00:00 2020-04-22 23:59:00 No 25g Infuse 50 mL (25 g total) into a venous catheter every 20 (twenty) minutes as needed (If blood glucose is 40 mg/dL or LESS) for up to 30 days. Lino Ny docusate sodium (COLACE) 100 MG capsule 00:00:00 2020-04-22 23:59:00 No 100mg Q.5D Take 1 capsule (100 mg total) by mouth 2 (two) times a day as needed for constipation for up to 30 days. Lino Ny glucagon 1 mg/mL recon soln 2020-03-23 00:00:00 2020-04-22 23:59 :00 No 1mg Inject 1 mg into the shoulde r, thigh, or buttocks every 15 (fifteen) minutes as needed (If patient does not have IV access and is unable to swallow) for up to 30 days. Lino Ny heparin sodium,porcine (HEParin, porcine,) 5,000 unit/mL inj ection 2020-03-23 00:00:00 2020-04-22 23:59:00 No 5000U Q8H Inject 1 mL (5,000 Units total) under the skin every 8 (eight) hours for 30 days. Lino Ny hydrocortisone 1 % cream 2020-03-23 00:00:00 2020-04-22 23:59:00 No Q.5D Apply topically 2 (two) times a day for 30 days. Lino Ny insulin lispro (HumaLOG) 100 unit/mL injection 2 00:00:00 2020-04-22 23:59:00 No 0U Q4H Inject 0-5 Uni ts under the skin every 4 (four) hours for 30 days. Lino Ny ondansetron ODT (ZOFRAN-ODT) 4 MG disintegrating tablet 2020-03-23 00:00:00 2020-04-22 23:59:00 No 4mg Q8H Take 1 tablet (4 mg total) by mouth every 8 (eight) hours as needed for nausea or vomiting for up to 30 days. Lino Ny polyethylene glycol (MIRALAX) 17 gram packet 202 00:00:00 2020-04-22 23:59:00 No 17g Q24H Take 17 g by m outh daily as needed for constipation for up to 30 days. Lino Ny ramelteon (ROZEREM) 8 mg tablet 2020-03-23 00:00:00 23:59:00 No 8mg QD Take 1 tablet (8 mg total) by mouth nightly as needed for sleep for up to 30 days. Lino Ny sennosides (SENOKOT) 8.8 mg/5 mL syrup 2020-03-07 7 00:00:00 2020-04-22 23:59:00 No 17.6mg Q.5D Take 10 mL (17 .6 mg total) by mouth 2 (two) times a day for 30 days. Lino Ny Cyclobenzaprine hydrochloride 5 MG Oral Tablet [Flexeril] 2019-07-08 07:29:00 Yes 5 mg = 1 tab, PO, TID, X 5 day, # 15 tab, 0 Refill(s) Margarette Quiles tramadol hydrochloride 50 MG Oral Tablet 2019-07-08 07:29:00 Yes 50 mg = 1 tab, PO, Q8H, PRN Pain, X 5 day, # 15 tab, 0 Refill(s) Margarette Quiles Flexeril 2019-07-08 06:34:00 No Notes: (Chepe e As: Flexeril) Margarette Quiles Acetaminophen 325 MG / Hydrocodone Bitartrate 5 MG Oral Tabl et [Red Level 5/325] 2019-07-08 06:34:00 No Notes: (Same as: Red Level 325/5) Do not exceed 4gm/day of acetaminophen. Margarette mercedes methocarbamol (ROBAXIN) 500 MG tablet 2018-04-21 00:00:00 Y es TAKE 2 TABLETS BY MOUTH 4 TIMES DAILY NEEDED FOR MUSCLE SPASMS/PAIN Lino Ny traMADol (ULTRAM) 50 mg tablet 2018-04-19 17:36:19 Yes 50mg Take 50 mg by mouth every 6 (six) hours as needed for Pain. [facility] ranolazine (RANEXA) 500 MG 12 hr tablet 2018-04-19 17:36:19 Yes 500mg Q.5D Take 500 mg by mouth 2 (two) times daily. [facility] buPROPion (WELLBUTRIN SR) 150 MG 12 hr tablet 2018-04-19 17:36:1 9 Yes 150mg Q.5D Take 150 mg by mouth 2 (two) times daily. [facility] methocarbamol (ROBAXIN) 500 MG tablet 2018-04-19 17:36:19 Yes 500mg Q.25D Take 500 mg by mouth 4 (four) times daily. [facility] QUEtiapine (SEROQUEL) 25 MG tablet 2018-04-19 17:36:19 Yes 25mg QD Take 25 mg by mouth nightly. [facility] sennosides, INTERMEDIATE 2018-04-18 02:00:00 No Notes: (Same as: Senokot) Margarette Quiles atorvastatin 2018-04-18 02:00:00 No Notes: (Same as: Lipitor) Margarette Quiles clopidogrel 75 MG Oral Tablet [Plavix] 2018-04-17 14:35:00 Yes 75 mg = 1 tab, PO, Daily, 0 Refill(s) Brianna Quiles MAGNESIUM GLUCONATE 500 MG Oral Tablet [Mag-G] 2018-04-17 14:35: 00 No 500 mg = 1 tab, PO, BID, 0 Refill(s) Margarette Quiles Acetaminophen 300 MG / butalbital 50 MG / Caffeine 40 MG Oral Capsule [Fioricet] 2018-04-17 14:35:00 No 1 cap, PO, Q 4H, 0 Refill(s) Margraette Quiles metoprolol tartrate 50 mg oral tablet 2018-04-17 14:35:00 Y es 50 mg = 1 tab, PO, BID, 0 Refill(s) Margarette mcclendon Aspirin 81 MG Chewable Tablet 2018-04-17 14:35:00 Yes 81 mg = 1 tab, CHEW, Daily, 0 Refill(s) Margarette mercedes atorvastatin 40 mg oral tablet 2018-04-17 14:35:00 Yes 40 mg = 1 tab, PO, Daily, 0 Refill(s) Margarette rowe lisinopril 20 mg oral tablet 2018-04-17 14:35:00 Yes 20 mg = 1 tab, PO, Daily, 0 Refill(s) Margarette Quiles pantoprazole 40 MG Enteric Coated Tablet [Protonix] 04-17 14:35:00 Yes 40 mg = 1 tab, PO, Daily, 0 Refill(s) Margarette Quiles isosorbide mononitrate 30 mg oral tablet, extended release 2018-04-17 14:35:00 Yes 30 mg = 1 tab, PO, QAM, 0 Refil l(s) [facility] Hydrochlorothiazide 50 MG / Triamterene 75 MG Oral Tablet 2018-04-17 14:35:00 Yes 1 tab, PO, Daily, 0 Refill(s) Margarette Quiles Docusate 2018-04-17 14:00:00 No Notes: (Same as: Colace) (Do Not Crush) [facility] gabapentin 2018-04-17 14:00:00 No Notes: (S mara as: Neurontin) [facility] Acetaminophen 2018-04-17 14:00:00 No Notes: Max acetaminophen 4000 mg/day (4 gm/day). (Same as: Tylenol Extra Strength) [facility] metoprolol tartrate 2018-04-17 14:00:00 No Notes: (Same as: Lopressor) [facility] Mag-G 2018-04-17 14:00:00 No 500 mg, Route: PO, Drug form: TAB, TID, Dosing Weight 74.091, kg, Start date: 04/17/18 9:00:00 CDT, Duration: 30 day, Stop date: 05/16/18 17:00:00 CDT Memoria dov [facility] Lisinopril 2018-04-17 14:00:00 No Notes: (Same as: Prinivil, Zestril) [facility] Isosorbide 2018-04-17 14:00:00 No Notes: (Same as:Imdur) "Do Not Crush" Take on empty stomach/ full glass of water. Do not crush [facility] Hydrochlorothiazide 50 MG / Triamterene 75 MG Oral Tablet 2018-04-17 14:00:00 No Notes: (triamt erene-hydrochlorothiazide 37.5-25 mg TAB) (Same As: Maxzide-25) [facility] Plavix 2018-04-17 14:00:00 No Notes: (Same As: Plavix) [facility] Aspirin 325 MG Enteric Coated Tablet 2018-04-17 14:00:00 No Notes: (Do Not Crush) Do not crush or chew. Ma yoselyn Quiles Amlodipine 2018-04-17 14:00:00 No Notes: (S mara as: Norvasc) [facility] Mag-Ox 400 2018-04-17 14:00:00 No Notes: (Same as: Mag-Ox 400) Magnesium oxide [id number] elemental magnesium Dose=____mg magnesium oxide (___mg elemental magnesium) [facility] Her rowe Morphine 2018-04-17 13:13:00 No Not es: (Same as:MORPhine Sulfate) [facility] Oxycodone Hydrochloride 5 MG Oral Tablet 2018-04-17 13:13:00 No Notes: (Same as: Roxicodone) [facility] 2018-04-17 12:30:00 No Notes: Tablet should not be chewed or crushed. (Same as: Protonix) [facility] Acetaminophen 2018-04-17 10:36:00 No Notes: Do not exceed 4 gm/day. (Same as: Tylenol) [facility] Benadryl 2018-04-17 07:45:00 No Notes: (Chepe e as: Benadryl) [facility] Ativan 2018-04-17 07:41:00 No 1 mg, Route: IVP, Drug form: INJ, ONCE, Dosing Weight 74.091, kg, PRN Anxiety, Start date: 04/17/18 2:41:00 CDT [facility] Dilaudid 2018-04-17 04:43:00 No 0.5 mg, Route: IVP, ONCE, Dosing Weight 74.091, kg, Priority: STAT, Start date: 04/16/18 23:43:00 CDT, Stop date: 04/16/18 23:43:00 CDT [facility] Dexamethasone 2018-04-17 00:43:00 No Notes: MEDICATION WASTE Product Size: 10 mg Product Wasted: ___ mg [facility] Tylenol 2018-04-17 00:43:00 No Notes: Do not exceed 4 gm/day. (Same as: Tylenol) [facility]arette Kb Zofranna 2018-04-17 00:43:00 No Notes: (Same as: Alvin) MEDICATION WASTE Product Size: 4 mg Product Wasted: ___ mg Margarette Quiles Dilaudid 2018-04-17 00:43:00 No Notes: Same as Victorino Quiles aspirin 81 mg chewable tablet 2018-04-17 00:00:00 Yes 81 mg = 1 tab, CHEW, Daily, 0 Refill(s) Lino sullivan atorvastatin (LIPITOR) 40 MG tablet 2018-04-17 00:00:00 Yes 40 mg = 1 tab, PO, Daily, 0 Refill(s) Lino pickard clopidogrel (PLAVIX) 75 mg tablet 2018-04-17 00:00:00 Yes 75 mg = 1 tab, PO, Daily, 0 Refill(s) Lino pena triamterene-hydrochlorothiazid (MAXZIDE) 75-50 mg per tablet 2018-04-17 00:00:00 Yes 1 tab, PO, Daily, 0 Refill(s) Lino Ny isosorbide mononitrate (IMDUR) 30 MG 24 hr tablet 2018-04-17 00:00:00 Yes 30 mg = 1 tab, PO, QAM, 0 Refill(s) Lino Ny lisinopril (PRINIVIL,ZESTRIL) 20 mg tablet 2018-04-17 00:00:00 Yes 20 mg = 1 tab, PO, Daily, 0 Refill(s) Everardo Ny metoprolol tartrate (LOPRESSOR) 50 mg tablet 2018-04-17 00:00:00 Yes 50 mg = 1 tab, PO, BID, 0 Refill(s) Lino Ny pantoprazole (PROTONIX) 40 MG EC tablet 2018-04-17 00:00:00 Yes 40 mg = 1 tab, PO, Daily, 0 Refill(s) Christiana Ny Mag-Ox 400 2018-03-17 15:24:00 No Notes: (Same as: Mag-Ox 400) Magnesium oxide [id number] elemental magnesium Dose=____mg magnesium oxide (___mg elemental magnesium) Margarette rowe MAGNESIUM GLUCONATE 500 MG Oral Tablet [Mag-G] 2018-03-17 15:20: 00 Yes 500 mg, PO, TID, # 21 tab, 0 Refill(s), Pharmacy: [facility] Mag-G 2018-03-17 15:20:00 No 500 mg, Route: PO, Drug form: TAB, TID, Dosing Weight 74.091, kg, Priority: NOW, Start date: 03/17/18 10:20:00 CDT, Duration: 7 day, Stop date: 03/24/18 9:00:00 CDT [facility] atorvastatin 40 mg oral tablet 2018-03-17 15:15:00 Yes 40 mg = 1 tab, PO, Bedtime, Follow up with cardiology for re-eval and refill needs, # 14 tab, 0 Refill(s), Pharmacy: [facility] pantoprazole 40 MG Enteric Coated Tablet [Protonix] 03-17 15:15:00 Yes 40 mg = 1 tab, P O, Daily, # 14 tab, 0 Refill(s), Pharmacy: [facility] Aspirin 325 MG Enteric Coated Tablet 2018-03-17 15:15:00 Ye s 325 mg = 1 tab, PO, Daily, # 14 tab, 0 Refill(s), Pharmacy: [facility] Plavix 2018-03-17 14:00:00 No Notes: (Same As: Plavix) [facility] Acetaminophen 2018-03-17 03:04:00 No Notes: Do not exceed 4 gm/day. (Same as: Tylenol) [facility] atorvastatin 2018-03-17 02:00:00 No Notes: (Same as: Lipitor) [facility] metoprolol tartrate 2018-03-17 02:00:00 No Notes: (Same as: Lopressor) [facility] heparin 2018-03-17 02:00:00 No Notes: porci ne heparin [facility] aspirin (ECOTRIN) 325 MG enteric coated tablet 2018-03-17 00:00: 00 Yes 325 mg = 1 tab, PO, Daily, # 14 tab, 0 Refill(s), Pharmacy: [facility] Aspirin 325 MG Enteric Coated Tablet 2018-03-16 14:00:00 No Notes: (Do Not Crush) Do not crush or chew. Ma yoselyn Quiles pantoprazole 2018-03-16 14:00:00 No Notes: For IV push reconstitute with 10 ml 0.9% sodium chloride and push over 2 minutes. (Same as: Protonix) Margarette Fosterann Docusate 2018-03-16 14:00:00 No Notes: (Same as: Colace) (Do Not Crush) Margarette Quiles Hydrochlorothiazide 50 MG / Triamterene 75 MG Oral Tablet 2018-03-16 09:47:00 Yes 1 tab, PO, Daily, # 30 tab, 0 Re fill(s) Margarette Fosterann isosorbide mononitrate 30 mg oral tablet, extended release 2018-03-16 09:47:00 Yes 30 mg = 1 tab, PO, QAM, # 30 ta b, 0 Refill(s) Margarette Fosterann amLODIPine 10 mg oral tablet 2018-03-16 09:47:00 Yes 10 mg = 1 tab, PO, Daily, # 30 tab, 0 Refill(s) Airamgaetano monae Kb lisinopril 20 mg oral tablet 2018-03-16 09:47:00 Yes 20 mg = 1 tab, PO, Daily, # 30 tab, 0 Refill(s) Airamoria dov Qulies metoprolol tartrate 50 mg oral tablet 2018-03-16 09:47:00 Y es 50 mg = 1 tab, PO, Daily, 0 Refill(s) Margarette Jeff normal saline 0.9% IV 1,000 mL 2018-03-16 09:47:00 No 1,000 mL, Rate: 50 ml/hr, Infuse over: 20 hr, Route: IV, Dosing Weight 74.091 kg, Total Volume: 1,000, Start date: 03/16/18 4:47:00 CDT, Stop date: 03/17/18 4:46:00 CDT, 1.87, m2 [facility] Zofran 2018-03-16 09:47:00 No Notes: (Same as: Alvin) MEDICATION WASTE Product Size: 4 mg Product Wasted: ___ mg Margarette Quiles clopidogrel 75 MG Oral Tablet [Plavix] 2018-03-16 09:47:00 Yes 75 mg = 1 tab, PO, Daily, # 30 tab, 0 Refill(s) Mragarette Quiles Acetaminophen 300 MG / butalbital 50 MG / Caffeine 40 MG Oral Capsule [Fioricet] 2018-03-16 09:47:00 Yes 1 cap, PO, Q4H, PRN PRN Headache, Do not exceed 6 capsules in 24 hours, # 60 cap, 0 Refill(s) Margarette Quiles Morphine 2018-03-16 08:27:00 No Not es: (Same as:MORPhine Sulfate) [facility] Nitroglycerin 2018-03-16 08:27:00 No Notes: (Same as:Nitroquick, Nitrostat) "Do Not Crush" Sublingual tablet Margarette Quiles Sodium Chloride 0.9% (Bolus) IV 2018-03-16 04:30:00 No 500 mL, 500 ml/hr, Infuse Over: 1 hr, Route: IV, 500, Drug form: INJ, ONCE, Priority: STAT, Dosing Weight 72.727 kg, Start date: 03/15/18 23:30:00 CDT, Stop date: 03/15/18 23:30:00 CDT [facility] heparin additive 25,000 unit [12 unit/kg /hr] + Premix Diluent Dextrose 5% 500 mL 2018-03-16 04:21:00 No 500 mL, Rate: 17.46 ml/hr, Infuse over: 28.6 hr, Route: IV, Dosing Weight 72.73 kg, Total Volume: 500 mL, Start date: 03/15/18 23:21:00 CDT, Stop date: 03/16/18 15:25:00 CDT, 1.86, m2 [facility] Heparin 30 unit/kg Bolus (Heparin Dosing Weight) 2018-03-16 04:2 1:00 No Route: IVP, PRN, 2,200 unit, 2.2 mL, Drug form: INJ, PRN, Heparin Protocol, Start date: 03/15/18 23:21:00 CDT Stop date: 04/14/18 23:20:00 CDT, [address] [facility] Heparin 60 unit/kg Bolus (Heparin Dosing Weight) 2018-03-16 04:2 1:00 No Route: IVP, PRN, 4,400 unit, 4.4 mL, Drug form: INJ, PRN, Heparin Protocol, Start date: 03/15/18 23:21:00 CDT Stop date: 04/14/18 23:20:00 CDT, 30 day [facility] Heparin - one time bolus for ACS 2018-03-16 04:21:00 No 4,000 unit, 4 mL, Route: IVP, Drug form: INJ, ONCE, Dosing Weight 72.727, kg, Priority: STAT, Start date: 03/15/18 23:21:00 CDT, Stop date: 03/15/18 23:21:00 CDT [facility] Aspirin 81 MG Chewable Tablet 2018-03-16 04:21:00 No 324 mg, Route: PO, Drug form: CHEWTAB, ONCE, Dosing Weight 72.727, kg, Priority: STAT, Start date: 03/15/18 23:21:00 CDT, Stop date: 03/15/18 23:21:00 CDT [facility] Saline Flush 0.9% 2018-03-16 03:53:00 No Notes: Same as: BD Posiflush Sterile [facility] xauzgupcsj-wkpqkvvoqrsnz-ukfg (FIORICET) 50-300-40 mg Cap 2018-03-16 00:00:00 Yes 1 cap, PO, Q4H , PRN PRN Headache, Do not exceed 6 capsules in 24 hours, # 60 cap, 0 Refill(s) [facility] isosorbide mononitrate (IMDUR) 30 MG 24 hr tablet 2018-03-16 00:00:00 Yes 30 mg = 1 tab, PO, QAM, # 30 tab, 0 Refill(s) [facility] triamterene-hydroCHLOROthiazide (MAXZIDE) 75-50 mg per table t 2018-03-16 00:00:00 Yes 1 tab, PO, Daily, # 30 tab, 0 Refill(s) [facility] amLODIPine (NORVASC) 10 mg tablet 2018-03-16 00:00:00 Yes 10 mg = 1 tab, PO, Daily, # 30 tab, 0 Refill(s) Everardo Ny captopril (CAPOTEN) 12.5 MG tablet 2017-03-01 20:39:35 Yes 12.5mg Q.5D Take 12.5 mg by mouth 2 (two) times daily . [facility] HYDROcodone-acetaminophen (NORCO 7.5-325) 7.5-325 mg per tab let 2017-03-01 20:39:35 Yes 1{tbl} Take 1 tab let by mouth every 6 (six) hours as needed for Pain. [facility] albuterol HFA (VENTOLIN HFA) 90 mcg/actuation inhaler 2017-03-01 20:39:34 Yes 1{puff} Inhale 1 puff b y mouth via inhaler every 6 (six) hours as needed for Wheezing. [facility] aspirin 81 MG EC tablet 2017-03-01 14:46:35 Yes 81mg QD Take 81 mg by mouth daily. [facility] clopidogrel (PLAVIX) 75 mg tablet 2017-03-01 04:22:34 Yes 75mg QD Take 75 mg by mouth daily. [facility] fludrocortisone (FLORINEF) 0.1 mg tablet 2017-03-01 04:22:34 Yes .1mg QD Take 0.1 mg by mouth daily. [facility] gabapentin (NEURONTIN) 300 MG capsule 2017-03-01 04:22:33 Yes 300mg [id number] Take 300 mg by mouth 3 (three) times daily. [facility] atorvastatin (LIPITOR) 40 MG tablet 2017-03-01 04:18:09 Yes 40mg QD Take 40 mg by mouth daily. [facility] metoprolol (LOPRESSOR) 50 MG tablet 2014-06-10 00:00:00 Yes 50mg Q.5D Take 1 tablet (50 mg total) by mouth 2 (two) times daily. [facility] Vital Signs Vital Name Observation Time Observation Value Comments Source Temperature Oral (F) 2020-04-26 21:33:00 98.5 F [facility] Heart Rate 2020-04-26 21:33:00 [facility] Respitory Rate 2020-04-26 21:33:00 [facility] Systolic (mm Hg) 2020-04-26 21:33:00 Beto rial Kb Diastolic (mm Hg) 2020-04-26 21:33:00 Mem orial Jeff Temperature Oral (F) 2020-04-26 16:25:00 98.5 F [facility] Heart Rate 2020-04-26 16:25:00 [facility] Respitory Rate 2020-04-26 16:25:00 Memori al [facility] Systolic (mm Hg) 2020-04-26 16:25:00 Beto rial Jeff Diastolic (mm Hg) 2020-04-26 16:25:00 Mem orial Kb Temperature Oral (F) 2020-04-26 12:15:00 98.6 F [facility] Heart Rate 2020-04-26 12:15:00 [facility] Respitory Rate 2020-04-26 12:15:00 [facility] Systolic (mm Hg) 2020-04-26 12:15:00 Beto rial Jeff Diastolic (mm Hg) 2020-04-26 12:15:00 Mem orial Kb Temperature Oral (F) 2020-04-18 09:35:00 97.9 F [facility] Heart Rate 2020-04-18 09:35:00 [facility] Systolic (mm Hg) 2020-04-18 09:35:00 Beto rial Jeff Diastolic (mm Hg) 2020-04-18 09:35:00 Mem orial Kb Temperature Oral (F) 2020-04-18 04:54:00 98.3 F [facility] Heart Rate 2020-04-18 04:54:00 [facility] Systolic (mm Hg) 2020-04-18 04:54:00 Beto rial Jeff Diastolic (mm Hg) 2020-04-18 04:54:00 Mem orial Jeff Temperature Oral (F) 2020-04-18 00:28:00 98.3 F [facility] Heart Rate 2020-04-18 00:28:00 [facility] Systolic (mm Hg) 2020-04-18 00:28:00 Beto rial Jeff Diastolic (mm Hg) 2020-04-18 00:28:00 Mem orial Jeff Respitory Rate 2020-04-17 21:00:00 [facility] Height 2020-04-17 21:00:00 167.64 cm [facility] Weight 2020-04-17 21:00:00 [facility] BMI Calculated 2020-04-17 21:00:00 [facility] Respitory Rate 2020-04-17 19:45:00 [facility] Respitory Rate 2020-04-17 18:31:00 [facility] Height 2020-04-17 14:00:00 167.64 cm [facility] BMI Calculated 2020-04-17 14:00:00 [facility] Weight 2020-04-17 14:00:00 [facility] Systolic blood pressure 2020-03-23 07:41:21 133 mm[Hg] [facility] Diastolic blood pressure 2020-03-23 07:41:21 81 mm[Hg] [facility] Heart rate 2020-03-23 07:41:21 96 /min [facility] Body temperature 2020-03-23 07:41:21 36.22 Shivani [facility] Respiratory rate 2020-03-23 07:41:21 16 /min [facility] Oxygen saturation in Arterial blood by Pulse oximetry 03-23 07:41:21 95 /min [facility] Body weight 2020-03-22 04:25:54 72.439 kg [facility] BMI 2020-03-22 04:25:54 30.18 kg/m2 [facility] Body height 2020-02-16 17:14:00 154.9 cm [facility] Respitory Rate 2019-07-08 07:20:00 Memori al Kb Systolic (mm Hg) 2019-07-08 07:20:00 Beto rial Kb Diastolic (mm Hg) 2019-07-08 07:20:00 Mem orial Jeff Respitory Rate 2019-07-08 07:00:00 Memori al Kb Systolic (mm Hg) 2019-07-08 00:57:00 Beto rial Jeff Diastolic (mm Hg) 2019-07-08 00:57:00 Mem o[facility] Kb Heart Rate 2019-07-08 00:57:00 [facility] Respitory Rate 2019-07-08 00:57:00 Memori al K[facility] Temperature Oral (F) 2019-07-08 00:57:00 98.5 F [facility] Height 2019-07-08 00:57:00 162.56 cm [facility] BMI Calculated 2019-07-08 00:57:00 [facility] Weight 2019-07-08 00:57:00 [facility] Temperature Oral (F) 2018-04-17 13:04:00 97.7 F [facility] Heart Rate 2018-04-17 13:04:00 [facility] Systolic (mm Hg) 2018-04-17 13:04:00 Beto rial Kb Diastolic (mm Hg) 2018-04-17 13:04:00 Mem orial Jeff Respitory Rate 2018-04-17 13:04:00 Memori al K[facility] Weight 2018-04-17 11:41:00 [facility] BMI Calculated 2018-04-17 11:41:00 [facility] Height 2018-04-17 11:41:00 167.64 cm [facility] Systolic (mm Hg) 2018-04-17 11:17:00 Beto rial Jeff Diastolic (mm Hg) 2018-04-17 11:17:00 Mem orial Kb Respitory Rate 2018-04-17 11:17:00 [facility] Respitory Rate 2018-04-17 08:50:00 [facility] Systolic (mm Hg) 2018-04-17 08:50:00 Beto rial Jeff Diastolic (mm Hg) 2018-04-17 08:50:00 Mem o[facility] Kb Heart Rate 2018-04-17 08:50:00 [facility] Heart Rate 2018-04-17 08:11:00 [facility] Temperature Oral (F) 2018-04-17 07:00:00 98.1 F [facility] Temperature Oral (F) 2018-04-17 04:49:00 98.7 F [facility] Respitory Rate 2018-03-17 17:22:00 Memori al Kb Systolic (mm Hg) 2018-03-17 12:59:00 Beto rial Jeff Diastolic (mm Hg) 2018-03-17 12:59:00 Mem o[facility] Kb Heart Rate 2018-03-17 12:59:00 [facility] Temperature Oral (F) 2018-03-17 12:59:00 97.9 F [facility] Respitory Rate 2018-03-17 12:59:00 Memori al Kb Systolic (mm Hg) 2018-03-17 11:30:00 Beto rial Jeff Diastolic (mm Hg) 2018-03-17 11:30:00 Mem orial Kb Heart Rate 2018-03-17 08:40:00 [facility] Respitory Rate 2018-03-17 08:40:00 [facility] Temperature Oral (F) 2018-03-17 08:40:00 98.1 F [facility] Systolic (mm Hg) 2018-03-17 08:40:00 Beto schwartz [facility] Diastolic (mm Hg) 2018-03-17 08:40:00 Mem betty Kb Heart Rate 2018-03-17 04:40:00 [facility] Temperature Oral (F) 2018-03-17 04:40:00 98.3 F [facility] Height 2018-03-16 09:16:00 167.64 cm [facility] Weight 2018-03-16 09:16:00 [facility] BMI Calculated 2018-03-16 09:16:00 [facility] Height 2018-03-16 09:13:00 167.64 cm [facility] Weight 2018-03-16 03:50:00 [facility] BMI Calculated 2018-03-16 03:50:00 [facility] Height 2018-03-16 03:50:[address] [facility] Procedures Procedure Date / Time Performed Performing Clinician Sourc e POC GLUCOSE 2020-03-23 07:42:00 LashaZakia [facility] POC GLUCOSE 2020-03-23 05:49:00 LashaZakia [facility] HC COMPLETE BLD COUNT W/AUTO DIFF 2020-03-23 05:30:00 Tripp Cruz BASIC METABOLIC PANEL 2020-03-23 05:30:00 Zakia Cruz ESTIMATED GFR 2020-03-23 05:30:00 Zakia Cruz [facility] POC GLUCOSE 2020-03-23 05:13:00 Zakia Cruz [facility] POC GLUCOSE 2020-03-23 01:16:00 LashaZakia Meth [facility] POC GLUCOSE 2020-03-22 20:59:00 LashaZakia [facility] POC GLUCOSE 2020-03-22 17:51:00 LashaZakia Meth [facility] POC GLUCOSE 2020-03-22 12:17:00 LashaZakia [facility] POC GLUCOSE 2020-03-22 08:56:00 LashaZakia ridley [facility] BASIC METABOLIC PANEL 2020-03-22 04:28:00 Zakia [facility] ESTIMATED GFR 2020-03-22 04:28:00 Zakia Cruz [facility] HC COMPLETE BLD COUNT W/AUTO DIFF 2020-03-22 04:27:00 Lasha, Tripp [facility] POC GLUCOSE 2020-03-22 04:22:00 Lasha, Zakia [facility] POC GLUCOSE 2020-03-22 00:27:00 Lasha, Zakia [facility] POC GLUCOSE 2020-03-21 21:01:00 Lasha, Zakia [facility] POC GLUCOSE 2020-03-21 17:23:00 Lasha, Zakia [facility] POC GLUCOSE 2020-03-21 11:33:00 Lasha, Zakia [facility] POC GLUCOSE 2020-03-21 07:49:00 Lasha, Zakia [facility] HC COMPLETE BLD COUNT W/AUTO DIFF 2020-03-21 05:20:00 Lasha, Tripp [facility] POC GLUCOSE 2020-03-21 04:24:00 Lasha, Zakia [facility] BASIC METABOLIC PANEL 2020-03-21 04:00:00 LashaZakiato n [facility] ESTIMATED GFR 2020-03-21 04:00:00 Lasha, Zakia [facility] POC GLUCOSE 2020-03-21 01:19:00 Lasha, Zakia [facility] POC GLUCOSE 2020-03-20 21:15:00 Lasha, Zakia [facility] POC GLUCOSE 2020-03-20 16:15:00 Lasha, Zakai [facility] POC GLUCOSE 2020-03-20 11:55:00 Lasha, Zakia [facility] POC GLUCOSE 2020-03-20 07:30:00 Lasha, Zakia [facility] HC COMPLETE BLD COUNT W/AUTO DIFF 2020-03-20 05:10:00 Lasha, Tripp [facility] POC GLUCOSE 2020-03-20 04:57:00 Lasha, Zakia [facility] BASIC METABOLIC PANEL 2020-03-20 04:00:00 LashaZakiato n [facility] ESTIMATED GFR 2020-03-20 04:00:00 Lasha, Zakia [facility] POC GLUCOSE 2020-03-19 20:56:00 Lasha, Zakia [facility] POC GLUCOSE 2020-03-19 16:45:00 Lasha, Zakia [facility] POC GLUCOSE 2020-03-19 11:31:00 LashaZakia Meth [facility] POC GLUCOSE 2020-03-19 08:27:00 Lasha, Zakia [facility] POC GLUCOSE 2020-03-19 05:49:00 Lasha, Zakia [facility] POC GLUCOSE 2020-03-18 23:55:00 Lasha, Zakia [facility] [facility] POC GLUCOSE 2020-03-18 21:30:00 Lasha, Zakia [facility] POC GLUCOSE 2020-03-18 17:37:00 Lasha, Zakia [facility] [facility] POC GLUCOSE 2020-03-18 11:35:00 Lasha, Zakia [facility] POC GLUCOSE 2020-03-18 08:25:00 Lasha, Zakia [facility] [facility] XR CHEST 1 VW PORTABLE 2020-03-18 06:20:00 LashaZakia on [facility] HC COMPLETE BLD COUNT W/AUTO DIFF 2020-03-18 04:40:00 LashaTripp BASIC METABOLIC PANEL 2020-03-18 04:40:00 LashaZakia n [facility] ESTIMATED GFR 2020-03-18 04:40:00 LashaZakia [facility] POC GLUCOSE 2020-03-18 04:29:00 Lasha, Zakia [facility] POC GLUCOSE 2020-03-18 00:12:00 Lasha, Zakia [facility] POC GLUCOSE 2020-03-17 20:26:00 Lasha, Zakia [facility] POC GLUCOSE 2020-03-17 17:00:00 Alsha, Zakia [facility] POC GLUCOSE 2020-03-17 12:29:00 Lasha, Zakia [facility] POC GLUCOSE 2020-03-17 07:42:00 LashaZakia [facility] HC COMPLETE BLD COUNT W/AUTO DIFF 2020-03-17 06:00:00 Sole [facility] BASIC METABOLIC PANEL 2020-03-17 06:00:00 sOei Nichols ESTIMATED GFR 2020-03-17 06:00:00 Osei Nichols [facility] POC GLUCOSE 2020-03-17 03:28:00 LashaZakia [facility] POC GLUCOSE 2020-03-16 23:28:00 Lasha, Zakia [facility] POC GLUCOSE 2020-03-16 18:43:00 LashaZakia [facility] POC GLUCOSE 2020-03-16 15:13:00 Lasha, Zakia [facility] POC GLUCOSE 2020-03-16 12:01:00 Lasha, Zakia [facility] POC GLUCOSE 2020-03-16 08:24:00 Lasha, Zakia [facility] MAGNESIUM LEVEL 2020-03-16 05:00:00 Trice Hayes PHOSPHORUS LEVEL 2020-03-16 05:00:00 Trice Hyaes PREALBUMIN LEVEL 2020-03-16 05:00:00 Trice Hayes BASIC METABOLIC PANEL 2020-03-16 05:00:00 Trice Hayes ESTIMATED GFR 2020-03-16 05:00:00 Trice Hayes CBC HEMOGRAM 2020-03-16 05:00:00 Trice Hayes POC GLUCOSE 2020-03-16 04:30:00 Lasha, Zakia [facility] POC GLUCOSE 2020-03-16 00:11:00 Lasha, Zakia [facility] POC GLUCOSE 2020-03-15 20:35:00 Lasha, Zakia [facility] POC GLUCOSE 2020-03-15 16:36:00 Lasha, Zakia [facility] POC GLUCOSE 2020-03-15 08:10:00 LashaZakia [facility] HC COMPLETE BLD COUNT W/AUTO DIFF 2020-03-15 05:55:00 Sole Nichols BASIC METABOLIC PANEL 2020-03-15 05:55:00 Osei Nichols ESTIMATED GFR 2020-03-15 05:55:00 Osei Nichols [facility] SMEAR REVIEW 2020-03-15 05:55:00 Osei Nichols [facility] POC GLUCOSE 2020-03-15 04:10:00 Lasha, Zakiara [facility] POC GLUCOSE 2020-03-15 00:37:00 Lasha, Zakia [facility] POC GLUCOSE 2020-03-14 21:07:00 Lasha, Zakia [facility] POC GLUCOSE 2020-03-14 17:09:00 Lasha, Zakia [facility] XR CHEST 1 VW PORTABLE 2020-03-14 15:05:00 Osei [facility] POC GLUCOSE 2020-03-14 13:02:00 Lasha Zakiara [facility] UT AN ELECTIVE ENDOTRACHEAL AIRWAY 2020-03-14 12:40:42 Karen Zhao [facility] ESOPHAGOGASTRODUODENOSCOPY (EGD) 2020-03-14 12:20:00 Juan Chen [facility] POC GLUCOSE 2020-03-14 09:35:00 Lasha, Zakia [facility] BASIC METABOLIC PANEL 2020-03-14 06:00:00 Osei Nichols n [facility] ESTIMATED GFR 2020-03-14 06:00:00 Osei Nichols [facility] HC COMPLETE BLD COUNT W/AUTO DIFF 2020-03-14 05:20:00 Sole [facility] POC GLUCOSE 2020-03-14 05:03:00 Lasha, Zakia [facility] POC GLUCOSE 2020-03-14 01:22:00 Lasha, Zakia [facility] POC GLUCOSE 2020-03-13 21:50:00 Lasha, Zakia [facility] POC GLUCOSE 2020-03-13 17:06:00 Lasha, Zakia [facility] HC COMPLETE BLD COUNT W/AUTO DIFF 2020-03-13 12:55:00 Sole [facility] BASIC METABOLIC PANEL 2020-03-13 12:55:00 Osei Nichols [facility] ESTIMATED GFR 2020-03-13 12:55:00 Osei Nichols [facility] POC GLUCOSE 2020-03-13 12:33:00 Lasha, Zakiara [facility] POC GLUCOSE 2020-03-13 08:15:00 Lasha, Zakia [facility] POC GLUCOSE 2020-03-13 05:11:00 Lasha, Zakia [facility] POC GLUCOSE 2020-03-13 00:55:00 Lasha, Zakia [facility] XR ABDOMEN 1 VW 2020-03-12 20:10:43 [facility] POC GLUCOSE 2020-03-12 20:05:00 Lasha, Zakia [facility] XR ABDOMEN 1 VW 2020-03-12 17:54:53 [facility] POC GLUCOSE 2020-03-12 16:53:00 Lasha, Zakia [facility] XR ABDOMEN 1 VW PORTABLE 2020-03-12 14:17:04 SimoneOsei rosales [facility] POC GLUCOSE 2020-03-12 11:48:00 LashaMaxra [facility] XR ABDOMEN 1 VW PORTABLE 2020-03-12 11:07:20 Osei Nichols [facility] POC GLUCOSE 2020-03-12 09:26:00 Lasha Zakia [facility] COMPREHENSIVE METABOLIC PANEL 2020-03-12 05:33:00 Jacqueline Carlson MAGNESIUM LEVEL 2020-03-12 05:33:00 Jacqueline Carlson [facility] HC COMPLETE BLD COUNT W/AUTO DIFF 2020-03-12 05:33:00 Esmer Carlson ESTIMATED GFR 2020-03-12 05:33:00 Jacqueline Carlson [facility] POC GLUCOSE 2020-03-12 04:43:00 LashaZakia [facility] POC GLUCOSE 2020-03-12 00:23:00 LashaZakia [facility] POC GLUCOSE 2020-03-11 20:20:00 LashaZakia [facility] POC GLUCOSE 2020-03-11 16:46:00 LashaZakia [facility] POC GLUCOSE 2020-03-11 11:47:00 LashaZakia [facility] POC GLUCOSE 2020-03-11 09:25:00 LashaZakia [facility] CBC WITH PLATELET AND DIFFERENTIAL 2020-03-11 06:16:00 Aracelis Farmer [facility] COMPREHENSIVE METABOLIC PANEL 2020-03-11 06:16:00 Jacqueline Carlson MAGNESIUM LEVEL 2020-03-11 06:16:00 Jacqueline Carlson [facility] ESTIMATED GFR 2020-03-11 06:16:00 Jacqueline Carlson [facility] MANUAL DIFFERENTIAL 2020-03-11 06:16:00 Jacqueline Carlson [facility] POC GLUCOSE 2020-03-11 05:04:00 LashaZakia [facility] POC GLUCOSE 2020-03-11 00:54:00 LashaZakia [facility] POC GLUCOSE 2020-03-10 20:28:00 LashaZaika [facility] POC GLUCOSE 2020-03-10 16:49:00 Lasha, Zakia [facility] POC GLUCOSE 2020-03-10 12:11:00 Lasha, Zakia [facility] POC GLUCOSE 2020-03-10 07:57:00 Lasha, Zakia [facility] POC GLUCOSE 2020-03-10 06:21:00 LashaZakia [facility] HC COMPLETE BLD COUNT W/AUTO DIFF 2020-03-10 04:08:00 Aracelis [facility] BASIC METABOLIC PANEL 2020-03-10 04:08:00 Aracelis Farmer ESTIMATED GFR 2020-03-10 04:08:00 Lasha Zakia [facility] POC GLUCOSE 2020-03-10 01:20:00 Lasha Zakia [facility] POC GLUCOSE 2020-03-09 23:15:00 Lasha, Zakia [facility] XR ABDOMEN 1 VW PORTABLE 2020-03-09 22:13:05 Gunner Perdomo [facility] POC GLUCOSE 2020-03-09 16:53:00 Lasha Zakia [facility] FL MODIFIED BARIUM SWALLOW 2020-03-09 16:14:52 Jacqueline Carlson [facility] POC GLUCOSE 2020-03-09 13:08:00 LashaZakia [facility] POC GLUCOSE 2020-03-09 08:38:00 Lasha Zakia [facility] POC GLUCOSE 2020-03-09 05:14:00 LashaZakia [facility] CBC WITH PLATELET AND DIFFERENTIAL 2020-03-09 05:00:00 Aracelis Farmer [facility] COMPREHENSIVE METABOLIC PANEL 2020-03-09 05:00:00 Jacqueline Carlson MAGNESIUM LEVEL 2020-03-09 05:00:00 Jacqueline Carlson [facility] ESTIMATED GFR 2020-03-09 05:00:00 Jacqueline Carlson [facility] POC GLUCOSE 2020-03-09 00:46:00 LashaZakia [facility] POC GLUCOSE 2020-03-08 20:34:00 Lasha, Zakia [facility] POC GLUCOSE 2020-03-08 16:03:00 Lasha, Zakia [facility] POC GLUCOSE 2020-03-08 12:04:00 LashaZakia [facility] POC GLUCOSE 2020-03-08 07:47:00 Lasha, Zakia [facility] POC GLUCOSE 2020-03-08 05:23:00 Lasha, Zakai [facility] CBC WITH PLATELET AND DIFFERENTIAL 2020-03-08 05:20:00 Aldo Rylie reyes [facility] COMPREHENSIVE METABOLIC PANEL 2020-03-08 04:00:00 Jacqueline Carlson MAGNESIUM LEVEL 2020-03-08 04:00:00 Aldo Jacqueline Lino [facility] ESTIMATED GFR 2020-03-08 04:00:00 Bul[facility]o [facility] POC GLUCOSE 2020-03-08 00:35:00 Lasha, Zakia Huynh [facility] POC GLUCOSE 2020-03-07 21:03:00 Lasha, Zakia Huynh [facility] POC GLUCOSE 2020-03-07 16:12:[address] CHEST WO CONTRAST ABDOMEN WO CONTRAST PELVIS WO CONTRAST 2020-03-07 14:46:[address] HEAD WO CONTRAST 2020-03-07 14:46:19 Trice Hayes [facility] POC GLUCOSE 2020-03-07 14:11:00 LashaZakia [facility] URINE CULTURE 2020-03-07 13:31:00 Trice Hayes URINALYSIS SCREEN AND MICROSCOPY, WITH REFLEX TO CULTURE 202 13:31:00 Trice Hayes ARTERIAL BLOOD GAS 2020-03-07 11:13:00 Trice Hayes [facility] POC GLUCOSE 2020-03-07 11:04:00 LashaZakia [facility] POC GLUCOSE 2020-03-07 07:57:00 Lasha, Zakia Huynh [facility] BASIC METABOLIC PANEL 2020-03-07 05:00:00 Bulmaro Hi ESTIMATED GFR 2020-03-07 05:00:00 [facility] CBC HEMOGRAM 2020-03-07 04:52:00 [facility] POC GLUCOSE 2020-03-07 03:53:00 LashaZakia [facility] POC GLUCOSE 2020-03-07 00:44:00 LashaZakia [facility] POC GLUCOSE 2020-03-06 20:28:00 Lasha, Zakia Huynh [facility] POC GLUCOSE 2020-03-06 16:48:00 LashaZakia [facility] POC GLUCOSE 2020-03-06 12:23:00 LashaZakia [facility] POC GLUCOSE 2020-03-06 09:01:00 LashaZakia [facility] HC COMPLETE BLD COUNT W/AUTO DIFF 2020-03-06 06:11:00 Esmer Carlson COMPREHENSIVE METABOLIC PANEL 2020-03-06 06:11:00 Jacqueline Carlson MAGNESIUM LEVEL 2020-03-06 06:11:00 Jacqueline Carlson odist ESTIMATED GFR 2020-03-06 06:11:00 Jacqueline Carlson odist POC GLUCOSE 2020-03-06 06:06:00 LashaZakia [facility] POC GLUCOSE 2020-03-06 03:58:00 Lasha, Zakia Huynh [facility] POC GLUCOSE 2020-03-06 02:21:00 LashaZakia [facility] POC GLUCOSE 2020-03-06 01:08:00 Lasha, Zakia Huynh [facility] POC GLUCOSE 2020-03-05 23:51:00 Lasha, Zakia Huynh [facility] POC GLUCOSE 2020-03-05 20:01:00 LashaZakia [facility] POC GLUCOSE 2020-03-05 16:05:00 LashaZakia [facility] XR ABDOMEN 1 VW PORTABLE 2020-03-05 15:39:48 LashaZakiau [facility] POC GLUCOSE 2020-03-05 11:50:00 LashaZakia [facility] POC GLUCOSE 2020-03-05 07:54:00 Lasha, Zakia Huynh [facility] COMPREHENSIVE METABOLIC PANEL 2020-03-05 05:15:00 Jacqueline Carlson MAGNESIUM LEVEL 2020-03-05 05:15:00 Jacqueline Carlson odist HC COMPLETE BLD COUNT W/AUTO DIFF 2020-03-05 05:15:00 Esmer Carlson ESTIMATED GFR 2020-03-05 05:15:00 Jacqueline Carlson [facility] POC GLUCOSE 2020-03-05 04:51:00 [facility] POC GLUCOSE 2020-03-05 01:16:00 [facility] POC GLUCOSE 2020-03-04 20:42:00 LashaZakia [facility] POC GLUCOSE 2020-03-04 16:09:00 LashaZakia Meth odist POC GLUCOSE 2020-03-04 11:53:00 LashaZakia Meth [facility]ist POC GLUCOSE 2020-03-04 08:18:00 LashaZakia Meth [facility]ist BASIC METABOLIC PANEL 2020-03-04 04:46:00 Bulmaro Hi ESTIMATED GFR 2020-03-04 04:46:00 Bulmaro Hi [facility] HC COMPLETE BLD COUNT W/AUTO DIFF 2020-03-04 04:46:00 Sole Nichols [facility] POC GLUCOSE 2020-03-04 04:36:00 LashaZakia [facility]ist POC GLUCOSE 2020-03-04 00:29:00 LashaZakia Meth odist POC GLUCOSE 2020-03-03 20:06:00 LashaZakia Meth odist POC GLUCOSE 2020-03-03 18:11:00 LashaZakia Meth odist POC GLUCOSE 2020-03-03 12:36:00 LashaZakia Meth odist HC COMPLETE BLD COUNT W/AUTO DIFF 2020-03-03 10:45:00 Sole Nichols [facility] POC GLUCOSE 2020-03-03 08:41:00 LashaZakia Meth odist POC GLUCOSE 2020-03-03 05:29:00 LashaZakia Meth odist BASIC METABOLIC PANEL 2020-03-03 04:27:00 Bulmaro Hi MAGNESIUM LEVEL 2020-03-03 04:27:00 Bulmaro Hi PHOSPHORUS LEVEL 2020-03-03 04:27:00 [facility] NATRIURETIC PEPTIDE 2020-03-03 04:27:00 Bulmaro Hi ESTIMATED GFR 2020-03-03 04:27:00 Sussy Bulmaro carl [facility] POC GLUCOSE 2020-03-03 02:03:00 LashaZakia [facility]ist POC GLUCOSE 2020-03-02 20:58:00 Lasha, Zakia Huynh [facility] POC GLUCOSE 2020-03-02 17:10:00 Lasha, Zakia Huynh [facility] [place] MODIFIED BARIUM SWALLOW 2020-03-02 14:14:31 Trice Hayes [facility] POC GLUCOSE 2020-03-02 11:33:00 Lasha, Zakia Huynh [facility] POC GLUCOSE 2020-03-02 07:42:00 Lasha, Zakia Huynh [facility] BASIC METABOLIC PANEL 2020-03-02 06:54:00 Jenaezohreh Bulmaro Ny ESTIMATED GFR 2020-03-02 06:54:00 Jenaezohreh Bulmaro Mcgee uscarlitos [facility] POC GLUCOSE 2020-03-02 05:01:00 Lasha, Zakia Huynh [facility] POC GLUCOSE 2020-03-02 01:00:00 Lasha, Zakia Huynh [facility] POC GLUCOSE 2020-03-01 21:06:00 Lasha, Zakia Huynh [facility] POC GLUCOSE 2020-03-01 17:54:00 Lasha, Zakia Huynh [facility] POC GLUCOSE 2020-03-01 11:38:00 Lasha, Zakia Huynh [facility] XR CHEST 1 VW PORTABLE 2020-03-01 09:07:47 Osei [facility] POC GLUCOSE 2020-03-01 07:34:00 LashaZakia Meth odist HC COMPLETE BLD COUNT W/AUTO DIFF 2020-03-01 04:50:00 TafVictoriano bhat BASIC METABOLIC PANEL 2020-03-01 04:50:00 Vahid Sanchez PHOSPHORUS LEVEL 2020-03-01 04:50:00 TafVahid bhat MAGNESIUM LEVEL 2020-03-01 04:50:00 Vahid Sanchez ESTIMATED GFR 2020-03-01 04:50:00 Lasha, Zakia Souza odist POC GLUCOSE 2020-03-01 04:47:00 Lasha, Zakia Huynh [facility] POC GLUCOSE 2020-03-01 01:10:00 LashaZakia Meth odist POC GLUCOSE 2020-02-29 20:55:00 LashaZakia ridley [facility] POC GLUCOSE 2020-02-29 16:46:00 Zakia Cruz [facility] AMMONIA LEVEL 2020-02-29 16:04:00 Simone, Dat Huynh [facility] POC GLUCOSE 2020-02-29 12:45:00 LashaZakia Meth [facility]ist HEPATIC FUNCTION PANEL 2020-02-29 11:28:00 Osei [facility] POC GLUCOSE 2020-02-29 08:59:00 LashaZakia Meth odist POC GLUCOSE 2020-02-29 06:17:00 LashaZakia Meth odist HEPATIC FUNCTION PANEL 2020-02-29 04:00:00 Elena Massey [facility] IONIZED CALCIUM 2020-02-29 04:00:00 Toro Tony [facility] BASIC METABOLIC PANEL 2020-02-29 04:00:00 TafVahid bhat [facility] PHOSPHORUS LEVEL 2020-02-29 04:00:00 TafVahid bhatist MAGNESIUM LEVEL 2020-02-29 04:00:00 Vahid Sanchez ESTIMATED GFR 2020-02-29 04:00:00 Elena Massey hodlaurie HC COMPLETE BLD COUNT W/AUTO DIFF 2020-02-29 03:41:00 Victoriano Sanchez POC GLUCOSE 2020-02-29 01:02:00 Lasha Zakia Huynh [facility] POC GLUCOSE 2020-02-28 21:02:00 LashaZakia ridley Huynh [facility] POC GLUCOSE 2020-02-28 16:26:00 LashaZakia ridley Meth od[facility] POC GLUCOSE 2020-02-28 11:52:00 Lasha Zakia Lino [facility] XR CHEST 1 VW PORTABLE 2020-02-28 10:23:29 Osei [facility] POC GLUCOSE 2020-02-28 09:27:00 LashaZakia Huynh Meth odist POC GLUCOSE 2020-02-28 08:57:00 Lasha Zakia Huynh [facility] od[facility] XR CHEST 1 VW PORTABLE 2020-02-28 06:44:01 Elena Massey [facility] POC GLUCOSE 2020-02-28 04:38:00 LashaZakia Uhynh Meth odist HEPATIC FUNCTION PANEL 2020-02-28 02:00:00 Elena Massey [facility] IONIZED CALCIUM 2020-02-28 02:00:00 Toro Tony HC COMPLETE BLD COUNT W/AUTO DIFF 2020-02-28 02:00:00 Victoriano Sanchez BASIC METABOLIC PANEL 2020-02-28 02:00:00 Vahid Sanchez PHOSPHORUS LEVEL 2020-02-28 02:00:00 Vahid Sanchez MAGNESIUM LEVEL 2020-02-28 02:00:00 Vahid Sanchez ESTIMATED GFR 2020-02-28 02:00:00 Lasha, Zakia Lino [facility] POC GLUCOSE 2020-02-28 00:44:00 Lasha, Zakia Huynh [facility] POC GLUCOSE 2020-02-27 20:45:00 Lasha, Zakia Huynh [facility] POC GLUCOSE 2020-02-27 16:42:00 Lasha, Zakia Huynh [facility] POC GLUCOSE 2020-02-27 12:47:00 Lasha, Zakia Huynh [facility] ARTERIAL BLOOD GAS 2020-02-27 08:57:00 Elena Masseyist POC GLUCOSE 2020-02-27 08:24:00 LashaZakia Huynh Meth odist XR CHEST 1 VW PORTABLE 2020-02-27 05:50:27 Elena Massey [facility] BASIC METABOLIC PANEL 2020-02-27 03:57:00 Vahid Sanchez MAGNESIUM LEVEL 2020-02-27 03:57:00 TafVahid bhat PHOSPHORUS LEVEL 2020-02-27 03:57:00 TafVahid bhat HEPATIC FUNCTION PANEL 2020-02-27 03:57:00 Elena Massey [facility] IONIZED CALCIUM 2020-02-27 03:57:00 Toro Tony ESTIMATED GFR 2020-02-27 03:57:00 Toro Tony HC COMPLETE BLD COUNT W/AUTO DIFF 2020-02-27 03:30:00 Taffet, Victoriano Huynh [facility] POC GLUCOSE 2020-02-27 01:20:00 Lasha, Zakia Huynh [facility] XR ABDOMEN 1 VW PORTABLE 2020-02-26 21:44:21 Dixon De Dios [facility] POC GLUCOSE 2020-02-26 21:00:00 Lasha, Zakia Huynh [facility] POC GLUCOSE 2020-02-26 16:47:00 Lasha, Zakia Huynh [facility] POC GLUCOSE 2020-02-26 13:04:00 Lasha, Zakia Huynh [facility] POC GLUCOSE 2020-02-26 08:20:00 Lasha, Zakia Huynh [facility] XR CHEST 1 VW PORTABLE 2020-02-26 05:32:38 VooreElena [facility] POC GLUCOSE 2020-02-26 05:24:00 Lasha, Zakia Huynh [facility] ARTERIAL BLOOD GAS 2020-02-26 02:30:00 Toro Tony [facility] HC COMPLETE BLD COUNT W/AUTO DIFF 2020-02-26 02:30:00 Taffet, Victoriano Ny BASIC METABOLIC PANEL 2020-02-26 02:30:00 TaffetVahid MAGNESIUM LEVEL 2020-02-26 02:30:00 TaffetVahid PHOSPHORUS LEVEL 2020-02-26 02:30:00 TaffetVahid IONIZED CALCIUM, ARTERIAL 2020-02-26 02:30:00 LashaZakia ESTIMATED GFR 2020-02-26 02:30:00 LashaZakia Meth odist POC GLUCOSE 2020-02-26 01:18:00 Lasha, Zakia Huynh [facility] POC GLUCOSE 2020-02-25 21:05:00 Lasha, Zakia Huynh [facility] POC GLUCOSE 2020-02-25 16:20:00 Lasha, Zakia Huynh [facility] BASIC METABOLIC PANEL 2020-02-25 15:17:00 Taffet, Vahid Ny ESTIMATED GFR 2020-02-25 15:17:00 Elena Massey hodist PHOSPHORUS LEVEL 2020-02-25 15:17:00 Elena Massey Me thodist MAGNESIUM LEVEL 2020-02-25 15:17:00 Shilpa Elena Huynh Met hodist POC GLUCOSE 2020-02-25 13:37:00 LashaZakia Meth odist ECG 12-LEAD 2020-02-25 09:55:19 TaffeVahid luna POC GLUCOSE 2020-02-25 07:23:00 LashaZakia Meth odist XR CHEST 1 VW PORTABLE 2020-02-25 06:30:32 Elena Massey [place] [facility] POC GLUCOSE 2020-02-25 05:05:00 Lasha, Zakia Huynh [facility] ARTERIAL BLOOD GAS 2020-02-25 04:35:00 Toro Tony HC COMPLETE BLD COUNT W/AUTO DIFF 2020-02-25 04:35:00 Taffet, Victoriano Ny BASIC METABOLIC PANEL 2020-02-25 04:35:00 TaffetVahid MAGNESIUM LEVEL 2020-02-25 04:35:00 TaffetVahid PHOSPHORUS LEVEL 2020-02-25 04:35:00 Taffet, Vahid Ny IONIZED CALCIUM, ARTERIAL 2020-02-25 04:35:00 Toro Tony ESTIMATED GFR 2020-02-25 04:35:00 LashaZakia Meth odist POC GLUCOSE 2020-02-25 00:47:00 LashaZakia ridley Meth odist POC GLUCOSE 2020-02-24 20:32:00 Lasha, Zakia Huynh [facility] POC GLUCOSE 2020-02-24 17:07:00 Lasha, Zakia Huynh [facility] POC GLUCOSE 2020-02-24 12:47:00 Lasha, Zakia Huynh [facility] ARTERIAL BLOOD GAS 2020-02-24 10:10:00 Reji Glover POC GLUCOSE 2020-02-24 08:55:00 Lasha, Zakia Huyn[facility] XR CHEST 1 VW PORTABLE 2020-02-24 05:39:29 Elena Massey [place] [facility] HC COMPLETE BLD COUNT W/AUTO DIFF 2020-02-24 04:30:00 Taffet, Victoriano Ny COMPREHENSIVE METABOLIC PANEL 2020-02-24 04:30:00 TaffetVahid MAGNESIUM LEVEL 2020-02-24 04:30:00 Taffet, Vahid Ny PHOSPHORUS LEVEL 2020-02-24 04:30:00 Taffet, Vahid Ny ARTERIAL BLOOD GAS 2020-02-24 04:30:00 Toro Tony IONIZED CALCIUM, ARTERIAL 2020-02-24 04:30:00 Toro Tony ESTIMATED GFR 2020-02-24 04:30:00 Toro Tony [facility] O2 SATURATION, VENOUS 2020-02-24 04:30:00 Dixon De Dios [facility] POC GLUCOSE 2020-02-24 04:23:00 SimoneOsei Meth odist POC GLUCOSE 2020-02-24 00:40:00 Lasha, Zakia Huynh [facility] POC GLUCOSE 2020-02-23 22:18:00 [facility] 2020-02-23 16:53:00 Lasha, Zakia [place] [facility] POTASSIUM LEVEL 2020-02-23 16:45:00 Reji Glover uscarlitos [facility] MAGNESIUM LEVEL 2020-02-23 16:45:00 Reji Glover [facility] POC GLUCOSE 2020-02-23 13:06:00 Lasha, Zakia Huynh [facility] POC GLUCOSE 2020-02-23 09:02:00 Lasha, Zakia Huynh [facility] ARTERIAL BLOOD GAS 2020-02-23 08:36:00 Reji Glover XR CHEST 1 VW PORTABLE 2020-02-23 05:21:18 Elena Massey [facility] POC GLUCOSE 2020-02-23 04:54:00 Lasha, Zakia [place] [facility] HC COMPLETE BLD COUNT W/AUTO DIFF 2020-02-23 04:35:00 Taffet, Victoriano Ny COMPREHENSIVE METABOLIC PANEL 2020-02-23 04:35:00 Taffet, Vahid Ny MAGNESIUM LEVEL 2020-02-23 04:35:00 Taffet, Vahid Ny PHOSPHORUS LEVEL 2020-02-23 04:35:00 Taffet, Vahid Ny ARTERIAL BLOOD GAS 2020-02-23 04:35:00 Dixon De Diosist ESTIMATED GFR 2020-02-23 04:35:00 LashaZakia ridley Huynh [facility] odist O2 SATURATION, VENOUS 2020-02-23 04:35:00 Dixon De Dios [facility] POC GLUCOSE 2020-02-23 00:46:00 Lasha, Zakia Huynh [facility] POC GLUCOSE 2020-02-22 20:50:00 LashaZakia ridley Lino [facility] ECG 12-LEAD 2020-02-22 16:46:42 Lasha, Zakia Lino Meth [facility]ist ACTIVATED CLOTTING TIME 2020-02-22 16:44:00 Lasha, Zakia Nance ton [facility] POC GLUCOSE 2020-02-22 16:37:00 Lasha, Zakia Lino Meth odist CV SELECTIVE ANGIOGRAPHY BYPASS GRAFT 2020-02-22 16:02:15 Adonay Wilderist POTASSIUM LEVEL 2020-02-22 13:57:00 Reji Glover [facility] MAGNESIUM LEVEL 2020-02-22 13:57:00 Reji Glover [facility] POC GLUCOSE 2020-02-22 12:31:00 Lasha, Zakia Huyn[facility]ist PARTIAL THROMBOPLASTIN TIME (PTT) 2020-02-22 10:30:00 LashaTrippist POC GLUCOSE 2020-02-22 08:56:00 Lasha, Zakia Souza odist XR CHEST 1 VW PORTABLE 2020-02-22 04:15:06 Elena Massey [facility] BASIC METABOLIC PANEL 2020-02-22 04:00:00 Leslee Viramontes [facility] MAGNESIUM LEVEL 2020-02-22 04:00:00 Leslee Viramontes Meth odist PHOSPHORUS LEVEL 2020-02-22 04:00:00 Leslee Viramontes hodlaurie ESTIMATED GFR 2020-02-22 04:00:00 Leslee Viramontes Meth odist PARTIAL THROMBOPLASTIN TIME (PTT) 2020-02-22 03:45:00 Maria De Jesus Massey HC COMPLETE BLD COUNT W/AUTO DIFF 2020-02-22 03:45:00 Santhosh Viramontes ARTERIAL BLOOD GAS 2020-02-22 03:45:00 Santhosh Viramonteseshgeorge Gonzalez ethodist IONIZED CALCIUM, ARTERIAL 2020-02-22 03:45:00 Wander Leslee carl [facility] POC GLUCOSE 2020-02-22 01:11:00 Lasha, Zakia Huyn[facility] POC GLUCOSE 2020-02-21 20:03:00 Lasha Zakia Huynh [facility] POTASSIUM LEVEL 2020-02-21 20:00:00 MoranNatalio laurennda SofiaMarko Huynh Me th[facility]ist IONIZED CALCIUM 2020-02-21 20:00:00 Natalio Moranndgeorge BlackMarko Huynh [facility] MAGNESIUM LEVEL 2020-02-21 20:00:00 Luisa Allyson SofiaMarko Huynh Me th[facility]ist PHOSPHORUS LEVEL 2020-02-21 20:00:00 Luisa Allyson SofiaMarko Huynh M ethodist ECG 12-LEAD 2020-02-21 19:56:48 Elena Massey Met hodist PARTIAL THROMBOPLASTIN TIME (PTT) 2020-02-21 18:17:00 Maria De Jesus Masseyist POC GLUCOSE 2020-02-21 17:00:00 Zakia Cruz odist IONIZED CALCIUM 2020-02-21 13:00:00 Elena Massey Met hodist BASIC METABOLIC PANEL 2020-02-21 13:00:00 Elena Massey on [facility] PHOSPHORUS LEVEL 2020-02-21 13:00:00 Elena Massey Me thodist MAGNESIUM LEVEL 2020-02-21 13:00:00 Elena Massey Met hodist ESTIMATED GFR 2020-02-21 13:00:00 Elena Massey Met hodist PARTIAL THROMBOPLASTIN TIME (PTT) 2020-02-21 12:58:00 Tripp Cruz [facility] XR ABDOMEN 1 VW PORTABLE 2020-02-21 11:54:59 Elena Massey UNMONITORED VIDEO-EEG 60 HRS 1 MIN-74 HRS 2020-02-21 11:36:47 Ambar Griffiths [facility] POC GLUCOSE 2020-02-21 08:44:00 Zakia Cruz odist XR CHEST 1 VW PORTABLE 2020-02-21 08:26:59 Elena Massey [facility] POC GLUCOSE 2020-02-21 05:06:00 LashaZakia ridley odlaurie HC COMPLETE BLD COUNT W/AUTO DIFF 2020-02-21 04:10:00 Missael Tony O2 SATURATION, VENOUS 2020-02-21 04:10:00 Leslee Viramontes ARTERIAL BLOOD GAS 2020-02-21 04:10:00 Leslee Viramontes ethodist PARTIAL THROMBOPLASTIN TIME (PTT) 2020-02-21 04:10:00 LashaTripp ridley COMPREHENSIVE METABOLIC PANEL 2020-02-21 04:00:00 Toro Tony IONIZED CALCIUM 2020-02-21 04:00:00 Toro Tony MAGNESIUM LEVEL 2020-02-21 04:00:00 Toro Tony PHOSPHORUS LEVEL 2020-02-21 04:00:00 Leslee Viramontes ESTIMATED GFR 2020-02-21 04:00:00 Toro Tony UNMONITORED VIDEO DAILY 2020-02-21 02:50:30 Ambar Keith [facility] POC GLUCOSE 2020-02-21 00:36:00 Zakia Cruz odist PARTIAL THROMBOPLASTIN TIME (PTT) 2020-02-20 21:55:00 Maria De Jesus Massey POC GLUCOSE 2020-02-20 20:13:00 LashaZakia ridley Meth odlaurie POC GLUCOSE 2020-02-20 17:10:00 Zakia Cruz Meth odist PARTIAL THROMBOPLASTIN TIME (PTT) 2020-02-20 14:40:00 Maria De Jesus Massey BASIC METABOLIC PANEL 2020-02-20 13:10:00 Bulmaro Hi [facility] MAGNESIUM LEVEL 2020-02-20 13:10:00 Bulmaro Hi PHOSPHORUS LEVEL 2020-02-20 13:10:00 Bulmaro Hi [facility] IONIZED CALCIUM 2020-02-20 13:10:00 Bulmaro Hi ESTIMATED GFR 2020-02-20 13:10:00 JenaeBulmaro bruner Nan carl [facility] POC GLUCOSE 2020-02-20 13:07:00 Zakia Cruz Meth odist POC GLUCOSE 2020-02-20 08:49:00 Zakia Cruz Meth odist POC GLUCOSE 2020-02-20 05:24:00 Zakia Cruz Meth odist HC COMPLETE BLD COUNT W/AUTO DIFF 2020-02-20 05:20:00 Missael Tony PARTIAL THROMBOPLASTIN TIME (PTT) 2020-02-20 05:20:00 Tripp Cruz [facility] XR CHEST 1 VW PORTABLE 2020-02-20 04:53:52 Toro Tony COMPREHENSIVE METABOLIC PANEL 2020-02-20 04:00:00 Toro Tony IONIZED CALCIUM 2020-02-20 04:00:00 Toro Tony [facility] MAGNESIUM LEVEL 2020-02-20 04:00:00 Toro Tony ESTIMATED GFR 2020-02-20 04:00:00 Toro Tony [facility] PHOSPHORUS LEVEL 2020-02-20 04:00:00 Toro Tony on [facility] POC GLUCOSE 2020-02-20 01:18:00 Zakia Cruz odist UNMONITORED VIDEO DAILY 2020-02-20 00:38:52 Ambar Keith [facility] CBC HEMOGRAM 2020-02-19 23:52:00 Zakia Cruz Meth odist TROPONIN 2020-02-19 23:52:00 Zakia Cruz Meth odist BASIC METABOLIC PANEL 2020-02-19 23:46:00 Toro Tony MAGNESIUM LEVEL 2020-02-19 23:46:00 Toro Tony [facility] PHOSPHORUS LEVEL 2020-02-19 23:46:00 Toro Tony on [facility] IONIZED CALCIUM 2020-02-19 23:46:00 Toro Tony ESTIMATED GFR 2020-02-19 23:46:00 Toro Tony [facility] MRI BRAIN WO CONTRAST 2020-02-19 22:46:22 Radha Escamilla [place] [facility] POC GLUCOSE 2020-02-19 21:09:00 Zakia Cruz Lino Souza odist POC GLUCOSE 2020-02-19 17:11:00 Zakia Cruz Lino Meth odist PV TRANSCRANIAL DOPPLER INTRACRANIAL ARTERIES COMPLETE 02-18 15:45:00 Ambar Keith Lino Ny TROPONIN 2020-02-19 14:30:00 Toro Tony PARTIAL THROMBOPLASTIN TIME (PTT) 2020-02-19 14:30:00 Maria De Jesus Massey Lino [facility] MAGNESIUM LEVEL 2020-02-19 14:30:00 Sutaria, Bulmaro Bharatkumar Ho [place] [facility] IONIZED CALCIUM 2020-02-19 14:30:00 Sutaria, Bulmaro Bharatkumar Ho [place] [facility] PHOSPHORUS LEVEL 2020-02-19 14:30:00 Sutaria, Bulmaro Bharatkumar [place] [facility] LIPID PANEL 2020-02-19 14:30:00 Sutaria, Bulmaro Bharatkumar [place] [facility] BASIC METABOLIC PANEL 2020-02-19 14:30:00 Sutaria, Bulmaro Bharatku kirk Huynh [facility] ESTIMATED GFR 2020-02-19 14:30:00 Sutaria, Bulmaro Bharatkumar [place] [facility] POC GLUCOSE 2020-02-19 13:26:00 Lasha, Zakia Souza odist CT ABDOMEN WWO CONTRAST PELVIS W CONTRAST 2020-02-19 11:44:[address] ANGIOGRAM HEAD W WO CONTRAST 2020-02-19 11:44:[address] ANGIOGRAM NECK W WO CONTRAST 2020-02-19 11:43:[address] STROKE BRAIN WO CONTRAST 2020-02-19 11:26:20 Radha Escamilla POC GLUCOSE 2020-02-19 08:52:00 Lasha Zakia Huyn[facility] Meth odist PARTIAL THROMBOPLASTIN TIME (PTT) 2020-02-19 08:30:00 Tripp Cruz TROPONIN 2020-02-19 06:20:00 Toro Tony XR CHEST 1 VW PORTABLE 2020-02-19 05:59:44 Toro Tony POC GLUCOSE 2020-02-19 04:52:00 LashaZakia odist VANCOMYCIN LEVEL, RANDOM 2020-02-19 04:15:00 Reji Glover PHOSPHORUS LEVEL 2020-02-19 04:15:00 Vahid Sanchez HC COMPLETE BLD COUNT W/AUTO DIFF 2020-02-19 04:15:00 Missael Tony COMPREHENSIVE METABOLIC PANEL 2020-02-19 04:15:00 Toro Tony MAGNESIUM LEVEL 2020-02-19 04:15:00 Toro Tony ESTIMATED GFR 2020-02-19 04:15:00 Toro Tony ARTERIAL BLOOD GAS 2020-02-19 04:15:00 Lasha, Zakia Huynh M ethodist IONIZED CALCIUM, ARTERIAL 2020-02-19 04:15:00 LashaZakia [place] [facility] POC GLUCOSE 2020-02-19 01:44:00 LashaZakia ridley odist EEG SETUP 2020-02-19 00:13:35 Ambar Keith odist TROPONIN 2020-02-18 23:56:00 Toro Tony PARTIAL THROMBOPLASTIN TIME (PTT) 2020-02-18 23:50:00 Henry Moran BASIC METABOLIC PANEL 2020-02-18 21:45:00 Bulmaro Hi IONIZED CALCIUM 2020-02-18 21:45:00 Bulmaro Hitnba [place] [facility] MAGNESIUM LEVEL 2020-02-18 21:45:00 Bulmaro Hi Bharatkjaime Mcgee [place] [facility] PHOSPHORUS LEVEL 2020-02-18 21:45:00 SutariaRebekahil Bharatkjaime alexander [facility] ESTIMATED GFR 2020-02-18 21:45:00 Bulmaro Hi Bharatkjaime Mcgee [place] [facility] POC GLUCOSE 2020-02-18 20:53:00 LashaZakia ridley Meth odist COVID-19 QUALITATIVE PCR 2020-02-18 17:08:00 Jacinto Gauthier PARTIAL THROMBOPLASTIN TIME (PTT) 2020-02-18 16:52:00 Reji Glover POC GLUCOSE 2020-02-18 16:40:00 Zakia Cruz Meth odist POTASSIUM LEVEL 2020-02-18 15:33:00 Sutaria, Bulmaro Bharatkumar [place] [facility] IONIZED CALCIUM 2020-02-18 15:33:00 Sutaria, Bulmaro Bhmarlontkumar Ho [place] [facility] PHOSPHORUS LEVEL 2020-02-18 15:33:00 Bulmaro Hitkjaime H benjamin [facility] MAGNESIUM LEVEL 2020-02-18 15:33:00 Sutaria, Bulmaro Bhmarlontkumar [place] [facility] TROPONIN 2020-02-18 15:33:00 Sussy, Bulmaro Isabeltkumar [place] [facility] BLOOD CULTURE, AEROBIC & ANAEROBIC 2020-02-18 13:31:00 Mary Irving BLOOD CULTURE, AEROBIC & ANAEROBIC 2020-02-18 13:30:00 Mary Irving HEPATITIS ACUTE PANEL 2020-02-18 12:55:00 Mary Irving [facility] HIV AG/AB COMBINATION 2020-02-18 12:55:00 Mary Irving on [facility] POC GLUCOSE 2020-02-18 12:19:[address] STROKE BRAIN WO CONTRAST 2020-02-18 11:19:53 Ambar Keith [facility] PARTIAL THROMBOPLASTIN TIME (PTT) 2020-02-18 08:40:00 Jacinto Gauthier [facility] MAGNESIUM LEVEL 2020-02-18 08:33:00 Bulmaro Hitkumar [place] [facility] IONIZED CALCIUM 2020-02-18 08:33:00 Bulmaro Hi Bhmarlontkumar Everardo [place] [facility] PHOSPHORUS LEVEL 2020-02-18 08:33:00 Bulmaro Hi Bhmarlontkumar Janice alexander [facility] POTASSIUM LEVEL 2020-02-18 08:33:00 Jenaearia, Bulmaro Bharatkumar [place] [facility] POC GLUCOSE 2020-02-18 08:04:00 Zakia Cruz Meth odist EEG (ROUTINE) 2020-02-18 05:20:19 Ambar Keith Meth odist POC GLUCOSE 2020-02-18 05:15:00 Zakia Cruz XR CHEST 1 VW PORTABLE 2020-02-18 05:10:36 Vahid Sanchez COMPREHENSIVE METABOLIC PANEL 2020-02-18 04:00:00 Vahid Sanchez HC COMPLETE BLD COUNT W/AUTO DIFF 2020-02-18 04:00:00 Victoriano Sanchez MAGNESIUM LEVEL 2020-02-18 04:00:00 Vahid Sanchez PHOSPHORUS LEVEL 2020-02-18 04:00:00 Vahid Sanchez HEMOGLOBIN A1C 2020-02-18 04:00:00 Vahid Sanchez ESTIMATED GFR 2020-02-18 04:00:00 Zakia Cruz ARTERIAL BLOOD GAS 2020-02-18 04:00:00 Miguel Menard IONIZED CALCIUM, ARTERIAL 2020-02-18 04:00:00 Miguel Menard [facility] POC GLUCOSE 2020-02-18 02:10:00 Zakia Cruz odist PARTIAL THROMBOPLASTIN TIME (PTT) 2020-02-18 02:00:00 Reji Glover [facility] POTASSIUM LEVEL 2020-02-17 22:30:00 Miguel Menard Met hodist MAGNESIUM LEVEL 2020-02-17 22:30:00 Miguel Menard Met hodist PHOSPHORUS LEVEL 2020-02-17 22:30:00 Miguel Menard Ma thodist IONIZED CALCIUM 2020-02-17 22:30:00 Miguel Menard Met hodist POC GLUCOSE 2020-02-17 20:30:00 Zakia Cruz odist POTASSIUM LEVEL 2020-02-17 16:49:00 Bulmaro Hitkjaime carl [facility] PHOSPHORUS LEVEL 2020-02-17 16:49:00 Bulmaro Hi [facility] IONIZED CALCIUM 2020-02-17 16:49:00 Bulmaro Hitkjaime Ho [place] [facility] ACTIVATED CLOTTING TIME 2020-02-17 16:40:00 Zakia Cruz [facility] POC GLUCOSE 2020-02-17 16:15:00 Zakia Cruz odlaurie CONSULT CARDIAC REHAB PHASE 1 2020-02-17 14:24:08 Sara Warner ECG 12-LEAD 2020-02-17 13:47:50 Mike Lopez hodist POC GLUCOSE 2020-02-17 13:40:00 Zakia Cruz Meth odist CV SELECTIVE CORONARY ANGIOGRAPHY 2020-02-17 12:44:13 Kohler, L etcoty Ny CV PCI STENT 2020-02-17 12:44:13 Kohler, Letcoty Souza odist ACTIVATED CLOTTING TIME 2020-02-17 11:58:00 Zakia Cruz ton [facility] POTASSIUM LEVEL 2020-02-17 09:21:00 Bulmaro Hitkjaime Mc[facility]e [facility] [facility] MAGNESIUM LEVEL 2020-02-17 09:21:00 Bulmaro Hitkjaime Mc[facility]e [facility] [facility] PHOSPHORUS LEVEL 2020-02-17 09:21:00 [facility]o Hit[facility] [place] [facility] IONIZED CALCIUM 2020-02-17 09:21:00 Bulmaro Hiaratkumar Everardo [facility] [facility] PARTIAL THROMBOPLASTIN TIME (PTT) 2020-02-17 09:20:00 Henry Moran TYPE AND SCREEN 2020-02-17 08:51:00 Bulmaro Hitkumar Everardo uscar[facility] POC GLUCOSE 2020-02-17 08:29:00 Zakia Cruz Meth odist POC GLUCOSE 2020-02-17 05:22:00 Zakia Cruz odlaurie ARTERIAL BLOOD GAS 2020-02-17 04:06:00 Leslee Viramontes ethodist SPUTUM CULTURE 2020-02-17 04:00:00 Leslee Viramontes odlaurie GRAM STAIN 2020-02-17 04:00:00 Leslee Viramontes HC COMPLETE BLD COUNT W/AUTO DIFF 2020-02-17 04:00:00 Lisa Lopez PARTIAL THROMBOPLASTIN TIME (PTT) 2020-02-17 04:00:00 Lisa Lopez COMPREHENSIVE METABOLIC PANEL 2020-02-17 04:00:00 Toby Lopez PHOSPHORUS LEVEL 2020-02-17 04:00:00 Mike Lopez Me thodist MAGNESIUM LEVEL 2020-02-17 04:00:00 Mike Lopez Met hodist T4, FREE 2020-02-17 04:00:00 Mike Lopez Met hodist THYROID STIMULATING HORMONE 2020-02-17 04:00:00 Mike Lopezist TROPONIN 2020-02-17 04:00:00 Mike Lopez Met hodist B NATRIURETIC PEPTIDE 2020-02-17 04:00:00 Mike Lopez on [facility] CORTISOL LEVEL, RANDOM 2020-02-17 04:00:00 Leslee Viramontes on [facility]regation ESTIMATED GFR 2020-02-17 04:00:00 Mike Lopez Met hodlaurie TTE COMPLETE, WO CONTRAST, W DOPPLER ([id number]) 2020-02-17 02:46:58 Leslee Viramontes HEMODIALYSIS CATHETER PLACEMENT 2020-02-17 02:38:11 Magali Viramontes XR CHEST 1 VW PORTABLE 2020-02-17 02:38:05 Leslee Viramontes on [facility] POC GLUCOSE 2020-02-17 02:21:00 Zakia Cruz URINE CULTURE 2020-02-17 01:23:00 Leslee Viramontes odist POC GLUCOSE 2020-02-17 01:08:00 Zakia Cruz URINALYSIS SCREEN AND MICROSCOPY, WITH REFLEX TO CULTURE 202 00:50:00 Leslee Viramontes BASIC METABOLIC PANEL 2020-02-17 00:50:00 Leslee Viramontes n [facility] ARTERIAL BLOOD GAS 2020-02-17 00:50:00 Leslee Viramontes ethodist ESTIMATED GFR 2020-02-17 00:50:00 Leslee Viramontes MAGNESIUM LEVEL 2020-02-17 00:50:00 Leslee Viramontes odist POC GLUCOSE 2020-02-17 00:28:00 Mike Lopez Met hodlaurie HC CVL NON-TUNNELED INSERT 5YRS OR > 2020-02-17 00:26:05 Leslee Viramontes HC ARTERIAL CATH INSERT PERCUT 2020-02-17 00:24:45 WanderEvelyn XR CHEST 1 VW PORTABLE 2020-02-17 00:11:45 Leslee Viramontes on [facility] TROPONIN 2020-02-16 22:51:00 Bart Robins PROTHROMBIN TIME WITH INR 2020-02-16 22:48:00 Mike Lopez HC COMPLETE BLD COUNT W/AUTO DIFF 2020-02-16 22:48:00 Henry Moran ARTERIAL BLOOD GAS 2020-02-16 22:48:00 Allyson Moran PROCALCITONIN 2020-02-16 22:40:00 Leslee Viramontes ECG 12-LEAD 2020-02-16 22:10:09 Mike Lopez Met hollie POC GLUCOSE 2020-02-16 22:03:00 Mike Lopez Met hollie BLOOD CULTURE, AEROBIC & ANAEROBIC 2020-02-16 21:39:00 Wander, [place] Ny COMPREHENSIVE METABOLIC PANEL 2020-02-16 21:38:00 Leslee Viramontes LACTIC ACID LEVEL 2020-02-16 21:38:00 Leslee Viramontes Me thodist ESTIMATED GFR 2020-02-16 21:38:00 Leslee Viramontes LEGIONELLA URINARY ANTIGEN 2020-02-16 21:31:00 Leslee Viramontes RESPIRATORY PATHOGEN PANEL 2020-02-16 21:30:00 Leslee Viramontes BLOOD CULTURE, AEROBIC & ANAEROBIC 2020-02-16 21:29:00 George Viramontes ACETAMINOPHEN LEVEL 2020-02-16 19:09:00 Bart Robins ARTERIAL BLOOD GAS 2020-02-16 18:54:00 Bart Robins ECG 12-LEAD 2020-02-16 18:44:44 Bart Robins URINE CULTURE 2020-02-16 17:43:00 Bart Robins URINE DRUGS OF ABUSE SCREEN 2020-02-16 17:43:00 Lavell Robins URINALYSIS SCREEN AND MICROSCOPY, WITH REFLEX TO CULTURE 17:43:00 Bart Robins HEPATIC FUNCTION PANEL 2020-02-16 17:40:00 Tamanna Robins THYROID STIMULATING HORMONE 2020-02-16 17:40:00 Lavell Robins XR CHEST 1 VW PORTABLE 2020-02-16 17:31:35 Tamanna Robins ECG 12-LEAD 2020-02-16 17:10:15 Bart Robins HC COMPLETE BLD COUNT W/AUTO DIFF 2020-02-16 17:07:00 Bart Masterson PARTIAL THROMBOPLASTIN TIME (PTT) 2020-02-16 17:07:00 Bart Masterson PROTHROMBIN TIME WITH INR 2020-02-16 17:07:00 Maria De Jesus Robins COMPREHENSIVE METABOLIC PANEL 2020-02-16 17:07:00 Bart Robins TROPONIN 2020-02-16 17:07:00 Bart Robins ALCOHOL LEVEL, BLOOD 2020-02-16 17:07:00 aBrt Robins ESTIMATED GFR 2020-02-16 17:07:[address] STROKE BRAIN WO CONTRAST 2020-02-16 17:06:00 Lavell Robins INTUBATION 2020-02-16 17:03:33 Bart Robins [facility], E/M 30-74 MINUTES 2020-02-16 17:03:33 Bart Fajardo [facility], ADDL 30 MIN 2020-02-16 17:03:33 Bart Robins Plan of Care Planned Activity Planned Date Details Comments Source Future Scheduled Test 2020-06-07 00:00:00 INFLUENZA VACCINE [code = INFLUENZA VACCINE] [facility] Future Scheduled Test 2006 00:00:00 COLONOSCOPY SCREEN ING [code = COLONOSCOPY SCREENING] [facility] Future Scheduled Test 2006 00:00:00 SHINGLES VACCINES (#1) [code = SHINGLES VACCINES (#1)] [facility] Encounters Start Date/Time End Date/Time En[facility] ID Source 2020-04-17 08:56:55 2020-04-26 18:15:00 Outpatient Parag Nunez [facility]SE MHSE [id number] 2020-04-19 10:53:00 2020-04-17 10:00:00 Inpatient E [facility]SE MED [id number] 2020-04-17 08:56:55 2020-04-17 08:56:55 Outpatient Ventura Calvin MHSE MHSE [id number] 2020-02-16 00:00:00 2020-03-23 00:00:[address] [facility] 012 [id number] [facility] 2019-07-07 19:56:36 2019-07-08 03:04:00 Outpatient StellaMiley Armendarzi trice MHPL MHPL [id number] 2019-07-07 19:56:00 2019-07-07 19:56:00 Emergency E MHBL MHBL [id number] 2018-04-16 18:27:00 2018-04-17 13:58:00 Outpatient Partha Gilman [facility] [id number] 2018-03-15 22:42:00 2018-03-17 11:38:00 [facility] [id number] 2017-12-18 18:44:00 2017-12-18 18:44:00 Emergency E PRINCE MARRERO [id number] 2017-12-12 13:00:00 2017-12-12 13:00:00 Outpatient Gina Taylor [facility] [id number] Results Test Description Test Time Test Comments Results Result Comments Source CHEST SINGLE (PORTABLE) 2020-05-18 14:59:00 [place] [id number] Patient Name: GIL MAN JR MR #: [id number] : 1955 Age/Sex: 64/M Req #: [id number] Adm Physician: Ordered by: ROSY JACOBO MD Report #: [id number] Location: ER Room/Bed: Procedure: [id number] DX/CHEST SINGLE (PORTABLE) Exam Date: 05/18/20 Exam Time: 1420 REPORT STATUS: Signed EXAMINATION: CHEST SINGLE (PORTABLE) INDICATION: Hypotension COMPARISON: None FINDINGS: LINES/TUBES:None LUNGS:The lungs are moderately inflated. No focal consolidation or pulmonary edema. PLEURA:No pleural effusion or pne umothorax. MEDIASTINUM:The cardiomediastinal silhouette appears normal in size and shape. BONES/SOFT TISSUES:No acute osseous injury. ABDOMEN:No free air under the diaphragm. IMPRESSION: No focal pneumonia or pulmonary edema. Signed by: Elizabeth Marcum MD on 05/18/2020 2:59 PM Dictated By: ELIZABETH MARCUM MD 58 Transcribed By: DAMON on 05/18/201458 COPY TO: ROSY JACOBO MD CHEM PANEL 2020-04-26 09:23:00 105 [facility] CHEM PANEL 2020-04-26 09:23:00 66 [facility] CHEM PANEL 2020-04-26 09:23:00 1.50 [facility] CHEM PANEL 2020-04-26 09:23:00 147 [facility] CHEM PANEL 2020-04-26 09:23:00 3.8 [facility] CHEM PANEL 2020-04-26 09:23:00 106 [facility] CHEM PANEL 2020-04-26 09:23:00 35 [facility] CHEM PANEL 2020-04-26 09:23:00 9.8 [facility] CHEM PANEL 2020-04-26 09:23:00 9.7 [facility] CHEM PANEL 2020-04-26 09:23:00 49 [facility] CHEM PANEL 2020-04-25 21:53:00 157 [facility] CHEM PANEL 2020-04-25 21:53:00 58 [facility] CHEM PANEL 2020-04-25 21:53:00 1.77 [facility] CHEM PANEL 2020-04-25 21:53:00 145 [facility] CHEM PANEL 2020-04-25 21:53:00 4.4 [facility] CHEM PANEL 2020-04-25 21:53:00 107 [facility] CHEM PANEL 2020-04-25 21:53:00 34 [facility] CHEM PANEL 2020-04-25 21:53:00 8.4 [facility] CHEM PANEL 2020-04-25 21:53:00 9.8 [facility] CHEM PANEL 2020-04-25 21:53:00 40 [facility] CHEM PANEL 2020-04-25 12:56:00 109 [facility] CHEM PANEL 2020-04-25 12:56:00 48 [facility] CHEM PANEL 2020-04-25 12:56:00 1.20 [facility] CHEM PANEL 2020-04-25 12:56:00 144 [facility] CHEM PANEL 2020-04-25 12:56:00 5.2 [facility] CHEM PANEL 2020-04-25 12:56:00 107 [facility] CHEM PANEL 2020-04-25 12:56:00 33 [facility] CHEM PANEL 2020-04-25 12:56:00 10.5 [facility] CHEM PANEL 2020-04-25 12:56:00 9.2 [facility] CHEM PANEL 2020-04-25 12:56:00 64 [facility] CHEM PANEL 2020-04-25 12:56:00 2.4 [facility] HEMATOLOGY 2020-04-25 12:56:00 65.6 [facility] HEMATOLOGY 2020-04-25 12:56:00 24.6 [facility] HEMATOLOGY 2020-04-25 12:56:00 6.7 [facility] HEMATOLOGY 2020-04-25 12:56:00 2.1 [facility] HEMATOLOGY 2020-04-25 12:56:00 1.0 [facility] HEMATOLOGY 2020-04-25 12:56:00 6.4 [facility] HEMATOLOGY 2020-04-25 12:56:00 2.4 [facility] HEMATOLOGY 2020-04-25 12:56:00 0.7 [facility] HEMATOLOGY 2020-04-25 12:56:00 0.2 [facility] HEMATOLOGY 2020-04-25 12:56:00 0.1 [facility] HEMATOLOGY 2020-04-25 12:56:00 9.8 [facility] HEMATOLOGY 2020-04-25 12:56:00 4.20 [facility] HEMATOLOGY 2020-04-25 12:56:00 13.4 [facility] HEMATOLOGY 2020-04-25 12:56:00 40.1 [facility] HEMATOLOGY 2020-04-25 12:56:00 95.4 [facility] HEMATOLOGY 2020-04-25 12:56:00 Test Item MCH (test code = MCH) 31.8 pg 27.0-31.0 [facility] VjcxrbsQZUFTENJHJ6755-05-71 12:56:0033.4[facility]annHEMATOLOGY 2020-04-25 12:56:0014.9[facility] QqvpxazMURWLNDAZE5664-19-51 12:56:52914Sapmkbbq NyjeilpJTQFVOPWSS8187-27-03 12:56:0010.5[facility] HermannCHEM OWNUG9222-82-96 10:37:002.2[facility] PgkywymMTFKOIJWQM5909-96-11 10:37:008.4[facility] UBXREISPLU0366-29-33 10:37:003.66[facility] RfvavgnIKIAGBHJGG2730-80-66 10:37:00 11.7[facility] IufnelyWWHHYTJTZZ3439-91-67 10:37:0034.7[facility] HermannHEMATOLOGY 2020-04-21 10:37:0094.8[facility] BamnianHPWODOEJUQ6661-97-84 10:37:00* Test Item Value Reference Range Interpretation Comments MCH (test code = MCH) 31.9 pg 27.0-31.0 [facility] PhcxttgQSHXVDUNUF3981-35-44 10:37:0033.7[facility] HermannHEMATOLOGY 2020-04-21 10:37:0015.0[facility] UnfxhnlONVUAYEIVN8125-56-08 10:37:74466Xaabiewd NceeezrTYEJJLUKRH4750-18-32 10:37:0010.4[facility] LsqrjawLSGLCRVOXP0691-10-56 10:37:0059.8[facility] WjicslqFKUEFAQCYY2455-88-85 10:37:0030.4[facility] ZSSPGTDLGJ8179-42-29 10:37:007.4[facility] EnbwdjeCOHDYKWQPM0220-35-96 10:37:002.2 [facility] AatevpuEAMMAGBIJB3282-98-22 10:37:000.2[facility] HermannHEMATOLOGY 2020-04-21 10:37:005.0[facility] YdlifjpIASHPXZJUU2084-08-80 10:37:002.6[facility] GdktrqyZVUZHYYFWR2448-41-26 10:37:000.6[facility] SjreqpqNKCFRDKAAB0923-53-10 10:37:000.2[facility] MjwmyeqJXFHYNKZCG8922-74-40 10:59:0057.1[facility] AAFHPEHFAO3231-92-12 10:59:0033.0[facility] FvqmlxkJLVOROPYPD5303-42-26 10:59:00 7.4[facility] FhyztjqDMNOYBVBJH0845-13-99 10:59:001.8[facility] HermannHEMATOLOGY 2020-04-18 10:59:000.7[facility] XiuydvlQXLRIUPBCR0644-44-41 10:59:004.5[facility] GedvopwOJUNPWGYOD2329-10-60 10:59:002.6[facility] OxvpbzzXBSVQVLVPT7441-40-92 10:59:000.6[facility] EpkgayzARLABTHENB5756-43-65 10:59:000.1[facility] Kb EMSLZSOVLZ0451-21-14 10:59:000.1[facility] WrenkfyJYZENSXFBG3121-38-11 10:59:008.0 [facility] AumxmjuEERKWZIXZN3701-73-73 10:59:003.82[facility] HermannHEMATOLOGY 2020-04-18 10:59:0012.3[facility] EhlvjoeTGIWYUKYNZ5281-55-52 10:59:0036.4[facility] TywmivrWAJHJEVDVP4116-63-56 10:59:0095.3[facility] LbzzaihEXLOOBZBME0975-57-34 10:59:00* Test Item Value Reference Range Interpretation Comments MCH (test code = MCH) 32.1 pg 27.0-31.0 [facility] ElaulohDATWXZRZXZ0339-30-83 10:59:0033.7[facility] HermannHEMATOLOGY 2020-04-18 10:59:0015.1[facility] CfitvauGYXMQWQILX2035-96-85 10:59:31334Klvjyphe YoywyhjDSLLMIIJPS2783-63-39 10:59:0010.1[facility] HermannBLOOD BANK RESULTS 2020-04-17 15:42:00Negative (04/17/20 10:42 AM)[facility] HermannCHEM PANEL 2020-04-17 15:42:0095[facility] HermannCHEM NGFZE1437-87-47 15:42:0031[facility] HermannCHEM CFRFT2033-30-81 15:42:001.17[facility] HermannCHEM KCREI4318-89-20 15:42:47652Fnlohtqv HermannCHEM ZCHAL7719-33-45 15:42:004.3[facility] HermannCHEM KVIXW5549-51-82 15:42:76993Hhcfdmje HermannCHEM LVEPW5342-50-91 15:42:0031 [facility] HermannCHEM PKYQJ2538-23-90 15:42:009.8[facility] HermannCHEM PANEL 2020-04-17 15:42:007.7[facility] HermannCHEM ITFJV2938-60-72 15:42:003.5[facility] HermannCHEM KATOF2860-18-56 15:42:0031[facility] HermannCHEM XETNG5097-70-21 15:42:0018[facility] HermannCHEM UJPQP7053-09-90 15:42:0073[facility] HermannCHEM WKJXJ6725-44-73 15:42:000.4[facility] HermannCHEM HJWUC7948-52-24 15:42:009.3 [facility] HermannCHEM IMJLK3977-19-01 15:42:00* Test Item Value Reference Range Interpretation Comments B/C Ratio (test code = B/C Ratio) 26 1 6-25 [facility] HermannCHEM HDUOV1114-94-44 15:42:004.2[facility] HermannCHEM PANEL 2020-04-17 15:42:00* Test Item Value Reference Range Interpretation Comments A/G Ratio (test code = A/G Ratio) 0.8 1 0.7-1.6 [facility] HermannCHEM KVAGO8251-55-38 15:42:0066[facility] HermannHEMATOLOGY 2020-04-17 15:42:008.4[facility] PypbzlfJQRZQSBDMD2770-71-67 15:42:003.58[facility] SonhgnrYVDNNAOALV0323-73-01 15:42:0011.3[facility] BmeaumtXWIKULMOJN0589-01-88 15:42:0034.1[facility] OirubpbMOTXCXSITM3431-66-07 15:42:0095.2[facility] HOMPDIGSWG8233-74-39 15:42:00* Test Item Value Reference Range Interpretation Comments MCH (test code = MCH) 31.6 pg 27.0-31.0 [facility] HexzpmoFYHPIKMDYE8239-75-96 15:42:0033.2[facility] HermannHEMATOLOGY 2020-04-17 15:42:0015.0[facility] KbzuwpcEJHYJXBVHV6370-07-83 15:42:92152Lqlslcsx MvyxbmlSMBHJEVSYI6511-66-05 15:42:0010.6[facility] DqymticDYAFROHKWP8876-84-23 15:42:00* Test Item Value Reference Range Interpretation Comments PT (test code = PT) 13.1 s 12.0-14.7 [facility]jvbPAFQNVVEFO4216-01-96 15:42:00* Test Item Value Reference Range Interpretation Comments INR (test code = INR) 0.99 1 0.85-1.17 [facility] SystemIcbkabhEDICXLQJFT0276-64-97 15:42:00* Test Item Value Reference Range Interpretation Comments PTT (test code = PTT) 31.4 s 22.9-35.8 [facility] SystemKqrdstmVDSZVVDSAY9296-46-82 15:42:0061.3[facility] HermannHEMATOLOGY 2020-04-17 15:42:0028.2[facility] OovijkbZHVNSVKGQC0164-89-33 15:42:008.1[facility] LywmsmwIKLCFJAZQF1292-35-71 15:42:001.9[facility] GuxmbopRHZUPUADLG7029-29-11 15:42:000.5[facility] ExxnujiBVKGTSJVJX2210-84-59 15:42:005.1[facility] Jeff PSQJIPTZKJ4386-08-66 15:42:002.4[facility] HryzwoxPXBRBIQMXN9735-86-31 15:42:000.7 [facility] ZufperdSVJVLZWJKA1805-39-81 15:42:000.2[facility] HermannIMMUNOLOGY 2020-04-17 15:42:00Not Detected (04/17/20 10:42 AM)[facility] glucose 2020-03-23 07:44:03* Test Item Value Reference Range Interpretation Comments POC glucose (test code = 15635-5) 179 mg/dL 65-99 [employer] Editor Name: Fatemeh Pike ID: [id number]: No Action Needed Lab Interpretation (test code = 76131-3) Abnormal [facility] MethodistBasi metabolic pctib6252-30-13 07:08:17* Test Item Value Reference Range Interpretation Comments Sodium (test code = 2951-2) 143 135- 148 mEq/L Potassium (test code = 2823-3) 3.8 3.5- 5.0 mEq/L Chloride (test code = 2075-0) 101 98- 112 mEq/L CO2 (test code = 2028-9) 31 24- 31 mEq/L Anion gap (test code = 06941-4) 11@ANIO 7- 15 mEq/L BUN (test code = 3094-0) 26 mg/dL 8-23 H Creatinine (test code = 2160-0) 0.84 mg/dL 0.7-1.2 Glucose (test code = 2345-7) 128 mg/dL 65-99 H Calcium (test code = 89870-2) 10.1 mg/dL 8.8-10.2 Lab Interpretation (test code = 00706-4) Abnormal [place] MethodistEstimated KBO1885-87-17 07:08:17* Test Item Value Reference Range Interpretation Comments Estimated GFR (test code = 5488) >=90 mL/min/1.73 m2 Catergory Units InterpretationG1 >=90 Normal or highG2 60-89 Mildly fcmrgwzpjR0n 45-59 Mildly to moderately jxpeeryltR2d 30-44 Moderately to severely decreasedG4 15-29 Severely decreasedG5 <15 Kidney failureThe eGFR was calculated using the Chronic Kidney Disease Epidemiology Collaboration (CKD-EPI) equation. Interpretation is based on recommendations of the National Kidney Foundation-Kidney Disease Outcomes Quality Initiative (NKF-KDOQI) published in 2014. [facility] MethodistCBC with platelet and bryfzchyiytj0495-08-44 06:40:51* Test Item Value Reference Range Interpretation Comments WBC (test code = 68176-6) 8.63 4.50- 11.00 k/uL RBC (test code = 45014-6) 3.48 m/uL 4.4-6 L HGB (test code = 718-7) 10.7 g/dL 14-18 L HCT (test code = 4544-3) 33.2 % 41-51 L MCV (test code = 787-2) 95.4 fL 82-100 MCH (test code = 785-6) 30.7 pg 27-34 MCHC (test code = 786-4) 32.2 g/dL 31-37 RDW - SD (test code = 90835-9) 46.5 fL 37-55 MPV (test code = 82274-4) 13.0 fL 8.8-13.2 Platelet count (test code = 55972-4) 135 150- 400 k/uL L Nucleated RBC (test code = 95116-2) 0.00 /100 WBC Neutrophils (test code = 41098-3) 58.9 % 39-69 Lymphocytes (test code = 04430-9) 27.6 % 25-45 Monocytes (test code = 34084-7) 9.3 % 0-10 Eosinophils (test code = 18161-6) 2.9 % 0-5 Basophils (test code = 35707-3) 0.7 % 0-1 Immature granulocytes (test code = 01546-4) 0.6 % 0-1 "Immature granulocytes" (promyelocytes, myelocytes, metamyelocytes) Lab Interpretation (test code = 69406-5) Abnormal [facility] MethodistXR Chest 1 Vw Bunzaxka3133-67-97 08:07:49 Interface, Radiology Results 03/18/2020 8:10 AM CDTEXAMINATION: XR CHEST 1 VW PORTABLECLINICAL HISTORY: 64 years Male ICU pt stable with no clinical status changesCOMPARISON: None.IMPRESSION:Cardiomediastinal silhouette is unchanged. Vascular congestion, bibasilar volume loss, and small bilateral pleural effusions are decreased Age related changes in the osseous structures. The patient has undergone median sternotomy, .. [facility] MethodistMagnesium level 2020-03-16 06:13:07* Test Item Value Reference Range Interpretation Comments Magnesium (test code = 08486-0) 1.7 mg/dL 1.6-2.4 [facility] MethodistPhosphorus mdhed7395-54-35 06:13:06* Test Item Value Reference Range Interpretation Comments Phosphorus (test code = 2777-1) 2.9 mg/dL 2.4-4.5 [facility] MethodistPrealbumin votwu1535-95-82 06:08:38* Test Item Value Reference Range Interpretation Comments Prealbumin (test code = 6793-4) 18 mg/dL 16-32 [facility] [facility]CBC cfcjpekm3779-78-32 05:23:22* Test Item Value Reference Range Interpretation Comments WBC (test code = 36692-0) 10.38 4.50- 11.00 k/uL RBC (test code = 89372-5) 3.46 m/uL 4.4-6 L HGB (test code = 718-7) 10.7 g/dL 14-18 L HCT (test code = 4544-3) 32.2 % 41-51 L MCV (test code = 787-2) 93.1 fL 82-100 MCH (test code = 785-6) 30.9 pg 27-34 MCHC (test code = 786-4) 33.2 g/dL 31-37 RDW - SD (test code = 88272-1) 44.8 fL 37-55 MPV (test code = 40515-2) 12.9 fL 8.8-13.2 Platelet count (test code = 71659-3) 151 150- 400 k/uL Nucleated RBC (test code = 47830-6) 0.00 /100 WBC Lab Interpretation (test code = 12492-7) Abnormal Lino SoriaistSmear lyzyfu8739-82-74 10:13:33* Test Item Value Reference Range Interpretation Comments Platelet slide review (test code = 23314-5) Ethan slt decr Polychromasia (test code = 65264-1) Moderate Ovalocytes (test code = 774-0) Moderate Lino SdvvadigqTzwrnq9551-35-17 12:40:42Ajit Zhao MD 03/14/2020 12:41 PMAirwayDate/Time: 03/14/2020 12:40 PMPerformed by: Ajit Zhao MDAuthorized by: Ajit Zhao MD Location: ORUrgency: ElectiveDifficult Airway: No Performed by: anesthesiologistPreoxygenated with 100% O2: Yes C-spine Precautions Maintained Throughout: Yes Mask Ventilation: Not attemptedFinal Airway Type: Endotracheal airwayFinal Endotracheal Airway: ETTTechnique Used: Video laryngoscopyInsertion Site: OralLaryngoscope Blade/Videolaryngoscope Blade Size: 4ETT Size (mm): 8.0Measured from: TeethETT to Teeth (cm): 21Placement Verified by: CO2 detection, direct visualization and equal breath sounds Laryngoscopic view: Grade I - full view of glottisRapid Sequence Induction (RSI): Yes Modified RSI: Yes Number of Attempts at Approach: 1[facility]XR Abdomen 1 Xn9421-63-00 20:12:39Hm Interface, Radiology Results 03/12/2020 8:15 PM CDTEXAMINATION: XR ABDOMEN 1 VWCLINICAL HISTORY: DHT repositioningCOMPARISON: March 12, 2020 earlier the same day.FINDINGS: A Dobbhoff tube terminates distal to the pylorus likely within the first/second portion of the duodenum, the tip is now pointed anterograde.Stable bowel gas pattern.No acute osseous abnormality.IMPRESSION:Adequate Dobbhoff tube placement.[facility]-EE26HZAECALLIE [facility] MethodistXR Abdomen 1 Wnobmttj2925-14-40 14:21:59Hm Interface, Radiology Results - 03/12/2020 2:25 PM CDTEXAMINATION: XR ABDOMEN 1 PORTABLECLINICAL HISTORY: dubhoff placementCOMPARISON: March 12, 2020 earlier the same day.FINDINGS:A Dobbhoff tube coils and terminates within the gastric cardia the tip of which is pointed retrograde.Stable bowel gas pattern. No acute osseous abnormality.IMPRESSION:Recommend repositioning of the Dobbhoff tube so that the tip is within the proximal duodenum.[facility]-KA12MHKB [place] MethodistComprehensive metabolic tibds2915-31-00 06:28:43* Test Item Value Reference Range Interpretation Comments Sodium (test code = 2951-2) 145 135- 148 mEq/L Potassium (test code = 2823-3) 3.8 3.5- 5.0 mEq/L Chloride (test code = 2075-0) 105 98- 112 mEq/L CO2 (test code = 2027-9) 28 24- 31 mEq/L Anion gap (test code = 08292-8) 12@ANIO 7- 15 mEq/L BUN (test code = 3094-0) 25 mg/dL 8-23 H Creatinine (test code = 2160-0) 0.95 mg/dL 0.7-1.2 Glucose (test code = 2345-7) 125 mg/dL 65-99 H Calcium (test code = 28214-1) 9.8 mg/dL 8.8-10.2 Protein (test code = 2885-2) 7.4 g/dL 6.3-8.3 -[place] 4.6- 7.0 g/dL1 week 4.4-7.6 g/dL7 months-1year 5.1-7.3 g/dL1-2 years 5.6-7.5 g/dL>3 years 6.0-8.0 g/vZ21-790 6.3-8.3 g/dL Albumin (test code = 1751-7) 3.0 g/dL 3.5-5 L A/G ratio (test code = 1759-0) 0.7 0.7-3.8 Alkaline phosphatase (test code = 6768-6) 80 U/L 40-129 AST (test code = 1920-8) 20 U/L 10-50 ALT (test code = 1742-6) 29 U/L 5-50 Total bilirubin (test code = 1975-2) <0.2 0-1.2 Lab Interpretation (test code = 31156-8) Abnormal [place] MethodistManual rsxcicgmcfby5591-78-13 11:56:40* Test Item Value Reference Range Interpretation Comments Manual differential (test code = 65759-6) PERFORMED Neutrophils (test code = 68907-6) 59.0 % 39-69 Lymphocytes (test code = 10213-3) 30.0 % 25-45 Monocytes (test code = 72283-7) 6.0 % 0-10 Eosinophils (test code = 14210-3) 5.0 % 0-5 Basophils (test code = 39132-0) 0.0 % 0-1 Metamyelocytes (test code = 740-1) 0 % Promyelocytes (test code = 783-1) 0 % Platelet slide review (test code = 11069-6) Ethan adequate Ovalocytes (test code = 774-0) Moderate Enlarged platelets (test code = 04692-4) Moderate A Lab Interpretation (test code = 21490-7) Abnormal [place] MethodistFL Modified Barium Nusuctl4328-73-68 16:35:33Hm Interface, Radiology Results 03/09/2020 4:38 PM CDTEXAMINATION: FL MODIFIED BARIUM SWALLOWCLINICAL HISTORY: Aspiration known or suspected . Dysphagia unspecified. CVA, encephalopathyFluoroscopy time: 1.7 min. One image acquired. IMPRESSION:Aspiration with thin and nectar liquids. Impaired clearance of residual from the valleculae.Please refer to Speech Pathology report for further details.[facility]-QE11TWHXOdozyzx MethodistCT Chest Wo Contrast Abdomen Wo Contrast Pelvis Wo Idqevqwx3281-23-03 15:06:19Hm Interface, Radiology Results 03/07/2020 3:09 PM CDTEXAMINATION: CT CHEST WO CONTRAST ABDOMEN WO CONTRAST PELVIS WO CONTRASTCLINICAL HISTORY: 64 years Male Abd pain gastroenteritis or colitis suspectedTECHNIQUE: Multiple axial images of the chest, abdomen, and pelvis were obtained without intravenous contrast. The lack of intravenous contrast reduces the sensitivity of detecting solid organ disease. Sagittal and coronal computerized reformatted images were obtained. CT imaging was performed with iterative reconstruction techniques and/or automated exposure control to reduce radiation dose. COMPARISON: February 18IMPRESSION:CHEST:Lungs and airways: Atelectasis in the lung bases. No airspace consolidations or suspicious nodules Pleura: No pleural effusion or pneumothorax.Mediastinum and lymph nodes: No lymphadenopathy. Cardiovascular: The heart size is normal. No pericardial effusion. No left atrial appendage clot. Moderate calcified atherosclerotic vascular disease in the coronary arteries and aorta.Other: Incidental note of bilateral gynecomastia ABDOMEN:Liver: The liver is normal. No focal mass.Gallbladder/Biliary: The gallbladder is normal. There is no evidence of i ntra or extrahepatic biliary ductal dilatation.Spleen: The spleen is not enlarge d.Pancreas: The pancreas is unremarkable.Adrenal Glands: 1 cm left adrenal adeno ma and hyperplasia in the right adrenal gland remain unchangedKidneys: The kidne ys are unremarkable. No mass, hydronephrosis or calculi.Vascular: Calcification of the abdominal aorta is noted. No aneurysm.Nodes: No enlarged retroperitoneal or mesenteric lymphadenopathy.Bowel: Circumferential wall thickening of the dist al descending colon and sigmoid colon. Although this is partially accentuated by underdistention, an underlying infectious/inflammatory colitis is suspected. No obstructing mass.Ascites/fluid collections: No ascites or fluid collections.PEL VIS:No mass, fluid collection or significant adenopathy. MUSCULOSKELETAL: Degene rative changes of the osseous structures. No suspicious lesions. SUMMARY:*Mild c ircumferential wall thickening of the distal descending colon and sigmoid colon. Although this is slightly accentuated by underdistention, an underlying colitis is suspected. No pneumatosis to suggest ischemia.[facility] Head Wo [id number] 14:56:17Hm Interface, Radiology Results - 03/07/2020 2:59 PM CDTEXAMINATION: CT HEAD WO CONTRASTCLINICAL HISTORY: Focal neuro deficit < 6 hrs stroke suspectedCOMPARISON: 02/19/2020TECHNIQUE: Noncontrast CT of the brain was performed from the skull base to the vertex. Both soft tissue and bone reconstruction algorithms are interpreted.CT imaging was performed with iterative reconstruction techniques and/or automated exposure control to reduce radiation dose.FINDINGS:No intracranial hemorrhage, extra- axial collection, or mass-effect is seen. No hyperdense vessel is seen.Recent infarcts in the bilateral occipital lobes and right temporal lobe are less conspicuous on today's study. The majority the recent multiple focal infarcts in the cerebrum seen on comparison MRI are not well demonstrated on CT.Chronic insult is again noted in the left basal ganglia extending into the ly radiata. Areas of chronic infarction are again noted in the left cerebellar hemisphere. Chronic lacunar infarcts again noted in the right caudate head.No air-fluid level is seen in the visualized portions of the paranasal sinuses. Mastoid air cells are clear.IMPRESSION:No acute cranial abnormality is identified.Recent infarcts in the bilateral occipital lobes and right temporal lobe is less conspicuous on today's study than on the comparison exam. The majority of the recent multiple focal infarcts in the cerebrum seen on comparison MRI are not demonstrated on CT.[id number] Congregation Urinalysis screen and microscopy, with reflex to [id number] 14:02:42* Test Item Value Reference Range Interpretation Comments Specimen site (test code = 5139360) Catheterized Color, UA (test code = 5778-6) Yellow Appearance, UA (test code = 5767-9) Hazy Specific gravity, UA (test code = 5811-5) 1.021 1.001-1.035 pH, UA (test code = 5803-2) 5.0 5.0-8.5 Protein, UA (test code = 75922-3) Negative Negative Glucose, UA (test code = 52177-6) Negative Negative Ketones, UA (test code = 2514-8) Negative Negative Bilirubin, UA (test code = 5770-3) Negative Negative Blood, UA (test code = 5794-3) Negative Negative Nitrite, UA (test code = 5802-4) Negative Negative Urobilinogen, UA (test code = 16351-2) <2.0 <2.0 Leukocyte esterase, UA (test code = 5799-2) Negative Negative WBC, UA (test code = 5821-4) 1 0- 1 /HPF RBC, UA (test code = 26962-4) <1 0- 5 /HPF Bacteria, UA (test code = 96196-4) Few None seen Yeast, UA (test code = 78439-4) None seen Yeast with pseudohyphae, UA (test code = 08100-2) None seen Amorphous crystals (test code = 23822-7) Few Hyaline casts, UA (test code = 5796-8) 6 /LPF Lino NyUrine [id number] 14:02:21* Test Item Value Reference Range Interpretation Comments Urine culture (test code = 7363043) SEE COMMENT Bacteriuria screen negative. [facility] MethodistArterial blood [id number] 11:26:02* Test Item Value Reference Range Interpretation Comments pH, arterial (test code = 2744-1) 7.43 7.35-7.45 pCO2, arterial (test code = 2019-8) 42 35- 45 mmHg pO2, arterial (test code = 2703-7) 76 80- 90 mmHg L Bicarbonate, arterial (test code = 1960-4) 27.3 mmol/L 21-28 Base excess, arterial (test code = 1925-7) 3 -2 - 2 mEq- L H O2 saturation, arterial (test code = 2708-6) 95 % 95-100 Lab Interpretation (test code = 04352-7) Abnormal [place] [facility] natriuretic [id number] 06:36:04* Test Item Value Reference Range Interpretation Comments BNP (test code = 09190-5) 136 pg/mL 0-100 H Lab Interpretation (test code = 01569-0) [facility]normal [place] [facility] [id number] 22:46:36Procedure DetailsA time- out was completed verifying correct patient, procedure, site, positioning, and special equipment if applicable. The patient was placed in a supine position. The patients right groin was prepped and draped in sterile fashion. Right femoral artery was cannulated with a 5F sheath. Coronary angiogram was performed by selectively cannulating right and left coronary arteries with use of JL4 and WR catheters, respectively. The SVG to RCA graft was engaged with the WR catheter.Decision was made to intervene on the occluded SVG graft. The 5Fr sheath was exchanged for a 6Fr sheath. Findings? Left main: No significant lesions? LAD: 40% stenosis in the proximal LAD? LCx: 50% stenosis in the mid LCx proximal to second OM ? SVG to RCA graft: 99% occlusion proximally? RCA: 100% proximal RCA occlusion. Graft to RCA occluded. Distal RCA has collaterals from LCx artery. [place] MethodistAmmonia [id number] 17:46:17* Test Item Value Reference Range Interpretation Comments Ammonia (test code = 1841-6) 35 umol/L 16-60 [place] MethodistHepatic function [id number] 17:26:51* Test Item Value Reference Range Interpretation Comments Albumin (test code = 1751-7) 3.3 g/dL 3.5-5 L Total bilirubin (test code = 1974-) 0.5 mg/dL 0-1.2 Bilirubin direct (test code = 1967-) <0.2 0-0.3 Alkaline phosphatase (test code = 6768-6) 96 U/L 40-129 Protein (test code = 2885-2) 8.3 g/dL 6.3-8.3 -[place] 4.6- 7.0 g/dL1 week 4.4-7.6 g/dL7 months-1year 5.1-7.3 g/dL1-2 years 5.6-7.5 g/dL>3 years 6.0-8.0 g/jI87-726 6.3-8.3 g/dL ALT (test code = 1742-6) 78 U/L 5-50 H AST (test code = 1920-8) 29 U/L 10-50 Lab Interpretation (test code = 18926-5) Abnormal [place] MethodistIonized [id number] 05:22:11* Test Item Value Reference Range Interpretation Comments pH (test code = 2753-2) 7.58 Ionized calcium (test code = 1994-) 1.12 mmol/L 1.11-1.32 [place] MethodistIonized calcium, [id number] 03:15:28* Test Item Value Reference Range Interpretation Comments Ionized calcium, arterial (test code = 11646-4) 1.18 mmol/L 1.11-1 .32 [place] MethodistECG 12 [id number] 15:47:18* Test Item Value Reference Range Interpretation Comments Ventricular rate (test code = 253) 90 Atrial rate (test code = 255) 90 UT interval (test code = 266) 134 QRSD interval (test code = 260) 142 QT interval (test code = 264) 390 QTC interval (test code = 265) 477 P axis 1 (test code = 267) 47 QRS axis 1 (test code = 268) -35 T wave axis (test code = 270) 23 EKG impression (test code = 273) Normal sinus rhythm-P ossible Left atrial enlargement-Left axis deviation-Right bundle branch block-Inferior infarct (cited on or before 16-FEB-2020)-Abnormal ECG-In automated comparison with ECG of 25-FEB-2020 09:50,-Serial changes of Inferior infarct present- [place] MethodistO2 saturation, [id number] 04:45:20* Test Item Value Reference Range Interpretation Comments Hemoglobin, venous, syringe (test code = 27334-9) 11.1 g/dL 14-1 8 L O2 saturation, venous (test code = 2711-0) 75 % 40-70 H Lab Interpretation (test code = 14830-0) Abnormal [place] MethodistPotassium [id number] 17:33:48* Test Item Value Reference Range Interpretation Comments Potassium (test code = 2823-3) 4.3 3.5- 5.0 mEq/L [place] MethodistBlood culture, aerobic & ywgbcswxs6961-05-02 16:33:07* Test Item Value Reference Range Interpretation Comments Blood culture isolate (test code = 600-7) No growth after 5 days of incubation. Specimen InformationSpecimen Source: BloodSpecimen Site: Arm, left [place] MethodistCath lab [id number] 00:21:44ASSISTANT:None.TITLE OF OPERATION:Selective saphenous vein bypass angiogram.PREOPERATIVE DIAGNOSES:Acute non-ST elevation myocardial infarction, status post percutaneous coronaryintervention, saphenous vein bypass.POSTOPERATIVE DIAGNOSES:Acute non-ST elevation myocardial infarction, status post percutaneous coronaryintervention, saphenous vein bypass.ANESTHESIA:Conscious sedation with Versed 1 mg IV with continuous sedation with propofol.ESTIMATED BLOOD LOSS:5 mLCOMPLICATIONS :None.OPERATIVE COURSE:After informed consent was obtained from the patient's da ughter due to thepatient being sedated on propofol and intubated, he was brought to the cardiaccatheterization laboratory as a followup to an infarct PCI to a d iffuselydiseased saphenous vein bypass approximately 5 days ago. While the vess el wassuccessfully crossed and opened (RCA bypass), it was apparent that the ves selwas completely filled with thrombus and diffuse disease. We could not useInt egrilin keno terminal operator due to his renal insufficiency, and as such, we were forcedto use intravenous heparin. He has been on a heparin infusion for the last 5days a nd essentially has done well hemodynamically, although he remains on verylow dos e dopamine for pressure. We brought him back to the catheterizationlaboratory t terrence specifically to view the bypass and assess whether or not ithad \\"cleaned u p.\\" The left groin was cleaned and prepared in usual fashion andthe artery ent ered without difficulty using an 18-gauge AMC needle. A short5-[place] arterial sheath was utilized for access. The saphenous vein bypass wassuccessfully cannu lated using a multipurpose catheter. One shot was takenshowing total occlusion of the bypass at the site where it was previouslyoccluded earlier. Thus, the pr ocedure was terminated. The sheath will beremoved in the intensive care unit. He will be treated medically. Intravenousheparin will be discontinued. Overall , he tolerated the procedure well.[facility] MethodistActivated clotting time 2020-02-22 18:47:40* Test Item Value Reference Range Interpretation Comments Activated clotting time (test code = 5298) 93 96- 152 sec L Brands Editor Name: Ezra Meek SDevice ID: [id number] Lab Interpretation (test code = 64889-0) Abnormal [place] MethodistPartial thromboplastin time, [id number] 11:40:44* Test Item Value Reference Range Interpretation Comments PTT (test code = 81327-4) 58.6 23.0- 36.0 sec H PTT therapeutic range for unfractionated heparin is61.0-112.0 seconds which corresponds to Anti-Xa0.3-0.7 U/ml. Lab Interpretation (test code = 42302-0) Abnormal [facility] MethodistContinuous EEG [id number] 07:01:11CONTINUOUS VIDEO- EEG MONITORING REPORT Patient Name: Gil Man Date of : 1955 Gender: male Initial Study Start Date: 02/18/2020Initial Study Start Time: 3:55 Current Study Start Date: 02/21/2020 Current Study Start Time: 00:00 Current Study End Date: 02/21/2020Current Study End Time: 23:59 IndicationSeizure Technical SummaryTechnique:Modified international 10/20 system of EEG electrode placement was used. Visual Analysis of EEG-Video Monitoring:This electroencephalogram was recorded simultaneously with video throughout the monitoring. The EEG was visua lly inspected and analyzed for characterization of the background activity in al l awake and sleep states, abnormal focal and generalized features, and intraicta l and ictal epileptiform activity. Electrical seizure activity was correlated wi th the patients clinical activity recorded on video and video captured clinical events were correlated with simultaneously recorded EEG activity. Computer Anal ysis of EEG Waveforms:The EEG underwent continuous computerized digital spectral analysis, which consisted of real time detection of electrical events that could be considered epileptiform. All electrographic events identified by the detect ion program were visually inspected in order to assess the waveform characterist ics and significance of these electrographic events. All intraictal and ictal ep ileptiform events are described further below with additional details of the vis ual analysis of the EEG. Events detected by computer analysis that were not dete rmined by visual analysis to be epileptiform were considered to be myogenic, bio logic, mechanical, or electrical artifact in origin. Only computer detected even ts that have been verified by visual inspection to be interictal or ictal epilep tiform discharges are reported below and considered in the final report of this monitoring study. Findings Awake Recordings: There is no occipital dominant rhyt hm. 6-8 Hz and 4-5 Hz and 1.5-3 Hz activity was present in all regions. 18-22 Hz activity was present in all regions. Diphasic and Triphasic sharp wave discharg es were present in the frontal central regions. There is no reactivity to stimul ation. Sleep Recording: No sleep was recorded. Hyperventilation: Was not perfor med. Photic Stimulation: Was not performed. Impression: The findings are consist ent with a severe diffuse disturbance in brain function which is most likely met abolic or ischemic hypoxic in etiology. No seizures occurred. ICD-10 Code: R56.9 [place] MethodistContinuous EEG [id number] 08:45:32CONTINUOUS VIDEO- EEG MONITORING REPORT Patient Name: Gil Man Date of : 1955 Gender: male Initial Study Start Date: 02/18/2020Initial Study Start Time: 3:55 Current Study Start Date: 02/20/2020 Current Study Start Time: 00:00 Current Study End Date: 02/20/2020Current Study End Time: 23:59 IndicationSeizure Technical SummaryTechnique:Modified international 10/20 system of EEG electrode placement was used. Visual Analysis of EEG-Video Monitoring:This electroencephalogram was recorded simultaneously with video throughout the monitoring. The EEG was visua lly inspected and analyzed for characterization of the background activity in al l awake and sleep states, abnormal focal and generalized features, and intraicta l and ictal epileptiform activity. Electrical seizure activity was correlated wi th the patients clinical activity recorded on video and video captured clinical events were correlated with simultaneously recorded EEG activity. Computer Anal ysis of EEG Waveforms:The EEG underwent continuous computerized digital spectral analysis, which consisted of real time detection of electrical events that could be considered epileptiform. All electrographic events identified by the detect ion program were visually inspected in order to assess the waveform characterist ics and significance of these electrographic events. All intraictal and ictal ep ileptiform events are described further below with additional details of the vis ual analysis of the EEG. Events detected by computer analysis that were not dete rmined by visual analysis to be epileptiform were considered to be myogenic, bio logic, mechanical, or electrical artifact in origin. Only computer detected even ts that have been verified by visual inspection to be interictal or ictal epilep tiform discharges are reported below and considered in the final report of this monitoring study. Findings Awake Recordings: There is no occipital dominant rhyt hm. 6-8 Hz and 4-5 Hz and 1.5-3 Hz activity was present in all regions. 18-22 Hz activity was present in all regions. Diphasic and Triphasic sharp wave discharg es were present in the frontal central regions. There is no reactivity to stimul ation. Sleep Recording: No sleep was recorded. Hyperventilation: Was not perfor med. Photic Stimulation: Was not performed. Impression: The findings are consist ent with a severe diffuse disturbance in brain function which is most likely met abolic or ischemic hypoxic in etiology. No seizures occurred. ICD-10 Code: R56.9 Juancho Neff, Clinical Neurophysiology I reviewed the entire EEG and ag ree with the above findings. [facility]Contin[facility] EEG [id number] 08:22:45 CONTINUOUS VIDEO-EEG MONITORING REPORT Patient Name: Gil Man Date of : 1955 Gender: male Initial Study Start Date: 02/18/2020Initial Study Start Time: 3:55 Current Study Start Date: 02/19/2020 Current Study Start Time: 00:00 Current Study End Date: 02/19/2020Current Study End Time: 23:59 The patient was disconnected for several hours during the recording. IndicationSeizure Technical SummaryTechnique:Modified international 10/20 system of EEG electrode placement was used. Visual Analysis of EEG-Video Monitoring:This electroencephalogram was recorded simultaneously with video throughout the monitoring. The EEG was visually inspected and analyzed for characterization of the background activity in all awake and sleep states, abnormal focal and generalized features, and intraictal and ictal epileptiform activity. Electrical seizure activity was correlated with the patients clinical activity recorded on video and video captured clinical events were correlated with simultaneously recorded EEG activity. Computer Analysis of EEG Waveforms:The EEG underwent continuous computerized digital spectral analysis, which consisted of real time detection of electrical events that could be consid ered epileptiform. All electrographic events identified by the detection program were visually inspected in order to assess the waveform characteristics and sig nificance of these electrographic events. All intraictal and ictal epileptiform events are described further below with additional details of the visual analysi s of the EEG. Events detected by computer analysis that were not determined by v isual analysis to be epileptiform were considered to be myogenic, biologic, mech anical, or electrical artifact in origin. Only computer detected events that hav e been verified by visual inspection to be interictal or ictal epileptiform disc harges are reported below and considered in the final report of this monitoring study. Findings Awake Recordings: There is no occipital dominant rhythm. 6-8 Hz and 4-5 Hz and 1.5-3 Hz activity was present in all regions. 18-22 Hz activity w as present in all regions. Diphasic and Triphasic sharp wave discharges were pre sent in the frontal central regions. There is no reactivity to stimulation. Slee p Recording: No sleep was recorded. Hyperventilation: Was not performed. Photic Stimulation: Was not performed. Impression: The findings are consistent with a severe diffuse disturbance in brain function which is most likely metabolic or i schemic hypoxic in etiology. No seizures occurred. ICD-10 Code: R56.9 Juancho Neff, Clinical Neurophysiology I reviewed the entire EEG and agree with th e above findings. Ruben Jensen MDBaileyville Marg[facility]arehabilitation [facility] southern new mexicoum [id number] 06:51:08* Test Item Value Reference Range Interpretation Comments Sputum culture isolate (test code = 2234) Streptococcu s group CFewThe performance characteristics of this assay on this isolatewere validated by the Microbiology Laboratory at [facility]. This source has not been approved by the U.S. Food and Drug Administration. The results are not intended to be used as the sole means for clinical diagnosis or patient management. The Microbiology Laboratory is authorized under the clinical Laboratory Improvement Amendments of 1988 (CLIA-88) to perform high complexity testing. A Specimen InformationSpecimen Source: SputumSpecimen Site: Induced Lab Interpretation (test code = 01520-0) Abnormal [facility] [id number] 03:52:23Gram stain isolateModerate WBC'sOccasional Gram positive cocci in clustersMany Gram positive cocci in chains Comment: Specimen InformationSpecimen Source: SputumSpecimen Site: Induced [facility] [id number] 01:20:14* Test Item Value Reference Range Interpretation Comments Troponin (test code = 60224-5) 31.276 ng/mL 0-0.04 HH In patients suspected of having a myocardial infarction, along with all other appropriate clinical measures and actions including ECG and other diagnostics as appropriate, measure Ultra TnI at 0 hrs and at 3 hrs.Myocardial infarction VERY LIKELYThe 0 hr TnI level is > 0.10 ng/mL Alec cardial infarction LIKELYThe 0 hr TnI level is > 0.04 ng/mL and 3 hr level is increased or decreased by at least 0.020 ng/mL Myocardi al infarction VERY UNLIKELYBoth the 0 hr and 3 hr TnI levels <= 0.04 ng/mL(within normal limits) OR 0 hr is > 0.04 ng/mL and 3 hr is increased OR decreased by less than 0.020 ng/mL Lab Interpretation (test code = 49957-8) Abnormal [place] [facility] Wo [id number] 22:51:11Hm Interface, Radiology Results Incoming 02/19/2020 10:54 PM CDTEXAMINATION: MRI BRAIN WO CONTRASTCLINICAL HISTORY: Focal neuro deficit < 6 hrs stroke suspected, Thin cut coronal DWI through the brainstem. Follow-upCOMPARISON: CT brain from earlier todayTECHNIQUE: Multiplanar and multisequence MRI imaging of the brain was obtained without contrast.FINDINGS:There are multiple recent areas of infarct throughout [...] sulci and cisterns and nonspecific white matter changes.The study was not performed for proper imaging of the intracranial arteries. There is m ucosal thickening and partial opacification of the sinuses and mastoid air cells .IMPRESSION:Multiple recent infarcts throughout the brain in different vessel di stributions suggesting the etiology is from emboli from a central source such as the heart or aorta.[facility]-[id number] MethodistPv transcranial Doppler intracranial [id number] 22:21:00Interface, Radiology Results In 02/19/2020 10:21 PM CDT Vascular Ultrasound Laboratory Transcranial Doppler Report (TCD) [address] [id number].Name: GIL MAN.ID: [id number] .Date: 02/19/2020 Refer.MD: ZAKIA CRUZ MD Exam Time: 2:26:00 PM Study Type:TCD Age: 9 1955,64Y Sex: MALE Sonogrphr: Moira Todd, RVT, Marito Ortiz, RVS, RCSPat. Stat.:Inpatient Room: [place] [address] 1002 Tape Vol: TN/JENNIFER, CPT - 4: 07220 Echo Event ID:[id number] Order ID: [id number] Reason for Study:Stroke. History of HTN, CAD s/p CEA, CAD/valvulardisease s/p CABG and hi story CVA Procedures: Colorflow, Pulsed wave DopplerRace: D SUMMARY: ------- RIGHT LEFT Antegrade Retrograde Antegrade Retrograde Ophthalm ic Artery + + RIGHT LEFT Normal Abnormal Not Seen Normal Abnormal Not Seen Siphon + PI 1.96 +PI 1.80 MCA + PI 1.66 + PI 1.50 BHARATHI + PI 1.48 + PI 1.65 CONCRETE STONE FABRICATOR + + Basilar + + Vertebral + + ADDITIONAL FINDINGS:1. No evidence of elevated velocities in the insona viviana arteries,bilaterally.2. Elevated PI values noted throughout the insonated ar teries with theexception of right CONCRETE STONE FABRICATOR.3. Bilateral vertebral and basilar arterie s are not visualized due todressing and neck IV lines. 4. Unable to obtain left CONCRETE STONE FABRICATOR.PHYSICIAN INTERPRETATION: All velocities within normal limits. No stenosis o r obstructiondetected.Both OAs are antegrade. Elevated PI values noted througho ut theinsonated arteries.VAs and BA were not visualized. FINDINGS: Signed 02/19/2020 10:21 Seth Gambino MD, [facility] MethodistLipid [id number] 15:44:14* Test Item Value Reference Range Interpretation Comments Cholesterol (test code = 2093-3) 160 mg/dL <200 Triglycerides (test code = 2571-8) 231 mg/dL <150 H HDL cholesterol (test code = 2085-9) 26 mg/dL >40 L LDL cholesterol (test code = 2089-1) 99 mg/dL <100 Result obtained by direct LDL measurement Lipid panel interpretation (test code = 59471-8) SeeBelow Total Cholesterol (mg/dL) <200 Desirable 200-239 Borderline-high >=240 High Triglycerides (mg/dL) <150 Normal 150-199 Borderline-high 200-499 High >=500 Very high HDL Cholesterol (mg/dL) <40 Low (male) <40 Low (female) LDL Cholesterol (mg/dL) <100 Optimal 100-129 Near or above optimal 130-159 Borderline-high 160-189 High >=190 Very high Risk Catergories that modify LDL goals.Risk Catergories LDL goal (mg/dL)CHD and CHD risk equivalent <100 (10-year risk >20%)Multiple (2+) risk factors <130 (10-year risk =<20%)0-1 risk factors <160 (<10-year risk) Defining levels of lipids in metabolic syndromeTriglycerides >=150 mg/dLHDL Cholesterol Men <40 mg/dL Women <40 mg/dL Non-HDL cholesterol is a second target for therapy in personswith high triglycerides (>=200 mg/dL) Lab Interpretation (test code = 66721-2) Abnormal [facility] MethodistCTA Head W Wo [id number] 12:15:44Hm Interface, Radiology Results 02/19/2020 12:18 PM CDTEXAMINATION: CT ANGIOGRAM HEAD W WO CONTRASTCLINICAL HISTORY: suspect basilarCOMPARISON: Head CT and concurrent neck CTA on 02/19/2020.TECHNIQUE: Head CTA with multiplanar MIP and volumetric rendering after bolus intravenous iodinated contrast administration performed using radiation dose reduction techniques. Technical factors are evaluated and adjusted to ensure appropriate moderation of exposure. Automated dose management technology is applied to adjust radiation exposure while achi eving a diagnostic quality image.FINDINGS:The study is limited by streak and xiao m hardening artifacts from occipitocervical fusion hardware.There is paucity of contrast with likely occlusion of the left vertebral artery distal V3-proximal V 4 segment as it penetrates the dura. Although there is faint contrast within the right vertebral artery, there are short segmental defects from likely severe st enosis/occlusion along the proximal and distal parts of the right V4 vertebral a rtery. The basilar artery appears to be fed by predominantly the anterior spinal artery. Remainder of the posterior circulation is diminutive in size with weak contrast enhancement. This includes the basilar artery, cerebellar arteries, CONCRETE STONE FABRICATOR s, and bilateral posterior communicating arteries without gross occlusion.Scatte red vessel wall calcification from presumably atherosclerosis along petrous, cav ernous, and supraclinoid segments of bilateral ICAs with at most mild-moderate s tenosis. Normal contrast enhancement with no significant stenosis or occlusion a long bilateral ACAs and MCAs. The anterior communicating artery complex is unrem arkable.No evidence of cerebral aneurysm in the proximal chinik of Cardoza.IMPRES CHERYL:Likely occlusion of bilateral vertebral arteries V4 segments with the poste rior circulation fed by predominantly the anterior spinal artery. Remainder of t he posterior circulation is diminutive in size with weak contrast enhancement wi thout gross occlusion.Findings were discussed with Nurse Ting Peralta on 12:00 PM, and she verbalized understanding of the report. [id number] [facility] MethodistCT Abdomen WWO Contrast, Pelvis W [id number] 12:13:29 Hm Interface, Radiology Results 02/19/2020 12:16 PM CDTEXAMINATION: CT ABDOMEN WWO CONTRAST PELVIS W CONTRASTCLINICAL HISTORY: suspect retroperiton eal bleedTECHNIQUE: Noncontrast images of the abdomen were obtained. Subsequentl y, axial images of the abdomen and pelvis were obtained following intravenous ad ministration of iodinated contrast. Sagittal and coronal computerized reformatte d images were also obtained.Automatic exposure control or iterative reconstructi on techniques used to reduce dose.COMPARISON: None.IMPRESSION:1. Prominent depe ndent atelectasis at lung bases. NG tube tip is at the gastric fundus. No focal lesions are seen within the liver, adrenals, kidneys, or spleen. Both adrenals s how nodular enlargement and may represent hyperplasia. Extensive vascular calcif ications at renal hilar regions, without clear evidence for nephrolithiasis or h ydronephrosis. Hyperdensity within the gallbladder probably due to vicarious exc retion of contrast versus sludge/stones. Bowel gas pattern nonobstructive.2.Smal l amount of free fluid noted in the pelvis. No evidence for retroperitoneal kim ainsley. Stranding along the right groin region should be correlated with angiograp hy access. No significant hematoma noted. Degenerative changes noted throughout dorsal spine.SUMMARY:1.No evidence for retroperitoneal hematoma noted.[id number] MethodistCTA Neck W Wo [id number] 12:00:58Hm Interface, Radiology Results 02/19/2020 12:03 PM CDTEXAMINATION: CT ANGIOGRAM NECK W WO CONTRASTCLINICAL HISTORY: strokeCOMPARISON: None.TECHNIQUE:Neck CTA with multi-planar MIP and volumetric rendering (3D) after bolus intravenous iodinated contrast administration was performed. All CT images were acquired using low-dose technique with automated exposure control.FINDINGS:Normal b ranching anatomy of the aortic arch. Atherosclerosis aortic arch and origins the major branch vessels, with mild narrowing of the left subclavian artery origin. There is no significant stenosis of the bilateral common, internal, and external carotid arteries. There is no significant stenosis according to the NASCET crit eria (0%). Evidence of prior carotid endarterectomies bilaterally. There is trac e residual calcified atherosclerosis of the right carotid bifurcation.Diminutive vertebrobasilar system. There is occlusion of the left vertebral artery at its origin, with reconstitution of flow at the mid left V2 segment, with multifocal moderate narrowing of the left V2, V3, and severe narrowing of the left V4 segme nt. 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 There is multifocal m ild or moderate narrowing of the right vertebral artery V2 segment, and severe m ultifocal narrowing of the right V3 and V4 segment. This findings are age indete rminate and could represent narrowing secondary to atherosclerosis, though canno t exclude possibility of dissection or thrombosis in any of these segments, give n the presence of acute appearing posterior circulation infarcts.Prior carotid e ndarterectomies with no significant cervical carotid artery stenosis.Findings we re discussed with and acknowledged by YORDY Schultz at 02/19/2020 12:00 PM who luis munoz understanding with the findings would be given to the M.D. caring for manohar ent.[id number] MethodistCT Stroke Brain Wo [id number] 11:38:49Hm Interface, Radiology Results 02/19/2020 11:41 AM CDTEXAMINATION: CT STROKE BRAIN WO CONTRASTCLINICAL HISTORY: strokeCOMPARISON: CT stroke 02/18/2020TECHNIQUE: Noncontrast head CT performed using radiation dose reduction techniques. Technical factors are evaluated and adjusted to ensure appropriate moderation of exposure. Automated dose management technology is applied to adjust radiation exposure while achieving a diagnostic quality image. FINDINGS:No evidence of hemorrhagic conversion. No mass effect or midline shift.Redemonstration of areas of carbone-white matter differentiation loss involving the bilateral occipital lobes (with possible petechial cortical hemorrhage) and anteromedial right temporal lobe consistent with sequela of recent ischemia.Chronic appearing lacunar infarct involving the left basal ganglia with minimal ex vacuo dilatation of the adjacent left lateral ventricle. Chronic appearing insults involving the left greater than right cerebellar hemispheres and suspected small chronic insults involving the parasagittal right parietal lobe.Age-indeterminate small area of ischemia involving the right precentral gyrus.Stable size and configuration of the ventricular system without hydrocephalus. Basal cisterns are clear. Hardware involving the occipital calvarium. Suspected narrowing of the spinal canal at the craniocervical junction with widening of the atlantodental interval.Mild bilateral orbital proptosis. Mild chronic appearing sinus inflammatory changes. Trace right mastoid fluid.IMPRESSION:No significant interval change compared with 2019.[id number] MethodistContinuous EEG [id number] 07:38:59 CONTINUOUS VIDEO-EEG MONITORING REPORT Patient Name: Gil Man Date of : 1955 Gender: male Initial Study Start Date: 02/18/2020Initial Study Start Time: 3:55 Current Study Start Date: 02/18/2020 Current Study Start Time: 3:55 Current Study End Date: 02/18/2020Current Study End Time: 23:59 IndicationSeizure Technical SummaryTechnique:Modified international 10/20 system of EEG electrode placement was used. Visual Analysis of EEG-Video Monitoring:This electroencephalogram was recorded simultaneously with video throughout the monitoring. The EEG was visually inspected and analyzed for characterization of the background activity in all awake and sleep states, abnormal focal and generalized features, and intraictal and ictal epileptiform activity. Electrical seizure activity was correlated with the patients clinical activity recorded on video and video captured clinical events were correlated with simultaneously recorded EEG activity. Computer Analysis of EEG Waveforms:The EEG underwent continuous computerized digital spectral analysis, which consisted of real time detection of electrical events that could be considered epileptiform. All electrographic events identified by the detection program were visually inspected in order to assess the waveform characteristics and significance of these electrographic events. All intraictal and ictal epileptiform events are described further below with additional details of the visual analysis of the EEG. Events detected by computer analysis that were not determined by visual analysis to be epileptiform were considered to be myogenic, biologic, mechanical, or electrical artifact in origin. Only computer detected events that have been verified by visual inspection to be int erictal or ictal epileptiform discharges are reported below and considered in th e final report of this monitoring study. Findings Awake Recordings: There is no occipital dominant rhythm. 6-8 Hz and 4-5 Hz and 1.5-3 Hz activity was present i n all regions. 18-22 Hz activity was present in all regions. Diphasic and Tripha sic sharp wave discharges were present in the frontal central regions. Sleep Rec ording: No sleep was recorded. Hyperventilation: Was not performed. Photic Stim ulation: Was not performed. Impression: The findings are consistent with a sever e diffuse disturbance in brain function which is most likely metabolic or ischem ic hypoxic in etiology. No seizures occurred. ICD-10 Code: R56.9 KARLENE Neff, Clinical Neurophysiology I reviewed the entire EEG and agree with the abo ve findings. MD Lino HopkinsistVancomycin level, random 2020-02-19 05:06:49* Test Item Value Reference Range Interpretation Comments Vancomycin, random (test code = 60051-8) 7.4 ug/mL Lino MethodistCOVID-19 qualitative [id number] 22:36:12* Test Item Value Reference Range Interpretation Comments Interpretation (test code = 6913177) Negative results do not preclude 2019-nCoV infection and should not be used as the sole basis for treatment or other patient management decisions. Negative results must be combined with clinical observations, patient history, and epidemiological information. COVID-19 qualitative PCR result (test code = 31046-7) Not-Detect ed Not-Detected COVID-19 qualitative PCR (test code = 7070) See link below for P DF Lab Report [place] MethodistHepatitis acute [id number] 19:04:18* Test Item Value Reference Range Interpretation Comments Hepatitis A IgM (test code = 80394-6) Non-reactive Non-reactive Hepatitis B core IgM (test code = 51465-7) Non-reactive Non-reactiv e Hepatitis B surface Ag (test code = 5195-3) Non-reactive Non-reacti ve Hepatitis C Ab (test code = 49399-3) Non-reactive Non-reactive [place] MethodistHIV Ag/Ab assfkbghfic1608-26-08 19:04:18* Test Item Value Reference Range Interpretation Comments HIV Ag/Ab combination (test code = 5299) Non-reactive Non-reactive [place] MethodistEEG (routine) - Baseline [id number] 08:01:17 This is a severely abnormal Video-EEG study characterized by severe diffuse slowing and poor reactivity of the background, a nonspecific finding indicating global cerebral dysfunction. There are no epileptiform discharges or seizures captured. Nuno Coello MDSt. [facility], Clinical Neurophysiology ATTESTATIONI have personally reviewed the entire EEG and the interpretation by Dr. Coello, and I agree with t he findings as documented above. Yessenia Gatica MD ICD-10 Code: R569 VIDEO-EEG RE CORDING COMA/SLEEP - Baseline for Bedside Date of Service:02/18/20 Patient Name : Gil Man of : 1955 Attending MD: Yessenia Gatica MD TECHNIQUE: Recordings were obtained using a standard international 10-20 e lectrode placement supplemented with a single electrocardiogram chest electrode. The recordings were obtained using a reference electrode and reformatted digita lly into sequential bipolar and referential montages for review. OBJECT OF GEO RDING: This is a .19-channel EEG in a 64 y.o. year old male with a history of si gnificant for HTN, CVA with residual right sided weakness, carotid artery diseas e s/p bilateral CEA, CAD who ws admitted on 02/15 after found unresponsive by his son and referred for EEG to evaluate for seizures. FINDINGS: Background: The va whitaker is intubated. The background is continuous and composed of predominantly t heta and delta frequencies with poor anterior to posterior organization and no d iscernable posterior dominant rhythm. There is reduced variability and reactivit y. There is abundant myogenic artifact throughout the recording. There is poor s leep-wake differentiation. Hyperventilation: was not performedPhotic stimulation : was not performed Interictal: There are no epileptiform discharges or seizures captured. [place] MethodistHemoglobin [id number] 07:32:41* Test Item Value Reference Range Interpretation Comments Hemoglobin A1C (test code = 23637-6) 6.7 % 4-5.6 H HbA1c cutoffs for diagnosing diabetes:4.0% - 5.6% = normal5.7% - 6.4% = increased risk for diabetes (prediabetes)9>=6.5% = zvtbrqor3Onmii for glycemic control (ADA 2016)< 7.0% Target for non adults with diabetes. More or less stringent targets may be appropriate for individual patients. <7.5% Target for Children and adolescents with type 1 diabetes. Lab Interpretation (test code = 29952-0) Abnormal [place] AeawvicbcAqswkuojsauvl9318-69-01 07:18:39* Test Item Value Reference Range Interpretation Comments Procalcitonin (test code = 03881-8) 12.99 ng/mL <=0.07 H INTERPRETIVE INFORMATION: ProcalcitoninProcalcitonin > 2.00 ng/mL: Procalcitonin levels above 2.00 ng/mL on the first day of ICU admission represent a high risk for progression to severe sepsis and/or septic shock.Procalcitonin < 0.50 ng/mL: Procalcitonin levels below 0.50 ng/mL on the first day of ICU admission represent a low risk for progression to severe sepsis and/or septic shock.If t he procalcitonin measurement is performed shortly after the systemic infection process has started (usually less than 6 hours), these values may still be low. As various non-infectious conditions are known to induce procalcitonin as well, procalcitonin levels between 0.5 ng/mL and 2.00 ng/mL should be reviewed carefully to take into account the specific clinical background and condition(s) of the individual patient.Performed at: [facility] [address] [facility] [place] [address] MAICO (test code = MAICO) ___K___ results called to an d read back by _YORDY NAM\\WT10(name/location)at ___ 02/16/2020 23:56 ____ (date/time) by LSB_. Lab Interpretation (test code = 68495-2) Abnormal [facility] CenterTransthoracic Echocardi[facility] Complete, (w Contrast, Strain and 3D if needed)2020-02-17 10:15:00Interface, Radiology Results In - 02/17/2020 10:16 AM CDT Echocardiography Report [address]Name: GIL MAN Pat.ID: [id number] .Date: 02/17/2020 Refer.MD: MIKE LOPEZ MD Exam Time: 1:10:00 AM Study Type:Routine Echo Height: 62in Weight: 179.61lb BSA: 1.83 m2 Age: 9 1955,64Y Sex: MALE BP: 144/66 HR: 56 bpm Sonogrphr: DELMA Archer Pat. Stat.:Inpatient Room: [place] [address] Study Status:Final Echo Event ID:[id number] Order ID: [id number] Reason for Study:Ventricular tachycardiaProcedures: 2D Echo, Colorflow Doppler, Strain, PortableRace: D SUMMARY: LV EF is no rmal. Wall motion abnormalities present. Estimated EF is55-59%.RV systolic funct ion is normal. FINDINGS: LV: LV size is normal. There is severe concentric LV hypertrophy. Reduced average LV global longitudinal strain at -8%. LV EF is normal. Estimated EF is 55-59%.RV: RV size is normal. RV systolic function is normal.LA: LA volume is mildly enlarged.RA: RA size is n ormal.AO: Aortic root diameter is normal.YONY: No pericardial effusion .AV: Aortic valve not well seen.MV: Mild mitral annular calcificatio n.PV: Pulmonic valve not well seen.TV: No structural TV abnormalitie s noted.Jennings: LV filling pressure is elevated.Other: Insufficient TR jet to estimate PA systolic pressure. MEASUREMENT S: 2DParast ernal Long [place] Ao An 2 cm LVPWd 1.8 cm Ao Rtd 3.1 cm Index 1.7 cm/m2 LA Ds 3.3 cm IVSd 1.8 cm RWT 0.88 LVIDd 4.1 cm Index 2.2 cm/m2 LV Mass 323 g (122-174) LVIDs 2.2 cm LVM Index 177 g/m2 LV%fs 46 % LVOT 1.7 cm LA Sng Plane LA Area 20 cm2 (8.8-23.4) LA Vol 67 ml Index 37 ml/m2 LA LngAx 5.1 cm LVOT LVOT Area 2.4 cm2 DOPPLERLVOT Stroke Vol LVOT TVI 21 cm HR 55 bpm LVOT LVOT SV 51 ml LVOT CO 2.8 l/min SVi 28 ml/m2 LVOT CI 1.5 l/m/m2 WALL MOTION: -------RESTING WALL MOTION:Basal Inferoseptal, Basal Inferior bacon are akinetic . MidInferoseptal, Mid Inferior bacon are hypokinetic. Normal wall motionin a ll other bacon.Wall Index = 1.4Signed 02/17/2020 10:15 Rich Dejesus M.D. Lino MethodistType and [id number] 10:11:00* Test Item Value Reference Range Interpretation Comments ABO grouping (test code = 883-9) O Rh type (test code = 14286-4) POS Antibody screen (gel) (test code = 890-4) NEG [place] MethodistT4, [id number] 05:27:39* Test Item Value Reference Range Interpretation Comments T4, free (test code = 3024-7) 1.0 ng/dL 0.9-1.7 [place] EstellaistThyroid stimulating [id number] 05:27:39* Test Item Value Reference Range Interpretation Comments TSH (test code = 3016-3) 2.14 0.27- 4.20 uIU/mL [place] CongregationCortisol level, [id number] 05:26:36* Test Item Value Reference Range Interpretation Comments Cortisol, random (test code = 2143-6) 4 ug/dL Reference Ranges are not established for non-timed Cortisol levels.Reference Range for Timed Cortisol: 6 - 10 AM 6 - 18 ug/dl 4 - 8 PM 3 - 11 ug/dl [place] CongregationLegionella urinary yhkopxa4711-70-74 03:54:05* Test Item Value Reference Range Interpretation Comments Legionella urinary antigen (test code = 1658) Negative for Legionella serogroup 1 antigen. Specimen Information Specimen Source: UrineSpecimen Site: See [facility] MethodistHEMODIALYSIS CATHETER [id number] 02:38:11Leslee Viraomntes 02/17/2020 2:39 AMHemodialysis catheter placementDate/Time: 02/17/2020 2:38 AMPerformed by: Miguel Angel Viramontesuthorized by: Leslee Viramontes Consent: Consent obtained: Emergent situationUniversal protocol: Site/side marked: yes Immediately prior to procedure, a time out was called: yes Patient identity confirmed: Hospital-assigned identification number and arm bandPre-pro cedure details: Indication: Vascular access for HD Hand hygiene: Hand hygien e performed prior to insertion Sterile barrier technique: All elements of max imal sterile technique followed Skin preparation: 2% chlorhexidine Skin pre paration agent: Skin preparation agent completely dried prior to procedure Jyoti tion: Sedation Type: Systemic Systemic used:: PropofolAnesthesia (see MAR f or exact dosages): Anesthesia method: Local infiltration Local anesthetic: Lidocaine 2% w/o epiProcedure details: Procedure supplies: Temporary dialysis catheter Catheter size: 13 Fr, Rt IJ Catheter Site Laterality: RightPost-pr ocedure details: Post-procedure: Dressing applied and line sutured Patient t olerance of procedure: Tolerated well, no immediate complicationsComments: C onfirmed placement on chest xrayBaileyville MethodistCentral Line Insertion 2020-02-17 00:26:05Leslee Viramontes 02/17/2020 12:27 AMCentral Line InsertionPerformed by: Sabina Viramontes by: Leslee Viramonets Consent: Consent obtained: Written and emergent situationUniversal protocol: Imaging studies available: yes Site/side marked: yes Immediately prior to procedure, a time out was called: yes Patient identity confirmed: Hospital- assigned identification number and arm bandPre-procedure details: Skin preparation: 2% chlorhexidine Skin preparation agent: Skin preparation agent completely dried prior to procedure Sedation: Sedation Type: AnxiolysisAnesthesia (see MAR for exact dosages): Anesthesia method: Local infiltration Local anesthetic: Lidocaine 2% w/o epiProcedure details: Catheter size: 7 Fr Catheter site: internal jugular vein Catheter Site Laterality: Left Site selection rationale: Trying to keep Rt IJ for possible HD catheter Landmarks identified: yes Ultrasound guidance: yes Sterile ultrasound techniques: Sterile gel and sterile probe covers were used Number of attempts: 1 Successful placement: yes Post-procedure details: Post-pro cedure: Dressing applied and line sutured Assessment: Blood return through al l ports, no pneumothorax on x-ray, placement verified by x-ray and free fluid fl ow Patient tolerance of procedure: Tolerated well, no immediate complications [place] MethodistArterial Line [id number] 00:24:45Leslee Viramontes 02/17/2020 12:26 AMArterial Line InsertionDate/Time: 02/17/2020 12:24 AMPerformed by: Sabina Viramontes by: Leslee Viramontes Consent: Consent obtained: Emergent situationIndications: Indications: hemodynamic monitoring and multiple ABGs Pre-procedure details: Skin preparation: 2% Chlorhe xidineSedation: Sedation type: DeepAnesthesia (see MAR for exact dosages): Anesthesia method: NoneProcedure details: Location: L radial Bradly's test p erformed: yes Bradly's test abnormal: no Needle gauge: 20 G Placement catina hnique: Seldinger Ultrasound guidance: no Number of attempts: 2 Transduce r: waveform confirmed Post-procedure details: Post-procedure: Biopatch appli ed, secured with tape, sutured and sterile dressing applied Patient tolerance o f procedure: Tolerated well, no immediate complicationsComments: Good wavefo rm, BP 107/58 mm Hg.University Hospitalespiratory pathogen [id number] 23:55:02* Test Item Value Reference Range Interpretation Comments Adenovirus PCR (test code = 7092) Not Detected Specimen InformationSpecimen Source: NaresSpecimen Site: Not specified Coronavirus HKU1 PCR (test code = 7093) Not Detected Coronavirus NL63 PCR (test code = 7094) Not Detected Coronavirus 229E PCR (test code = 7095) Not Detected Coronavirus OC43 PCR (test code = 7096) Not Detected Human metapneumovirus PCR (test code = 7097) Not Detected Human rhinovirus/enterovirus PCR (test code = 7098) Not Detected Influenza A PCR (test code = 7099) Not Detected Influenza A/H1 PCR (test code = 7100) Not Reported Influenza A/H3 PCR (test code = 7102) Not Reported Influenza A/H1-2009 PCR (test code = 7101) Not Reported Influenza B PCR (test code = 7104) Not Detected Parainfluenza virus 1 PCR (test code = 7105) Not Detected Parainfluenza virus 2 PCR (test code = 7106) Not Detected Parainfluenza virus 3 PCR (test code = 7107) Not Detected Parainfluenza virus 4 PCR (test code = 7108) Not Detected Respiratory syncytial virus PCR (test code = 7109) Not Detected Bordetella pertussis PCR (test code = 3730293) Not Detected Bordetella parapertussis PCR (test code = 1918077) Not Detected Chlamydia pneumoniae PCR (test code = 3753) Not Detected Mycoplasma pneumoniae PCR (test code = 7110) Not Detected Influenza A no sub type PCR (test code = 7127) Not Reported [place] MethodistLactic acid [id number] 23:49:31* Test Item Value Reference Range Interpretation Comments Lactic acid (test code = 99458-6) 2.9 mmol/L 0.5-2.2 H Lab Interpretation (test code = 09708-1) Abnormal [place] MethodistProthrombin time with [id number] 23:40:38* Test Item Value Reference Range Interpretation Comments Prothrombin time (test code = 5902-2) 15.6 11.5- 14.5 sec H INR (test code = 28381-8) 1.2 Th e International Normalized Ratio (INR) is a therapeutic monitoring tool for patients who are stable on oral anticoagulant therapy. An INR of 2.0-3.0 is suggested for deep vein thrombosis/pulmonary embolism. Lab Interpretation (test code = 38664-7) Abnormal [place] MethodistAcetaminophen [id number] 19:50:56* Test Item Value Reference Range Interpretation Comments Acetaminophen level (test code = 3298-7) <5.0 10-30 L Therapeutic 10- 30 ug/mL Possible Toxicity 150-200 ug/mL Probable Toxicity >200 ug/mL Lab Interpretation (test code = 32421-9) Abnormal [place] MethodistUrine drugs of abuse [id number] 18:29:28* Test Item Value Reference Range Interpretation Comments Amphetamine screen, urine (test code = 3349-8) Negative Barbiturate screen, urine (test code = 3377-9) Negative Benzodiazepine screen, urine (test code = 3390-2) Negative Cocaine screen, urine (test code = 3397-7) Positive A Methadone metabolite (EDDP), urine (test code = 50061-7) Negative Opiates screen, urine (test code = 3879-4) Positive A Oxycodone screen, urine (test code = 62422-1) Negative Phencyclidine screen, urine (test code = 3936-2) Negative Tricyclic screen, urine (test code = 99045-3) Negative Cannabinoid screen, urine (test code = 3427-2) Negative Drug screen minimum concentration of detectabilityAmphetamines 1000 ng/mLBarbiturates 200 ng/mLBenzodiazepines 300 ng/mLCocaine 300 ng/mLMethadone 300 ng/mLOpiates 300 ng/mLOxycodone 300 ng/mLPhencyclidine 25 ng/mLCannabinoids 50 ng/mLTricyclics 1000 ng/mLResults are from screening tests and should only be used for medical evaluation. Drug testing for legal purposes requires definitive (or confirmatory) testing methods, which are available upon request. Contact the laboratory if definitive testing is required. Lab Interpretation (test code = 10792-2) Abnormal [place] MethodistAlcohol level, [id number] 18:07:31* Test Item Value Reference Range Interpretation Comments Alcohol percent (test code = 5643-2) None Detected % Normal None DetectedLegal Intoxication in [place] 80 mg/dL (0.08%) - Whole BloodToxic Concentration 200 mg/dL (0.2%)Potentially Fatal 350 - 500 mg/dL (0.35 - 0.5%) Lino TdgetxgodTkhfgjvamc6719-87-04 17:03:33Bart Robins MD 02/19/2020 3:28 PMIntubationPerformed by: Bart Robins MDAuthorized by: Batr Robins MD Consent: Consent obtained: Emergent situationUniversal protocol: Patient identity confirmed: Arm bandPre-procedure details: Patient status: Unresponsive Mallampati score: 4 Induction: Etomidate Paralytics: SuccinylcholineProcedure details: Preoxygenation: Bag valve mask CPR in progress: no Intubation method: Oral Technique: Video laryngoscopy Laryngoscope blade: Mac 4 Difficult airway?: Yes Tube size (mm): 8.0 Tube type: Cuffed Number of attempts: 2 Ventilation between attempts: yes Cricoid pressure: yes Tube visualized through cords: yes Placement assessment: ETT to lip: 23 Tube secured with: ETT childers Breath sounds: Equal Placement verification: chest rise, keane nsation, CXR verification, direct visualization, equal breath sounds, ETCO2 dete ctor, fiberoptic scope and tube exhalation CXR findings: ETT in proper place Post-procedure details: Patient tolerance of procedure: Tolerated well, no im mediate complicationsComments: Pt was a difficult airway due to anatomy and i mmobility of neck secondary to neck surgery and hardware.[facility] Hospitalist CRITICAL [id number] 17:03:33Bart Robins MD 02/19/2020 3:28 PMCritical CarePerformed by: Bart Robins, MDAuthorized by: Bart Robins MD Critical care provider statement: Critical care time (minutes): 115 Critical care time was exclusive of: Separately billable procedures and treating other patients and teaching time Critical care was necessary to treat or prevent imminent or life-threatening deterioration of the following conditions: Respiratory failure, CAMELID FIBER SORTER failure or compromise, renal failure, metabolic crisis, cardiac failure and circulatory failure Critical care was time spent personally by me on the following activities: Development of treatment plan with patient or surrogate, discussions with consultants, evaluation of patient's response to treatment, examination of patient, interpretation of cardiac output measurements, obtaining history from patient or surrogate, ordering and performing treatments and interventions, ordering and review of laboratory studies, ordering and review of radiographic studies, pulse oximetry, re-evaluation of patient's condition and ventilator management Aman 'yes' if you are taking over critical care for this patient from another provider.: katey Huynh [facility] CPVVVNIKE2414-59-93 07:43:00 RUN DATE: 09/09/18 [facility] *LIVE* PAGE 1 RUN TIME: 742 Specimen Inqui ry RUN USER: INTERFACE PATIENT: GIL MAN ACCT #: [id number] LOC: SUKI U #: [id number] AGE/SX: 63/M ROOM: [facility] RE09/01/18REG DR: Chi Liang MD : 56 BED: 1 DIS: STATUS: ADM IN TLOC: SPEC #: [id number] RECD: 09/03/18 STATUS: BETTYE AMOS #: [id number] HUMZA: 09/03/[address]: Chi Liang MD ENTERED: 09/09/18 SP TYPE: SURG SPEC OTHR DR: Katey Patricia sabina or Family Physician Self Referred Gabriella Wolff Ja mil Ahmed MDORDERED: LEVEL 4 CODES: [id number] - CERVICAL VERTEB COPIES TO: No Primary or Family Physician Self Referred Gabriella Carbone DO [address] [facility] [address] [place] [address] Chi Liang MD [address] [place] [address] [address] [place] [address] Denia Ferrer MD [address] [place] [address] PROCEDURES: G LEVEL 4 (Incomplete) TISSUES: 1. CERVICAL VERTEBRA, NOS - Bone, spin ous process, segment FINAL DIAGNOSIS Bone, spinous process, segment: Degenerative changes. GROSS AND MICROSCOPIC GROSS EXAMINATION: Received the specimen as designated above and it consists of 3 segments of bony tissue measuring 3.1 cm in largest dimension the aggregate. Sections are sub mitted after decal. CON TINUED ON NEXT PAGE RUN DATE: 09/09/18 [facility] *LIVE* PAGE 2 RUN TIME: 742 Specimen Inquiry RUN USER: INTERFACE SPEC #: [id number] PATIENT: GIL MAN #[id number] (Continued) GROSS AND MICROSCOPIC (Continued) MICROSCOPIC EXAMINATION: Sectio ns reveal degenerative changes. POST-OP DIAGNOSIS Cervica l stenosis PRE-OP DIAGNOSIS Cervical stenosis Signed SIGN ATURE ON FILE Afia Ferraro MD 09/09/18 0743 -------- ---- END OF REPORT TROPONIN [id number] 20:00:00* Test Item Value Reference Range Interpretation Comments TROPONIN I (BEAKER) (test code = 397) 0.02 ng/mL 0.00-0.15 Troponin I (TnI) levels must be interpreted in the context of the presenting sym ptoms and the clinical findings. Elevated TnI levels indicate myocardial damage, but are not specific for ischemic heart disease. Elevated TnI levels are seen in patients with other cardiac conditions (including myocarditis and congestive h eart failure), and slight TnI elevations occur in patients with other conditions , including sepsis, renal failure, acidosis, acute neurological disease, and per sistent tachyarrhythmia.RAD, CHEST, 1 VIEW, NON [id number] 18:09:00Reason for exam:->CHEST PAINFINAL REPORT INDICATION: CHEST PAIN COMPARISON: March 01, 2017 TECHNIQUE: Single frontal view of the chest. IMPRESSION:Lungs and pleura: Mild central congestive changes without overt edema. No focal consolidation. No effusion.Heart and mediastinum: Normal cardiac size. Normal aortic caliber. Stable surgical changes.Osseous structures: No acute abnormality.Other: None. Signed: JR Mariscal Robert MDReport Verified Date/Time: 04/19/2018 18:09:24 Reading Location: [address] Reading Room REHENSIVE METABOLIC [id number] 17:23:00* Test Item Value Reference Range Interpretation Comments TOTAL PROTEIN (BEAKER) (test code = 770) 7.3 gm/dL 6.0-8.5 ALBUMIN (BEAKER) (test code = 1145) 4.1 g/dL 3.5-5.0 ALKALINE PHOSPHATASE (BEAKER) (test code = 346) 90 U/L 30-115 BILIRUBIN TOTAL (BEAKER) (test code = 377) 0.3 mg/dL 0.1-1.3 SODIUM (BEAKER) (test code = 381) 139 meq/L 135-148 POTASSIUM (BEAKER) (test code = 379) 4.5 meq/L 3.5-5.5 CHLORIDE (BEAKER) (test code = 382) 104 meq/L 98-106 CO2 (BEAKER) (test code = 355) 25 meq/L 20-31 BLOOD UREA NITROGEN (BEAKER) (test code = 354) 42 mg/dL 10-26 H CREATININE (BEAKER) (test code = 358) 1.32 mg/dL 0.50-1.20 H GLUCOSE RANDOM (BEAKER) (test code = 652) 108 mg/dL 70-110 CALCIUM (BEAKER) (test code = 697) 10.0 mg/dL 8.5-10.5 AST (SGOT) (BEAKER) (test code = 353) 10 U/L 5-40 ALT (SGPT) (BEAKER) (test code = 347) 21 U/L 6-50 EGFR (BEAKER) (test code = 1092) 55 mL/min/1.73 sq m ESTIMATED GFR IS NOT ACCURATE CREATININE CLEARANCE IN PREDICTING GLOMERULAR FILTRATION RATE. ESTIMATED GFR IS NOT APPLICABLE FOR DIALYSIS PATIENTS. TROPONIN [id number] 17:23:00* Test Item Value Reference Range Interpretation Comments TROPONIN I (BEAKER) (test code = 397) 0.01 ng/mL 0.00-0.15 Troponin I (TnI) levels must be interpreted in the context of the presenting sym ptoms and the clinical findings. Elevated TnI levels indicate myocardial damage, but are not specific for ischemic heart disease. Elevated TnI levels are seen in patients with other cardiac conditions (including myocarditis and congestive h eart failure), and slight TnI elevations occur in patients with other conditions , including sepsis, renal failure, acidosis, acute neurological disease, and per sistent tachyarrhythmia.CBC W/PLT COUNT & AUTO [id number] 16:45:00* Test Item Value Reference Range Interpretation Comments WHITE BLOOD CELL COUNT (BEAKER) (test code = 775) 9.1 K/ L 4.0- 10.0 RED BLOOD CELL COUNT (BEAKER) (test code = 761) 3.69 M/ L 4.20-5 .80 L HEMOGLOBIN (BEAKER) (test code = 410) 11.5 GM/DL 13.0-16.8 L HEMATOCRIT (BEAKER) (test code = 411) 34.0 % 40.0-50.0 L MEAN CORPUSCULAR VOLUME (BEAKER) (test code = 753) 92.2 fL 82. 0-98.0 MEAN CORPUSCULAR HEMOGLOBIN (BEAKER) (test code = 751) 31.2 pg 27.0-33.0 MEAN CORPUSCULAR HEMOGLOBIN CONC (BEAKER) (test code = 752) 33.8 GM/DL 32.0-36.0 RED CELL DISTRIBUTION WIDTH (BEAKER) (test code = 412) 14.1 % 12.0-15.0 PLATELET COUNT (BEAKER) (test code = 756) 250 K/CU MM 150-430 MEAN PLATELET VOLUME (BEAKER) (test code = 754) 9.1 fL 6.5-10 .5 NUCLEATED RED BLOOD CELLS (BEAKER) (test code = 413) 0 /100 WBC 0 -0 NEUTROPHILS RELATIVE PERCENT (BEAKER) (test code = 429) 58 % LYMPHOCYTES RELATIVE PERCENT (BEAKER) (test code = 430) 31 % MONOCYTES RELATIVE PERCENT (BEAKER) (test code = 431) 7 % EOSINOPHILS RELATIVE PERCENT (BEAKER) (test code = 432) 3 % BASOPHILS RELATIVE PERCENT (BEAKER) (test code = 437) 2 % NEUTROPHILS ABSOLUTE COUNT (BEAKER) (test code = 670) 5.20 K/ L 1.80-8.00 LYMPHOCYTES ABSOLUTE COUNT (BEAKER) (test code = 414) 2.80 K/ L 1.48-4.50 MONOCYTES ABSOLUTE COUNT (BEAKER) (test code = 415) 0.70 K/ L 0. 00-1.30 EOSINOPHILS ABSOLUTE COUNT (BEAKER) (test code = 416) 0.20 K/ L 0.00-0.50 BASOPHILS ABSOLUTE COUNT (BEAKER) (test code = 417) 0.10 K/ L 0. 00-0.20 CHEM [id number] 06:48:002.0[facility] OexomhiDSDMXKGRAJ9387-79-27 06:48:0070 [facility] OocmqotCHLQBHIXRV0247-28-36 06:48:0015.8[facility]annBLOOD BANK MOSNUKH0257-83-25 00:46:00Negative (04/16/18 7:46 PM)[facility] HermannCHEM PANEL 2018-04-17 00:46:0081[facility] HermannCHEM GCUHU9766-28-16 00:46:009.6[facility]annCHEM QKBLL4252-13-78 00:46:0029[facility]annCHEM TQDDJ0586-66-82 00:46:69777Bbrlgjxb HermannCHEM JSSJW9084-76-47 00:46:0022[facility]annCHEM QZPJV8778-22-45 00:46:63064Qyarhppz HermannCHEM JHBED3082-12-15 00:46:001.00 [facility]annCHEM GEMCF4172-31-60 00:46:004.8[facility] HermannCHEM PANEL 2018-04-17 00:46:22779Rafhelcj HermannCHEM GRPEV8085-06-95 00:46:0011.8[facility] HofuzgxFJZMAVLGDQ4421-08-65 00:46:0052.0[facility] EjyvwsdKDJILSQPXG2345-43-21 00:46:000.3[facility] SpsdrfeCFKZNAAVLG6219-74-68 00:46:00Normal (04/16/18 7:46 PM) [facility] ObkqtacLARNREVRKN3228-03-10 00:46:00Normal (04/16/18 7:46 PM)[facility] YbfcyqxRKPRHIFKRW2195-86-96 00:46:006.0[facility] KpablemBAPOSLRKAG5350-81-94 00:46:000.0[facility] NuyfrtuEKHPOGWBWO8056-15-22 00:46:0039.0[facility] Kb DZMORYAFFF2188-34-76 00:46:005.5[facility] OveehdwIFOMOCHTKE2044-50-31 00:46:004.1 [facility] LoovbhkTOBQMWEMSK2040-78-78 00:46:000.6[facility] HermannHEMATOLOGY 2018-04-17 00:46:003.0[facility] SjwwzupVREKBUAFWN4128-28-28 00:46:000.0[facility] UonbeflTZOZCXPDQR1030-70-43 00:46:00* Test Item Value Reference Range Interpretation Comments PT (test code = PT) 12.7 s 12.0-14.7 [facility] BwdovijTVXKCDECSY3747-62-52 00:46:00* Test Item Value Reference Range Interpretation Comments INR (test code = INR) 0.95 1 0.85-1.17 [facility] JqcgzntXCXOPMRBSK2160-71-52 00:46:00* Test Item Value Reference Range Interpretation Comments PTT (test code = PTT) 32.9 s 22.9-35.8 [facility] JmcvfpkRBINOZIHCJ8997-18-56 00:46:009.1[facility] HermannHEMATOLOGY 2018-04-17 00:46:0092.0[facility] WvspehcQRBUSJZMWP3438-23-30 00:46:00* Test Item Value Reference Range Interpretation Comments MCH (test code = MCH) 31.6 pg 27.0-31.0 [facility] QrdaxpkLVEYCLKSPF2007-24-30 00:46:0034.3[facility] HermannHEMATOLOGY 2018-04-17 00:46:0014.4[facility] GdqlvebJEADUPNDRF7354-78-15 00:46:59343Qnawzbyw BjonpzyKNKKZLMTRQ9346-77-08 00:46:003.86[facility] GqsgdpoZUQAOOLTYC2061-38-15 00:46:0010.5[facility] ZhjycbqMKXVCNGQBT5285-43-10 00:46:0012.2[facility] Jeff FETBZQEELU7696-11-13 00:46:0035.5[facility] HermannCARDIAC OOZUNKB6889-99-10 09:29:00<0.02[facility] HermannCHEM SSFUH1335-31-05 09:29:001.6[facility] Jeff CHEM CLIOE8477-62-91 09:29:002.9[facility] StvpynvSGLEHEFHHVXM1941-77-72 09:29:00 8.2[facility] KhqioczTAYLEJPHVPTA0301-16-45 09:29:71938Pkveocii Kb EDNASHLTOPEL8799-68-58 09:29:80857Tjksbeyk XyiprxyXFBJENHKJUMS5925-67-67 09:29:0028[facility] QouxqlqSEQZPVFDSJEW1651-58-97 09:29:004.2[facility] Kb GITZUHDXRNKB2422-01-65 09:29:001.04[facility] DrgpbpbICUPOOYOKAEG0116-00-00 09:29:0077[facility] DrxfwyaHRMLDDTYFHDM0132-09-34 09:29:008.5[facility] Jeff XTSKLUZXNHTB6893-51-84 09:29:0084[facility] TjyzsucHMYFHYXFKXNS0859-25-65 09:29:00 42[facility] OwrhrpoAXUCVKKYEL4036-15-30 09:29:000.5[facility] HermannHEMATOLOGY 2018-03-17 09:29:003.2[facility] GfezonaZLZLTASTDT0692-44-55 09:29:000.4[facility] ZytvmckAJKKYGNYXP5239-40-06 09:29:000.1[facility] KvueyrrEFAYQNBXBK4549-39-96 09:29:004.6[facility] KxhrapgHISOFAOWRX8758-95-54 09:29:004.2[facility] Kb SEZACDIKZS3863-50-67 09:29:000.6[facility] SgoycepROPLUOMIJD9567-83-90 09:29:00 52.9[facility] LkmasobTCMNDIPUGR7334-75-98 09:29:006.2[facility] HermannHEMATOLOGY 2018-03-17 09:29:0036.1[facility] ComejjmCJUNOEFEXQ8405-70-72 09:29:0033.8[facility] WjcmimvVUZNYKORZL3686-66-72 09:29:00* Test Item Value Reference Range Interpretation Comments MCH (test code = MCH) 30.6 pg 27.0-31.0 [facility] HtdggkySORNGLANTL0519-59-01 09:29:0013.1[facility] HermannHEMATOLOGY 2018-03-17 09:29:0011.5[facility] FurfajjHEONROGJQN0781-21-41 09:29:008.7[facility] XxxoqpaRIALTQZOIV8650-16-73 09:29:0010.1[facility] NfpxszsHLUOXKEMWK3990-55-55 09:29:83420Hzabhdoj TdtmlzfQUAZQVVNFX4452-92-08 09:29:0090.6[facility] Jeff KPNNEGVXFM6925-42-93 09:29:0034.1[facility] AizwvthCNYMYZOCMK3003-18-94 09:29:00 3.77[facility] HermannDRUG IKHQWX6064-11-45 02:58:00Negative *NA*(03/16/18 9:58 PM) [facility]annDRUG YMRYFD4904-56-57 02:58:00Negative *NA*(03/16/18 9:58 PM) [facility]annDRUG ZBXBXA7674-94-73 02:58:00Negative *NA*(03/16/18 9:58 PM) [facility]annDRUG HIACNU8664-55-76 02:58:00Negative *NA*(03/16/18 9:58 PM) [facility]annDRUG FDTPFF2389-39-99 02:58:00See Note (03/16/18 9:58 PM)[facility]annDRUG UXYKBO0330-46-29 02:58:00Negative *NA*(03/16/18 9:58 PM)[facility]annDRUG VOBIFK0555-08-13 02:58:00Negative *NA*(03/16/18 9:58 PM)[facility]annDRUG NOTPJO3858-20-45 02:58:00Positive *ABN*(03/16/18 9:58 PM)[facility] HermannCARDIAC LKHTAVV3457-94-53 17:29:00* Test Item Value Reference Range Interpretation Comments CK MB Index (test code = CK MB Index) 2.9 1 <=2.5 [facility]annCARDIAC QODUEIW9975-82-35 17:29:002.2[facility] HermannCARDIAC NFQOCBL9436-28-23 17:29:0075[facility]annCARDIAC DECZCPP3490-73-83 17:29:00< 0.02[facility] QxxletuGJAFLIGDLC5169-83-93 17:29:00* Test Item Value Reference Range Interpretation Comments PTT (test code = PTT) 46.0 s 22.9-35.8 [facility]annCARDIAC ZDDGGCC9378-80-61 11:14:00* Test Item Value Reference Range Interpretation Comments CK MB Index (test code = CK MB Index) 2.3 1 <=2.5 [facility]annCARDIAC ONUZPLE8744-97-40 11:14:002.0[facility] HermannCARDIAC UFDEWWF2712-75-52 11:14:0086[facility] HermannCARDIAC PCSJRJW9455-10-13 11:14:00< 0.02[facility] YsjvchjAJQJRKEGXVZF3673-79-00 11:14:0011.2[facility] Jeff RJJBDTFXZHQN1862-47-77 11:14:008.8[facility] JkdxhfoBSJNHXRQQZJG4733-86-33 11:14:0028[facility] XzfdcfsPJGHZXRJFKLB3192-91-02 11:14:0033[facility] SVUIDAHEDXXQ5816-63-27 11:14:0053[facility] WplklvbPHCVNTWRAKMX2872-61-72 11:14:00 2.08[facility] QqzvostTQWIUXGUTQKC5442-98-57 11:14:0097[facility] Kb THHXBASVIZRT7014-91-78 11:14:79302Drxzschp YgxoaffMBBNOZIXUCWE1699-40-99 11:14:58842Nnjtqgne GtpkjpwKUVJWBOTNUKA3129-06-48 11:14:004.2[facility] Kb KUIDNSOPXX1845-17-40 11:14:003.5[facility] DovfehnUNITMYHIQQ3169-62-10 11:14:000.7 [facility] OzgcnzfIVQOTHMVCM6372-99-11 11:14:005.3[facility] HermannHEMATOLOGY 2018-03-16 11:14:000.1[facility] DfoeegiVAZCXQIJVT0174-78-55 11:14:000.5[facility] EdqiblaWFJJZYYOEW5386-05-78 11:14:0034.8[facility] ZnvhokyHWXFXCULYC9920-44-95 11:14:0053.1[facility] YfmpiliJUOMVYXIDR6174-49-95 11:14:006.7[facility] Kb ICCOIFZAQI4054-14-08 11:14:004.7[facility] OrylicxILPVJUFBMA2072-26-99 11:14:000.7 [facility] RqlfdflGAJYOKPNJU8734-21-44 11:14:00* Test Item Value Reference Range Interpretation Comments PTT (test code = PTT) 58.4 s 22.9-35.8 [facility] ZtovyuhBWWLJFITSW3671-66-48 11:14:0012.2[facility] HermannHEMATOLOGY 2018-03-16 11:14:003.93[facility] FhnjmwyVRIJYILUCT7587-82-83 11:14:0010.1[facility] YndtzcpZBRKJMYVUB9086-81-62 11:14:0036.0[facility] AhquyzrZMCTXODFDS2812-10-19 11:14:0010.3[facility] OhqaozdFYAKNGMNOH7438-14-48 11:14:0013.5[facility] Jeff KGAEVGFOPC2111-56-61 11:14:33187Scdbmfcr AeecupiZBMYGLJUYQ2023-69-24 11:14:00* Test Item Value Reference Range Interpretation Comments MCH (test code = MCH) 31.0 pg 27.0-31.0 [facility] LxgpuubZDZEDFKHJH5939-92-59 11:14:0091.6[facility] HermannHEMATOLOGY 2018-03-16 11:14:0033.8[facility] IolaakxENEEULLWVA8066-99-90 04:22:00* Test Item Value Reference Range Interpretation Comments PTT (test code = PTT) 29.7 s 22.9-35.8 [facility] YunafblZAUYIVCWZP3890-57-34 04:22:00* Test Item Value Reference Range Interpretation Comments PT (test code = PT) 14.2 s 12.0-14.7 [facility] RnzccaeJBBYRMEHEI3600-82-54 04:22:00* Test Item Value Reference Range Interpretation Comments INR (test code = INR) 1.10 1 0.85-1.17 [facility]annCARDIAC JRMCHBV1713-81-83 04:07:002.3[facility] HermannCARDIAC ZFRKMSG1247-42-50 04:07:83534Xwhyvbcb HermannCARDIAC AKELXPP6392-83-39 04:07:00 * Test Item Value Reference Range Interpretation Comments CK MB Index (test code = CK MB Index) 2.3 1 <=2.5 [facility] HermannCHEM WCRJM2037-38-41 04:07:0030[facility] HermannCHEM PANEL 2018-03-16 04:07:0091[facility] HermannCHEM WFHBV5648-61-59 04:07:0016[facility] HermannCHEM ISTXW8796-21-28 04:07:0024[facility]annCHEM WPVMK1630-60-07 04:07:00075Jotufvqv HermannCHEM FHQYP3610-52-58 04:07:004.9[facility] HermannCHEM EOWYR5760-12-71 04:07:48088Xeesysts HermannCHEM FUVWM8626-48-19 04:07:004.0 [facility]annCHEM DONCK4848-37-35 04:07:008.1[facility] HermannCHEM PANEL 2018-03-16 04:07:009.2[facility] HermannCHEM DXRAN2879-02-12 04:07:0026[facility] HermannCHEM JEBTO4915-26-66 04:07:11311Orurpjfw HermannCHEM JHJWN5848-42-99 04:07:00* Test Item Value Reference Range Interpretation Comments A/G Ratio (test code = A/G Ratio) 1.0 1 0.7-1.6 [facility]annCHEM SUJWN7138-34-69 04:07:00* Test Item Value Reference Range Interpretation Comments B/C Ratio (test code = B/C Ratio) 20 1 6-25 [facility]annCHEM NJPJM6062-81-02 04:07:004.1[facility] HermannCHEM PANEL 2018-03-16 04:07:000.3[facility] HermannCHEM OEYQT2119-75-05 04:07:0013.9[facility] HermannCHEM QADSP6155-34-31 04:07:0046[facility] HermannCHEM KCSNG5990-16-78 04:07:002.30[facility] KjsnzfkDTLWIGKDKO2044-13-76 04:07:0038.3[facility] Kb ZDAHBSDSCP5256-54-05 04:07:0012.9[facility] IidspceEJCSJKSXNO3653-37-54 04:07:00 4.20[facility] UbhqburINIHJHTVQH5296-90-73 04:07:0014.0[facility] HermannHEMATOLOGY 2018-03-16 04:07:0091.2[facility] QtadzieEROFPZHUMB2452-08-52 04:07:0033.7[facility] PtzhstePUIUBTEOML0168-07-11 04:07:00* Test Item Value Reference Range Interpretation Comments MCH (test code = MCH) 30.8 pg 27.0-31.0 [facility] RidjejjRXJTEJZGFT4637-60-29 04:07:0013.5[facility] HermannHEMATOLOGY 2018-03-16 04:07:76921Fxblunst ZcffqdwHBDOIYCZFB8906-10-81 04:07:0010.0[facility] CyrmoqjLNVJDUQUEZ1366-22-74 04:07:0062.8[facility] LcqyivxCSKJWFSFAB6077-75-59 04:07:001.1[facility] JhzvptvOWGOELKLSN5429-34-97 04:07:0024.9[facility] Kb TYBWBDRPVB1428-20-76 04:07:008.0[facility] RwrosjsCCOVBTRAQC5368-45-52 04:07:003.5 [facility] AsxvwvvHMYFRJSJDX2823-58-57 04:07:003.6[facility] HermannHEMATOLOGY 2018-03-16 04:07:008.8[facility] NfghkynKFFRQYZRUO8496-21-22 04:07:000.7[facility] YuctohgAHGXCWLQSN8704-23-93 04:07:000.1[facility] LuymyenMEYIIHIOPM3525-09-34 04:07:000.5Meidrial HermannComprehensive Metabolic Cuede1138-77-55 20:26:00* Test Item Value Reference Range Interpretation Comments Sodium (test code = NA) 140 mmol/L 135-145 N Potassium (test code = K) 5.1 mmol/L 3.5-5.1 N Chloride (test code = CL) 98 mmol/L 98-105 N Carbon Dioxide (test code = CO2) 29 mmol/L 22-29 N Glucose (test code = GLU) 138 mg/dL 70-115 H Blood Urea Nitrogen (test code = BUN) 24 mg/dL 8-23 H Creatinine (test code = CREAT) 1.3 mg/dL 0.7-1.2 H Calcium (test code = CA) 9.9 mg/dL 8.3-10.5 N Prot Total (test code = TP) 7.4 g/dL 6.4-8.3 N Albumin (test code = ALB) 4.6 g/dL 3.5-5.2 N A/G Ratio (test code = AGRATIO) 1.6 Ratio Globulin (test code = GLOB) 2.8 2.9-3.1 L Bili Total (test code = TBIL) 0.7 mg/dL 0.1-0.9 N Alk Phos (test code = APHOS) 96 U/L 40-129 N AST (test code = AST) 12 U/L 1-40 N slight ly hemolyzed specimen ALT (test code = ALT) 25 U/L 1-41 N BUN/Creatinine Ratio (test code = BCRATIO) 18.5 Anion Gap (test code = AGAP) 13 mmol/L 7-16 N Estimated GFR (test code = GFR) 60 mL/min/1.73m2 eGFR (estimated Glomerular Filtration Rate) is an estimated value,calculated from the patient's serum creatinine using the MDRD equation.It is NOT the patient's actual GFR. The eGFR provides a more clinicallyuseful measure of kidney disease than serum creatinine alone.This calculation takes sex and race into account, if the informationis provided. If the race is not provided, and the patient isAfrican-Djib[place]ian, multiply by 1.212. If sex is not provided, and thepatient is female, multiply by 0.742. Results for patients <18 years ofage have not been validated by the MDRD study and should be interpretedwith caution.eGFR Result Interpretation:eGFR > or = 60 is in the Normal RangeeGFR < 60 may mean kidney diseaseeGFR < 15 may mean kidney failureRanges recommended by the National Kidney Found ation,http://nkdep.nih.gov Troponin [id number] 20:26:00* Test Item Value Reference Range Interpretation Comments Troponin T (test code = SHARAN) <0.010 ng/mL 0.000-0.090 N Nvt-Uds3119-16-14 20:25:00* Test Item Value Reference Range Interpretation Comments NT ProBnp (test code = PBNP) 2102 pg/mL 0-124 H CK SC6833-80-25 20:25:00* Test Item Value Reference Range Interpretation Comments CK (test code = CK) 198 U/L 39-308 N CKMB (test code = CKMB) 5.7 ng/mL 0.0-4.9 H CKMB% (test code = CKMBP) 2.9 % 0.0-3.4 N CK Dbjhf6533-87-30 20:25:00* Test Item Value Reference Range Interpretation Comments CK (test code = CK) 198 U/L 39-308 N Lactic Acid Fkr1451-13-42 20:21:00* Test Item Value Reference Range Interpretation Comments Lactic Acid, Bld (test code = LAC) 1.4 mmol/L 0.5-1.9 N XR CHEST 1 TXTL8687-97-11 20:18:23Portable chest one view.HISTORY: HypotensionLocation R 16COMMENT: No comparison. Sternal retention wires. Cardiac bypass rings.Cardiac silhouette is magnified. No pleural effusion. Lungs are clear.Anteroinferior cervical fusion. Thoracic spondylosis. Right jugularcentral venous catheter tip projects over the superior vena cava nearthe atrial junction.IMPRESSION: No definite evidence of acute cardiopulmonary disease.CBC with [id number] 20:16:00* Test Item Value Reference Range Interpretation Comments WBC (test code = WBC) 18.8 K/cumm 4.4-10.5 H RBC (test code = RBC) 4.49 M/cumm 4.10-5.70 N Hemoglobin (test code = HGB) 13.7 gm/dL 13.4-17.4 N Hematocrit (test code = HCT) 42.3 % 38.7-52.0 N MCV (test code = MCV) 94.2 fL 80-100 N MCH (test code = MCH) 30.6 pg 27.0-32.5 N MCHC (test code = MCHC) 32.4 g/dL 32.0-37.5 N RDW (test code = RDW) 15.4 % 11.5-14.5 H Platelet Count (test code = PLTCT) 215 K/cumm 140-440 N MPV (test code = MPV) 10.5 fL Diff Method (test code = DIFFM) Auto Neutrophil (test code = NEUT) 89.6 % 36-70 H Lymphocyte (test code = LYMPH) 5.2 % 12-44 L Monocyte (test code = MONO) 4.6 % 0-11 N Eosinophil (test code = EOS) 0.4 % 0-7 N Basophil (test code = BASO) 0.2 % 0-2 N Neutro Abs (test code = ANEUT) 16.8 K/cumm 1.6-7.4 H Lymph Abs (test code = ALYMPH) 1.0 K/cumm 0.5-4.6 N [place] Abs (test code = AMONO) 0.9 K/cumm 0.0-1.2 N Eos Abs (test code = AEOS) 0.08 K/cumm 0.00-0.74 N Baso Abs (test code = ABASO) 0.0 K/cumm 0.00-0.21 N URINE [id number] 15:29:00* Test Item Value Reference Range Interpretation Comments CULTURE (BEAKER) (test code = 1095) <10,000 col/mL skin alesia TROPONIN [id number] 19:07:00* Test Item Value Reference Range Interpretation Comments TROPONIN I (BEAKER) (test code = 397) 0.01 ng/mL 0.00-0.15 Troponin I (TnI) levels must be interpreted in the context of the presenting sym ptoms and the clinical findings. Elevated TnI levels indicate myocardial damage, but are not specific for ischemic heart disease. Elevated TnI levels are seen in patients with other cardiac conditions (including myocarditis and congestive h eart failure), and slight TnI elevations occur in patients with other conditions , including sepsis, renal failure, acidosis, acute neurological disease, and per sistent tachyarrhythmia.TROPONIN [id number] 11:16:00* Test Item Value Reference Range Interpretation Comments TROPONIN I (BEAKER) (test code = 397) 0.01 ng/mL 0.00-0.15 Troponin I (TnI) levels must be interpreted in the context of the presenting sym ptoms and the clinical findings. Elevated TnI levels indicate myocardial damage, but are not specific for ischemic heart disease. Elevated TnI levels are seen in patients with other cardiac conditions (including myocarditis and congestive h eart failure), and slight TnI elevations occur in patients with other conditions , including sepsis, renal failure, acidosis, acute neurological disease, and per sistent tachyarrhythmia.COMPREHENSIVE METABOLIC [id number] 11:10:00* Test Item Value Reference Range Interpretation Comments TOTAL PROTEIN (BEAKER) (test code = 770) 6.4 gm/dL 6.0-8.5 ALBUMIN (BEAKER) (test code = 1145) 3.4 g/dL 3.5-5.0 L ALKALINE PHOSPHATASE (BEAKER) (test code = 346) 60 U/L 30-115 BILIRUBIN TOTAL (BEAKER) (test code = 377) 0.6 mg/dL 0.1-1.3 SODIUM (BEAKER) (test code = 381) 139 meq/L 135-148 POTASSIUM (BEAKER) (test code = 379) 3.7 meq/L 3.5-5.5 CHLORIDE (BEAKER) (test code = 382) 103 meq/L 98-106 CO2 (BEAKER) (test code = 355) 26 meq/L 20-31 BLOOD UREA NITROGEN (BEAKER) (test code = 354) 16 mg/dL 10-26 CREATININE (BEAKER) (test code = 358) 0.75 mg/dL 0.50-1.20 GLUCOSE RANDOM (BEAKER) (test code = 652) 115 mg/dL 70-110 H CALCIUM (BEAKER) (test code = 697) 9.1 mg/dL 8.5-10.5 AST (SGOT) (BEAKER) (test code = 353) 8 U/L 5-40 ALT (SGPT) (BEAKER) (test code = 347) 11 U/L 6-50 EGFR (BEAKER) (test code = 1092) 106 mL/min/1.73 sq m ESTIMATED GFR IS NOT ACCURATE CREATININE CLEARANCE IN PREDICTING GLOMERULAR FILTRATION RATE. ESTIMATED GFR IS NOT APPLICABLE FOR DIALYSIS PATIENTS. OCCULT BLOOD, [id number] 10:47:00* Test Item Value Reference Range Interpretation Comments FECAL OCCULT BLOOD (BEAKER) (test code = 618) Positive Negative A CBC W/PLT COUNT & AUTO [id number] 10:45:00* Test Item Value Reference Range Interpretation Comments WHITE BLOOD CELL COUNT (BEAKER) (test code = 775) 12.8 K/ L 4.0- 10.0 H RED BLOOD CELL COUNT (BEAKER) (test code = 761) 3.40 M/ L 4.20-5 .80 L HEMOGLOBIN (BEAKER) (test code = 410) 10.0 GM/DL 13.0-16.8 L HEMATOCRIT (BEAKER) (test code = 411) 31.0 % 40.0-50.0 L MEAN CORPUSCULAR VOLUME (BEAKER) (test code = 753) 91.1 fL 82. 0-98.0 MEAN CORPUSCULAR HEMOGLOBIN (BEAKER) (test code = 751) 29.4 pg 27.0-33.0 MEAN CORPUSCULAR HEMOGLOBIN CONC (BEAKER) (test code = 752) 32.3 GM/DL 32.0-36.0 RED CELL DISTRIBUTION WIDTH (BEAKER) (test code = 412) 13.7 % 12.0-15.0 PLATELET COUNT (BEAKER) (test code = 756) 197 K/CU MM 150-430 MEAN PLATELET VOLUME (BEAKER) (test code = 754) 9.6 fL 6.5-10 .5 NUCLEATED RED BLOOD CELLS (BEAKER) (test code = 413) 0 /100 WBC 0 -0 NEUTROPHILS RELATIVE PERCENT (BEAKER) (test code = 429) 85 % LYMPHOCYTES RELATIVE PERCENT (BEAKER) (test code = 430) 9 % MONOCYTES RELATIVE PERCENT (BEAKER) (test code = 431) 5 % EOSINOPHILS RELATIVE PERCENT (BEAKER) (test code = 432) 1 % BASOPHILS RELATIVE PERCENT (BEAKER) (test code = 437) 0 % NEUTROPHILS ABSOLUTE COUNT (BEAKER) (test code = 670) 10.90 K/ L 1.80-8.00 H LYMPHOCYTES ABSOLUTE COUNT (BEAKER) (test code = 414) 1.10 K/ L 1.48-4.50 L MONOCYTES ABSOLUTE COUNT (BEAKER) (test code = 415) 0.70 K/ L 0. 00-1.30 EOSINOPHILS ABSOLUTE COUNT (BEAKER) (test code = 416) 0.10 K/ L 0.00-0.50 BASOPHILS ABSOLUTE COUNT (BEAKER) (test code = 417) 0.00 K/ L 0. 00-0.20 TROPONIN [id number] 03:57:00* Test Item Value Reference Range Interpretation Comments TROPONIN I (BEAKER) (test code = 397) 0.02 ng/mL 0.00-0.15 Troponin I (TnI) levels must be interpreted in the context of the presenting sym ptoms and the clinical findings. Elevated TnI levels indicate myocardial damage, but are not specific for ischemic heart disease. Elevated TnI levels are seen in patients with other cardiac conditions (including myocarditis and congestive h eart failure), and slight TnI elevations occur in patients with other conditions , including sepsis, renal failure, acidosis, acute neurological disease, and per sistent tachyarrhythmia.BLOOD GAS, [id number] 07:33:00* Test Item Value Reference Range Interpretation Comments PH VENOUS (BEAKER) (test code = 701) 7.22 7.32-7.42 L PCO2 VENOUS (BEAKER) (test code = 755) 70 mmHg 41-51 HH PO2 VENOUS (BEAKER) (test code = 702) 37 mmHg 25-40 O2 SATURATION VENOUS (BEAKER) (test code = 703) 61.3 % 40.0-7 0.0 HCO3 VENOUS (BEAKER) (test code = 705) 28 mmol/L 21-29 BASE EXCESS VENOUS (BEAKER) (test code = 704) -1.2 mmol/L -2.0-3.0 PATIENT TEMPERATURE (BEAKER) (test code = 1818) 36.0 C FIO2 (BEAKER) (test code = 1819) 21.0 % URINALYSIS W/ [id number] 06:58:00* Test Item Value Reference Range Interpretation Comments COLOR (BEAKER) (test code = 470) Yellow CLARITY (BEAKER) (test code = 469) Clear SPECIFIC GRAVITY UA (BEAKER) (test code = 468) 1.016 1.001-1 .035 PH UA (BEAKER) (test code = 467) 5.0 5.0-8.0 PROTEIN UA (BEAKER) (test code = 464) Negative Negative GLUCOSE UA (BEAKER) (test code = 365) 50 mg/dL Negative A KETONES UA (BEAKER) (test code = 371) Negative Negative BILIRUBIN UA (BEAKER) (test code = 462) Negative Negative BLOOD UA (BEAKER) (test code = 461) Negative Negative NITRITE UA (BEAKER) (test code = 465) Negative Negative LEUKOCYTE ESTERASE UA (BEAKER) (test code = 466) Small Negat leslie A UROBILINOGEN UA (BEAKER) (test code = 463) < mg/dL 0.2-1.0 RBC UA (BEAKER) (test code = 519) 1 /HPF WBC UA (BEAKER) (test code = 520) 8 /HPF BACTERIA (BEAKER) (test code = 517) Rare SQUAMOUS EPITHELIAL (BEAKER) (test code = 516) < /HPF HYALINE CASTS (BEAKER) (test code = 514) 2 /LPF SOURCE(BEAKER) (test code = 2795) RAPID DRUG SCREEN, [id number] 06:50:00* Test Item Value Reference Range Interpretation Comments BARBITURATE URINE (BEAKER) (test code = 725) Negative Negative BENZODIAZEPINE SCREEN URINE (BEAKER) (test code = 726) Negative Negative COCAINE (METAB.) SCREEN (BEAKER) (test code = 1164) Negative Ne gative METHADONE SCREEN (BEAKER) (test code = 1436) Negative Negative OPIATE SCREEN URINE (BEAKER) (test code = 734) Positive Negativ e A CANNABINOID SCREEN URINE (BEAKER) (test code = 727) Negative Ne gative AMPH/METHAMPH SCREEN (BEAKER) (test code = 1438) Negative Negat leslie PHENCYCLIDINE SCREEN URINE (BEAKER) (test code = 608) Negative Negative DRUG CUTOFF CONC.Cocaine 300 ng/mL Cannabinoid 50 ng/mLBenzodiazepine 200 ng/mLBarbiturate 200 ng/mLPh encyclidine 25 ng/mLOpiate 300 ng/mLMethadone 300 ng/mLAmphetamine/ 1000 ng/mL MethamphetamineCREATINE KINASE (CK), TOTAL AND [id number] 05:33:00* Test Item Value Reference Range Interpretation Comments CREATINE KINASE TOTAL (BEAKER) (test code = 380) 79 U/L 30-30 0 CREATINE KINASE-MB (BEAKER) (test code = 750) 2.9 ng/mL 0.0-4.9 CREATINE KINASE-MB INDEX (BEAKER) (test code = 395) 3.7 % CK-MB Reference Range:<5 Normal5-10 Borderline>10 AbnormalACETAMINOPHEN LEVEL 2017-03-01 05:32:00* Test Item Value Reference Range Interpretation Comments ACETAMINOPHEN LEVEL (BEAKER) (test code = 344) < ug/mL 10.0-30 .0 L SALICYLATE [id number] 05:31:00* Test Item Value Reference Range Interpretation Comments SALICYLATE LEVEL (BEAKER) (test code = 764) < mg/dL 20.0-30.0 L [id number] 05:27:00* Test Item Value Reference Range Interpretation Comments PHOSPHORUS (BEAKER) (test code = 604) 4.7 mg/dL 2.5-4.5 H [id number] 05:27:00* Test Item Value Reference Range Interpretation Comments MAGNESIUM (BEAKER) (test code = 627) 1.6 mg/dL 1.5-3.0 BASIC METABOLIC [id number] 05:27:00* Test Item Value Reference Range Interpretation Comments SODIUM (BEAKER) (test code = 381) 139 meq/L 135-148 POTASSIUM (BEAKER) (test code = 379) 4.0 meq/L 3.5-5.5 CHLORIDE (BEAKER) (test code = 382) 100 meq/L 98-106 CO2 (BEAKER) (test code = 355) 31 meq/L 20-31 BLOOD UREA NITROGEN (BEAKER) (test code = 354) 30 mg/dL 10-26 H CREATININE (BEAKER) (test code = 358) 1.00 mg/dL 0.50-1.20 GLUCOSE RANDOM (BEAKER) (test code = 652) 198 mg/dL 70-110 H CALCIUM (BEAKER) (test code = 697) 9.2 mg/dL 8.5-10.5 EGFR (BEAKER) (test code = 1092) 76 mL/min/1.73 sq m ESTIMATED GFR IS NOT ACCURATE CREATININE CLEARANCE IN PREDICTING GLOMERULAR FILTRATION RATE. ESTIMATED GFR IS NOT APPLICABLE FOR DIALYSIS PATIENTS. HEPATIC FUNCTION [id number] 05:27:00* Test Item Value Reference Range Interpretation Comments TOTAL PROTEIN (BEAKER) (test code = 770) 6.9 gm/dL 6.0-8.5 ALBUMIN (BEAKER) (test code = 1145) 3.8 g/dL 3.5-5.0 BILIRUBIN TOTAL (BEAKER) (test code = 377) 0.2 mg/dL 0.1-1.3 BILIRUBIN DIRECT (BEAKER) (test code = 706) 0.1 mg/dL 0.0-0.5 ALKALINE PHOSPHATASE (BEAKER) (test code = 346) 67 U/L 30-115 AST (SGOT) (BEAKER) (test code = 353) 11 U/L 5-40 ALT (SGPT) (BEAKER) (test code = 347) 17 U/L 6-50 [id number] 05:21:00* Test Item Value Reference Range Interpretation Comments ETHANOL (BEAKER) (test code = 400) < mg/dL <=10 CBC W/PLT COUNT & AUTO [id number] 05:09:00* Test Item Value Reference Range Interpretation Comments WHITE BLOOD CELL COUNT (BEAKER) (test code = 775) 17.9 K/ L 4.0- 10.0 H RED BLOOD CELL COUNT (BEAKER) (test code = 761) 3.51 M/ L 4.20-5 .80 L HEMOGLOBIN (BEAKER) (test code = 410) 10.5 GM/DL 13.0-16.8 L HEMATOCRIT (BEAKER) (test code = 411) 32.6 % 40.0-50.0 L MEAN CORPUSCULAR VOLUME (BEAKER) (test code = 753) 92.7 fL 82. 0-98.0 MEAN CORPUSCULAR HEMOGLOBIN (BEAKER) (test code = 751) 30.0 pg 27.0-33.0 MEAN CORPUSCULAR HEMOGLOBIN CONC (BEAKER) (test code = 752) 32.4 GM/DL 32.0-36.0 RED CELL DISTRIBUTION WIDTH (BEAKER) (test code = 412) 13.8 % 12.0-15.0 PLATELET COUNT (BEAKER) (test code = 756) 222 K/CU MM 150-430 MEAN PLATELET VOLUME (BEAKER) (test code = 754) 9.8 fL 6.5-10 .5 NUCLEATED RED BLOOD CELLS (BEAKER) (test code = 413) 0 /100 WBC 0 -0 NEUTROPHILS RELATIVE PERCENT (BEAKER) (test code = 429) 83 % LYMPHOCYTES RELATIVE PERCENT (BEAKER) (test code = 430) 10 % MONOCYTES RELATIVE PERCENT (BEAKER) (test code = 431) 5 % EOSINOPHILS RELATIVE PERCENT (BEAKER) (test code = 432) 2 % BASOPHILS RELATIVE PERCENT (BEAKER) (test code = 437) 0 % NEUTROPHILS ABSOLUTE COUNT (BEAKER) (test code = 670) 14.80 K/ L 1.80-8.00 H LYMPHOCYTES ABSOLUTE COUNT (BEAKER) (test code = 414) 1.80 K/ L 1.48-4.50 MONOCYTES ABSOLUTE COUNT (BEAKER) (test code = 415) 0.90 K/ L 0. 00-1.30 EOSINOPHILS ABSOLUTE COUNT (BEAKER) (test code = 416) 0.30 K/ L 0.00-0.50 BASOPHILS ABSOLUTE COUNT (BEAKER) (test code = 417) 0.00 K/ L 0. 00-0.20
--- NOTE | 2020-05-18 17:48 | Emergency Department Note ---
History of Present Illnes History of Present Illness Chief Complaint: General Medicine Complaints History of Present Illness This is a 64 year old male [facility] for hypotension per ems. 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 Any updates have been documented here. Past Medical History Recent Fever: No Clinical Suspicion of Infectio: No New/Unexplained Change in Ment: No Past Medical History: Hypertension, CT, CVA, CAD, Hyperlipedemia Other Medical History: delirium encephalopathy legally blind dementia spinal stenosis Other Surgery: bypass graft g tube Social History Smoking Cessation: Never Smoker Counseling Performed: No Alcohol Use: None Any Illegal Drug Use: No TB Exposure/Symptoms: No Physically hurt or threatened: No Family History Family history of heart diseas: No Other Any Pre-Existing Lines (PICC,: No Review of Systems Review of Systems Constitutional: Reports no symptoms EENTM: Reports no symptoms Cardiovascular: Reports no symptoms Respiratory: Reports no symptoms Gastrointestinal: Reports no symptoms Genitourinary: Reports no symptoms Musculoskeletal: Reports no symptoms Integumentary: Reports no symptoms Neurological: Reports as per HPI Psychological: Reports no symptoms Endocrine: Reports no symptoms Hematological/Lymphatic: Reports no symptoms Physical Exam Related Data Allergies: Coded Allergies: Tetanus Vaccines and Toxoid (Verified Allergy, Unknown, 05/18/20) lorazepam (Verified Allergy, Unknown, 05/18/20) Triage Vital Signs Vital Signs Date Time Temp Pulse Resp B/P (MAP) Pulse Ox O2 Delivery O2 Flow Rate FiO2 05/18/20 14:05 98.4 78 18 64/42 98 Room Air Vital signs reviewed: Yes Physical Exam CONSTITUTIONAL Constitutional: Present well-developed, Present ill appearing; Absent distressed HENT HENT: Present normocephalic, Present atraumatic, Present mucosae dry EYES Eyes: Reports PERRL, Reports conjunctivae normal, Reports EOM normal NECK Neck: Present ROM normal, Present supple PULMONARY Pulmonary: Present effort normal, Present breath sounds normal; Absent respiratory distress CARDIOVASCULAR Cardiovascular: Present regular rhythm, Present heart sounds normal, Present normal rate, Present murmur (1/6) GASTROINTESTINAL Abdominal: Present soft, Present nontender, Present bowel sounds normal; Absent distension, Absent tender GENITOURINARY Genitourinary: Present exam deferred SKIN Skin: Present warm, Present dry, Present other (small Stage 1 decubitus on sacrum, no open ulceration) MUSCULOSKELETAL Musculoskeletal: Present ROM normal NEUROLOGICAL Neurological: Present alert, Present DTRs normal, Present no gross motor or s ensory deficits, Present other (oriented to name and knows he is in a hospital, positive asterixis); Absent cranial nerve deficit, Absent sensory deficit, Absent weakness PSYCHOLOGICAL Psychological: Present other (flat affect) Results Laboratory Result Diagram: 05/18/20 1440 05/18/20 1440 Laboratory Laboratory Tests Test 05/18/20 14:40 White Blood Count 7.50 x10e3/uL (4.8-10.8) Red Blood Count 3.07 x10e6/uL (4.3-5.7) Hemoglobin 9.4 g/dL (14.0-18.0) Hematocrit 27.9 % (38.2-49.6) Mean Corpuscular Volume 90.9 fL (81-99) Mean Corpuscular Hemoglobin 30.6 pg (28-32) Mean Corpuscular Hemoglobin Concent 33.7 g/dL (31-35) Red Cell Distribution Width 13.4 % (11.7-14.4) Platelet Count 117 x10e3/uL (140-360) Neutrophils (%) (Auto) 61.0 % (38.7-80.0) Lymphocytes (%) (Auto) 24.7 % (18.0-39.1) Monocytes (%) (Auto) 11.3 % (4.4-11.3) Eosinophils (%) (Auto) 2.1 % (0.0-6.0) Basophils (%) (Auto) 0.5 % (0.0-1.0) Neutrophils # (Auto) 4.6 (2.1-6.9) Lymphocytes # (Auto) 1.9 (1.0-3.2) Monocytes # (Auto) 0.9 (0.2-0.8) Eosinophils # (Auto) 0.2 (0.0-0.4) Basophils # (Auto) 0.0 (0.0-0.1) Absolute Immature Granulocyte (auto 0.03 x10e3/uL (0-0.1) Prothrombin Time 12.8 seconds (11.9-14.5) Prothromb Time International Ratio 0.92 Activated Partial Thromboplast Time 30.2 seconds (23.8-35.5) Urine Color Yellow (YELLOW) Urine Clarity Clear (CLEAR) Urine pH 6 (5 - 7) Urine Specific [place] 1.015 (1.010-1.025) Urine Protein Negative (NEGATIVE) Urine Glucose (UA) Negative (NEGATIVE) Urine Ketones Negative (NEGATIVE) Urine Blood Negative (NEGATIVE) Urine Nitrite Negative (NEGATIVE) Urine Bilirubin Negative (NEGATIVE) Urine Urobilinogen 0.2 mg/dL (0.2 - 1) Urine Leukocyte Esterase Negative (NEGATIVE) Urine RBC 6-10 /HPF (0-5) Urine WBC 6-10 /HPF (0-5) Urine Epithelial Cells Few /LPF (NONE) Urine Renal Epithelial Cells Few (NONE) Urine Amorphous Sediment Moderate (FEW) Urine Bacteria Moderate /HPF (NONE) Sodium Level 131 mmol/L (136-145) Potassium Level 5.3 mmol/L (3.5-5.1) Chloride Level 94 mmol/L (98-107) Carbon Dioxide Level 26 mmol/L (22-29) Anion Gap 16.3 mmol/L (8-16) Blood Urea Nitrogen 112 mg/dL (7-26) Creatinine 3.59 mg/dL (0.72-1.25) Estimat Glomerular Filtration Rate 17 ML/MIN (60-) BUN/Creatinine Ratio 31 (6-25) Glucose Level 123 mg/dL (74-118) Lactic Acid Level 0.8 mmol/L (0.5-2.0) Calcium Level 9.2 mg/dL (8.4-10.2) Magnesium Level 1.6 MG/DL (1.3-2.1) Total Bilirubin 0.4 mg/dL (0.2-1.2) Aspartate Amino Transf (AST/SGOT) 16 IU/L (5-34) Alanine Aminotransferase (ALT/SGPT) 18 IU/L (0-55) Alkaline Phosphatase 60 IU/L (40-150) Ammonia 31 UG/DL (31-123) Creatine Kinase 105 IU/L (30-200) Creatine Kinase MB 3.00 ng/mL (0-5.0) Troponin I 0.066 ng/mL (0-0.300) B-Type Natriuretic Peptide 84.5 pg/mL (0-100) Total Protein 6.6 g/dL (6.5-8.1) Albumin 3.3 g/dL (3.5-5.0) Globulin 3.3 g/dL (2.3-3.5) Albumin/Globulin Ratio 1.0 (0.8-2.0) Lab results reviewed: Yes Imaging Imaging results reviewed: Yes Procedures 12 Lead ECG Interpretation ECG Interpretation : ECG: ECG 1 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 Door 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: 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 by ED physician Date: May 18, 2020 Time: 14:19 Rhythm: sinus rhythm Rate: normal (76) Conduction: right bundle branch block ST segments normal: Yes T waves normal: Yes Q waves: III, aVF, V3 Clinical Impression: abnormal ECG Critical Care Time Total Critical Care Time (min): 35 Critical care time exclusive o: separately billable procedures Critcal care necessary due to: circulatory failure Critcal care time spent by me: discussion w consultants, discussion w primary provider, evaluation patient response to tx, examination of patient, order/perform tx or interventions, order/review laboratory studies, order/review radiographic studies, re-evaluation of patient condition Assessment & Plan Medical Decision Making MDM hypotension from [facility] in a patient with multiple medical problems/chronically ill - cbc, chem, ecg, cardiacs, ua, pancx's, lactic acid, cxr, NH3, CT brain - evaluate for sepsis, dehydration, renal failure, liver failure, hepatic encephalopathy, sepsis, uti, pneumonia, cerebral bleed Reassessment Reassessment pt with normal lactic and normal NH3 but ? new renal failure (pt has neber been here, no old labs to compare) - BP appears to respond to IVF's and after 1st L NS bolus, he put out about 350 cc urine. He also has UTI - I gave Cefepime and Vanco. I spoke with Dr Sterling (covering for S Sky) - he wants Dr Boo and Dr Tapia - i spoke with Ema and Dr Bateman (covering for Willie) Assessment & Plan Final Impression: (1) UTI (urinary tract infection) (2) Altered mental status (3) Dehydration (4) Renal failure (5) Hypotension Depart Disposition: ADMITTED Last Vital Signs Date Time Temp Pulse Resp B/P (MAP) Pulse Ox O2 Delivery O2 Flow Rate FiO2 05/18/20 17:27 98.4 85 24 104/59 97 Room Air Medications in the ED Pantoprazole Sodium 40 mg ONCE STAT IV Last administered on 05/18/20at 14:54; Admin Dose 40 MG; Start 05/18/20 at 14:15; Stop 05/18/20 at 14:22; Status DC Sodium Chloride 1,000 ml @ 0 mls/hr Q0M STAT IV Last administered on 05/18/20at 14:30; Admin Dose 999 MLS/HR; Start 05/18/20 at 14:15; Stop 05/18/20 at 14:18; Status DC Sodium Chloride 1,000 ml @ 0 mls/hr Q0M STAT IV Last administered on 05/18/20at 15:36; Admin Dose 999 MLS/HR; Start 05/18/20 at 15:00; Stop 05/18/20 at 15:02; Status DC Cefepime HCl 100 ml @ 200 mls/hr Q12HR@0300,1500 IV Last administered on 05/18/20at 15:37; Admin Dose 200 MLS/HR; Start 05/18/20 at 15:00; Stop 05/25/20 at 14:59 Vancomycin HCl 250 ml @ 167 mls/hr ONCE ONCE IV Last administered on 05/18/20at 15:37; Admin Dose 167 MLS/HR; Start 05/18/20 at 15:45; Stop 05/18/20 at 17:14; Status DC ROSY JACOBO MD May 18, 2020 17:48
[2020-05-18 17:56] LABS: AMPHETAMINES SCREEN,URINE NEGATIVE (NEGATIVE); BENZODIAZEPINES SCREEN,URINE NEGATIVE (NEGATIVE); PHENCYCLIDINE SCREEN,URINE NEGATIVE (NEGATIVE)
--- NOTE | 2020-05-18 17:59 | Diagnostic Imaging Report ---
Exam: Head CT without contrast History: Altered mental status, hypotension Comparison studies: None Technique: Axial images were obtained from the skull base to the vertex. Coronal and sagittal images reconstructed from the axial data. Dose modulation, iterative reconstruction, and/or weight based adjustment of the mA/kV was utilized to reduce the radiation dose to as low as reasonably achievable. Radiation dose: Total DLP: 832.18 mGy*cm. Estimated effective dose: DLP x 0.015 Intravenous contrast: None Findings: I was made aware of this exam at 5:45 PM on 05/18/2020 for interpretation. Exam somewhat limited by artifacts related to patient motion. Additionally artifacts from craniocervical fusion also limited evaluation. Scalp: No abnormalities. Bones: No fractures, blastic or lytic lesions. Brain sulci: Mildly prominent Ventricles: Mild compensatory dilatation. No hydrocephalus. Extra-axial spaces: No masses, no fluid collection. Parenchyma: Age-indeterminate bilateral occipital infarcts with cortical/subcortical hypodensity along the right middle and inferior occipital gyri and left middle occipital gyrus. Multiple chronic cortical and subcortical infarcts are present including that within the right superior medial parietal lobe, right cuneus gyrus, right precentral gyrus and right frontal ly radiata. Chronic-appearing left striatocapsular infarct and chronic lacunar infarct in the head of the right caudate nucleus are present. Ill-defined and confluent hypodensities in the supratentorial white matter are nonspecific but are most compatible with chronic microvascular ischemic changes. No gross mass or gross acute hemorrhage. Sellar/suprasellar region: No abnormalities. Craniocervical junction: Postsurgical changes of prior posterior cranial cervical fusion with rods fixated to the occipital calvarium which extend caudally into the cervical spine. The posterior C1 arch has been partially resected and there is relative posterior translation of the dens with narrowing of the upper cervical canal. Incidental findings: Atherosclerotic calcifications in the carotid siphons.. IMPRESSION: Exam limited by artifacts. In spite of artifacts: 1. Age-indeterminate bilateral nonhemorrhagic occipital infarcts. 2. Mild generalized parenchymal volume loss. 3. Moderate chronic microvascular ischemic changes with multiple cortical and subcortical infarcts of described. 4. Surgical changes of prior craniocervical fusion and posterior C1 arch resection presumably for upper cervical canal decompression with posteriorly translated dens. Signed by: Dr. Jacinto Chairez M.D. on 05/18/2020 5:56 PM
[2020-05-18] MEDS: SODIUM CHLORIDE 0.9% 1000ML 1,000 ML IV SCH (18:19)
[2020-05-18] MEDS ORDERED: ZIPRASIDONE 20 MG VIAL IM ONE (20:45)
[2020-05-18 22:04] LABS: CREATINE KINASE MB 2.8 ng/mL (0-5.0)
--- NOTE | 2020-05-18 23:37 | Consultation ---
DATE OF CONSULTATION: Pulmonary Critical Care Consultation CHIEF COMPLAINT: Delirium and elevated creatinine. HISTORY OF PRESENT ILLNESS: The patient is a 64-year-old man. He has a history of prior cerebral infarctions as well as some baseline dementia. He has hypertension as well as prior heart disease. He has some known dysphagia as a result of his cerebrovascular disease and has a feeding tube in place. He came from [facility] with worsening confusion and increased lethargy. He did not have any fevers. There was no report of nausea or vomiting. Some laboratory work was done at the nursing facility. He had a sodium of 130 and a potassium of 5.8 along with a BUN of 117 and creatinine of 3.1. PAST MEDICAL HISTORY: 1. Prior cerebrovascular accident. 2. Oropharyngeal dysphagia. 3. Dementia. 4. Prior myocardial infarction. 5. Encephalopathy. 6. Blindness. ALLERGIES: THE PATIENT IS ALLERGIC TO LORAZEPAM AND TETANUS VACCINES. FAMILY HISTORY: Noncontributory. REVIEW OF SYSTEMS: There is no history of fevers. He has increased confusion. He did not have any chest pain. There is no difficulty breathing. He had no nausea or vomiting. There is no abdominal pain. He had no leg swelling. There was some confusion. PHYSICAL EXAMINATION: VITAL SIGNS: The patient is afebrile. Blood pressure is 112/90 and the saturation is 100%. The pulse is 76 and the respiratory rate is 16. HEENT: Shows no facial swelling or erythema. The oropharynx normal. LYMPHATIC: Shows no submandibular, cervical, or supraclavicular adenopathy. CARDIAC: Reveals regular rate and rhythm. Normal S1, S2. LUNGS: Auscultation of lungs reveals clear breath sounds bilaterally. There is no wheezing. ABDOMEN: Soft and nontender. There is no rebound or guarding. EXTREMITIES: Shows no leg edema or calf tenderness. There is no cyanosis or clubbing. SKIN: Shows no rashes. NEUROLOGICAL: Shows no focal abnormalities. The patient does have some delirium. LABORATORY DATA: White blood cell count is 7.5, hemoglobin is 9.4. The platelet count is 117. DKK-cy-afhgpopvxc ratio is 112 to 3.6 and the potassium is 5.3. Sodium is 131. IMPRESSION: 1. Acute renal failure. 2. Hyperkalemia. 3. Metabolic encephalopathy. 4. Oropharyngeal dysphagia. 5. Moderate protein-calorie malnutrition. 6. Coronary artery disease. PLAN: 1. The patient will receive IV fluids judiciously. 2. Echocardiogram. 3. Renal ultrasound. 4. Hold diuretics. 5. Hold T[place] tablets and Fioricet. 6. Continue Plavix. 7. Speech therapy evaluation. 8. Nephrology consultation. MD RIO Spencer/PALMA /[id number]
[2020-05-19] VITALS (21 sets, daily range): BP systolic 95–163; BP diastolic 52–86
[2020-05-19 01:43] LABS: BILIRUBIN,URINE NEGATIVE (NEGATIVE); CLARITY,URINE CLEAR (CLEAR); COLOR,URINE YELLOW (YELLOW); KETONES,URINE NEGATIVE (NEGATIVE); LEUKOCYTE ESTERASE ,URINE NEGATIVE (NEGATIVE); NITRITE,URINE NEGATIVE (NEGATIVE); PROTEIN,URINE DIPSTICK NEGATIVE (NEGATIVE); URINE UROBILINOGEN 0.2 mg/dL (0.2 - 1)
[2020-05-19] MEDS: SODIUM CHLORIDE 0.9% 1000ML 1,000 ML IV SCH ×2 (01:45→09:16)
[2020-05-19 01:53] LABS: BACTERIA,URINE RARE /HPF; EPITHELIAL CELLS,URINE FEW /LPF; RBC,URINE 0-5 /HPF (0-5); WBC,URINE (MAN) 0-5 /HPF (0-5)
[2020-05-19] MEDS: CEFEPIME 2 GM/NS 0.9% 100 ML 100 ML IV SCH ×2 (03:12→16:37)
[2020-05-19 05:04] LABS: BASOPHILS % 0.6 % (0.0-1.0); EOSINOPHILS # (AUTO) 0.1 (0.0-0.4); EOSINOPHILS % 2.7 % (0.0-6.0); HEMATOCRIT 25.8 % (38.2-49.6); HEMOGLOBIN 8.4 g/dL (14.0-18.0); LYMPHOCYTES # (AUTO) 1.3 (1.0-3.2); LYMPHOCYTES % 25.1 % (18.0-39.1); MEAN CORPUSCULAR HEMOGLOBIN 31.2 pg (28-32); MEAN CORPUSCULAR HGB CONC 32.6 g/dL (31-35); MEAN CORPUSCULAR VOLUME 95.9 fL (81-99); MONOCYTES # (AUTO) 0.4 (0.2-0.8); MONOCYTES % 8.4 % (4.4-11.3); NEUTROPHILS # (AUTO) 3.3 (2.1-6.9); NEUTROPHILS % 62.8 % (38.7-80.0); PLATELET COUNT 79 x10e3/uL (140-360); RED BLOOD COUNT 2.69 x10e6/uL (4.3-5.7); RED CELL DISTRIBUTION WIDTH 13.4 % (11.7-14.4)
[2020-05-19 05:27] LABS: ALBUMIN 2.4 g/dL (3.5-5.0); ANION GAP 9.5 mmol/L (8-16); CREATININE, SERUM 1.45 mg/dL (0.72-1.25); POTASSIUM 3.5 mmol/L (3.5-5.1)
[2020-05-19 05:40] LABS: CALCIUM 6.6 mg/dL (8.4-10.2)
[2020-05-19 06:06] LABS: CREATINE KINASE MB 3.3 ng/mL (0-5.0)
--- NOTE | 2020-05-19 08:45 | Diagnostic Imaging Report ---
EXAMINATION: CHEST SINGLE (PORTABLE) INDICATION: Respiratory failure COMPARISON: Chest radiograph of 05/18/2020 FINDINGS: LINES/TUBES:EKG leads overlie the chest. LUNGS:The lungs are moderately inflated. No focal consolidation or pulmonary edema. PLEURA:No pleural effusion or pneumothorax. MEDIASTINUM:The cardiomediastinal silhouette appears normal in size and shape. Atherosclerotic calcifications of the thoracic aorta. BONES/SOFT TISSUES:No acute osseous injury. Sternotomy wires in place. Cervical spine hardware partially visualized. ABDOMEN:No free air under the diaphragm. IMPRESSION: No focal pneumonia or pulmonary edema. Signed by: Benoit Otero MD on 05/19/2020 8:41 AM
[2020-05-19] MEDS: ASPIRIN 81 MG CHEW TAB PO SCH (09:16)
[2020-05-19] MEDS: FAMOTIDINE 20 MG/2 ML VIAL IV SCH ×2 (09:16→16:38)
[2020-05-19] MEDS: CLOPIDOGREL BISULFATE 75 MG TAB PO SCH (09:16)
--- NOTE | 2020-05-19 09:17 | NUR ---
Pt is very confused. Keeps insisting that he "needs to go to work". Pt keeps trying to get out of bed. MD Dalton aware.
[2020-05-19] MEDS ORDERED: OLANZAPINE 5 MG TAB PO SCH (10:00)
--- NOTE | 2020-05-19 10:34 | Consultation ---
DATE OF CONSULTATION: 05/19/2020 REASON FOR CONSULTATION: Acute kidney injury. HISTORY OF PRESENT ILLNESS: A 64-year-old male with history of dementia and hypertension, was brought from [facility] with worsening confusion. The patient is a poor historian and history is taken from medical record. The patient had some routine labs done at [facility]. He was found to have hyperkalemia and acute kidney injury. Blood pressure was noted to be 78/52, heart rate of 77, and afebrile. The patient was transferred to [facility] because of hypotension and was admitted to the ICU, started on IV fluids, and Nephrology consultation was called. REVIEW OF SYSTEMS: Unable to obtain due to altered mental status. PAST MEDICAL HISTORY: 1. History of CVA. 2. Oropharyngeal dysphagia. 3. Dementia. 4. History of myocardial infarction. 5. Blindness. SOCIAL HISTORY: Denies tobacco or alcohol. [facility]. FAMILY HISTORY: Noncontributory. ALLERGIES: LORAZEPAM AND TETANUS. CURRENT MEDICATIONS: Aspirin, Plavix, Pepcid, normal saline at 125 an hour, and cefepime. Home medications reviewed, include Maxzide and lisinopril. LABORATORY DATA: White count 5.2, hemoglobin 8.4, was 9.4, platelets 79, was 117. Sodium 144, potassium 3.5, chloride 120, CO2 18, BUN 64, creatinine 1.45, down from 2.59. BUN was 112 on admission. Calcium 6.6. Albumin 2.4. Urinalysis negative. ASSESSMENT AND PLAN: 1. Acute kidney failure secondary to arterial underfilling due to volume depletion. We will also check stool for occult blood, as the patient is anemic. We will not do any further testing unless kidney function does not return to baseline. 2. Hyperkalemia, improved with medical therapy. 3. Volume deplete on exam. Continue with IV fluids. We will decrease rate. Continue to hold Maxzide. 4. Hyponatremia, improved with isotonic fluids. 5. Dementia. Appears to be at baseline? MD JENNIFER Sam/PALMA /[id number]
[2020-05-19] MEDS ORDERED: ZIPRASIDONE 20 MG VIAL IM NR (13:30)
--- NOTE | 2020-05-19 14:09 | NUR ---
WOUND CARE INITIAL CONSULT FOR 64 YO MALE ADMITTED TO [facility] WITH A PRESENT HX OF DEHYDRATION, HYPOTENSION, AND RENAL FAILURE. KERI 18 ON CONSERVATIVE PUP STATUS AND INTERVENTIONS SURFACE: REGULAR VISCO MATTRESS. LABS: WBC- 5.26 HGB- 8.4 ALBUMIN: 2.4 GLUCOSE-67 MICRO: URINE CULTURE- PENDING BLOOD CULTURE- PENDING MEDS: CEFEPIME HCL SKIN ASSESSMENT COMPLETE, PATIENT PRESENTS WITH RED BLANCHEABLE AREA TO SACRUM(BONY PROMINENCE); MEASURING 5 CM X 4 CM. AREA APPEARS TO BE A PREVIOUS HEALED WOUND; PT IS UNABLE TO RECALL IF WOUND WAS PRESENT TO SACRUM IN THE PAST. NO OTHER AREAS OF CONCERN NOTED AT THIS TIME. RECOMMENDATIONS: NURSING TO MONITOR RED BLANCHABLE AREA TO SACRUM (BONY PROMINENCE) AND TO COVER WITH ALLEVYN FOAM DAILY. NURSING TO CONTINUE TO MONITOR PATIENT AND KEEP SKIN CLEAN AND FREE FROM STOOL OR IRRITATING MOISTURE AND CONTINUE TO FOLLOW CONSERVATIVE PUP INTERVENTIONS DAILY. NURSING TO CONTINUE REPOSITION PT SIDE TO SIDE EVERY TWO HOURS AND NEEDED. NURSING TO APPLY REGULAR VISCO MATTRESS. NURSING TO CONTINUE TO OFFLOAD FEET AND HEELS AT ALL TIMES WITH PILLOW SUSPENSION WHEN IN BED. NURSING TO APPLY BILATERAL HEEL PROTECTORS DAILY. NURSING TO CONTINUE TO ASSIST WITH PT NUTRITIONAL SUPPLEMENTS TO ENSURE PROPER REQUIREMENTS FOR HEALING. NURSING TO RE- CONSULT WOUND CARE NEEDED. Addendum: 05/19/20 at 1412 by Sarah Mitchell RN Amended: Links added.
--- NOTE | 2020-05-19 14:10 | NUR ---
Pt becoming more restless and agitated. Continuously trying to take off leads/IV and get out of bed. Pt very unsteady on feet. MD Sterling at bedside. Pt recently received Geodon IM with no result. Pt placed in bilateral soft wrist restraints, new orders for medication placed by MD Sterling.
[2020-05-19] MEDS ORDERED: HALOPERIDOL 1 MG TAB PEG PRN (14:15)
[2020-05-19] MEDS ORDERED: SOD CHL 0.45%/POT CHL 20MEQ 1,000 ML IV ONE (15:30)
--- NOTE | 2020-05-19 16:00 | NUR ---
patient extremely agitated today. getting out of bed, yelling for "Maddie, where are you?" he consistently states, "i need to call my boss, i dont get fired." previous interventions are no longer as effective as before. spoke with dr. portia hammonds, okay to initiate precedex gtt at this time. will continue to monitor patient.
--- NOTE | 2020-05-19 16:15 | Progress Note ---
DATE: SUBJECTIVE: The patient received some IV fluids yesterday. He also required Geodon for agitation. He has some further agitation this morning. PHYSICAL EXAMINATION: VITAL SIGNS: The blood pressure is 99/65 and the saturation is 98% on room air. The pulse is 104. HEENT: Shows no facial swelling or erythema. The oropharynx is normal. LYMPHATIC: Shows no submandibular, cervical or supraclavicular adenopathy. CARDIAC: Reveals regular rate and rhythm with normal S1 and S2. LUNGS: Auscultation of lungs reveals rhonchorous breath sounds bilaterally. There is no wheezing. ABDOMEN: Soft and nontender. There is no rebound or guarding. EXTREMITIES: Shows no leg edema or calf tenderness. There is no cyanosis or clubbing. SKIN: Shows no rashes. LABORATORY DATA: BUN to creatinine ratio is 64 to 1.45. The potassium is 3.5, and the carbon dioxide is 18. White blood cell count is 5.2 and hemoglobin is 8.4. The platelet count is 79. IMPRESSION: 1. Acute renal failure. 2. Hyperkalemia. 3. Metabolic encephalopathy. 4. Thrombocytopenia. 5. Oropharyngeal dysphagia. 6. Moderate protein-calorie malnutrition. 7. Coronary artery disease. PLAN: 1. Switch normal saline to half-normal saline with potassium to avoid further hyperchloremia. 2. Continue to monitor creatinine. 3. Possible transfer to floor. 4. Restart Zyprexa or risperidone. 5. Continue current antibiotics. MD RIO Spencer/PALMA /[id number]
--- NOTE | 2020-05-19 16:30 | History and Physical ---
HISTORY OF PRESENT ILLNESS: The patient is a 64-year-old male, past medical history positive for dementia, coronary artery disease, hypertension, history of CVA, dysphagia as a consequence of cerebrovascular disease, came from the [facility] due to worsening confusion and increased lethargy. He was found to have hypotension. Fluids were given. The patient is extremely agitated right now, so we are going to start him on Haldol as needed. REVIEW OF SYSTEMS: CARDIOVASCULAR: No chest pain or palpitation. RESPIRATORY: No shortness of breath. No cough. GASTROINTESTINAL: No nausea. No vomiting. No diarrhea. GENITOURINARY: No frequency or dysuria. ALLERGIES: HE IS ALLERGIC TO LORAZEPAM AND TETANUS VACCINE. SOCIAL HISTORY: We are unable to get because he is very confused. PHYSICAL EXAMINATION: HEART: Showed regular rhythm. Normal S1 and S2 sound. LUNGS: Clear bilaterally. ABDOMEN: Soft. He had a PEG tube in place. EXTREMITIES: Show no edema. VITAL SIGNS: Blood pressure 118/73, temperature 98.5, heart rate 85 per minute, respiratory rate 16 per minute, and oxygen saturation 93%. LABORATORY DATA: PT 12.8, INR 0.82, and PTT 30.2. On the CBC; white blood count 5.26, hemoglobin 8.4, hematocrit 25.8, and platelet count 79,000. On the BMP; sodium 144, potassium 3.5, chloride 120, CO2 is 18, BUN is 54, creatinine 1.45, and glucose 57. Lactic acid 0.8. Calcium is 6.6. Total bilirubin 0.3, AST 10, ALT 12, and alkaline phosphatase 42. Ammonia 31. Creatine kinase respectively. Troponin negative 0.043, 0.054. Brain natriuretic peptide 84.5, which is normal. Total protein 4.9, albumin 2.4, and globulin 2.5. Toxicology negative. Serology, COVID test is pending. Chest x-ray showed no evidence of pneumonia. CT of the head was done also and showed age indeterminate bilateral nonhemorrhagic occipital infarct, mild generalized parenchymal volume loss, moderate chronic microvascular ischemic changes with multiple cortical and subcortical infarct described, surgical change to a prior craniocervical fusion and posterior C1 arch resection presumably for upper cervical . MICROBIOLOGY: Blood culture and urine culture are still pending. FINAL IMPRESSION: 1. Metabolic encephalopathy. 2. Acute renal failure. 3. 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 4. History of coronary artery disease. 5. Dementia with agitation. 6. Anemia of chronic disease. PLAN OF TREATMENT: We are going to continue with the fluids. Continue cefepime 2 g IV twice a day empirically until we get the report of blood and urine culture. Continue normal saline 75 mL an hour, aspirin 81 mg daily, Plavix 75 mg daily, Pepcid 20 mg twice a day, and Haldol 2 mg q.6 hours as needed for agitation. He is taking Zyprexa 2.5 mg daily. He is taking Zofran 4 mg IV q.6 hours as needed for nausea and vomiting, Protonix 40 mg IV has been given one time, Risperdal 0.5 mg twice a day, was given one time. So we are going to get a psych consult also with Dr. Peace because of the agitation. The patient has been seen by sequins winder also and critical care. Going to repeat another CMP tomorrow. Discussed with the nurse at the bedside. Time spent today 45 minutes. MD DEBBIE Holcomb/PALMA /[id number]
[2020-05-19] MEDS: RISPERIDONE 0.5 MG TAB PO SCH (16:38)
[2020-05-19] MEDS: DEXMEDETOMIDINE 200MCG/NS 50ML 50 ML IV PRN ×2 (16:58→18:33)
--- NOTE | 2020-05-19 18:51 | Diagnostic Imaging Report ---
EXAM: Renal Ultrasound INDICATION: Elevated creatinine COMPARISON: None TECHNIQUE: Transverse and longitudinal images of the kidneys and bladder were obtained. FINDINGS: Right Kidney: Size: 10 x 4.7 x 5.3 cm Echogenicity: Normal Parenchymal thickness: Normal Collecting system: No hydronephrosis Stones: None Cyst/Mass: None Left Kidney: Size: 10.5 x 5.6 x 5.3 cm Echogenicity: Normal Parenchymal thickness: Normal Collecting system: No hydronephrosis Stones: None Cyst/Mass: None Bladder: Decompressed and not well assessed. The urinary jets were not observed. Prevoid volume was 161.52 cc. IMPRESSION: Normal renal ultrasound exam. Signed by: Jessica Mistry MD on 05/19/2020 6:47 PM
[2020-05-20] VITALS (24 sets, daily range): BP systolic 110–148; BP diastolic 57–97
[2020-05-20] MEDS: CEFEPIME 2 GM/NS 0.9% 100 ML 100 ML IV SCH ×2 (02:37→18:05)
[2020-05-20] MEDS: DEXMEDETOMIDINE 200MCG/NS 50ML 50 ML IV PRN (03:28)
[2020-05-20 05:43] LABS: BASOPHILS % 0.7 % (0.0-1.0); EOSINOPHILS # (AUTO) 0.2 (0.0-0.4); EOSINOPHILS % 4.3 % (0.0-6.0); HEMATOCRIT 32.1 % (38.2-49.6); HEMOGLOBIN 10.8 g/dL (14.0-18.0); LYMPHOCYTES # (AUTO) 1.3 (1.0-3.2); LYMPHOCYTES % 23.9 % (18.0-39.1); MEAN CORPUSCULAR HEMOGLOBIN 32.1 pg (28-32); MEAN CORPUSCULAR HGB CONC 33.6 g/dL (31-35); MEAN CORPUSCULAR VOLUME 95.5 fL (81-99); MONOCYTES # (AUTO) 0.4 (0.2-0.8); MONOCYTES % 7.6 % (4.4-11.3); NEUTROPHILS # (AUTO) 3.5 (2.1-6.9); PLATELET COUNT 89 x10e3/uL (140-360); RED BLOOD COUNT 3.36 x10e6/uL (4.3-5.7); RED CELL DISTRIBUTION WIDTH 13.3 % (11.7-14.4)
[2020-05-20 06:04] LABS: ALBUMIN 3.3 g/dL (3.5-5.0); ALBUMIN/GLOBULIN RATIO 0.9 (0.8-2.0); ANION GAP 16.2 mmol/L (8-16); CREATININE, SERUM 1.3 mg/dL (0.72-1.25); POTASSIUM 5.2 mmol/L (3.5-5.1)
[2020-05-20 06:28] LABS: CALCIUM 9.6 mg/dL (8.4-10.2)
[2020-05-20 06:41] LABS: FERRITIN 517.29 ng/mL (21.81-274.66)
[2020-05-20] MEDS: CLOPIDOGREL BISULFATE 75 MG TAB PO SCH (08:51)
[2020-05-20] MEDS: ASPIRIN 81 MG CHEW TAB PO SCH (08:51)
[2020-05-20] MEDS: FAMOTIDINE 20 MG/2 ML VIAL IV SCH ×2 (08:51→18:05)
[2020-05-20] MEDS: RISPERIDONE 0.5 MG TAB PO SCH ×2 (08:52→18:05)
[2020-05-20] MEDS ORDERED: RISPERIDONE 0.5 MG TAB PO PRN (09:30)
[2020-05-20] MEDS: SODIUM CHLORIDE 0.45% 1,000 ML IV SCH ×2 (10:10→22:23)
--- NOTE | 2020-05-20 11:50 | Consultation ---
DATE OF CONSULTATION: Psychiatric Initial Consult REASON FOR CONSULTATION: For treatment and evaluation of the patient's confusion and agitation. HISTORY OF PRESENTING ILLNESS: The patient is a 64-year-old male, who was admitted at [facility] ICU because of altered mental status and confusion. Psychiatric consult is called to evaluate the patient's confusion and agitation during his inpatient stay. Upon evaluation today, the patient is found to be lying on his bed in two-point restraint. He is drowsy, but arousable. The patient knows that he is in hospital, but he does not remember the events that led to his current hospitalization. He is feeling anxious and depressed. He denies any hallucination and/or any suicidal ideations. He denies any side effects from his current medications. He is not able to provide any further details about the symptoms because of his confusion and drowsiness. As per the nursing staff, the patient has been confused and agitated. He has been pulling on his IV lines. He has been having visual hallucinations on and off and talking to people that are not in the room. PAST PSYCHIATRIC HISTORY: As per the medical record, the patient has history of confusion and agitation in the past as well. Other details are not currently available. As per the medical record, he was already on psychotropic medications. FAMILY HISTORY: Unknown. SOCIAL HISTORY: The patient claims that he lives alone, but he is coming from [facility]. CURRENT LABORATORIES: WBC 5.52, hemoglobin 10.8, hematocrit 32.1, and platelets 89. Sodium 141, potassium 5.2, chloride 110, carbon dioxide 20, BUN 54, and creatinine 1.3. AST 16, ALT 18, and alkaline phosphatase 59. CURRENT MEDICATIONS: 1. Risperdal 0.5 mg b.i.d. 2. Aspirin. 3. Plavix. 4. P.r.n. p.o. Haldol. MENTAL STATUS EXAMINATION: The patient is an elderly male, who is currently lying on his bed in two-point restraint. He is drowsy, but arousable. He is oriented to situation. His mood is depressed and anxious with blunted affect. He denies any suicidal ideation at present. He refused to participate for a complete mental status at this time. He appears to have some memory problems and confusion. DIAGNOSES: 1. Unspecified psychosis. 2. Rule out unspecified dementia with behavioral disturbances. PLAN OF CARE: 1. Continue Risperdal 0.5 mg p.o. b.i.d. 2. Add Risperdal 0.5 mg p.o. t.i.d. p.r.n. for agitation. 3. Discontinue p.o. Haldol p.r.n. 4. Add Haldol 2 mg IM q.6 p.r.n. for agitation. 5. Monitor for agitation. 6. We will continue to follow this patient during his inpatient stay. Thank you very much for this consult. MD GAMA Schulz/PALMA /[id number]
--- NOTE | 2020-05-20 15:01 | Progress Note ---
DATE: SUBJECTIVE: The patient is still agitated. He required some additional Geodon yesterday. He was seen by Psychiatry. PHYSICAL EXAMINATION: VITAL SIGNS: Blood pressure is 134/66, saturation is 99%, his pulse is 48 and respiratory rate is 16. HEENT: Shows no facial swelling or erythema. LYMPHATIC: Shows no submandibular, cervical, supraclavicular adenopathy. CARDIAC: Reveals regular rate and rhythm with normal S1, S2. LUNGS: Auscultation of lungs reveals clear breath sounds bilaterally. There is no wheezing. ABDOMEN: Soft and nontender. There is no rebound or guarding. EXTREMITIES: Shows no leg edema or calf tenderness. There is no cyanosis or clubbing. SKIN: Shows no rashes. NEUROLOGICAL: Shows no focal abnormalities. LABORATORY DATA: White blood cell count is 5.5 and hemoglobin is 10.8, the platelet count is 89. BUN to creatinine ratio is 54 to 1.3. His carbon dioxide is 20 and other electrolytes within normal limits. IMPRESSION: 1. Acute kidney injury and acute renal failure. 2. Metabolic encephalopathy. 3. Thrombocytopenia. 4. Moderate protein-calorie malnutrition. PLAN: 1. Continue to give IV fluids as needed. 2. Continue to monitor creatinine. 3. Psychiatry to evaluate the patient. Gigi Dalton MD [facility]/MODL /[id number]
--- NOTE | 2020-05-20 16:06 | Diagnostic Imaging Report ---
EXAM: MODIFIED BA. SWALLOW DATE: 05/20/2020 12:30 PM INDICATION: Dehydration, hyponatremia, renal failure, CVA COMPARISON: None Fluoroscopy Time: 2.8 min. Reference Air Kerma (Ka, r): 14.7 mGy. FINDINGS: Modified barium swallow was performed by the speech pathologist. A radiologist was not present for the examination. Provided images demonstrate delayed oral transit time and flash laryngeal penetration with thin liquids. No tha subglottic tracheal aspiration is appreciated. IMPRESSION: As above. See speech pathology notes for further details. Signed by: Dr. Isaias Ko MD on 05/20/2020 4:03 PM
--- NOTE | 2020-05-20 16:40 | NUR ---
Nutrition Screen Note RD Recommendation for Physician: -Continue current diet as ordered and texture modification per speech therapy -If PO intake is <50% of meals, offer Ensure Enlive Plan of Care: RD following, monitoring for tolerance and adequacy Nutrition reason for involvement: Nutrition Risk Trigger Primary Diagnose(s): dehydration, hypotension, renal failure PMH: dementia, coronary artery disease, hypertension, history of CVA, dysphagia as a consequence of cerebrovascular disease, Ht: 68 in Wt:140 lb BMI: 21.3 kg/m2 IBW:[address] Assessment: (05/20/20) Chart reviewed. Labs and meds reviewed. Pt is a 64 year old male admitted with dehydration, hypotension, and renal failure. Pt has a PEG tube in place, but speech therapy evaluated pt and recommended a chopped/nectar thick liquid diet. Unable to obtain nutrition history from pt at this time due to pt having dementia and is agitated per MD note. There are no previous weights in chart. Will continue to monitor Current Diet: regular diet/chopped and nectar thick liquids Malnutrition Evaluation (05/20/20) Unable to assess. Will re-evaluate at follow-up as appropriate. Diet Education Needs Assessment: Diet education not indicated. Nutrition Care Level: low Signed: Gale Norwood, RD, LD
[2020-05-20] MEDS: HALOPERIDOL LACTATE 5 MG/ML VIAL IM PRN (18:34)
--- NOTE | 2020-05-20 20:05 | NUR ---
M/S STATUS PATIENT TO TRANSFER TO 284. THIS RN CALLED AND GAVE REPORT TO [facility] ON M/S2 AT 192. PATIENT TRANSFERRED TO 284 AT 1999. ALL QUESTIONS ANSWERED. NO PERSONAL BELONGINGS PRESENT. TELEMETRY BOX ADDED. VIRTUAL RN MADE AWARE.
[2020-05-21] VITALS (7 sets, daily range): BP systolic 100–132; BP diastolic 54–73
[2020-05-21] MEDS: HALOPERIDOL LACTATE 5 MG/ML VIAL IM PRN ×2 (00:43→07:38)
--- NOTE | 2020-05-21 00:46 | NUR ---
Pt extremely agitated and is constantly attempting to get out of bed. Pt has made several verbal threats to sitter. Haldol given as ordered. Will continue to monitor pt.
[2020-05-21] MEDS: CEFEPIME 2 GM/NS 0.9% 100 ML 100 ML IV SCH ×2 (03:00→16:51)
[2020-05-21 06:52] LABS: BASOPHILS % 0.6 % (0.0-1.0); EOSINOPHILS # (AUTO) 0.2 (0.0-0.4); EOSINOPHILS % 3.3 % (0.0-6.0); HEMOGLOBIN 10.7 g/dL (14.0-18.0); LYMPHOCYTES # (AUTO) 1.9 (1.0-3.2); LYMPHOCYTES % 27.1 % (18.0-39.1); MEAN CORPUSCULAR HGB CONC 33.4 g/dL (31-35); MEAN CORPUSCULAR VOLUME 95.8 fL (81-99); MONOCYTES # (AUTO) 0.6 (0.2-0.8); MONOCYTES % 8.7 % (4.4-11.3); NEUTROPHILS # (AUTO) 4.1 (2.1-6.9); PLATELET COUNT 93 x10e3/uL (140-360); RED BLOOD COUNT 3.34 x10e6/uL (4.3-5.7); RED CELL DISTRIBUTION WIDTH 13.4 % (11.7-14.4)
[2020-05-21 07:14] LABS: ANION GAP 17.9 mmol/L (8-16); BLOOD UREA NITROGEN 35 mg/dL (7-26); BUN/CREATININE RATIO 29 (6-25); CALCIUM 9.7 mg/dL (8.4-10.2); CARBON DIOXIDE 21 mmol/L (22-29); CHLORIDE 107 mmol/L (98-107); CREATININE, SERUM 1.19 mg/dL (0.72-1.25); EST GLOMERULAR FILTRATION RATE > 60 ML/MIN (60-); GLUCOSE 93 mg/dL (74-118); POTASSIUM 5.9 mmol/L (3.5-5.1); SODIUM 140 mmol/L (136-145)
[2020-05-21 07:16] LABS: MAGNESIUM 1.1 MG/DL (1.3-2.1)
[2020-05-21] MEDS: ASPIRIN 81 MG CHEW TAB PO SCH (07:50)
[2020-05-21] MEDS: CLOPIDOGREL BISULFATE 75 MG TAB PO SCH (07:50)
[2020-05-21] MEDS: RISPERIDONE 0.5 MG TAB PO SCH ×2 (07:50→16:51)
--- NOTE | 2020-05-21 08:45 | NUR ---
Notified Dr. Acosta of abnormal labs and received new orders for Kayexalate 15g, lasix 40mg IV x1 once, mag sulfate 3g x1, regular insulin 10units IV x1, and amp of d50 x1, 1 amp calcium chloride x1, repeat K level at 1600.
[2020-05-21] MEDS ORDERED: CALCIUM CHLORIDE 10% 1.36 MEQ/ML 10ML SYR IV STA (08:47)
[2020-05-21] MEDS ORDERED: DEXTROSE 50% SYRINGE 50 ML IV STA (08:47)
[2020-05-21] MEDS ORDERED: SOD POLYSTYRENE SULFONATE SUSP 15 GM/60 ML BTL PO NR (09:00)
[2020-05-21] MEDS ORDERED: FUROSEMIDE INJ 10 MG/ML 4 ML VIAL IV NR (09:00)
[2020-05-21] MEDS ORDERED: INSULIN REGULAR, HUMAN 100 UNIT/1 ML 3ML VIAL IV NR (09:00)
[2020-05-21] MEDS ORDERED: MAGNESIUM SULFATE 2GM/50ML 100 ML IV ONE (09:00)
[2020-05-21] MEDS: FAMOTIDINE 20 MG/2 ML VIAL IV SCH ×2 (09:28→16:51)
[2020-05-21] MEDS ORDERED: SODIUM CHLORIDE 0.9% 1000ML 1,000 ML ONE (10:35)
[2020-05-21] MEDS ORDERED: CALCIUM GLUCONATE 10% INJ 4.65 MEQ in SODIUM CHLORIDE 0.9% 50ML 50 ML IV ONE (11:00)
--- NOTE | 2020-05-21 11:00 | NUR ---
Dr. Swanson notified of patient change in condition.
--- NOTE | 2020-05-21 11:30 | NUR ---
Pt had episode of near syncope and hypotension at 1018. He became very lethargic and difficult to arouse. Pt was helped from the chair into bed. Bp 77/55 P-115 R-18, O2 sat-98% blood sugar 202 Rapid response was called. 1 Liter of NS bolus ordered, new IV started on right forearm. After bolus complete BP 119/68 P-97, pt arouse easily with verbal stimuli.
[2020-05-21] MEDS: SODIUM CHLORIDE 0.45% 1,000 ML IV SCH (12:44)
--- NOTE | 2020-05-21 16:36 | Progress Note ---
DATE: SUBJECTIVE: The patient had some near syncope today. A rapid response was called. He received some additional fluids. The patient is back to baseline. He still has some confusion. PHYSICAL EXAMINATION: VITAL SIGNS: The patient is afebrile. The blood pressure is 100/73 and the pulse is 95. Saturation is 97%. HEENT: No facial swelling or erythema. LYMPHATIC: No submandibular, cervical, or supraclavicular adenopathy. CARDIAC: Regular rate and rhythm with normal S1, S2. LUNGS: Auscultation of lungs reveals rhonchorous breath sounds bilaterally. There is no wheezing. ABDOMEN: Soft, nontender. There is no rebound or guarding. EXTREMITIES: No leg edema or calf tenderness. LABORATORY DATA: White blood cell count is 6.8 and hemoglobin is 10.7. The platelet count is 93. BUN to creatinine ratio is improved to 35/1.19. Potassium is 5.9. The magnesium is 1.1. IMPRESSION: 1. Acute renal failure. 2. Metabolic encephalopathy. 3. Hypomagnesemia. 4. Hyperkalemia. 5. Thrombocytopenia. PLAN: 1. The patient received IV fluids. 2. Replace magnesium. 3. Continue to monitor creatinine and electrolytes. Gigi Dalton MD [facility]/MODL /[id number]
--- NOTE | 2020-05-21 19:35 | Diagnostic Imaging Report ---
EXAMINATION: CHEST SINGLE (PORTABLE) INDICATION: Respiratory failure: COMPARISON: Chest x-ray on 05/19/2020. FINDINGS: TUBES and LINES: Tubular structure projecting over the right lateral chest wall which may represent a chest tube. LUNGS: Normal lung volumes. Lungs are clear. No consolidations. PLEURA: No pleural effusion or pneumothorax. HEART AND MEDIASTINUM: The cardiomediastinal silhouette is unremarkable. BONES AND SOFT TISSUES: No acute osseous lesion. Median sternotomy wires are unchanged. Partially imaged spinal hardware, unchanged. Soft tissues are unremarkable. UPPER ABDOMEN: No free air under the diaphragm. IMPRESSION: 1. Tubular structure projecting over the right lateral chest wall which may represent a chest tube. 2. No focal consolidation, pleural effusion or pneumothorax. No acute thoracic radiographic abnormality. Signed by: Jessica Mistry MD on 05/21/2020 7:32 PM
[2020-05-22] VITALS (7 sets, daily range): BP systolic 80–144; BP diastolic 67–85
[2020-05-22] MEDS: SODIUM CHLORIDE 0.45% 1,000 ML IV SCH ×2 (04:41→15:44)
[2020-05-22] MEDS: CEFEPIME 2 GM/NS 0.9% 100 ML 100 ML IV SCH ×2 (04:41→15:43)
[2020-05-22 06:59] LABS: ANION GAP 14.4 mmol/L (8-16); BLOOD UREA NITROGEN 27 mg/dL (7-26); BUN/CREATININE RATIO 24 (6-25); CALCIUM 9.3 mg/dL (8.4-10.2); CARBON DIOXIDE 21 mmol/L (22-29); CHLORIDE 108 mmol/L (98-107); CREATININE, SERUM 1.11 mg/dL (0.72-1.25); EST GLOMERULAR FILTRATION RATE > 60 ML/MIN (60-); GLUCOSE 108 mg/dL (74-118); MAGNESIUM 1.6 MG/DL (1.3-2.1); POTASSIUM 4.4 mmol/L (3.5-5.1); SODIUM 139 mmol/L (136-145)
[2020-05-22] MEDS: FAMOTIDINE 20 MG/2 ML VIAL IV SCH ×2 (08:19→16:25)
[2020-05-22] MEDS: ASPIRIN 81 MG CHEW TAB PO SCH (08:19)
[2020-05-22] MEDS: CLOPIDOGREL BISULFATE 75 MG TAB PO SCH (08:19)
[2020-05-22] MEDS: RISPERIDONE 0.5 MG TAB PO SCH ×2 (08:20→16:25)
[2020-05-22] MEDS ORDERED: MAGNESIUM SULFATE 2GM/50ML 50 ML IV ONE (15:30)
[2020-05-22] MEDS: HALOPERIDOL LACTATE 5 MG/ML VIAL IM PRN (18:14)
[2020-05-23] VITALS (8 sets, daily range): BP systolic 93–144; BP diastolic 8–87
[2020-05-23] MEDS: CEFEPIME 2 GM/NS 0.9% 100 ML 100 ML IV SCH ×2 (03:03→14:12)
[2020-05-23] MEDS: SODIUM CHLORIDE 0.45% 1,000 ML IV SCH ×2 (03:08→18:29)
[2020-05-23 06:34] LABS: ANION GAP 13.9 mmol/L (8-16); BLOOD UREA NITROGEN 16 mg/dL (7-26); BUN/CREATININE RATIO 19 (6-25); CALCIUM 9.2 mg/dL (8.4-10.2); CARBON DIOXIDE 23 mmol/L (22-29); CHLORIDE 108 mmol/L (98-107); CREATININE, SERUM 0.83 mg/dL (0.72-1.25); EST GLOMERULAR FILTRATION RATE > 60 ML/MIN (60-); GLUCOSE 89 mg/dL (74-118); MAGNESIUM 1.7 MG/DL (1.3-2.1); POTASSIUM 3.9 mmol/L (3.5-5.1); SODIUM 141 mmol/L (136-145)
--- NOTE | 2020-05-23 07:00 | NUR ---
PATIENT IS ALERT TO SELF AND PLACE AND IS IN STABLE CONDITION WITH NO S/S OF RESPIRATORY DISTRESS. NO PAIN VOICED. IV FLUIDS INFUSING.. TELEMETRY APPLIED. PEG TUBE NOTED TO MID ABD- CLAMPED. SITTER PRESENT IN ROOM. CALL LIGHT IS WITHIN REACH, PATIENT INSTRUCTED TO CALL FOR ASSISTANCE NEEDED.
[2020-05-23] MEDS: RISPERIDONE 0.5 MG TAB PO SCH (08:09)
[2020-05-23] MEDS: ASPIRIN 81 MG CHEW TAB PO SCH (08:09)
[2020-05-23] MEDS: FAMOTIDINE 20 MG/2 ML VIAL IV SCH ×2 (08:09→16:48)
[2020-05-23] MEDS: CLOPIDOGREL BISULFATE 75 MG TAB PO SCH (08:09)
[2020-05-23] MEDS ORDERED: OLANZAPINE 5 MG TAB PO PRN (10:00)
--- NOTE | 2020-05-23 10:07 | Progress Note ---
DATE: Psychiatric Progress Note SUBJECTIVE: The patient is evaluated and events noted. Upon evaluation today, the patient is found to be lying on his bed on the second floor unit. He is alert, awake, oriented to self. He is talking to himself. He appears to be having visual hallucinations. He is easily agitated and irritable. MENTAL STATUS EXAMINATION: The patient is an elderly male who is currently lying on his bed. He is alert, awake, oriented to self. He is confused and intermittently agitated. He is not able to participate for a complete mental status examination at this time. DIAGNOSES: 1. Unspecified psychosis. 2. Rule out unspecified dementia. PLAN OF CARE: 1. Discontinue Risperdal. 2. Add Zyprexa 2.5 mg p.o. b.i.d. 3. Add Zyprexa 2.5 mg p.o. q.6 hours p.r.n. for agitation. 4. Continue Haldol 2 mg IM q.6 p.r.n. for agitation. Omero Peace MD [facility]/MODL /[id number]
[2020-05-23] MEDS: OLANZAPINE 5 MG TAB PO SCH ×2 (10:56→21:17)
--- NOTE | 2020-05-23 14:55 | NUR ---
FAXED CLINICALS TO [facility] FOR PT TO RETURN TO FACILITY. COMPLETED RTF AND PUT WITH PACKET.
--- NOTE | 2020-05-23 15:56 | NUR ---
RADIOLOGY TRANSPORTER INFORMED RN THAT PATIENT HAD 9 BEATS OF V- TACH. RN INFORMED ATTENDING, DR. MEANS OF THIS INFORMATION BUT ALSO INFORMED HIM THAT THE PATIENT IS NOW RUNNING SR. PATIENT IS IN STABLE CONDITION WITH NO S/S OF RESPIRATORY DISTRESS. NO PAIN VOICED. IV FLUIDS INFUSING. CALL LIGHT IS WITHIN REACH, PATIENT INSTRUCTED TO CALL FOR ASSISTANCE.
--- NOTE | 2020-05-23 15:57 | NUR ---
NO ORDERS RECEIVED FROM DR. MEANS REGARDING PREVIOUS NOTE ON PATIENT'S TELE RHYTHM.
--- NOTE | 2020-05-23 19:04 | NUR ---
PATIENT IS IN STABLE CONDITION WITH NO S/S OF RESPIRATORY DISTRESS. NO PAIN VOICED. TELEMETRY APPLIED. PEG TUBE NOTED- CLAMPED. SITTER PRESENT IN ROOM. CALL LIGHT IS WITHIN REACH, PATIENT INSTRUCTED TO CALL FOR ASSISTANCE. BEDSIDE SHIFT REPORT GIVEN TO ONCOMING NURSE.
[2020-05-23] MEDS: HALOPERIDOL LACTATE 5 MG/ML VIAL IM PRN (22:58)
--- NOTE | 2020-05-23 22:59 | NUR ---
Pt agitated and is continuously trying to get out of bed. Vitals stable. Breathing unlabored. Haldol given as ordered. Sitter at bedside. Will continue to monitor.
[2020-05-24] VITALS (8 sets, daily range): BP systolic 101–144; BP diastolic 76–81
[2020-05-24] MEDS: CEFEPIME 2 GM/NS 0.9% 100 ML 100 ML IV SCH ×2 (04:24→14:00)
[2020-05-24] MEDS: SODIUM CHLORIDE 0.45% 1,000 ML IV SCH ×2 (06:00→21:20)
--- NOTE | 2020-05-24 07:05 | NUR ---
PATIENT IS IN STABLE CONDITION WITH NO S/S OF RESPIRATORY DISTRESS. NO PAIN VOICED. TELEMETRY APPLIED. SITTER PRESENT IN ROOM. CALL LIGHT IS WITHIN REACH, PATIENT INSTRUCTED TO CALL FOR ASSISTANCE.
[2020-05-24] MEDS: CLOPIDOGREL BISULFATE 75 MG TAB PO SCH (08:00)
[2020-05-24] MEDS: FAMOTIDINE 20 MG/2 ML VIAL IV SCH ×2 (08:00→16:06)
[2020-05-24] MEDS: ASPIRIN 81 MG CHEW TAB PO SCH (08:00)
--- NOTE | 2020-05-24 09:09 | NUR ---
CALL TO LUCIO BROWN TO VERIFY IF PT OK TO TRANSFER TO [facility]. STATES [facility] SAYS THE PRIMARY INSURANCE IS [facility] AND WILL NEED TO OBTAIN AUTH.
[2020-05-24] MEDS: OLANZAPINE 5 MG TAB PO SCH (09:46)
[2020-05-24] MEDS: HALOPERIDOL LACTATE 5 MG/ML VIAL IM PRN (13:02)
--- NOTE | 2020-05-24 14:48 | NUR ---
ST NOTE: Pt given haldol, unable to participate in Speech Therapy follow up, will check pt 05/25/20. Handoff to YORDY Gooden
--- NOTE | 2020-05-24 17:08 | NUR ---
PATIENT REQUESTED MEDICATION FOR HEADACHE. SITTER STATES PATIENT IS RUBBING/TOUCHING HIS HEAD. ASKED FOR MEDICATION ORDER FROM DR. MEANS - AWAITING CALLBACK.
[2020-05-24] MEDS: ACETAMINOPHEN 325 MG TAB PO PRN (18:12)
--- NOTE | 2020-05-24 18:59 | NUR ---
PATIENT IS IN STABLE CONDITION WITH NO S/S OF RESPIRATORY DISTRESS. NO PAIN VOICED. PEG TUBE NOTED- CLAMPED. SITTER PRESENT IN ROOM. CALL LIGHT IS WITHIN REACH, PATIENT INSTRUCTED TO CALL FOR ASSISTANCE. BEDSIDE SHIFT REPORT GIVEN TO ONCOMING NURSE.
[2020-05-24] MEDS ORDERED: OLANZAPINE 5 MG TAB PO SCH ×2 (21:00→22:00)
[2020-05-25] VITALS: BP 134/84
[2020-05-25] MEDS: CEFEPIME 2 GM/NS 0.9% 100 ML 100 ML IV SCH ×2 (03:51→15:25)
[2020-05-25 03:53] VITALS: BP 149/87
--- NOTE | 2020-05-25 07:00 | NUR ---
received bedside report. pt is alert, calm and resting in bed, no s/s of distress. call light within reach, bed safety in place and sitter is at the bedside
[2020-05-25 08:21] VITALS: BP 124/77
[2020-05-25] MEDS: SODIUM CHLORIDE 0.45% 1,000 ML IV SCH (08:45)
[2020-05-25 08:46] VITALS: BP 124/77
--- NOTE | 2020-05-25 08:58 | Progress Note ---
DATE: 05/24/2020 Psychiatric Progress Note SUBJECTIVE: The patient is evaluated and events noted. The patient is in the room. He is alert, awake, and oriented to situation. He is kind of bizarre and sitter is in the room who reported that patient was agitated last night. He denies any suicidal or homicidal ideation. Denies any hallucination. Thought process is concrete. No delusions are elicited. Insight and judgment are fair. Memory appears to be grossly intact. ASSESSMENT: 1. Unspecified psychosis. 2. Unspecified dementia with behavior disturbances. PLAN: 1. Increase Zyprexa. 2. Continue p.r.n. Zyprexa and Haldol. 3. Monitor for agitation. 4. Supportive therapy. Dictated by Suze Martinez PA-C Omero Peace MD QTV/MODL /[id number]
[2020-05-25] MEDS ORDERED: OLANZAPINE 5 MG TAB PO SCH (09:00)
[2020-05-25] MEDS: FAMOTIDINE 20 MG/2 ML VIAL IV SCH (09:01)
[2020-05-25] MEDS: ACETAMINOPHEN 325 MG TAB PO PRN (09:01)
[2020-05-25] MEDS: ASPIRIN 81 MG CHEW TAB PO SCH (09:01)
[2020-05-25] MEDS: CLOPIDOGREL BISULFATE 75 MG TAB PO SCH (09:01)
--- NOTE | 2020-05-25 12:52 | NUR ---
[facility] FACILITY DISCHARGE INFORMATION PATIENT HAS BEEN ACCEPTED TO: NAME:[facility] ADDRESS: [id number] ACCEPTING REVENUE ACCOUNTANT: TORIBIO MENDEZ MD: CLARY ROOM: 110 NURSE CALL REPORT TO: [phone] IMM SIGNED AND OBTAINED (if applicable): YES THE FOLLOWING DOCUMENTS MUST ACCOMPANY PATIENT FOR TRANSFER: COPIED CHART:PACKET
[2020-05-25 12:59] VITALS: BP 125/79
--- NOTE | 2020-05-25 14:01 | NUR ---
patient got approved for room at [facility]. paged Dr. Sterling for discharge order. waiting for call back
--- NOTE | 2020-05-25 16:10 | NUR ---
called and left message for family member (Vangie Donovan) about the patient being transferred back to [facility].
== END 2020-05-25 16:08 | DRG 682 ==
LOC: ER 14:28 → ERHOLD 16:34 → ICU 17:56 → MED/SURG3 05-20 20:04
DX: N17.9 Acute kidney failure, unspecified (principal); G93.41 Metabolic encephalopathy; E44.0 Moderate protein-calorie malnutrition; E87.1 Hypo-osmolality and hyponatremia; N39.0 Urinary tract infection, site not specified; F03.91 Unspecified dementia, unspecified severity, with behavioral disturbance; E87.5 Hyperkalemia; Z68.21 Body mass index [BMI] 21.0-21.9, adult; E86.0 Dehydration; I10 Essential (primary) hypertension; I25.2 Old myocardial infarction; I25.10 Atherosclerotic heart disease of native coronary artery without angina pectoris; E78.5 Hyperlipidemia, unspecified; H54.8 Legal blindness, as defined in USA; D63.8 Anemia in other chronic diseases classified elsewhere; I69.991 Dysphagia following unspecified cerebrovascular disease; R13.12 Dysphagia, oropharyngeal phase; Z88.7 Allergy status to serum and vaccine; Z88.8 Allergy status to other drugs, medicaments and biological substances; D69.6 Thrombocytopenia, unspecified; E83.42 Hypomagnesemia; R55 Syncope and collapse; Z11.59 Encounter for screening for other viral diseases
CPT/HCPCS: 36415; 70450; 71045; 74230; 76770; 80048; 80053; 80164; 80307; 81001; 82140; 82550; 82553; 82728; 82948; 83540; 83605; 83735; 83880; 84132; 84466; 84484; 85025; 85610; 85730; 86850; 86900; 87040; 87086; 93005; 93306; 99284; J0610; J1630; J1817; J1940; J3370; J3475; J3486; J7030; J7799; U0002